=== PATIENT | male | born 1955 | race Caucasian/White ===

== ENCOUNTER 2023-03-23 09:29 | Outpatient (OUT) | payer OTHER, SELFPAY ==
[2023-03-23 10:41] LABS: Prostate Specific Antigen Dx 2.04 ng/mL (<=4.00)
== END 2023-03-23 09:30 | disposition home or self-care (01) ==
LOC: LAB 09:40
PROVIDERS: PCP Family Medicine; Visit Provider Urology
DX: C61 Malignant neoplasm of prostate (principal); N40.1 Benign prostatic hyperplasia with lower urinary tract symptoms; Z80.42 Family history of malignant neoplasm of prostate
CPT/HCPCS: 36415; 84153

== ENCOUNTER 2023-09-27 12:26 | Emergency (ER) | payer MEDICARE, OTHER, SELFPAY ==
[2023-09-27] VITALS (9 sets, daily range): BP systolic 141; BP diastolic 84; PULSE 62–68; TEMP 36.6; O2SAT 94–100; BMI 24.4
--- OUTSIDE RECORDS SUMMARY | 2023-09-27 12:48 | XMS_ITS | CCD ---
Author Organization [facility] Care Team Providers Care 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 Name Role Phone MONK HERBERT Jerod WEBB Unavailable Unavailable WONDERLY, YOBANY Unavailable Unavailable WONDERLY, YOBANY Unavailable Unavailable WONDERLY, YOBANY Primary Care Physician ETTA ., DR AUSTIN Attending Unavailable WONDERLY, DR LIBERTAD Roberson Primary Care Unavailable SALAZAR ., DR AUSTIN Admitting Unavailable SALAZAR ., DR AUSTIN Consulting Unavailable WONDERLY, DR LIBERTAD Roberson Primary Care Unavailable SALAZAR ., DR AUSTIN Admitting Unavailable SALAZAR ., DR AUSTIN Consulting Unavailable SALAZAR ., DR AUSTIN Attending Unavailable Ovidio SALAZAR Attending Unavailable Ovidio SALAZAR Attending Unavailable Ovidio SALAZAR Attending Unavailable Libertad Domingo MD Primary Care Provider LICO, LOS C Attending Unavailable NAT BRUMFIELDZABETH A Referring Unavailable WONDERLY, LIBERTAD B Primary Care Unavailable LICO, LOS C Attending Unavailable LICO, LOS C Referring Unavailable WONDERLY, LIBERTAD B Primary Care Unavailable LICO, LOS C Attending Unavailable LICO, LOS C Referring Unavailable WONDERLY, LIBERTAD B Primary Care Unavailable LICO, LOS C Attending Unavailable LICO, LOS C Referring Unavailable WONDERLY, LIBERTAD B Primary Care Unavailable LICO, LOS C Referring Unavailable WONDERLY, LIBERTAD B Primary Care Unavailable LICO, LOS C Attending Unavailable LICO, LOS C Referring Unavailable WONDERLY, LIBERTAD B Primary Care Unavailable LICO, LOS C Attending Unavailable LICO, LOS C Referring Unavailable WONDERLY, LIBERTAD B Primary Care Unavailable JEANNETTE, SOFIE A Referring Unavailable WONDERLY, LIBERTAD B Primary Care Unavailable JEANNETTE, SOFIE A Referring Unavailable WONDERLY, LIBERTAD B Primary Care Unavailable Libertad Domingo MD Primary Care Unavailable Lico, Los C Admitting Unavailable Lico, Los C Attending Unavailable NAT BRUMFIELDZABETH A Attending Unavailable Allergies Allergy Classification Reported Allergen(s) Allergy Type Date of Onset Reaction(s) Facility (9 sources) alfuzosin; Translations: [alfuzosin] Drug Allergy 8 Anxiety (finding), Dyspnea (finding) [facility] (1 source) alfuzosin Drug Allergy [facility] (1 source) No Known Medication Allergies; Translations: [No Known Medication Allergies] Propensity to adverse reactions (disorder) [facility] Medications Current Medications Medication Drug Class(es) Dates Sig (Normalized) Sig (Original) ascorbic acid 250 mg oral tablet (2 sources) Vitamin C take 250 mg by mouth once daily ascorbic acid (VITAMIN C ORAL) Take by mouth. GUMMIES 250 MG DAILY 0 Active aspirin 81 mg oral tablet (6 sources) Platelet Aggregation Inhibitor, Nonsteroidal Anti-inflammatory Drug Start: 08-04-2019 take 1 mg by mouth once daily aspirin 81 mg oral tablet mg tab(s), Oral, Daily, Refills(s) 0 Start Date: 08/04/19 Status: Ordered take 1 tablet by mouth in the mo rning aspirin 81 mg Take 1 tablet (81 mg total) by mouth in the morning. 0 Active bisoprolol fumarate 2.5 mg / hydroCHLOROthiazide 6.25 mg oral tablet (6 sources) Thiazide Diuretic, beta-Adrenergic Mehdi Start: 11-14-2018 take 1 tablet by mouth once daily bisoprolol-hydrochlorothiazide 2.5 mg-6.25 mg Tab tab(s), Oral, Daily, Refill(s) 0 Start Date: 11/14/18 Status: Ordered take 1 tablet by [place] th once in the morning bisoprolol-hydroCHLOROthiazide (ZIAC) 5- 6.25 mg per tablet Take 1 tablet by mouth in the morning. 0 Active take 1 tablet by [place] th once daily bisoprolol-hydroCHLOROthiazide (ZIAC) 5- 6.25 mg per tablet Take 1 tablet by mouth daily. 0 Active Chondroitin Sulfates / Glucosamine (2 sources) Start: 02-05-2020 Cosamin DS Sta rt Date: 02/05/20 Status: Ordered finasteride 5 mg oral tablet (6 sources) 5-alpha Reductase Inhibitor Start: 01-06-2021 take 1 tablet by mouth once daily finasteride 5 mg Tab 5 mg = 1 tab(s), Oral, Daily, # 90 tab(s), Refills(s) 3, Pharmacy: [facility] [id number], 175, cm, 07/13/22 9:14:00 EDT, Height/Length Dosing, 78, kg, 07/13/22 9:14:00 EDT, Weight Dosing Start Date: 03/08/23 Status: Ordered Glucosamine (2 sources) take 2 capsules by mouth once daily glucosamine sulfate (GLUCOSAMINE ORAL) Take by mouth. 2 CAPSULES PER DAY 0 Active Multi Vitamin+ (2 sources) Start: 08-04-2019 Multi Vitamin+ Refill(s) 0 Start Date: 08/04/19 Status: Ordered jsittmhv-uzpm-LF-ca lcium &mins (THERAGRAN-M) 9 mg iron-400 mcg tablet (4 sources) fcyrzfrp-mlie-FZ -c alcium &mins (THERAGRAN-M) 9 mg iron-400 mcg tablet Take 1 tablet by mouth in the morning. 0 Active ohhaoerd-yhuh-CH -calcium &mins (THERAGRAN-M) 9 mg iron-400 mcg tablet Take 1 tablet by mouth daily. 0 Active Omeprazole (6 sources) Proton Pump Inhibitor Start: 11-14-2018 omeprazo le Oral, Daily, Refills(s) 0 Start Date: 11/14/18 Status: Ordered take 1 capsule by mo uth three times weekly omeprazole (PriLOSEC) 10 mg capsule Take 1 capsule (10 mg total) by mouth. 3 TIMES A WEEK 0 Active Saw Flomot (2 sources) Start: 11-14-2018 Saw Flomot R efills(s) 0 Start Date: 11/14/18 Status: Ordered SAW PALMETTO ORAL (2 sources) take 1350 mg by mout h in the morning SAW PALMETTO ORAL Take 1,350 mg by mouth in the morning. 0 Active Completed/Discontinued Medications Medication Drug Class(es) Dates Sig (Normalized) Sig (Original) saw palmetto xtr/zinc picolin (SAW PALMETTO EXTRACT, W-ZINC, ORAL) (3 sources) End: 04-29-2023 take 1 tablet by mouth once daily saw palmetto xtr/zinc picolin (SAW PALMETTO EXTRACT, W-ZINC, ORAL) Take 1 tablet by mouth daily. 0 04/29/2023 Discontinued take 1 tablet by mouth once oriana y yvonne palmetto xtr/zinc picolin (SAW PALMETTO EXTRACT, W-ZINC, ORAL) Take 1 tablet by mouth daily. 0 Active Problems Active Problems Problem Classification Problem Date Documented Da te Episodic/Chronic Aortic; peripheral; and visceral artery aneurysms (4 sources) Aortic root dilatation; Translations: [Thoracic aortic ectasia] Onset: 04-29-2023 04-29-2023 Chronic Cancer of prostate (9 sources) Primary malignant neoplasm of prostate; Translations: [Malignant neoplasm of prostate] Onset: 07-06-2017 Chronic Cardiac and circulatory congenital anomalies (1 source) Patent foramen ovale; Translations: [Patent foramen ovale] Onset: 04-16-2023 Chronic Cardiac dysrhythmias (2 sources) Atrial fibrillation 09-25-2018 Chronic Coronary atherosclerosis and other heart disease (4 sources) Coronary arteriosclerosis; Translations: [Atherosclerotic heart disease of [place] coronary artery with other forms of angina pectoris] Onset: 04-29-2023 04-29-2023 Chronic Essential hypertension (3 sources) Hypertensive disorder; Translations: [Essential (primary) hypertension] Onset: 04-16-2023 09-25-2018 Chronic Genitourinary symptoms and ill-defined conditions (4 sources) Delay when starting to pass urine; Translations: [Microscopic hematuria] 11-14-2018 Episodic Heart valve disorders (6 sources) Aortic incompetence, non-rheumatic ; Translations: [Nonrheumatic aortic (valve) insufficiency] Onset: 04-16-2023 04-29-2023 Chronic Hyperplasia of prostate (5 sources) Benign prostatic hypertrophy with outflow obstruction; Translations: [Benign prostatic hyperplasia with lower urinary tract symptoms] Onset: 07-07-2021 Chronic Other diseases of kidney and ureters (1 source) Urinary tract obstruction; Translations: [Other obstructive and reflux uropathy] Onset: 07-07-2021 Episodic Other lower respiratory disease (3 sources) Dyspnea; Translations: [Shortness of breath] Onset: 04-29-2023 04-29-2023 Episodic Other lower respiratory disease (2 sources) Shortness of breath; Translations: [Shortness of breath] Onset: 04-29-2023 Episodic Residual codes; unclassified (2 sources) Family history of cancer; Translations: [Family history of malignant neoplasm of prostate] Onset: 07-07-2021 Episodic Residual codes; unclassified (2 sources) Family history of prostate cancer 09-25-2018 Episodic Unclassified (1 source) New Patient / [id number]() Onset: 07-06-2017 Unclassified (1 source) Prostate Cancer / 309() Onset: 07-06-2017 Unclassified (1 source) New Patient Onset: 04-29-2023 Past or Other Problems Problem Classification Problem Date Documented Da te Episodic/Chronic Appendicitis and other appendiceal conditions (4 sources) Acute perforated appendicitis; Translations: [Acute appendicitis with perforation and localized peritonitis, without abscess] Onset: 06-15-2018 06-15-2018 Episodic Other screening for suspected conditions (not mental disorders or infectious disease) (12 sources) Raised prostate specific antigen; Translations: [Elevated prostate specific antigen [PSA]] Onset: 04-20-2019 Episodic Residual codes; unclassified (1 source) Family history of malignant neoplasm of prostate; Translations: [FAMILY HX MALIG NEOPLASM PROSTATE] Onset: 01-05-2022 Episodic Unclassified (1 source) New Patient; Translations: [New Patient] Onset: 07-06-2017 Unclassified (4 sources) Onset: 04-20-2019 04-20-2019 Results Test Name Value Interpretation Reference Range Facility CT CTA CHESTon 05-11-[address] CTA CHEST History: Nonrheumatic aortic valve insufficiency; Shortness of breath Aortic aneurysm procedure: Multidetector CT thoracic Angiogram performed with IV contrast without complication, including 3 -D Maximum intensity projection reconstructions constructed under concurrent physician supervision on a independent workstation to optimize vascular assessment. Automated exposure control was utilized. Findings: 3D reformatted images confirm the source data findings. Origins of great vessels off the aortic arch are patent Mid ascending thoracic aortic aneurysm 42.8 mm. Aortic root maximum caliber at the coronary sinus level 42 mm No dissection stenosis or occlusion Mediastinum and harriett show no acute findings. lungs demonstrate no acute findings Impression: Mid ascending thoracic aortic aneurysm 42.8 mm No acute findings. All CT scans at this facility use dose modulation, iterative reconstruction, and/or weight based dosing when appropriate to reduce radiation dose to as low as reasonably achievable. Finalized by Carlos Osuna MD on 05/11/2023 7:55 PM Normal [facility] CREATININEon 05-10-2023 Creatinine [Mass/Vol] 0.90 mg/dL Normal 0.70-1.20 [facility] Comment on above: Result Comment: METH OD TRACEABLE TO IDMS STANDARD Performed By: #### C RT #### [facility] ([id number]) [address] [place] [id number] eGFR (CKD-EPI) NON-RACE DEPENDENT >90 Normal >59 [facility] Comment on above: Result Comment: Reported eGFR is based on the CKD-EPI 2020 equation that does not use a race coefficient. Performed By: #### C RT #### [facility] ([id number]) [address] [place] [id number] Coding Summaryon 05-04-2023 [facility] Summary [facility] FwvxzcgfDKi8aLq+PGhlYW Q+VS7MNYBlM87dpHXocN5j J5XAWFgZRwpsDFGPXIyVLz QxecBhTK2ksVFfTBWi IC8+YJ2mVRJxWwaonCSky3 H9hES4L37gtn2wRNfvpVC9 RVAuKcZqxqaly6kiqKm2ZF cuNmluOyBt YPUvjU89XFZ2rO52Jt36gW OohVRfs8ytrUl6AhArNYNr SIC6zRdhTTjnf3FsOIPnW9 2ooHRvv0M3 UQHjjWbczRKfKjAxyWT5oY 2xWFoxopxjz5edyonfJpl2 fd67qQLzj1B5uIQ1D3Qmfh P2BJCdnIAd KkrhtATKyA2mqnpdw0notj pwZjZqQURpYSx3TSg3KANn cVhsLmUcQW52OHK8OMMfer YpD3AdLHGq tXzjEfU2n4T2Vj4NI3LLXf epX7YTIKXNEFhdcKJ+PC90 bm76I9ImIibpSvg8CBLiIU V1jIW0rB0u TZSyHOxkj5D4aCV6K7Bqzu Fluw9oy9duBXRvVEikH96p uRYrv4L2IWRlsKW5QMGpoV uvOpChcW08 Oyc+OTOevYdep9RiUpxrx8 cmb2pplTy0AvwxDYKagsKc pAuxAHR2q5TaSa1fVFAxbY L8lBS5xV4b RbAgAnR6DOqpC338HgPpfB BaKcmhS08gJ2XbwLW+PHRy Rtu4DXMbxMohZJ6cI0WfKG RpbmctbGVm tDhaIV8jGPFmsylvXXMdsP 4aTORlJ1s2DcDkVpU1VGwb Z9SpLFXnypkeFh50lI0dQm ZfTrE6LNaj P9WndtQ2NSRoeDXpCJdoEM P5E43vz8A5OKBmRSPqFNA9 nLG4aB9ttQauzhhndDVheT sgdmVydGlj JBfwGPomS273NENsjNwwAi NvZGluZyBEYXRlOiAgMDMv MTIvMjAyNDwvdGQ+PHRkIH L1eTciLYEx cKBwDAoiOz5wrWctnDrsBY 2mMZHneyfrYHUkdW2lSKZw xOZciLupCK4qCSBkyoznf7 36InEvJYS9 SNZeyKIyZ4FjoM4qEfIjZN MmJUDdN1ZyaIKzJJepZ845 SYulFxV5RWPxooRzZ3QyAT FsaWduOiB0 r7D2Oj9Pb0UuejqrE7IqwV GmXySqUjzdNVb2Z4NhXgkt dHI+DX69UXXmKX50MMi6UA C0nUbrQJgm VYEzH6KntS9eHxCjRCJtNN RkOyc+PHRhYmxlIHdpZHRo CCjfFFVnPmHcxDviXQ2xTa 9yZGVyLWNv tCnpxHIeQpFia6yfJMLdDE muJP1jyLhvB2TvkES5HGBe b1s7Uh74G54nB0WwjCV+PG YlcND9iRS6 sO6pCdLuXuC5VLrrZ977Di ThyQXvEvvkr1zos9muqOs2 CuU4EROllzHstWxfXCE6b3 AbAk33F44v IHdpZHRoPSIxNSUiIHZhbG olwu4tlH5dMi8+PGNvbCB3 mXD5qT4rJiXkNgD6TXbtN6 49InRvcCIv Odzqq8trk4ilaZl0IuThXT WrfkEvoOtgXWX5m4VcMm20 I0PgtVeap4IkRdq0ye34jB Buu5V2tLE9 G9HcJHBgqfzljNIopEfpCK 4qLKTiktbvLRWotT5hDQBs A7j4GcIaYpW0SEjjY7Wgeo Z6OSIcoQYy TAVslQBJyO4zovvue1blhu vmYeHcXXYxOTm9PKe6IVZk wRohKcHzZFP9PtE1PPJ4fO CnzX0epChr alvieP1xCvi+WES9nTBhtO IBHE2kBkwlzXF+PHRkIHN0 kRbwSEcoDUKmvB3vYGYgK1 g8UcBsFxX9 TStsI1FylbB7MMNjyTLlSG NhqHNOsJ2thganf7mvhczf RbDzUWBzSFx0NHk5WKVghR duOiBsZWZ0 HrK8PRJ2gQQwhF2mpWddgd qxbC0wRzb+QmlydGggRGF0 GWz6M6GjGpv8HDQlwKlgIF 0ncGFkZGlu Rv8erFwdpLgnAT9kKXNxnt cvz753OiKxh6uzXMDucUOw JZsxRJL8V48th6N4NRNsBD YqMLB3wVS0 aV6brEkognfboTGhsDgaxs IdbUdbXJunLGdwU016PJBo rOuiTaCxSBz7W9RgXrp9TQ SnbFhwVT3a uSYyIEmlGl2okSqwlQoaWG 2fXSYyhdzoh822HePve2pm UMUciOFiRJocBWX5Q34qg6 N3STQaAHCf GTA8iCV8fW3bsXmthwfwqJ VmdDsgdmVydGljYWwtYWxp U199HGLqfUmbFcPukIp5G7 FxLaj6SMJq xFxiJL0uhNDxDDjiKl2evR dheExtUW8pQNLxzithl334 IoCde6vzKWFqgOFbYSsrLW B5G47co0V3 FFCsJIZpUWU4pIZ6wV3iyM lnbjogbGVmdDsgdmVydGlj UFcyJIruP235PWYybVwgLv BhdGllbnQg KLcnTQv8T5UyCxftrVA+PC 88ICDjRZ53uRCpxWVpz1rg xCe4PyNzOPGcPCS9hXvxLI rlr1BwAFOo F37lxITbh0J4GSZlmXpbfL NwFhGdjXQ2vL8zGCnoisuy g8qalhniDoctc3rlye89pP 69N87wXSlk ZHRoPSIzMCUiIHZhbGlnbj 7ajL0eEu0+BNPrnBI0yCF8 nP2uDOPdOtQ7ALarM097Dw RvcCIvPjxj n9aaw3yofNr5SlG8SEPmve FtmAfxEYU6m9CtYe06F41s IHdpZHRoPSIyMCUiIHZhbG ztvc8luW4k Ii8+HPCksHV7zEP7dV2kYp TgBgG3WSatV062QwSfoVGz ZuzzV64vE1ZwmBM+PHRyPj t6EJHslSyh FN7lhRLrWAgxBl0xPXK0Vn LfVkVeSIopX7AoCWFzmlia racxnDM2EMVpPPXpwZ65Ji 9udDogMTBw yQWItG3mgznlj9bzsjyjJi KxMKGpKNc4VAs7LWNwiPzt WlLfIFH0KuS8RLZ5hGWouN 1hbGlnbjog kG7jX6JlKJWsolfrHg34lU 1gGuYwDwZ5FTvhRnx+WklN IONCCCEXKJJNOV7COVrEWK xFRTwvdGQ+ SPFpHJH1kYjoBQuhRUDshS 2zZKCcT2x2OlNlEkK9ZBtl N1MeYNRvwcqtGk97pI9eZq AoAoE5VNxy R2UtafQ0ADBpwBXpFCjkRD C3I66kg3D7PMWoOBItDSI2 rQR5aI0owIafhnabmZXtfW sgdmVydGlj XQmuWVbkK650IGYivRgmZk T3VvTwZiC4OJA3D1CeDaw0 LXYjxMjaPN4qiJTiTXkzSx 1yaWdodDog QB3wJEIdgblcKGCncY8pPZ PlaGIzpTymEZ2xDCEuupao p919ZtPpVOG4XKZjhMGyF5 QbwO7mVnYo RTCqUYYgR3BleANwNQozZ2 94BCdjCwR7KWUugnAiT1Nq CGIltJwxIbA7u8E6Ra21CO BZZWFyczwv dGQ+CNLfZRT9qZjlILmdCZ VnxZ1uAXMlK0i9SiXyFqL2 OBlxF1JdCITokuufPv66aZ 4kPzMdCjI7 EQpxJ9JjttC8NFSooEXvZQ vcMAX6S63gr6G5YDVlJKAm SHX2dRZ6dO3koQlvdhakhK VmdDsgdmVy oTttTWrcEMzlT131KINivW ayBr3NVHD8O7JeZzv7XYHz eUupFF0rrNKlVYecRa2aiE fuvLtjDI4l YDVodqphSATqbW5pHBUveH VgbLwkZB1kDAZzkfjni535 PxAgSAW7OJBozNZsD4LgoS 9yOiAjMDAw EUVqY9EaiJSyZIioE040VM mpVlJ3MGPhukZeP4DpOOCv zRnkZbB3y0E4Oz0NLUwbgJ Q+LF18ov73 M0MxIndeGnd7WIEhFCC1pO Y2xD7rVDMhQIfzp3T5eUE8 Z8QbmiRdnh4ux7zjRDFjYO vnB80jnCWi t0D8NBPxdYJ7YQGfqSvcIh IesD85Euw+XURzjGfts4Lm Zdzce7jkk7luaSj6MaUfJS IgdmFsaWdu VRE6e4VpZo60H87yDIyzUW TmOIMiDIEuJZDzaBmqul5z lH5lXi6+AJAcyRM9hMZ8lZ 8hIyEbNtV1 BKiyK003AePqkYViPcljs7 fdf2bhjAe2MpXzFDVfgbMp mNtdBOM5o3UtIt53E3FcrI jqr1AqLaq6 bz02iJObf1U5kYC9Z8UrNR DnnvjqjNYqaSeqAA1iYRAc eodzXWWoxG5qXNKvE3c2Dc RoTfU0NXtu G4NsbcZ9HRGmkEHdBMSjtF MNjV5wdxsbe3zjylnmRyPd AJFqIOp2LBz2EHHlsNckQp FlFBF1ZdA7 TUC7cWSosT4xxPzfxxkcaK 9wOyc+IOl2r2zlhOMcYT3p zJC4YE68PG65pDRda9X2vX R9L7GaSVJy wxtsaaxvxAF7FGExWQTrpD 08Ig8yuLqbMw2aHGMqENT0 VBRmtYGhT2QjqH9iAcSvCI BvBTYdH8Ux fLQcBOseK528WZvkFnM0TV AsgeHxN0RkAJAmdXdtNwQ3 s0L4Sw8JQY94LJ99AC03fS Rem5D2vGR0 Y5ImXOFvpptfqlojiME3XC SlZQJynW35Db6yzJzuTz9u IAVoCBI8MJYojGWyB6UwpW 9yOiAjMDAw MNCyF8JkxLXlSYslH750UQ xxCyL1XTTmxpUvK2FlSYCs cPavOcY6q5Z3Yd3DHt57EW 46AL28eFXy b3G7hIG8D4ZcSDQfgtaypl tyvGI7UKJqRJDudS88Ph7e gNhmMt5lOQRtJRR9BNGkoL WcA2ZwoU2v ArVeZDHiLSOlZ0BkrDVkDT cwV696KDaqVlN9UYUwcpKu F6GmHOSsuVsjLdR4j4G6Cp 9WTStookc1 O1BqBqtlcQJ+XQ30PEIiWS 02zCYnrWKny3xctMj7FmRf ORKiGNW0nYqeBRhpd2PjPN AiP82qqJFz c2U (more content not included)... [facility] Ambulatory Visit Summaryon 0 04-02-2023 Ambulatory Visit Summary BEREKET FU :1955 Visit Date:04/02/2023 Ambulatory Visit Instructions Your Diagnosis Prostate cancer Enlarged prostate with urinary obstruction Family history of prostate cancer in father Your Care Team Attending Physician - Ovidio SALAZAR MD Primary Care Physician - LIBERTAD DOMINGO This Is Your Medications List finasteride (finasteride 5 mg Tab) Contact prescribing physician if questions or concerns aspirin (aspirin 81 mg oral tablet) bisoprolol-hydrochloro thiazide (bisoprolol-hydrochlor othiazide 2.5 mg-6.25 mg Tab) chondroitin-glucosamin e (Cosamin DS) multivitamin (Multi Vitamin+) omeprazole saw palmetto (Saw Flomot) Procedures Performed Transrectal biopsy of prostate using ultrasound (US) guidance (05/10/2018), Appendectomy (2018), Cystoscopy and transurethral biopsy of prostate (05/04/2017), Colonoscopy, Shoulder, Vasectomy. Discharge Vitals Heart Rate (Peripheral) 74 Respiratory Rate 16 Blood Pressure 136/84 Height 175 cm Height 69 in Weight 78 kg Weight 171.6 lb BMI 25.47 What to do next You Need to Schedule the Following Appointments Follow Up with ETTA WILLAMS, JACKSON Rodriguez When: In 8 months Comments: w/ PSA Where: [facility] [address], [place] [address] [phone] Medications What How Much When Instructions Unchanged finasteride (finasteride 5 mg Tab) 1 Tablets By Mouth Every day Unchanged aspirin (aspirin 81 mg oral tablet) By Mouth Every day Contact prescribing physician if questions or concerns Unchanged bisoprolol-hydrochloro thiazide (bisoprolol-hydrochlor othiazide 2.5 mg-6.25 mg Tab) By Mouth Every day Contact prescribing physician if questions or concerns Unchanged chondroitin-glucosamin e (Cosamin DS) Contact prescribing physician if questions or concerns Unchanged multivitamin (Multi Vitamin+) Contact prescribing physician if questions or concerns Unchanged omeprazole By Mouth Every day Contact prescribing physician if questions or concerns Unchanged saw palmetto (Saw Flomot) Contact prescribing physician if questions or concerns Allergies alfuzosin (Anxiety, SOB - Shortness of breath) Problems Ongoing - Any problem that you are currently receiving treatment for. Atrial fibrillation Elevated PSA Enlarged prostate with urinary obstruction Family history of prostate cancer in father Hematuria, microscopic Hesitancy Hypertension Prostate cancer Patient Survey You may receive a survey via text or e-mail asking about your office visit. Please share your experience with us by completing your survey. We appreciate your feedback and thank you for choosing us for your care. Education Materials Prostate Cancer Screening Prostate cancer screening is testing that is done to check for the presence of prostate cancer in men. The prostate gland is a walnut-sized gland that is located below the bladder and in front of the rectum in males. The function of the prostate is to add fluid to semen during ejaculation. Prostate cancer is one of the most common types of cancer in men. Who should have prostate cancer screening? Screening recommendations vary based on age and other risk factors, as well as between the professional organizations who make the recommendations. In general, screening is recommended if: ? You are age 50 to 70 and have an average risk for prostate cancer. You should talk with your health care provider about your need for screening and how often screening should be done. Because most prostate cancers are slow growing and will not cause , screening in this age group is generally reserved for men who have a 10- to 15-year life expectancy. ? You are younger than age 50, and you have these risk factors: ? Having a father, brother, or uncle who has been diagnosed with prostate cancer. The risk is higher if your family member's cancer occurred at an early age or if you have multiple family members with prostate cancer at an early age. ? Being a male who is Black or is of [place] or sub-Saharan descent. In general, screening is not recommended if: ? You are younger than age 40. ? You are between the ages of 40 and 49 and you have no risk factors. ? You are 70 years of age or older. At this age, the risks that screening can cause are greater than the benefits that it may provide. If you are at high risk for prostate cancer, your health care provider may recommend that you have screenings more often or that you start screening at a younger age. How is screening for prostate cancer done? The recommended prostate cancer screening test is a blood test called the prostate-specific antigen (PSA) test. PSA is a protein that is made in the prostate. As you age, your prostate naturally produces more PSA. Abnormally high PSA levels may be caused by: ? Prostate cancer. ? An enlarged prostate that is no (more content not included)... Normal [facility] Patient Educationon 04-02-19 Patient Education Oncology Prostate Cancer Screening Prostate cancer screening is testing that is done to check for the presence of prostate cancer in men. The prostate gland is a walnut-sized gland that is located below the bladder and in front of the rectum in males. The function of the prostate is to add fluid to semen during ejaculation. Prostate cancer is one of the most common types of cancer in men. Who should have prostate cancer screening? Screening recommendations vary based on age and other risk factors, as well as between the professional organizations who make the recommendations. In general, screening is recommended if: ? You are age 50 to 70 and have an average risk for prostate cancer. You should talk with your health care provider about your need for screening and how often screening should be done. Because most prostate cancers are slow growing and will not cause , screening in this age group is generally reserved for men who have a 10- to 15-year life expectancy. ? You are younger than age 50, and you have these risk factors: ? Having a father, brother, or uncle who has been diagnosed with prostate cancer. The risk is higher if your family member's cancer occurred at an early age or if you have multiple family members with prostate cancer at an early age. ? Being a male who is Black or is of [place] or sub-Saharan descent. In general, screening is not recommended if: ? You are younger than age 40. ? You are between the ages of 40 and 49 and you have no risk factors. ? You are 70 years of age or older. At this age, the risks that screening can cause are greater than the benefits that it may provide. If you are at high risk for prostate cancer, your health care provider may recommend that you have screenings more often or that you start screening at a younger age. How is screening for prostate cancer done? The recommended prostate cancer screening test is a blood test called the prostate-specific antigen (PSA) test. PSA is a protein that is made in the prostate. As you age, your prostate naturally produces more PSA. Abnormally high PSA levels may be caused by: ? Prostate cancer. ? An enlarged prostate that is not caused by cancer (benign prostatic hyperplasia, or BPH). This condition is very common in older men. ? A prostate gland infection (prostatitis) or urinary tract infection. ? Certain medicines such as male hormones (like testosterone) or other medicines that raise testosterone levels. A rectal exam may be done as part of prostate cancer screening to help provide information about the size of your prostate gland. When a rectal exam is performed, it should be done after the PSA level is drawn to avoid any effect on the results. Depending on the PSA results, you may need more tests, such as: ? A physical exam to check the size of your prostate gland, if not done as part of screening. ? Blood and imaging tests. ? A procedure to remove tissue samples from your prostate gland for testing (biopsy). This is the only way to know for certain if you have prostate cancer. What are the benefits of prostate cancer screening? ? Screening can help to identify cancer at an early stage, before symptoms start and when the cancer can be treated more easily. ? There is a small chance that screening may lower your risk of dying from prostate cancer. The chance is small because prostate cancer is a slow-growing cancer, and most men with prostate cancer from a different cause. What are the risks of prostate cancer screening? The main risk of prostate cancer screening is diagnosing and treating prostate cancer that would never have caused any symptoms or problems. This is called overdiagnosisand overtreatment. PSA screening cannot tell you if your PSA is high due to cancer or a different cause. A prostate biopsy is the only procedure to diagnose prostate cancer. Even the results of a biopsy may not tell you if your cancer needs to be treated. Slow-growing prostate cancer may not need any treatment other than monitoring, so diagnosing and treating it may cause unnecessary stress or other side effects. Questions to ask your health care provider ? When should I start prostate cancer screening? ? What is my risk for prostate cancer? ? How often do I need screening? ? What type of screening tests do I need? ? How do I get my test results? ? What do my results mean? ? Do I need treatment? Where to find more information ? The [employer]: www.cancer.org ? [employer]: www.auanet.org Contact a health care provider if: ? You have difficulty urinating. ? You have pain when you urinate or ejaculate. ? You have blood in your urine or semen. ? You have pain in your back or in the area of your prostate. Summary ? Prostate cancer is a common type of cancer in men. The prostate gland is located below the bladder and in front of the rectum. This gland adds flu (more content not included)... Normal [facility] Urology Office/Clinic Noteon 04-02-2023 Urology Office/Clinic Note Chief Complaint 8m PSA HPI Staff 8 month f/u with PSA Dx: Prostate cancer (ACTIVE SURVEILLANCE), BPH with urinary obstruction and family hx of prostate cancer (father) PSA: 03/23/23 is 2.04 Finasteride 5mg qd Pt denies all urinary symptoms. Has been having some discomfort in testicles for the past week. Denies swelling. Not too bothersome. History of Present Illness Tests reviewed: reviewed UA, PSA I have reviewed the previous health record information and history for this patient from Dr. Salazar. I have reviewed and verified the staff HPI to be accurate for this encounter. Review of Systems PHQ Score Initial Depression Screen Score: 0 SCORE ROS - Provider Constitutional: denies weight loss, denies hot flashes. Eyes: denies eye problems. Gastrointestinal: denies nausea, denies vomiting. Cardiovascular: denies chest pain or angina. Integumentary: no dryness Musculoskeletal: denies musculoskeletal symptoms. ENMT: denies otolaryngeal symptoms. Respiratory: no shortness of breath. Heme/Lymph: denies easy bleeding tendency, denies easy bruising tendency. Psychiatric: no confusion, no anxiety. Genitourinary: See HPI. Physical Exam Vitals & Measurements HR: 74(Peripheral) RR: 16 BP: 136/84 HT: 69 in HT: 175 cm WT: 78 kg WT: 171.6 lb BMI: 25.47 General Appearance: alert, no distress, well nourished, well developed male. Genitourinary: normal scrotum, normal testes, normal urethra, normal epididymis, normal vas deferens/spermatic cord. Flank Pain: none. Bladder: nonpalpable. Prostate: normal prostate, estimated weight 40 gms, no hard nodule observed. Assessment/Plan 1. Prostate cancer (C61: Malignant neoplasm of prostate) ACTIVE SURVELLIANCE. PSA: 12/31/20 - 1.60 07/01/21 - 1.70 01/01/22 - 1.82 07/07/22 - 1.73 03/23/23 - 2.04 TRUS/bx 05/04/17 - G 6 (3+3) x 1 core, ALISHA x 1 core, and HGPIN x 1 core. TRUS/bx 05/10/18 - Path was neg for malignancy. Chronic inflammation. MRI prostate 07/02/20 - PI-RADS 2. Prostate volume 29 cc. JENNIFER today: 40 g, no nodules. Pt has a good profile overall with minimal cancer in first bx, neg second bx, and low pi-rads score on MRI. Discussed PSA level w/ pt, has slightly increased from prior. Will continue to monitor. -F/u in 8 mos w/ PSA -Consider repeat bx or MRI if PSA continues to increase 2. Enlarged prostate with urinary obstruction (N40.1: Benign prostatic hyperplasia with lower urinary tract symptoms) Taking Finasteride 5mg qd. UA today negative for blood and infection. he is voiding very well -Cont Finasteride daily, pt to call for refills 3. Family history of prostate cancer in father (Z80.42: Family history of malignant neoplasm of prostate) Follow-up With When Contact Information ETTA WILLAMS, JACKSON Rodriguez In 8 months [facility] [address], [place] [phone] Additional Instructions: w/ PSA Patient Education Prostate Cancer Screening I, Shiloh Forrest, personally scribed for Dr. Salazar on 04/02/2023 10:15:53. . Documentation recorded by the scribe, Shiloh Forrest, accurately reflects the services(s) I performed and decisions made by me. Authenticated by Dr. Salazar on 04/02/2023 10:21:25. Problem List/Past Medical History Ongoing Atrial fibrillation Elevated PSA Enlarged prostate with urinary obstruction Family history of prostate cancer in father Hematuria, microscopic Hesitancy Hypertension Prostate cancer Historical No qualifying data Procedure/Surgical History Transrectal biopsy of prostate using ultrasound (US) guidance (05/10/2018), Appendectomy (2018), Cystoscopy and transurethral biopsy of prostate (05/04/2017), Colonoscopy, Shoulder, Vasectomy. Medications aspirin 81 mg oral tablet, Oral, Daily bisoprolol-hydrochloro thiazide 2.5 mg-6.25 mg Tab, Oral, Daily Cosamin DS finasteride 5 mg Tab, 5 mg= 1 tab(s), Oral, Daily, 3 refills Multi Vitamin+ omeprazole, Oral, Daily Saw Flomot Allergies alfuzosin (Anxiety, SOB - Shortness of breath) Social History Tobacco Never (less than 100 in lifetime) Tobacco Use:. Never Smokeless Tobacco Use:. Household tobacco concerns: No. Yes, 04/02/2023 Family History Pancreatic cancer: Father and Brother. Immunizations Vaccine Date Status Comments influenza virus vaccine, inactivated 12/30/2022 Recorded influenza virus vaccine, inactivated 12/01/2021 Recorded SARS-CoV-2 (COVID-19) [id number] 12/01/2021 Recorded influenza virus vaccine, inactivated 01/15/2021 Recorded SARS-CoV-2 (COVID-19) mRNA BNT-162b2 vax 01/15/2021 Recorded SARS-CoV-2 (COVID-19) mRNA BNT-162b2 vax 05/06/2020 Recorded 2022-01-12: [id number] SARS-CoV-2 (COVID-19) mRNA BNT-162b2 vax 04/15/2020 Recorded 2022-01-12: [id number] zoster vaccine, inactivated 03/18/2020 Recorded SARS-CoV-2 (COVID-19) mRNA BNT-162b2 vax 2020 Recorded pt states that he is fully vaccinated zoster vaccine, inactivat (more content not included)... [facility] Comment on above: Result Comment: Elec tronically Signed By: Ovidio SALAZAR MD\.br\Date and Time Signed: 04/02/23 10:21 EST\.br\Electronically Co-Signed By: Shiloh Forrest\.br\Date and Time Co-Signed: 04/02/23 10:18 EST Lab Report[facility] 03-23-2023 Lab Reports [id number] 0TIFF [facility] Ambulatory Visit Summaryon 0 07-13-2022 Ambulatory Visit Summary BEREKET FU :1955 Visit Date:07/13/2022 Ambulatory Visit Instructions Your Diagnosis Prostate cancer Enlarged prostate with urinary obstruction Family history of prostate cancer in father Tests Performed Urnls Dip Stick Auto w/o Microscopy POC 13575 Your Care Team Attending Physician - Ovidio SALAZAR MD Primary Care Physician - LIBERTAD DOMINGO This Is Your Medications List finasteride (finasteride 5 mg Tab) Contact prescribing physician if questions or concerns aspirin (aspirin 81 mg oral tablet) bisoprolol-hydrochloro thiazide (bisoprolol-hydrochlor othiazide 2.5 mg-6.25 mg Tab) chondroitin-glucosamin e (Cosamin DS) multivitamin (Multi Vitamin+) omeprazole saw palmetto (Saw Flomot) Procedures Performed Transrectal biopsy of prostate using ultrasound (US) guidance (05/10/2018), Appendectomy (2018), Cystoscopy and transurethral biopsy of prostate (05/04/2017), Colonoscopy, Shoulder, Vasectomy. Discharge Vitals Heart Rate (Peripheral) 79 Respiratory Rate 16 Blood Pressure 138/87 Height 175 cm Height 69 in Weight 78 kg Weight 171.6 lb BMI 25.47 What to do next You Need to Schedule the Following Appointments Follow Up with ETTA WILLAMS, JACKSON Rodriguez When: Where: [facility] [address], [place] [address]- Medications What How Much When Instructions Unchanged finasteride (finasteride 5 mg Tab) 1 Tablets By Mouth Every day Unchanged aspirin (aspirin 81 mg oral tablet) By Mouth Every day Contact prescribing physician if questions or concerns Unchanged bisoprolol-hydrochloro thiazide (bisoprolol-hydrochlor othiazide 2.5 mg-6.25 mg Tab) By Mouth Every day Contact prescribing physician if questions or concerns Unchanged chondroitin-glucosamin e (Cosamin DS) Contact prescribing physician if questions or concerns Unchanged multivitamin (Multi Vitamin+) Contact prescribing physician if questions or concerns Unchanged omeprazole By Mouth Every day Contact prescribing physician if questions or concerns Unchanged saw palmetto (Saw Flomot) Contact prescribing physician if questions or concerns Test Results Urnls Dip Stick Auto w/o Microscopy POC 24195 (07/13/2022) Bilirubin Urine Dipstick - Negative Blood Urine Dipstick - Trace-intact Glucose Urine Dipstick - Negative Ketones Urine Dipstick - Negative Leukocytes Urine Dipstick - Negative Nitrite Urine Dipstick - Negative Protein Urine Dipstick - Negative Specific [place] Urine Dipstick - 1.015 Urine Appearance Urine Dipstick - Clear Urine Color Urine Dipstick - Yellow Urobilinogen Urine Dipstick - Normal 0.2-1 EU/dl pH Urine Dipstick - 5.5 Allergies alfuzosin (Anxiety, SOB - Shortness of breath) Problems Ongoing - Any problem that you are currently receiving treatment for. Atrial fibrillation Elevated PSA Enlarged prostate with urinary obstruction Family history of prostate cancer in father Hematuria, microscopic Hesitancy Hypertension Prostate cancer Education Materials Prostate Cancer The prostate is a small gland that produces fluid that makes up semen (seminal fluid). It is located below the bladder in men, in front of the rectum. Prostate cancer is the abnormal growth of cells in the prostate gland. What are the causes? The exact cause of this condition is not known. What increases the risk? You are more likely to develop this condition if: ? You are 65 years of age or older. ? You have a family history of prostate cancer. ? You have a family history of breast and ovarian cancer. ? You have genes that are passed from parent to child (inherited), such as BRCA1 and BRCA2. ? You have Bahena syndrome. men and men of descent are diagnosed with prostate cancer at higher rates than other men. The reasons for this are not well understood and are likely due to a combination of genetic and environmental factors. What are the signs or symptoms? Symptoms of this condition include: ? Problems with urination. This may include: ? A weak or interrupted flow of urine. ? Trouble starting or stopping urination. ? Trouble emptying the bladder all the way. ? The need to urinate more often, especially at night. ? Blood in urine or semen. ? Persistent pain or discomfort in the lower back, lower abdomen, or hips. ? Trouble getting an erection. ? Weakness or numbness in the legs or feet. How is this diagnosed? This condition can be diagnosed with: ? A digital rectal exam. For this exam, a health care provider inserts a gloved finger into the rectum to feel the prostate gland. ? A blood test called a prostate-specific antigen (PSA) test. ? A procedure in which a sample of tissue is taken from the prostate and checked under a microscope (prostate biopsy). ? An imaging test called transrectal ultrasonography. Once the conditi (more content not included)... Normal [facility] Patient Educationon 07-14-19 Patient Education Oncology Prostate Cancer The prostate is a small gland that produces fluid that makes up semen (seminal fluid). It is located below the bladder in men, in front of the rectum. Prostate cancer is the abnormal growth of cells in the prostate gland. What are the causes? The exact cause of this condition is not known. What increases the risk? You are more likely to develop this condition if: ? You are 65 years of age or older. ? You have a family history of prostate cancer. ? You have a family history of breast and ovarian cancer. ? You have genes that are passed from parent to child (inherited), such as BRCA1 and BRCA2. ? You have Bahena syndrome. men and men of descent are diagnosed with prostate cancer at higher rates than other men. The reasons for this are not well understood and are likely due to a combination of genetic and environmental factors. What are the signs or symptoms? Symptoms of this condition include: ? Problems with urination. This may include: ? A weak or interrupted flow of urine. ? Trouble starting or stopping urination. ? Trouble emptying the bladder all the way. ? The need to urinate more often, especially at night. ? Blood in urine or semen. ? Persistent pain or discomfort in the lower back, lower abdomen, or hips. ? Trouble getting an erection. ? Weakness or numbness in the legs or feet. How is this diagnosed? This condition can be diagnosed with: ? A digital rectal exam. For this exam, a health care provider inserts a gloved finger into the rectum to feel the prostate gland. ? A blood test called a prostate-specific antigen (PSA) test. ? A procedure in which a sample of tissue is taken from the prostate and checked under a microscope (prostate biopsy). ? An imaging test called transrectal ultrasonography. Once the condition is diagnosed, tests will be done to determine how far the cancer has spread. This is called staging the cancer. Staging may involve imaging tests, such as a bone scan, CT scan, PET scan, or MRI. Stages of prostate cancer The stages of prostate cancer are as follows: ? Stage 1 (I). At this stage, the cancer is found in the prostate only. The cancer is not visible on imaging tests, and it is usually found by accident, such as during prostate surgery. ? Stage 2 (II). At this stage, the cancer is more advanced than it is in stage 1, but the cancer has not spread outside the prostate. ? Stage 3 (III). At this stage, the cancer has spread beyond the outer layer of the prostate to nearby tissues. The cancer may be found in the seminal vesicles, which are near the bladder and the prostate. ? Stage 4 (IV). At this stage, the cancer has spread to other parts of the body, such as the lymph nodes, bones, bladder, rectum, liver, or lungs. Prostate cancer grading Prostate cancer is also graded according to how the cancer cells look under a microscope. This is called the Piedmont score and the total score can range from 6?10, indicating how likely it is that the cancer will spread (metastasize) to other parts of the body. The higher the score, the greater the likelihood that the cancer will spread. ? Garland 6 or lower: This indicates that the cancer cells look similar to normal prostate cells (well differentiated). ? Garland 7: This indicates that the cancer cells look somewhat similar to normal prostate cells (moderately differentiated). ? Piedmont 8, 9, or 10: This indicates that the cancer cells look very different than normal prostate cells (poorly differentiated). How is this treated? Treatment for this condition depends on several factors, including the stage of the cancer, your age, personal preferences, and your overall health. Talk with your health care provider about treatment options that are recommended for you. Common treatments include: ? Observation for early stage prostate cancer (active surveillance). This involves having exams, blood tests, and in some cases, more biopsies. For some men, this is the only treatment needed. ? Surgery. Types of surgeries include: ? Open surgery (radical prostatectomy). In this surgery, a larger incision is made to remove the prostate. ? A laparoscopic radical prostatectomy. This is a surgery to remove the prostate and lymph nodes through several small incisions. It is often referred to as a minimally invasive surgery. ? A robotic radical prostatectomy. This is laparoscopic surgery to remove the prostate and lymph nodes with the help of robotic arms that are controlled by the surgeon. ? Cryoablation. This is surgery to freeze and destroy cancer cells. ? Radiation treatment. Types of radiation treatment include: ? External beam radiation. This type aims beams of radiation from outside the body at the prostate to destroy cancerous cells. ? Brachytherapy. This type uses radioactive needles, seeds, wires, or tubes that are implanted into the prostate gland. Like external be (more content not included)... Normal [facility] Urology Office/Clinic Noteon 07-13-2022 Urology Office/Clinic Note Chief Complaint ACTIVE SURVEILLANCE HPI Staff 6m PSA for ACTIVE SURVEILLANCE of Prostate Cancer. Current PSA done 07/07/22 is 1.73 and previous done 01/01/22 was 1.82. Additional DX: BPH & Family Hx of Prostate Cancer (father) *Finasteride 5mg QD therapy Dysuria: no Incomplete bladder emptying: no Hematuria: no Frequency: no Urgency: no Nocturia: 1x Stream: good steady no straining Leaking: no Post void dripping: no Wearing pads/ Depends: no Urge incontinence: no Stress incontinence: no Incontinence without Sensory Awareness: no Abdominal pain: no Flank pain: no Sexual complaints: no History of Present Illness Tests reviewed: reviewed UA, PSA. I have reviewed the previous health record information and history for this patient from Dr. Salazar. I have reviewed and verified the staff HPI to be accurate for this encounter. There have been no associated fever, chills, flank pain, or blood in the urine. Denies any urinary infections since last encounter. Review of Systems PHQ Score Initial Depression Screen Score: 0 ROS - Provider Constitutional: denies weight loss, denies hot flashes. Eyes: denies eye problems. Gastrointestinal: denies nausea, denies vomiting. Cardiovascular: denies chest pain or angina. Integumentary: no dryness Musculoskeletal: denies musculoskeletal symptoms. ENMT: denies otolaryngeal symptoms. Respiratory: no shortness of breath. Heme/Lymph: denies easy bleeding tendency, denies easy bruising tendency. Psychiatric: no confusion, no anxiety. Genitourinary: See HPI. Physical Exam Vitals & Measurements HR: 79(Peripheral) RR: 16 BP: 138/87 HT: 69 in HT: 175 cm WT: 78 kg WT: 171.6 lb BMI: 25.47 General Appearance: alert, no distress, well nourished, well developed male. Genitourinary: normal scrotum, normal testes, normal urethra, normal epididymis, normal vas deferens/spermatic cord. Flank Pain: none. Bladder: nonpalpable. Prostate: normal prostate, estimated weight 40 gms, no hard nodule observed. Assessment/Plan 1. Prostate cancer (C61: Malignant neoplasm of prostate) ACTIVE SURVELLIANCE. PSA: 12/31/20 - 1.60 07/01/21 - 1.70 01/01/22 - 1.82 07/07/22 - 1.73 TRUS/bx 05/04/17 - G 6 (3+3) x 1 core, ALISHA x 1 core, and HGPIN x 1 core. TRUS/bx 05/10/18 - Path was neg for malignancy. Chronic inflammation. MRI prostate 07/02/20 - PI-RADS 2. Prostate volume 29 cc. PSA remains stable. Will continue to monitor. Pt has a good profile overall with minimal cancer in first bx, neg second bx, and low pi-rads score on MRI. Will need MRI or bx next year, likely MRI, possible bx pending MRI results. JENNIFER today 40 gm, no nodules. Follow up 8 mos PSA or sooner if needed. Pt understands and agrees with plan. -MRI in the next year. 2. Enlarged prostate with urinary obstruction (N40.1: Benign prostatic hyperplasia with lower urinary tract symptoms) UA today negative for blood and infection. Taking Finasteride 5 mg QD. Voiding well wo complaint. 3. Family history of prostate cancer in father (Z80.42: Family history of malignant neoplasm of prostate) Follow-up With When Contact Information ETTA WILLAMS, Ovidio Rubio, URL [facility] [address], [place] [address]- Additional Instructions: 8 mos PSA Patient Education Prostate Cancer I, Kaity Long, personally scribed for Dr. Salazar on 07/13/2022 09:56:04. . Documentation recorded by the scribe, Kaity Long, accurately reflects the services(s) I performed and decisions made by me. Authenticated by Dr. Salazar on 07/13/2022 09:58:39. Problem List/Past Medical History Ongoing Atrial fibrillation Elevated PSA Enlarged prostate with urinary obstruction Family history of prostate cancer in father Hematuria, microscopic Hesitancy Hypertension Prostate cancer Historical No qualifying data Procedure/Surgical History Transrectal biopsy of prostate using ultrasound (US) guidance (05/10/2018), Appendectomy (2018), Cystoscopy and transurethral biopsy of prostate (05/04/2017), Colonoscopy, Shoulder, Vasectomy. Medications aspirin 81 mg oral tablet, Oral, Daily bisoprolol-hydrochloro thiazide 2.5 mg-6.25 mg Tab, Oral, Daily Cosamin DS finasteride 5 mg Tab, 5 mg= 1 tab(s), Oral, Daily, 3 refills Multi Vitamin+ omeprazole, Oral, Daily Saw Flomot Allergies alfuzosin (Anxiety, SOB - Shortness of breath) Social History Tobacco Never (less than 100 in lifetime) Tobacco Use:. Never Smokeless Tobacco Use:., 01/12/2022 Family History Pancreatic cancer: Father and Brother. Immunizations Vaccine Date Status Comments influenza virus vaccine, inactivated 12/01/2021 Recorded SARS-CoV-2 (COVID-19) [id number] 12/01/2021 Recorded influenza virus vaccine, inactivated 01/15/2021 Recorded SARS-CoV-2 (COVID-19) mRNA BNT-162b2 vax 01/15/2021 Recorded SARS-CoV-2 (COVID-19) mRNA BNT-162b2 vax 05/06 (more content not included)... Normal [facility] Comment on above: Result Comment: Elec tronically Signed By: Ovidio SALAZAR MD\.br\Date and Time Signed: 07/13/22 09:58 EDT\.br\Electronically Co-Signed By: Kaity Long\.br\Date and Time Co-Signed: 07/13/22 09:56 EDT Lab Report[facility] 07-11-2022 Lab Reports [id number]:[id number] Normal [facility] Comprehensive Metabolic Pane sayra 06-30-2021 Albumin [Mass/Vol] 4.7 g/dL Normal 3.6-5.1 [facility] Special[facility] Comment on above: Performed By: #### L IPD, CMP #### [facility] [address], [place] [id number] Albumin/Globulin [Mass ratio] 2.1 {ratio} Normal 1.0-2.5 [facility] Comment on above: Performed By: #### L IPD, CMP #### [facility] [address], [place] [id number] ALP [Catalytic activity/Vol] 72 U/L Normal 40-129 [facility] Comment on above: Performed By: #### L IPD, CMP #### [facility] [address], [place] [id number] ALT [Catalytic activity/Vol] 30 U/L Normal 9-46 [facility] Specialist Comment on above: Result Comment: 01/22 Female reference range changed. Performed By: #### L IPD, CMP #### [facility] [address], [place] [id number] Anion gap [Moles/Vol] 17 mmol/L Normal 12-20 [facility] Specialist Comment on above: Result Comment: Effe ctive 02/27/2019 reference range changed. Performed By: #### L IPD, CMP #### [facility] [address] [facility] [place] [id number] AST [Catalytic activity/Vol] 27 U/L Normal 10-40 [facility] Comment on above: Performed By: #### L IPD, CMP #### [facility] [address], [place] [id number] Bilirubin [Mass/Vol] 0.73 mg/dL Normal 0.30-1.20 [facility] Comment on above: Performed By: #### L IPD, CMP #### [facility] [address], [place] [id number] BUN/CREA 18 Ratio Normal 6-22 [facility] Comment on above: Performed By: #### L IPD, CMP #### [facility] [address], [place] [id number] Calcium [Mass/Vol] 9.8 mg/dL Normal 8.6-10.2 [facility] Comment on above: Performed By: #### L IPD, CMP #### [facility] [address], [place] [id number] Chloride [Moles/Vol] 102 mmol/L Normal 98-107 [facility] Comment on above: Performed By: #### L IPD, CMP #### [facility] [address], [place] [id number] CO2 [Moles/Vol] 26 mmol/L Normal 20-31 [facility] Comment on above: Performed By: #### L IPD, CMP #### [facility] [address], [place] [id number] Creatinine [Mass/Vol] 1.0 mg/dL Normal 0.7-1.4 [facility] [facility] Comment on above: Performed By: #### L IPD, CMP #### [facility] [address], [place] [id number] eGFRAA 95 mL/min/1.73m2 Normal >60 [facility] Specialist Comment on above: Performed By: #### L IPD, CMP #### [facility] [address], [place] [id number] eGFRNAA 78 mL/min/1.73m2 Normal >60 [facility] Specialist Comment on above: Performed By: #### L IPD, CMP #### [facility] [address], [place] [id number] Globulin (S) [Mass/Vol] 2.2 g/dL Normal 1.9-3.7 [facility] Scrum Coach Comment on above: Performed By: #### L IPD, CMP #### [facility] [address], [place] [id number] Glucose [Mass/Vol] 106 mg/dL High 65-99 [facility] [place] [employer] [facility] Comment on above: Result Comment: For FASTING Glucose --- ADA reference ranges: Normal 65-99 mg/dl Prediabetes 100-125 Diabetes >/= 126 Performed By: #### L IPD, CMP #### [facility] [address], [place] [id number] Potassium [Moles/Vol] 4.5 mmol/L Normal 3.5-5.5 [facility] Scrum Coach Comment on above: Performed By: #### L IPD, CMP #### [facility] [address], [place] [id number] Protein [Mass/Vol] 6.9 g/dL Normal 6.1-8.1 [facility] Scrum Coach Comment on above: Performed By: #### L IPD, CMP #### [facility] [address], [place] [id number] Sodium [Moles/Vol] 140 mmol/L Normal 135-146 [facility] Scrum Coach Comment on above: Performed By: #### L IPD, CMP #### [facility] [address], [place] [id number] Urea nitrogen [Mass/Vol] 17 mg/dL Normal 7-25 [facility] Scrum Coach Comment on above: Performed By: #### L IPD, CMP #### [facility] [address], [place] [id number] Hemoglobin A1Con 06-30-2021 EAG 111.15 Normal [facility] Scrum Coach Comment on above: Performed By: #### A 1C #### [facility] [address], [place] [id number] HbA1c (Bld) [Mass fraction] 5.5 % Normal 4.0-6.0 [facility] Scrum Coach Comment on above: Performed By: #### A 1C #### [facility] [address], [place] [id number] Lipid Panelon 06-30-2021 Cholesterol [Mass/Vol] 221 mg/dL High 125-200 [facility] Specialist Comment on above: Result Comment: Low risk < 200mg/dL Borderline risk 201-239 mg/dl High risk > or equal to 240 Performed By: #### L IPD, CMP #### [facility] [address], [place] [id number] Cholesterol in HDL [Mass/Vol] 55 mg/dL Normal >40 [facility] Specialist Comment on above: Result Comment: High Cardiovascular Risk HDL <40 mg/dL Low Cardiovascular Risk HDL > or equal to 60 mg/dl Performed By: #### L IPD, CMP #### [facility] [address], [place] [id number] Cholesterol in LDL [Mass/Vol] 151 mg/dL Normal [facility] Specialist Comment on above: Result Comment: LDL ATP III CLASSIFICATION LDL less than 100 mg/dl Optimal LDL 100-129 mg/dl Near or above optimal LDL 130-159 Borderline high LDL 160-189 High LDL greater than 189 mg/dl Very High Performed By: #### L IPD, CMP #### [facility] [address], [place] [id number] Cholesterol in VLDL [Mass/Vol] 15 mg/dL Normal [facility] Specialist Comment on above: Performed By: #### L IPD, CMP #### [facility] [address], [place] [id number] Cholesterol.total/C holesterol in HDL [Mass ratio] 4 {ratio} Normal [facility] Specialist Comment on above: Performed By: #### L IPD, CMP #### [facility] [address], [place] [id number] Triglyceride [Mass/Vol] 73 mg/dL Normal 30-150 [facility] Specialist Comment on above: Result Comment: TRIG ATPIII CLASSIFICATIONS TRIG less than 150 mg/dl Normal TRIG 150-199 mg/dl Borderline High TRIG 200-500 mg/dl High TRIG greather than 500 mg/dl Very High Performed By: #### L IPD, CMP #### [facility] [address], [place] [id number] Vital Signs Date Time Vital Sign Value Performing Clinician Tanner sheffield 04-29-2023 13:14-0500 Body height 175.3 cm Los Duke DO Work Phone: [facility] 04-29-2023 13:14-0500 Body mass index (BMI) [Ratio] 24.96 kg/m2 Los Lico DO Work Phone: [facility] 04-29-2023 13:14-0500 Body weight 76.66 kg Los Lico DO Work Phone: [facility] 04-29-2023 13:14-0500 Diastolic blood pressure 78 mm[Hg] Los Lico DO Work Phone: [facility] 04-29-2023 13:14-0500 Heart rate 76 /min Los Lico DO Work Phone: [facility] 04-29-2023 13:14-0500 SaO2% (BldA) [Mass fraction] 98 % Los Lico DO Work Phone: [facility] 04-29-2023 13:14-0500 Systolic blood pressure 122 mm[Hg] Los Lico DO Work Phone: [facility] 04-02-2023 09:39-0500 Blood Pressure Location Ovidio SALAZAR [facility] 04-02-2023 09:39-0500 Diastolic blood pressure 84 mm[Hg] Ovidio SALAZAR [facility] 04-02-2023 09:39-0500 Heart rate 74 /min Ovidio SALAZAR [facility] 04-02-2023 09:39-0500 Respiratory rate 16 /min Ovidio SALAZAR [facility] 04-02-2023 09:39-0500 Systolic blood pressure 136 mm[Hg] Ovidio SALAZAR [facility] 07-07-2021 09:37-0400 Blood Pressure Location Ovidio SALAZAR [facility] 07-07-2021 09:37-0400 Diastolic blood pressure 79 mm[Hg] Ovidio SALAZAR [facility] 07-07-2021 09:37-0400 Heart rate 71 /min Ovidio SALAZAR [facility] 07-07-2021 09:37-0400 Respiratory rate 16 /min Ovidio SALAZAR [facility] 07-07-2021 09:37-0400 Systolic blood pressure 142 mm[Hg] Ovidio SALAZAR [facility] Encounters Encounter Date Encounter Type Care Provider Facility Start: 12-03-2023 ambulatory Ovidio Torresi ty:PAYAL Ruffin Start: 07-02-2023 End: 07-02-2023 ambulatory SOFIE BRUMFIELD Not Available Start: 05-27-2023 Telephone encounter [facility] Start: 05-10-2023 End: 05-11-2023 ambulatory LOS C [facility] Start: 05-10-2023 End: 05-10-2023 ambulatory LOS C 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 ([facility]-HCC); Aortic root dilatation ([facility]-HCC) Start: 04-28-2023 Telephone encounter Tere [facility] Start: 04-22-2023 Telephone encounter Miller Gabriel MD Work Phone: [facility] Start: 04-16-2023 End: 04-17-2023 ambulatory SOFIE Guido JEANNETTE [facility] Start: 04-02-2023 End: 04-03-2023 ambulatory Ovidio SALAZAR Facility:[facility] Start: 04-02-2023 End: 04-02-2023 Patient encounter procedure Ovidio SALAZAR [facility] Start: 07-13-2022 End: 07-14-2022 ambulatory Ovidio SALAZAR Facility:[facility] Start: 07-07-2022 End: 07-08-[address] LIBERTAD DOMINGO Facility:[facility] Start: 01-01-2022 End: 01-02-[address] OVIDIO SALAZAR . Facility:[facility] Start: 07-07-2021 End: 07-07-2021 Patient encounter procedure Ovidio SALAZAR [facility] Start: 07-06-2017 Ambulatory Jerod ARRIAZA III [facility] Procedures Date Procedure Procedure Detail Performing Clinician Start: 07-07-[address] ROLDAN SALAZAR . Comment on above: Performed By: #### P SAD #### [facility] [address] [place] [address] Dr. Santi Calderón Start: 01-01-[address] ROLDAN SALAZAR . Comment on above: Performed By: #### P SAD #### [facility] [address] [address] [address] Santi Calderón Start: 11-20-2019 Colonoscopy Miller Gabriel MD Work Phone: Start: 06-23-2018 History of appendectomy Status post appendectomy, follow-up exam Miller Gabriel MD Work Phone: Start: 05-10-2018 Transrectal biopsy o f prostate using ultrasound guidance Ovidio SALAZAR Start: 02-22-2018 Appendectomy Ovidio HINES Start: 05-04-2017 Cystoscopy and transurethral biopsy of prostate Ovidio SALAZAR Colonoscopy Ovidio SALAZAR Shoulder region stru cture (body structure) Ovidio SALAZAR Vasectomy Ovidio SALAZAR Plan of Treatment Date Care Activity Detail Author Start: 12-07-2026 DTaP,Tdap and Td Vaccines (2 - Td or Tdap) DTaP,Tdap and Td Vaccines (2 - Td or Tdap) [facility] Start: 11-19-2024 Screening for malign ant neoplasm of colon Colonoscopy [facility] Start: 05-09-2024 Adult BMI Screening Adult BMI Screen ing [facility] Start: 05-09-2024 Tobacco Screening Tobacco Screening [facility] Start: 04-28-2024 Adult BMI Screening Adult BMI Screen ing [facility] Start: 04-28-2024 Tobacco Screening Tobacco Screening [facility] Start: 10-24-2023 Influenza vaccination Influenza Vacc ine [facility] Start: 05-28-2023 End: 05-28-2023 Patient encounter procedure 05/28/2023 11:00 AM EDT Office Visit [facility] [address] [place] [phone] Los Duke, DO [address] [place] [address], [address] [place] [address] [facility] Start: 05-10-2023 End: 05-10-2023 Patient encounter procedure [facility] Start: 04-29-2023 End: 04-28-2024 CT Chest WO and CT angiogram Coronary arteries W contrast IV CT angiogram chest Imaging Routine Nonrheumatic aortic valve insufficiency Shortness of breath Expected: 04/29/2023, Expires: 04/28/2024 [facility] Comment on above: Expected: 04/29/2023 , Expires: 04/28/2024 Start: 04-29-2023 End: 04-28-2024 SPECT Heart gated and ejection fraction at rest and W stress and W radionuclide IV Nuc stress exercise Cardiac Services Routine Nonrheumatic aortic valve insufficiency Shortness of breath Expected: 04/29/2023, Expires: 04/28/2024 [facility] Comment on above: Expected: 04/29/2023 , Expires: 04/28/2024 Start: 04-29-2023 End: 04-29-2023 Patient encounter procedure 04/29/2023 1:30 PM EST [facility] [address] [place] [phone] Los Duke, DO [address] [place] [address], [address] [place] [address] [facility] Start: 09-18-2022 Adult BMI Screening [facility] Start: 09-18-2022 [facility] Start: 2018 Fall Risk Screening Fall Risk Screen ing [facility] Start: 1965 Depression Screening [facility] Scre [facility]ing [facility] Start: 1955 Medicare Annual Wellness Visit Medicare Annual Wellness [facility] End: 04-28-2024 Creatinine includes GFR, serum Creatinine includes GFR, serum Lab Routine Nonrheumatic aortic valve insufficiency Shortness of breath 1 Occurrences starting 04/29/2023 until 04/28/2024 [facility] Comment on above: 1 Occurrences starti ng 04/29/2023 until 04/28/2024 ECG, Hospital Report Scan ECG, Hospital Report Scan ECG Routine Nonrheumatic aortic valve insufficiency Ordered: 04/29/2023 [email or web address] Work Phone: Comment on above: Ordered: 04/29/2023 Immunizations Immunization Date Immunization Notes Care Provider Mirza albarran 12-30-2022 influenza virus vaccine, unspecified formulation Ovidio SALAZAR [facility] 12-01-2021 influenza virus vaccine, unspecified formulation Ovidio SALAZAR [facility] 12-01-2021 SARS-CoV-2 (COVID-19 ) [id number] Ovidio ETTA [facility] 01-15-2021 influenza virus vaccine, unspecified formulation Ovidio SALAZAR [facility] 01-15-2021 SARS-CoV-2 (COVID-19 ) mRNA BNT-162b2 vax Ovidio SALAZAR [facility] 05-06-2020 SARS-CoV-2 (COVID-19 ) mRNA BNT-162b2 vax Ovidio ETTA [facility] Comment on above: Result Comment: 2021: [id number] 04-15-2020 SARS-CoV-2 (COVID-19 ) mRNA BNT-162b2 vax Ovidio SALAZAR [facility] Comment on above: Result Comment: 2021: [id number] 03-18-2020 zoster vaccine recombinant Ovidio ETTA [facility] 02-23-2020 SARS-CoV-2 (COVID-19 ) mRNA BNT-162b2 vax Ovidio SALAZAR [facility] Comment on above: Result Comment: pt s tates that he is fully vaccinated 12-14-2019 influenza virus vaccine, unspecified formulation Ovidio SALAZAR [facility] 12-14-2019 zoster vaccine recombinant Ovidio SALAZAR [facility] 12-06-2019 influenza virus vaccine, unspecified formulation Ovidio SALAZAR [facility] 11-23-2019 pneumococcal conjuga te vaccine, 13 valent Ovidio SALAZAR [facility] 03-29-2019 pneumococcal conjuga te vaccine, 13 valent Ovidio SALAZAR [facility] 02-17-2019 influenza virus vaccine, unspecified formulation Ovidio SALAZAR [facility] 12-29-2017 influenza virus vaccine, unspecified formulation Ovidio SALAZAR [facility] 12-07-2016 tetanus toxoid, redu mark diphtheria toxoid, and acellular pertussis vaccine, adsorbed Ovidio SALAZAR [facility] Payers Date Payer Category Payer Medicare [employer] AD[employer] [id number] 2023-Present [phone] [address] [place] [address] [id number] 2023 Unknown [id number] 2018 Medicare [id number] 2018 Unknown [facility] TRADITIONAL [id number] 2018-Present [phone] [address] [place] [address] [id number] 2017 Unknown [id number] 1959 Medicare [id number] 1959 Unknown [id number] 1953 Unknown [id number] [id number] 1953 Unknown [id number] [id number] 1953 Unknown [id number] 2.16.840.1.593381.3.579.2.727 1953 Unknown [id number] 2.16.840.1.767301.3.579.2.727 1953 Unknown [id number] 2.16.840.1.196117.3.579.2.727 1953 Unknown [id number] 2.16.840.1.718850.3.579.2.1286 1953 Unknown [id number] 2.16.840.1.745295.3.579.2.1286 1953 Unknown [id number] 2.16.840.1.439156.3.579.2.1286 1953 Unknown [id number] 2.16.840.1.197852.3.579.2.1286 1953 Unknown [id number] 2.16.840.1.576015.3.579.2.1286 1953 Unknown [id number] 2.16.840.1.324634.3.579.2.1286 1953 Unknown [id number] 2.16.840.1.442253.3.579.2.1286 1953 Unknown [id number] 2.16.840.1.119737.3.579.2.1286 1953 Unknown [id number] 2.16.840.1.699119.3.579.2.1286 1953 Unknown [id number] [id number] 1953 Unknown [id number] [id number] Social History Date Type Detail Facility Start: 07-07-2021 End: 04-29-2023 Tobacco smoking status Never smoked tobacco (finding) [facility] Start: 04-04-2020 End: 09-19-2021 Sex Assigned At Male [facility] Tobacco smoking status Never [facility] Start: 05-24-2018 End: 04-29-2023 Tobacco use and exposure Smokeless tobacco non-user [facility] Start: 09-19-2021 End: 05-10-2023 Alcohol intake Current drinker of alcohol (finding) [facility] Start: 04-04-2020 End: 09-19-2021 Alcohol intake [facility] Start: 04-20-2019 Alcohol Comment socially [facility] Start: 1955 Sex Assigned At Not on file [facility] NEGATED: Highlighted rowStart: NINF History of tobacco use Passive smoker [facility] Medical Equipment Procedure Code Equipment Code Equipment Origin al Text Equipment Identifier Dates Lens Iol Ultrase rt 20.0d - [id number] - [id number] Start: 09-18-2021 Functional Status Date Assessment Result Facility 04-02-2023 Functional Status N/A [facility] Clinical Notes 07-07-2021 to 05-27-2023 Telephone Encounter - Tere Narayan MA - 05/27/2023 1:37 PM EDTTelephone Encounter - Tere Narayan MA - 05/27/2023 1:37 PM Geronimo Duke DO - 04/29/2023 1:30 PM EST Note Date & Type Note Facility 05-27-2023 Miscellaneous Notes Called patient to remind them to bring their most current copy of their medication list with them to their appt. Patient verbalizes understanding. [facility] 05-27-2023 Telephone encounter Note Called patient to remind them to bring their most current copy of their medication list with them to their appt. Patient verbalizes understanding. [facility] History of Presen t illness Narrative Bereket David Fu Date of visit: 04/29/2023 Date of : 1955 Age: 67 y.o. 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 GUMMIES 250 MG DAILY aspirin 81 mg Take 1 tablet (81 mg total) by mouth in the morning. bisoprolol-hydroCHLOROthiazide (ZIAC) 5-6.25 mg per tablet Take 1 tablet by mouth in the morning. finasteride (PROSCAR) 5 mg tablet Take 1 tablet (5 mg total) by mouth in the morning. glucosamine sulfate (GLUCOSAMINE ORAL) Take by mouth. 2 CAPSULES PER DAY jjfbdleo-wlhy-LT-calcium &mins (THERAGRAN-M) 9 mg iron-400 mcg tablet Take 1 tablet by mouth in the morning. omeprazole (PriLOSEC) 10 mg capsule Take 1 capsule (10 mg total) by mouth. 3 TIMES A WEEK SAW GILMER ORAL Take 1,350 mg by mouth in the morning. No current facility-administered medications for this visit. 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 He is 67-year-old male with known history of moderate aortic insufficiency previously seen a number of years ago for atrial fibrillation as well as aortic insufficiency. He is found to have nonobstructive coronary disease at time of cardiac catheterization. He had right heart pressure at that time showing normal right heart pressures. He is noted shortness of breath upon exertion. He has not had any orthopnea paroxysmal nocturnal dyspnea. He has had some chest pressure although not consistent with any activity. 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 There is a history of patent foramen ovale on previous cardiac studies. Past Medical History: Diagnosis Date Atrial fibrillation ([facility]-H[facility]) Cancer ([facility]-HCC) prostate Dyspnea on exertion GERD (gastroesophageal reflux disease) Hypertension Mitral regurgitation Palpitations Patent foramen ovale Visual impairment glasses No data recorded No data recorded No data recorded Past Surgical History: Procedure Laterality Date APPENDECTOMY OPEN N/A 06/15/2018 Performed by Jf Albarran MD at [facility] ARTHROSCOPY SHOULDER debridement of type 1 slap lesion, subarcomial decompression Right 07/19/2018 Performed by Raphael Dudley Jr., DO at [facility] CARDIAC CATHETERIZATION more than 5 years ago CARPAL TUNNEL RELEASE COLONOSCOPY 2014 COLONOSCOPY N/A 11/20/2019 Performed by Jf Albarran MD at [facility] EXTRACTION CATARACT INTRAOCULAR LENS Left 09/18/2021 Performed by Vidhya Woodson MD at [facility] PROSTATE SURGERY 2019 BIOPSY, BELLVUE [place] VASECTOMY 1979 Family History Problem Relation Age of Onset Hypertension Mother Stroke Mother Cerebral aneurysm Mother Prostate cancer Father Colon cancer Sister No Known Problems Brother No Known Problems Maternal Grandmother No Known Problems Maternal Grandfather No Known Problems Daughter No Known Problems Son Social History Socioeconomic History Marital status: Spouse name: Not on file Number of children: Not on file Years of education: Not on file Highest education level: Not on file Occupational History Not on file Tobacco Use Smoking status: Never Passive exposure: Never Smokeless tobacco: Never Vaping Use Vaping Use: Never used Substance and Sexual Activity Alcohol use: Yes Alcohol/week: 8.0 standard drinks of alcohol Types: 4 Glasses of wine, 4 Cans of beer per week Comment: socially Drug use: No Sexual activity: Defer Other Topics Concern Caffeine Use Yes Social History Narrative Not on file Social Determinants of Health Financial Resource Strain: Not on file Food Insecurity: Not on file Transportation Needs: Not on file Physical Activity: Not on file Stress: Not on file Social Connections: Not on file Interpersonal Safety: Not on file Housing Instability: Not on file Review of Systems Review of Systems Constitutional: Negative for malaise/fatigue and weight gain. HENT: Negative for hearing loss and nosebleeds. Eyes: Negative for blurred vision and double vision. Respiratory: Positive for shortness of breath (WITH EXERTION). Negative for sleep disturbances due to breathing and wheezing. Endocrine: Negative for polydipsia. Hematologic/Lymphatic: Negative for bleeding problem. Does not bruise/bleed easily. Skin: Negative for color change, itching and rash. Musculoskeletal: Negative for back pain, falls, joint swelling, muscle cramps and muscle weakness. Gastrointestinal: Negative for heartburn, hematochezia and melena. Genitourinary: Negative for hematuria. Neurological: Positive for light-headedness. Negative for dizziness, headaches, loss of balance, numbness, seizures and tremors. Psychiatric/Behavioral: Negative for altered mental status, depression and memory loss. Allergic/Immunologic: Negative for environmental allergies. CARDIOVASCULAR: Please review HPI. Physical Examination General appearance: Alert, oriented and cooperative. In no acute distress. Skin: Warm and dry to touch. Head: Normocephalic, without obvious abnormality, atraumatic. Ears, Nose, Mouth, Throat: Throat clear without erythema or exudate. Dentition intact. Eyes: Conjunctivae unremarkable, EOM intact. Neck: No JVD, No carotid bruit. Neck supple, trachea midline. Respiratory: Clear to auscultation bilaterally, no use of accessory muscles. Cardiovascular: RRR with normal S1 and S2 with 1/6 diastolic murmur at the aortic area. Gastrointestinal: Soft, non-tender. Bowel sounds normal. Musculoskeletal: No peripheral edema. Neurologic: Oriented to time, person and place, affect appropriate. No focal/major motor defects noted. Psychiatric: Appropriate mood, memory and judgement. VITAL SIGNS: BP 122/78 (BP Site: Left Arm) Pulse 76 Ht 175.3 cm (5' 9 ) Wt 76.7 kg (169 lb) SpO2 98% BMI 24.96 kg/m Orders Placed or Reconciled This Encounter Medications SAW PALMETTO ORAL Sig: Take 1,350 mg by mouth in the morning. glucosamine sulfate (GLUCOSAMINE ORAL) Sig: Take by mouth. 2 CAPSULES PER DAY ascorbic acid (VITAMIN C ORAL) Sig: Take by mouth. GUMMIES 250 MG DAILY Medications Discontinued During This Encounter Medication Reason saw palmetto xtr/zinc picolin (SAW PALMETTO EXTRACT, W-ZINC, ORAL) IMPRESSIONS/PLAN 1. Nonrheumatic aortic valve insufficiency - ECG, Hospital Report Scan - CT angiogram chest; Future - Creatinine includes GFR, serum; Future - Nuc stress exercise; Future 2. Shortness of breath - CT angiogram chest; Future - Creatinine includes GFR, serum; Future - Nuc stress exercise; Future 3. 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 Aortic root dilatation (CMS-HCC) I recommended a CT scan to assess his dilated aortic root as well as ascending aorta. He will have a Cardiolite stress test given his known history of nonobstructive coronary disease well as chest pressure and shortness of breath upon exertion. Follow-up is arranged after testing Electrocardiogram today reveals sinus rhythm with normal axis and intervals. TODAYS ORDERS Orders Placed This Encounter Procedures CT angiogram chest Creatinine includes GFR, serum Nuc stress exercise ECG, Hospital Report Scan FOLLOW UP No follow-ups on file. PCP: Libertad Domingo MD Referring Physician: Sofie Brumfield, PRE CODER-[address], [place] [address] documented in this encounter [facility] 04-28-2023 Miscellaneous Notes Called patient to remind them to bring their most current copy of their medication list with them to their appt. Patient verbalizes understanding. documented in this encounter [facility] 04-28-2023 Telephone encounter Note Called patient to remind them to bring their most current copy of their medication list with them to their appt. Patient verbalizes understanding. [facility] 04-22-2023 Miscellaneous Notes This is notification that we have received a referral for the patient. Please reach out to schedule new patient appointment in your office. Please check the referral tab in appt desk for details and to make sure to assign referral or schedule off of it. Thank you. documented in this encounter [facility] 04-22-2023 Telephone encounter Note This is notification that we have received a referral for the patient. Please reach out to schedule new patient appointment in your office. Please check the referral tab in appt desk for details and to make sure to assign referral or schedule off of it. Thank you. [facility] Discharg e instructions Patient Education 04/02/2023 10:08:49 Prostate Cancer Screening Prostate Cancer Screening Prostate cancer screening is testing that is done to check for the presence of prostate cancer in men. The prostate gland is a walnut-sized gland that is located below the bladder and in front of the rectum in males. The function of the prostate is to add fluid to semen during ejaculation. Prostate cancer is one of the most common types of cancer in men. Who should have prostate cancer screening? Screening recommendations vary based on age and other risk factors, as well as between the professional organizations who make the recommendations. In general, screening is recommended if: You are age 50 to 70 and have an average risk for prostate cancer. You should talk with your health care provider about your need for screening and how often screening should be done. Because most prostate cancers are slow growing and will not cause , screening in this age group is generally reserved for men who have a 10- to 15-year life expectancy. You are younger than age 50, and you have these risk factors: ?Having a father, brother, or uncle who has been diagnosed with prostate cancer. The risk is higher if your family member's cancer occurred at an early age or if you have multiple family members with prostate cancer at an early age. ?Being a male who is Black or is of [place] or sub-Saharan descent. In general, screening is not recommended if: You are younger than age 40. You are between the ages of 40 and 49 and you have no risk factors. You are 70 years of age or older. At this age, the risks that screening can cause are greater than the benefits that it may provide. If you are at high risk for prostate cancer, your health care provider may recommend that you have screenings more often or that you start screening at a younger age. How is screening for prostate cancer done? The recommended prostate cancer screening test is a blood test called the prostate-specific antigen (PSA) test. PSA is a protein that is made in the prostate. As you age, your prostate naturally produces more PSA. Abnormally high PSA levels may be caused by: Prostate cancer. An enlarged prostate that is not caused by cancer (benign prostatic hyperplasia, or BPH). This condition is very common in older men. A prostate gland infection (prostatitis) or urinary tract infection. Certain medicines such as male hormones (like testosterone) or other medicines that raise testosterone levels. A rectal exam may be done as part of prostate cancer screening to help provide information about the size of your prostate gland. When a rectal exam is performed, it should be done after the PSA level is drawn to avoid any effect on the results. Depending on the PSA results, you may need more tests, such as: A physical exam to check the size of your prostate gland, if not done as part of screening. Blood and imaging tests. A procedure to remove tissue samples from your prostate gland for testing (biopsy). This is the only way to know for certain if you have prostate cancer. What are the benefits of prostate cancer screening? Screening can help to identify cancer at an early stage, before symptoms start and when the cancer can be treated more easily. There is a small chance that screening may lower your risk of dying from prostate cancer. The chance is small because prostate cancer is a slow-growing cancer, and most men with prostate cancer from a different cause. What are the risks of prostate cancer screening? The main risk of prostate cancer screening is diagnosing and treating prostate cancer that would never have caused any symptoms or problems. This is called overdiagnosisand overtreatment. PSA screening cannot tell you if your PSA is high due to cancer or a different cause. A prostate biopsy is the only procedure to diagnose prostate cancer. Even the results of a biopsy may not tell you if your cancer needs to be treated. Slow-growing prostate cancer may not need any treatment other than monitoring, so diagnosing and treating it may cause unnecessary stress or other side effects. Questions to ask your health care provider When should I start prostate cancer screening? What is my risk for prostate cancer? How often do I need screening? What type of screening tests do I need? How do I get my test results? What do my results mean? Do I need treatment? Where to find more information The [employer]: www.cancer.org [employer]: www.auanet.org Contact a health care provider if: You have difficulty urinating. You have pain when you urinate or ejaculate. You have blood in your urine or semen. You have pain in your back or in the area of your prostate. Summary Prostate cancer is a common type of cancer in men. The prostate gland is located below the bladder and in front of the rectum. This gland adds fluid to semen during ejaculation. Prostate cancer screening may identify cancer at an early stage, when the cancer can be treated more easily and is less likely to have spread to other areas of the body. The prostate-specific antigen (PSA) test is the recommended screening test for prostate cancer, but it has associated risks. Discuss the risks and benefits of prostate cancer screening with your health care provider. If you are age 70 or older, the risks that screening can cause are greater than the benefits that it may provide. This information is not intended to replace advice given to you by your health care provider. Make sure you discuss any questions you have with your health care provider. Document Revised: 08/04/2021 Document Reviewed: 08/04/2021 [id number] Patient Education 2022 [employer]. Follow Up Care 07/13/2022 10:02:58 With:ETTA WILLAMS, Ovidio Rubio, URL Address: [facility] [address] , [place] [address] [phone] When:Within 8 Month(s) Comments:w/ PSA [facility] 07-07-2021 Hospital Discharg e instructions Patient Education 07/07/2021 07:43:02 Prostate Cancer Prostate Cancer The prostate is a walnut-sized gland that is involved in the production of semen. It is located below a man's bladder, in front of the rectum. Prostate cancer is the abnormal growth of cells in the prostate gland. What are the causes? The exact cause of this condition is not known. What increases the risk? This condition is more likely to develop in men who: Are older than age 65. Are -French. Are obese. Have a family history of prostate cancer. Have a family history of breast cancer. What are the signs or symptoms? Symptoms of this condition include: A need to urinate often. Weak or interrupted flow of urine. Trouble starting or stopping urination. Inability to urinate. Pain or burning during urination. Painful ejaculation. Blood in urine or semen. Persistent pain or discomfort in the lower back, lower abdomen, hips, or upper thighs. Trouble getting an erection. Trouble emptying the bladder all the way. How is this diagnosed? This condition can be diagnosed with: A digital rectal exam. For this exam, a health care provider inserts a gloved finger into the rectum to feel the prostate gland. A blood test called a prostate-specific antigen (PSA) test. An imaging test called transrectal ultrasonography. A procedure in which a sample of tissue is taken from the prostate and examined under a microscope (prostate biopsy). Once the condition is diagnosed, tests will be done to determine how far the cancer has spread. This is called staging the cancer. Staging may involve imaging tests, such as: A bone scan. A CT scan. A PET scan. An MRI. The stages of prostate cancer are as follows: Stage I. At this stage, the cancer is found in the prostate only. The cancer is not visible on imaging tests and it is usually found by accident, such as during a prostate surgery. Stage II. At this stage, the cancer is more advanced than it is in stage I, but the cancer has not spread outside the prostate. Stage III. At this stage, the cancer has spread beyond the outer layer of the prostate to nearby tissues. The cancer may be found in the seminal vesicles, which are near the bladder and the prostate. Stage IV. At this stage, the cancer has spread other parts of the body, such as the lymph nodes, bones, bladder, rectum, liver, or lungs. How is this treated? Treatment for this condition depends on several factors, including the stage of the cancer, your age, personal preferences, and your overall health. Talk with your health care provider about treatment options that are recommended for you. Common treatments include: Observation for early stage prostate cancer (active surveillance). This involves having exams, blood tests, and in some cases, more biopsies. For some men, this is the only treatment needed. Surgery. Types of surgeries include: ?Open surgery. In this surgery, a larger incision is made to remove the prostate. ?A laparoscopic prostatectomy. This is a surgery to remove the prostate and lymph nodes through several, small incisions. It is often referred to as a minimally invasive surgery. ?A robotic prostatectomy. This is a surgery to remove the prostate and lymph nodes with the help of a robotic arm that is controlled by a computer. ?Orchiectomy. This is a surgery to remove the testicles. ?Cryosurgery. This is a surgery to freeze and destroy cancer cells. Radiation treatment. Types of radiation treatment include: ?External beam radiation. This type aims beams of radiation from outside the body at the prostate to destroy cancerous cells. ?Brachytherapy. This type uses radioactive needles, seeds, wires, or tubes that are implanted into the prostate gland. Like external beam radiation, brachytherapy destroys cancerous cells. An advantage is that this type of radiation limits the damage to surrounding tissue and has fewer side effects. High-intensity, focused ultrasonography. This treatment destroys cancer cells by delivering high-energy ultrasound waves to the cancerous cells. Chemotherapy medicines. This treatment kills cancer cells or stops them from multiplying. Hormone treatment. This treatment involves taking medicines that act on one of the male hormones (testosterone): ?By stopping your body from producing testosterone. ?By blocking testosterone from reaching cancer cells. Follow these instructions at home: Take [id number] and prescription medicines only as told by your health care provider. Maintain a healthy diet. Get plenty of sleep. Consider joining a support group for men who have prostate cancer. Meeting with a support group may help you learn to cope with the stress of having cancer. Keep all follow-up visits as told by your health care provider. This is important. If you have to go to the hospital, notify your cancer specialist (oncologist). Treatment for prostate cancer may affect sexual function. Continue to have intimate moments with your partner. This may include touching, holding, hugging, and caressing. Contact a health care provider if: You have trouble urinating. You have blood in your urine. You have pain in your hips, back, or chest. Get help right away if: You have weakness or numbness in your legs. You cannot control urination or your bowel movements (incontinence). You have trouble breathing. You have sudden chest pain. You have chills or a fever. Summary The prostate is a walnut-sized gland that is involved in the production of semen. It is located below a man's bladder, in front of the rectum. Prostate cancer is the abnormal growth of cells in the prostate gland. Treatment for this condition depends on several factors, including the stage of the cancer, your age, personal preferences, and your overall health. Talk with your health care provider about treatment options that are recommended for you. Consider joining a support group for men who have prostate cancer. Meeting with a support group may help you learn to cope with the stress of having cancer. This information is not intended to replace advice given to you by your health care provider. Make sure you discuss any questions you have with your health care provider. Document Released: 02/08/2006 Document Revised: 01/21/2018 Document Reviewed: 10/19/2016 [id number] Patient Education 2020 [employer]. Follow Up Care 01/06/2021 10:16:32 With:ETTA WILLAMS, Ovidio Rubio, URL Address: [facility] [address], [place] [address]- When: Unknown [facility] Evaluation + Plan note Future Appointments Appointment Date:01/12/2022 09:45:00 AM Scheduled Provider:Ovidio SALAZAR MD Location:[facility] Appointment Type:URO Office Visit Diagnostic Tests PendingPSA Total 07/07/21 [facility] Evaluation + Plan note Future Appointments Appointment Date:12/03/2023 09:30:00 AM Scheduled Provider:Ovidio SALAZAR MD Location:[facility] Appointment Type:URO Office Visit Diagnostic Tests PendingPSA Total 04/02/23 [facility] Evaluation note Diagnosis Nonrheumatic aortic valve insufficiency- Primary Shortness of breath 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) Aortic root dilatation ([facility]-HCC) Thoracic aneurysm without mention of rupture [facility] N[facility] No data available for this section [facility] InstructionsNot on filedocumented in this encounter [facility] filedocumented in this encounter [facility] filedocumented in this encounter [facility] No data available for this section [facility] Summary Purpose Family History No Family History Records FoundNo Family History Records FoundNo Family History Records Found No data available for this section No Family History Records FoundNo Family History Records FoundNo Family History Records FoundNo Family History Records FoundNo Family History Records Found Advance Directives No Advanced Directives Records FoundLatest Code Status on File Code Status Date Activated Date Inactivated Comments Full Code 06/15/2018 5:03 PM 06/16/2018 12:01 PM Latest Code Status on File Code Status Date Activated Date Inactivated Comments Full Code 06/15/2018 5:03 PM 06/16/2018 12:01 PM Reason for Referral Specialty Diagnoses / Procedures Referred By Contac t Referred To Contact Diagnoses Nonrheumatic aortic valve insufficiency Shortness of breath Procedures Nuc stress exercise Los Duke, DO [address] [place] [address], [address] [place] [address] Referral ID Status Reason Start Date Expiration Date V isits Requested Visits Authorized [id number] Pending Review 04/29/2023 04/28/2024 5 5 Specialty Diagnoses / Procedures Referred By Contac t Referred To Contact Radiology Diagnoses Nonrheumatic aortic valve insufficiency Shortness of breath Procedures CT angiogram chest Los Duke, DO [address], [address] [place] [address] Referral ID Status Reason Start Date Expiration Date V isits Requested Visits Authorized [id number] Pending Review 04/29/2023 04/28/2024 1 1 Specialty Diagnoses / Procedures Referred By Contac t Referred To Contact Diagnoses Nonrheumatic aortic valve insufficiency Procedures ECG, Hospital Report Scan Los Duke, DO [address], [address] [place] [address] Referral ID Status Reason Start Date Expiration Date V isits Requested Visits Authorized [id number] Pending Review 04/29/2023 04/28/2024 1 1 Additional Source Comments (unrecognized sect ion and content) No Status Records FoundNo Status Records FoundNo Status Records FoundNo Status Records FoundNo Status Records FoundNo Status Records FoundNo Status Records FoundNo Status Records Found INFORMATION SOURCE (unrecogn ized section and content) DATE CREATED AUTHOR 08/11/2017 [facility] DATE CREATED AUTHOR AUTHOR'S ORGANIZ ATION 06/30/2021 [facility] dical Specialist DATE CREATED AUTHOR AUTHOR'S ORGANIZ ATION 07/08/2022 [facility] DATE CREATED AUTHOR AUTHOR'S ORGANIZ ATION 04/03/2023 [facility] DATE CREATED AUTHOR AUTHOR'S ORGANIZ ATION 04/30/2023 [facility] DATE CREATED AUTHOR AUTHOR'S ORGANIZ ATION 05/27/2023 [facility] DATE CREATED AUTHOR AUTHOR'S ORGANIZ ATION 06/04/2023 [facility] DATE CREATED AUTHOR AUTHOR'S ORGANIZ ATION 07/04/2023 [facility] dical Specialists EPIC Patient Care team informatio n (unrecognized section and content) 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 Start Date End Date Libertad Domingo MD [address] [place] [address] PCP - General Family Medicine 12/10/16 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 Start Date End Date Libertad Domingo MD [address] [place] [address] PCP - General Family Medicine 12/10/16 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 Start Date End Date Libertda Domingo MD [address] [place] [address] PCP - General Family Medicine 12/10/16 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 Start Date End Date Libertad Domingo MD [address] [place] [address] PCP - General Family Medicine 12/10/16 Reason for Visit (unrecogniz ed section and content) Reason Comments New Patient [employer] SANDER AV 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, PFO, EKG, ECHO DONE @ [facility],SCHED W/PT+++PT PREVIOUSLY SAW NWOCC/PPC/MGI ABOUT 12 YRS AGO Specialty Diagnoses / Procedures Referred By Devonte t Referred To Contact Cardiology Diagnoses Aortic valve insufficiency, etiology of cardiac valve disease unspecified Mitral valve insufficiency, unspecified etiology Patent foramen ovale Moderate pulmonary valve regurgitation Procedures VT OFFICE OUTPATIENT VISIT 60-74 MINS HIGH MDM AMB REFERRAL TO CARDIOLOGY Sofie Brumfield, PRE CODER-PROCESS EXPERT [address] [place] [address] Chitra Toribio MD [address] [place] [address] Referral ID Status Reason Start Date Expiration Date V isits Requested Visits Authorized [id number] Pending Review 04/21/2023 10/18/2023 1 1 FOR RECORDS PERTAINING TO PATIENTS WHO ARE OR HAVE BEEN ENROLLED IN A CHEMICAL DEPENDENCY/SUBSTANCEABUSE PROGRAM, SOME INFORMATION MAY BE OMITTED. This clinical summary was aggregated from multiple sources. Caution should be exercised in using it in the provision of clinical care. This summary normalizes information from multiple sources, and as a consequence, information in this document may materially change the coding, format and clinical context of patient data. In addition, data may be omitted in some cases. CLINICAL DECISIONS SHOULD BE BASED ON THE PRIMARY CLINICAL RECORDS. [facility] [employer] [facility]. provides no warranty or guarantee of the accuracy or completeness of information in this document.
--- NOTE | 2023-09-27 12:54 | XR_ITS ---
The [address] [address] Patient Name: BLANCA UBNN MRN: [id number] date: 1955 Sex: M Assigned Patient Location: ER Current Patient Location: ED.MAIN Accession/Order Number: [id number] Exam Date: 09/27/2023 13:22 Report Date: 09/27/2023 13:38 At the request of: JENS RIVAS Procedure: XR chest 1V EXAMINATION: XR chest 1V HISTORY: chest pain COMPARISON: No relevant comparison available. FINDINGS: LUNGS: No significant pulmonary parenchymal abnormalities. VASCULATURE: No increased pulmonary vasculature. PLEURA: No pneumothorax, effusion, or pleural thickening. CARDIAC: No cardiomegaly or cardiac silhouette abnormality. MEDIASTINUM: No visible mass or adenopathy. BONES: No fracture or visible bone lesion. OTHER: Negative. XR/XR chest 1V IMPRESSION: 1. No acute cardiopulmonary process. Electronically authenticated by: BLAINE VILLEGAS Date: 09/27/2023 13:38
--- NOTE | 2023-09-27 12:54 | ECG_ITS ---
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
[2023-09-27 13:13] LABS: Basophils Percent Auto 0.2 % (0.2-2.0); Eosinophils Percent Auto 0.1 % (0.9-7.0); Hematocrit 44.3 % (42.0-54.0); Hemoglobin 15.3 g/dL (14.0-18.0); Immature Granulocytes Abs Auto 0.04 10^3/uL (0.00-0.03); Immature Granulocytes Pct Auto 0.3 % (0.0-0.5); Lymphocytes Absolute Auto 1.3 10^3/uL (1.2-3.8); Mean Corpuscular HGB Conc 34.5 g/dL (29.9-35.2); Mean Corpuscular Hemoglobin 31.2 pg (25.9-34.0); Mean Corpuscular Volume 90.2 fL (80.0-94.0); Mean Platelet Volume 9.8 fL (9.5-13.5); Monocytes Absolute Auto 0.8 10^3/uL (0.3-0.8); Monocytes Percent Auto 5.3 % (1.7-12.0); Neutrophils Absolute Auto 12.4 10^3/uL (1.4-6.5); Neutrophils Percent Auto 85.1 % (43.0-75.0); Platelet Count 223 10^3/uL (150-450); Red Blood Count 4.91 10^6/uL (4.70-6.10); Red Cell Distribution Width 12.5 % (11.0-15.0); White Blood Count 14.6 10^3/uL (4.0-11.0)
[2023-09-27] MEDS: 0.9 % SODIUM CHLORIDE 1,000 ML 999 ML IV (13:13)
[2023-09-27] MEDS: ONDANSETRON PF 4 MG/2 ML VIAL IV (13:13)
[2023-09-27] MEDS: LORAZEPAM 2 MG/ML VIAL 1 MG IV (13:16)
[2023-09-27 13:31] LABS: INR 0.97; Prothrombin Time 10.3 sec (9.0-11.6)
[2023-09-27 13:38] LABS: Alanine Aminotransferase 40 U/L (16-63); Albumin Globulin Ratio 1.4; Albumin Level 4.2 g/dL (3.4-5.0); Alkaline Phosphatase 76 U/L (46-116); Anion Gap 17.1; Aspartate Amino Transferase 30 U/L (15-37); BUN Creatinine Ratio 13.8; Bilirubin Total 1.4 mg/dL (0.2-1.0); Carbon Dioxide 22.8 mmol/L (21.0-32.0); Chloride 103 mmol/L (98-107); Estimated GFR (African America >60 (>=60); Estimated GFR (Non-African Ame >60 (>=60); Globulin 3.1 g/dL; Glucose 143 mg/dL (74-106); Potassium 3.9 mmol/L (3.5-5.1); Sodium 139 mmol/L (136-145); Total Protein 7.3 g/dL (6.4-8.2); Troponin I High Sensitivity <4.0 pg/mL (4.0-76.1)
--- NOTE | 2023-09-27 15:32 | ED_ITS ---
HPI HPI - General Adult General Chief complaint: Dizziness Stated complaint: NAUSEA, SOB, LIGHTHEADED Time Seen by Provider: 09/27/23 12:41 Source: patient Mode of arrival: Wheelchair History of Present Illness HPI narrative: 68-year-old male to the emergency department with chief complaint of episode of chest pain. Patient reports he was installing a sink and was having some difficulty. He then got a phone call from his [id number] that his brother who is dying from cancer fell and was not doing well. He reports that he felt panicked and distressed. He reports that he had an episode of chest pain, tin gling in his fingers bilaterally and shortness of breath. He reports that he feels very anxious. He denies any coronary artery disease history. Reports he has had stress test in the past that was normal. Related Data Home Medications ?Medication ?Instructions ?Recorded ?Confirmed bisoprolol 5 tab 09/27/23 mg-hydrochlorothiazide 6.25 mg tablet finasteride 5 mg tablet mg 09/27/23 rosuvastatin 10 mg tablet mg 09/27/23 Allergies Allergy/AdvReac Type Severity Reaction Status Date / Time alfuzosin AdvReac Severe Anxiety Verified 09/27/23 12:37 Opioid HPI Opioid Management Most Recent Opioid Data: No Data to Display Review of Systems ROS Status of ROS 10 or more systems reviewed and unremark able except as noted in history and below Exam Narrative Exam Narrative: VITALS: I have reviewed the triage vital signs. GENERAL: Well developed, well appearing adult in no acute distress. NEURO: Alert and oriented. Moves all extremities. Face is symmetric and expressive. EYES: PERRL. No scleral icterus or conjunctival injection. No discharge. HENT: Normocephalic, atraumatic. Hearing is grossly intact. Nares grossly patent and without discharge. Mucous membranes moist. NECK: No JVD. Patient moves neck without restriction. CARDIO: Rhythm regular. Normal rate. No murmur, rub, or gallop. Pulses equal bilaterally in the upper and lower extremity. No lower extremity edema. PULM: Lungs clear to auscultation in all garcia. No wheezes, rales, or rhonchi. No conversational dyspnea. No splinting, stridor, or accessory muscle use. GI/: Abdomen is soft and non-tender. Normoactive bowel sounds. EXTREMITIES: Symmetric muscle bulk. No joint swelling. No clubbing, cyanosis, or deformity. SKIN: Warm and dry. Normal turgor. No rash or lesions appreciated. Psych: Anxious Constitutional Vital Signs, click to edit/add: Last Vital Signs Temp 98 F 09/27/23 12:33 Pulse 62 09/27/23 13:30 Resp 20 09/27/23 13:30 BP 141/84 09/27/23 12:37 Pulse Ox 97 09/27/23 13:30 O2 Del Method Room Air 09/27/23 12:33 Course Vital Signs Vital signs: Vital Signs Temperature 98 F 09/27/23 12:33 Pulse Rate 67 09/27/23 12:33 Respiratory Rate 20 09/27/23 12:33 Pulse Oximetry 97 09/27/23 12:33 Oxygen Delivery Method Room Air 09/27/23 12:33 Temperature 98 F 09/27/23 12:33 Pulse Rate 62 09/27/23 13:30 Respiratory Rate 20 09/27/23 13:30 Blood Pressure 141/84 09/27/23 12:37 Pulse Oximetry 97 09/27/23 13:30 Oxygen Delivery Method Room Air 09/27/23 12:33 Medical Decision Making [facility] Narrative Medical decision making narrative: 68-year-old male to the emergency department with chief complaint of episode of anxiety/chest pain. Vital stable, the patient is afebrile. Cardiac workup is initiated. Ativan for his anxiety. CBC is unremarkable. Chemistry is unremarkable. His initial troponin is very low. Will obtain a 3-hour troponin level. 3hr troponin is very low. Patient is low risk both by his heart score and by ECS high-sensitivity troponin based risk stratification. Patient and report negative stress test within the last calendar year. Patient was reexamined. He has not had any more discomfort. His symptoms resolved with the Ativan. He feels much improved. Patient is have a strong preference for home. I did offer admission and they declined. Discussed follow-up with his PCP within the next week. Return precautions were discussed. All questions were answered. The patient was discharged home. Heart Score for Major Cardiac Event History: Example factors for history - pattern of chest pain, onset, duration, relation with exercise, stress or cold, localization, concomitant symptoms. reaction to sublingual nitrates, [] Highly suspicious +2 [] Moderately suspicious +1 [x] Slightly suspicious 0 EKG: [] Significant ST-Depression +2 [] Non specific repolarization disturbance +1 [x] Normal 0 Age: [x] >= 65 +2 [] 45-65 + 1 [] <45 0 Risk Factors: (HLD, HTN, DM, Cigarette Smoking, Pos Family Hx, Obesity) [] >3 risk factors or hx of atherosclerotic disease + 2 [x] 1-2 risk factors + 1 (HTN, HLD) [] No risk factors known 0 Troponin: [] >= 3X normal + 2 [] 1-3X normal + 1 [x] <= Normal 0 [x] 0-3 Points 0.9 - 1.7% risk of major adverse cardiac event in 6 weeks [] 4-6 Points 12-16.6% risk of major adverse cardiac event in 6 weeks [] 7-10 Points 50-65% risk of major adverse cardiac event in 6 weeks [x] 0-3 Points with 2 sets of negative cardiac markers <1% risk of major adverse cardiac event in 30 days. Medical Records Medical records reviewed: Yes I reviewed the patient's medical records Lab Data Lab results reviewed: Yes I reviewed the patient's lab results Labs: Lab Results 09/27/23 09/27/23 Range/Units 13:03 15:23 WBC 14.6 H (4.0-11.0) 10^3/uL RBC 4.91 (4.70-6.10) 10^6/uL Hgb 15.3 (14.0-18.0) g/dL Hct 44.3 (42.0-54.0) % MCV 90.2 (80.0-94.0) fL MCH 31.2 (25.9-34.0) pg MCHC 34.5 (29.9-35.2) g/dL RDW 12.5 (11.0-15.0) % Plt Count 223 (150-450) 10^3/uL MPV 9.8 (9.5-13.5) fL Neut % (Auto) 85.1 H (43.0-75.0) % Lymph % (Auto) 9.0 L (20.5-60.0) % Schuyler % (Auto) 5.3 (1.7-12.0) % Eos % (Auto) 0.1 L (0.9-7.0) % Baso % (Auto) 0.2 (0.2-2.0) % Neut # (Auto) 12.4 H (1.4-6.5) 10^3/uL Lymph # (Auto) 1.3 (1.2-3.8) 10^3/uL Schuyler # (Auto) 0.8 (0.3-0.8) 10^3/uL Eos # (Auto) 0.0 (0.0-0.7) 10^3/uL Baso # (Auto) 0.0 (0.0-0.1) 10^3/uL Abs Immat Gran (auto) 0.04 H (0.00-0.03) 10^3/uL Imm/Tot Granulo (auto) 0.3 (0.0-0.5) % PT 10.3 (9.0-11.6) sec INR 0.97 Sodium 139 (136-145) mmol/L Potassium 3.9 (3.5-5.1) mmol/L Chloride 103 (98-107) mmol/L Carbon Dioxide 22.8 (21.0-32.0) mmol/L Anion Gap 17.1 BUN 16.0 (7.0-18.0) mg/dL Creatinine 1.16 (0.70-1.30) mg/dL Est GFR ( Amer) >60 (>=60) Est GFR (Non-Af Amer) >60 (>=60) BUN/Creatinine Ratio 13.8 Glucose 143 H (74-106) mg/dL Calcium 10.0 (8.5-10.1) mg/dL Total Bilirubin 1.4 H (0.2-1.0) mg/dL AST 30 (15-37) U/L ALT 40 (16-63) U/L Alkaline Phosphatase 76 (46-116) U/L Troponin I High Sens <4.0 L <4.0 L (4.0-76.1) pg/mL Total Protein 7.3 (6.4-8.2) g/dL Albumin 4.2 (3.4-5.0) g/dL Globulin 3.1 g/dL Albumin/Globulin Ratio 1.4 Imaging Data Chest x-ray: Attestation: I have reviewed the pertinent imaging results. Radiologist's impression: ITS Impressions Chest X-Ray 09/27/23 12:54 IMPRESSION: 1. No acute cardiopulmonary process. Electronically authenticated by: BLAINE VILLEGAS Date: 09/27/2023 13:38 ECG Data Attestation: I personally reviewed and interpreted this ECG as follows: (Normal sinus rhythm at a rate of 64. No STEMI. Normal QTc.) Discharge Plan Discharge Stand Alone Forms: Portal Instructions Chief Complaint: Dizziness Clinical Impression: Chest pain, Stress reaction Patient Disposition: Home, Self-Care Time of Disposition Decision: 16:31 Condition: Good Mode of Transportation: Private Vehicle Prescriptions / Home Meds: No Action bisoprolol-hydrochlorothiazide 5-6.25 mg tablet finasteride 5 mg tablet rosuvastatin 10 mg tablet Print Language: Tajik Instructions: Chest Pain (ED) Additional Instructions: Call the office of your primary care doctor to arrange for follow-up within the above-stated timeframe. Your ED visit was focused on your acute issue and does not replace primary care. You should review your labs, imaging, and diagnoses from this ED visit with your primary care physician. There may be non-emergent/ incidental findings that need further evaluation. You should review your vital signs including blood pressure with your PCP. If you were prescribed medications you should discuss possible side-effects and drug interactions with your pharmacist. Call 911 or go to the nearest Emergency Department if you develop any new or worsening symptoms. Seek immediate medical attention if you develop: worsening chest pain, new chest pain, nausea, vomiting, weakness, numbness, tingling, excessive sweating, shortness of breath, difficulty breathing, loss of motion in your arms or legs, or any new or worsening symptoms. Referrals: SLY DOMINGO [Primary Care Provider] - 1 week
[2023-09-27 15:50] LABS: Troponin I High Sensitivity <4.0 pg/mL (4.0-76.1)
== END 2023-09-27 16:46 | disposition home or self-care (01) ==
PROVIDERS: Emergency Provider Student in an Organized Health Care Education/Training Program; PCP Family Medicine
DX: R07.9 Chest pain, unspecified (principal); F43.9 Reaction to severe stress, unspecified
CPT/HCPCS: 36415; 71045; 80053; 84484; 85025; 85610; 93005; 96361; 96374; 96375; 99285; J2060; J2405

== ENCOUNTER 2023-11-23 15:11 | Outpatient (OUT) | payer OTHER, SELFPAY ==
--- OUTSIDE RECORDS SUMMARY | 2023-11-23 15:20 | XMS_ITS | CCD ---
Author Organization [facility] Care Team Providers Care Senior Courtroom Clerk Name Role Phone MONK HERBERT Jerod WEBB Unavailable Unavailable WONDERLY, YOBANY Unavailable Unavailable WONDERLY, YOBANY Unavailable Unavailable WONDERLY, YOBANY Primary Care Physician ETTA ., DR AUSTIN Attending Unavailable WONDERLY, DR LIBERTAD Roberson Primary Care Unavailable SALAZAR ., DR AUSTIN Admitting Unavailable SALAZAR ., DR AUSTIN Consulting Unavailable WONDERAARON, DR LIBERTAD Roberson Primary Care Unavailable SALAZAR ., DR AUSTIN Admitting Unavailable SALAZAR ., DR AUSTIN Consulting Unavailable SALAZAR ., DR AUSTIN Attending Unavailable Ovidio SALAZAR Attending Unavailable Ovidio SALAZAR Attending Unavailable Ovidio SALAZAR Attending Unavailable Libertad Domingo MD Primary Care Provider LICO, LOS C Attending Unavailable SOFIE BRUMFIELD A Referring Unavailable WONDERLY, LIBERTAD B Primary [...] Unavailable WONDERLY, LIBERTAD B Primary Care Unavailable SOFIE BRUMFIELD A Referring Unavailable WONDERLY, LIBERTAD B Primary Care Unavailable CECILIA BRUMFIELDBETH A Referring Unavailable WONDERLY, LIBERTAD B Primary Care Unavailable Libertad Domingo MD Primary Care Unavailable Lico, Los C Admitting Unavailable Lico, Los C Attending Unavailable SOFIE BRUMFIELD A Attending Unavailable SOFIE BRUMFIELD Attending Unavailable Allergies Allergy Classification Reported Allergen(s) Allergy Type Date of Onset Reaction(s) Facility (9 sources) alfuzosin; Translations: [alfuzosin] Drug Allergy 8 Anxiety (finding), Dyspnea (finding) [facility] (1 source) alfuzosin Drug Allergy [facility] (1 source) No Known Medication Allergies; Translations: [No Known Medication Allergies] Propensity to adverse reactions (disorder) [facility] Repository Medications Current Medications Medication Drug [...] tablet (6 sources) 5-alpha Reductase Inhibitor Start: 11-15-2021 take 1 tablet by mouth once daily finasteride 5 mg Tab 5 mg = 1 tab(s), Oral, Daily, # 90 tab(s), Refills(s) 3, Pharmacy: [facility] [id number], 175, cm, 07/13/22 9:14:00 EDT, Height/Length Dosing, 78, kg, 07/13/22 9:14:00 EDT, Weight Dosing Start Date: 03/08/23 Status: Ordered Glucosamine (2 sources) take 2 capsules by mouth once daily glucosamine sulfate (GLUCOSAMINE ORAL) Take by mouth. 2 CAPSULES PER DAY 0 Active Multi Vitamin+ (2 sources) Start: 08-04-2019 Multi Vitamin+ Refill(s) 0 Start Date: 08/04/19 Status: Ordered klhuijeh-twhx-GZ-ca lcium &mins (THERAGRAN-M) 9 mg iron-400 mcg tablet (4 sources) choalhjm-ytbg-PA -c alcium &mins (THERAGRAN-M) 9 mg iron-400 mcg tablet Take 1 tablet by mouth in the morning. 0 Active apdonroc-bdqq-PD -calcium &mins (THERAGRAN-M) 9 mg iron-400 mcg [...] 3 TIMES A WEEK 0 Active [place] (2 sources) Start: 11-14-2018 [place] R efills(s) 0 Start Date: 11/14/18 Status: [...] 1 tablet by mouth once oriana y saw palmetto xtr/zinc picolin (SAW [place] EXTRACT, [...] Coronary arteriosclerosis; Translations: [Atherosclerotic heart disease of sitka coronary artery with other forms of angina [...] Episodic Unclassified (1 source) New Patient / [id number]() Onset: 07-06-2017 Unclassified (1 source) Prostate Cancer [...] Carlos Osuna MD on 05/11/2023 7:55 PM [facility] 05-10-2023 Creatinine [Mass/Vol] 0.90 mg/dL Normal 0.70-1.20 [facility] Comment on above: Result Comment: METH OD TRACEABLE TO IDMS STANDARD Performed By: #### C RT #### [facility] ([id number]) [address] [place] [address]70 eGFR (CKD-EPI) NON-RACE DEPENDENT >90 Normal >59 [facility] Comment on above: Result Comment: Reported eGFR is based on the CKD-EPI 2020 equation that does not use a race coefficient. Performed By: #### C RT #### [facility] ([id number]) [address] [place] [address] Coding Summaryon 05-04-2023 Coding Summary HTMLBase 64 KtrakierXFi5dMx+PGhlYW Q+AN7GNFHuI57juJKgjE5w L7CUZVmOVlrhZFQVBJkJNz XltaEcYV2eiDDcLPJm IC8+WO8xXLMmAzrtfROxl8 R5sIX7I64nid4iTZdtvLO5 DVFrShYzuxfie5tthOt8AC cuNmluOyBt NCHceU46QYC0xX82Tu98gB VgxXXmb5eqmPe5YiLtFKFs RED2cZmkUHdmt5JeCKPfN1 2hsBRri3E3 WQPudQyfqDZpCuLcyYV9eE 9rQNvvkocfi6qiyyrpOxl4 uz61iOCfq2B8mUR6K3Vmij Z0YOQzhEDs YqambQQIrP1incfsz7tnol znWxUqCEUnNEz3SMl0KZYq iKneUmAzOC53BDI8QODncl GkW3VrDIKo sPznDxI1g5P6Xs0EN6QORk awI3VWJTGEGBdbuDP+PC90 or80Y6QpBekpNeg6EJWhNU Y3mZH1kD7g EJFdRAkdm5D1fRR2J9Qmxs Hzsh7vf9ogLXVtXGpdQ63e nZSfc3S2KWVufDW3IBWauK pbMiYyqA96 Oyc+NOMynVmve7YkGstar7 pwl3dqjAq7XaxxEBLjtyQq qWchIMU4m1NbIm2tZTGohH E4fGX7cD3y DyInKoG6RDulX069TyTqnI VnKkzpD83yQ6XuzND+PHRy Kwc5AMZbzDunWV3xD9IxBU RpbmctbGVm vUoaQZ1lXDCjeqjrMRYddU 3nESWxP8m2FpMyEsD6PKrf I2RfSGBmpeelFw38lG7nCg FwFhN3YQqi C6NkhvA0LZSjuJFrDHxcMZ J3G90cn2I7RLLkJPPvTSF7 rBX3lY0yoLsbdrgbrWExeJ sgdmVydGlj RBgrFDhoS321JALwrErdSx NvZGluZyBEYXRlOiAgMDMv MTIvMjAyNDwvdGQ+PHRkIH E5dStcYFOs rKLbICvkSt8txHdplWfmBB 8gJXYnnezzNOAdkJ4yDFCv tHJcjNavPJ0gFVQahmfrw5 87RoAtYDO7 ZUHlzZXlB2VvmV2sJaYfEK UyRZPlM4CofLJwEOclL047 CIlbNaH0VVUvgdHgT7ZkZI FsaWduOiB0 u1F8Vw3Hl0RflibeA2XcsT JuPzRfMfwrHCc4K7GkQkcy dHI+NJ51ISIqEW08YZl9OH E0fTpyTYxl JNZeR1GroZ7bAjDuUYSsZG RkOyc+PHRhYmxlIHdpZHRo UFbqLIQhAbChgNbsKN9dZq 9yZGVyLWNv tQbctPPjWrLrm5vjGVXmFI biNF0jlWuwK1PivJF6AWWy s6o0Pv55I97nV3NixBW+PG DmgTL6oUB5 hT4wEaQoZsI3DPqyL348Wa WlpQEgTevqz4aqv1rmjJx8 LjU7NZZlflDfjOxvOMC2c5 RoWm55N74x IHdpZHRoPSIxNSUiIHZhbG rqhf7uwC2hGs0+PGNvbCB3 nPC4lR6lLeNuAsI6VVzhC6 49InRvcCIv Euvbb5dqr3iumWu1PfLdPD HpbsDvqDliDJZ9o9TfBi39 K1CniAqtg5PmLvw4se03uB Dyy1Z3qSS9 W3NdCHOoucnytTLiaIgdHZ 6vGTSiyrsgCVLgbW2uBKKh N7n9UmAvXmM5JYuqR3Kfdt S3DHBgqLDo DIXfbJGZeJ1btuaqo2ragw umYzGcJIAeMVz0WIi5SWZb rSsdJaHmXYE9YgV9HHC1dN MyhW0tsRnr lxudkH4cWaz+TQO3eWCffM CUXJ8eOjisdJT+PHRkIHN0 yLeiXWmhOWKemN9oAGUnI7 v9NhLxFbZ5 AQstS9GdmoM2YTZugLKwNS RxzOKIlV4gcvcms8gnkkwf VjXdQJXyJRz0LMd7OAXjzI duOiBsZWZ0 DgI0CAB7cILupW2ovJyete rslE6dLon+QmlydGggRGF0 OOh3K5EeVpu8FQDxxNbcPY 0ncGFkZGlu Uq1kwHqooKpeFE0yBYVvtr otq236OoJmk1enZGHbaIEl TSeiSYF1B69of7B1EBLuDV WhJLU1eJJ7 tW3djVagsryofPMgoTlxys TvkFlyPDtlGPllK888AMBh gSirXbOwBUe7E9OsXrj8XU OhyUkdVV2v dQAeEBgaOy3eoTslsZmcHS 4cYISllfafr245BcTpk1hr DFEznLNuOMtjQOS6S83jj8 H4ESYgUNBx LXB9fAU5wH9djExiimygmQ VmdDsgdmVydGljYWwtYWxp J914MNDbuIrbVlLpmYl1M0 QnTnc7BGZo sOzlDC0cxRLmNWcmJm2nxX tiqPvgOI1kNJZqefwxk237 PjGoi0wbYOTmoGXuCMcaQW W4I48wj6I0 QWSnZCVeCBG4yDF1bO5tgI lnbjogbGVmdDsgdmVydGlj HSsrOEaeQ577IPCyvKftPz BhdGllbnQg LQlrMZe2T9RhJnusqEP+PC 81NKCtVT54fLJvkXWsi9hb uSv3TiTcWGGqSGM3lFmlGD yuy7TnXENk H02bqSJae9L5DHXwdCaokJ XgUjYjmTI4wE4cFRixnjfg z0ygvifjAkign9jpui87oV 65G70cQJls ZHRoPSIzMCUiIHZhbGlnbj 9zpH3hLo2+UWOpqMA8yPJ6 zZ5eTVNjPwI0LBvzO271Az RvcCIvPjxj s3nrx2hpsPs8KoQ4DALroe BoaNblCQN6r3FrPg32L26l IHdpZHRoPSIyMCUiIHZhbG ldyq6ltP7b Ii8+DEViyLU5fMD9oF9dUr TyCgR8ZFluH160GkEwfYHd NrdcH05nL4WqnDL+PHRyPj b4LFZstGcn VM7xjRQpNDbvSw1qSAX4Nz IsWrLgIFkiO6IuZYBhtwpp ytyojRY7PSDdRFBwsH09Li 9udDogMTBw fCFSvI6hnytae0wfrnlvHa VaZPHcIBt5WOw1CODqnAzs MdMaIWP9HpO7BFD9aGJhlB 1hbGlnbjog oE7eD2AmWWKbrvlhLe96kW 3eDfKoKbJ8SKcbVcm+WklN TMQEAPYXQKYZNM8MSNgDCY xFRTwvdGQ+ MLCiEYK6pMqiUCdrURUmdR 2dBDVbF0r7ErEgGnB3ALds N9WoGMSxzlwmAz72gW6fBw PgAtP2IMej B8QhmvL7TZVimAPbKYbhUT Q6W17ug9A1NOLsUDYoXTE9 aFE1wE9fqPrvymyonDTkaB sgdmVydGlj TGtqODadC989UWHqtHmyNr I5CyGqAoV2GBZ5I1PiWij2 WLFcaStyUF1qvYEjJLpwHd 1yaWdodDog HS7yABRsyldcDSXgbZ2iLG AqcPSkqZgrTN8qIVQgomev d299QyFaHZM0PPTcnNIzK7 TqwH1aJiVg ITWwAIYqW8PdsCMpTPugD1 31IVngHcD3HAGnnuEhU3Zt GGEsqNlkZrS5k8Q8Ji84ZR BZZWFyczwv dGQ+MVElQTG5aMdqSNnxGW CakJ8oCMIkF3j6FrKbUxV6 PVlyB9DhMWEalnrwBy51rZ 1jFxUeYjE3 MFlpA5MbgtU0TETrsRUwRU stRZF0P61xb0A9NONgCZWp AEK4sRP6tK1tyZlfkbtgpW VmdDsgdmVy iCkaUOaqGPsfG646NNLrgL osEd8GUKW6O7PkPkx4DAZb iQjjKW9rfRRuBCleDo5dcU snmCyjAU0z UMFoteiaJWOffP5kXJKhsA JreWtmAK1oTSTtfroyw710 VeAxWBS1NULjiXYhD5OdgH 9yOiAjMDAw XWNsX9JtfGRnTZyrP715IO kvWyU3WKOiakGxD7GpOLDr iTzlSeW8l4X4Bm1SNUxrqA Q+XZ77dw27 A3GeUzrdTpx1HBMmBWI6mC H7vR0tRCFdNLlja2S1yTY9 L2DeulEtgy2dh6mfPNTyQF qhI90cjFTt z2U3PQGmqUE1WINhwVmmXd RqhN30Fnj+PIWvlHngd8Fn Sknuw0tjq4dbyMa8RbHxHJ IgdmFsaWdu TCL6i1EsXl99U89hIBbyYG UoRPThXFHwUMNdrRzlmu0j fU6lAc5+GBIexNM0uCP5oW 1bTtRnJrM4 UYydP769YiFrvHKxPvndu9 caz0lxrCp9UiVyLMQbjdSh bNqcNGC1k7LwDy72N6BmiK kuv3UdUsw8 ld63dAHdq6T6oRQ4A0NqGQ ZfrnfsdSPvhFyyED2yRUNj yzqkIDIqpV5hIYSvS8g7Dq MdXvH5NKmd S0AaceA8EYErsYJzVAEgqA BBuS2hdlxry7gmbfsuKnPb FFSvHYy0WLe6RRHszOeiKs TnKUP6IuS6 LLY3kZJusO5xzZtdxvnylB 9wOyc+XUy4o0xrcGXbKI9l qVQ9GH62CV29fFAzf5S3uB L4W9LxWDRf ggnhohyewKX2ZFDhRYIgsY 85Dy8qtWqmRa1cNUKyVNT8 CINcdYLuN4GlsZ4eKxIpYG QiEDUtT4Dy nROdNVyuL327EOjvEzY6LE DxpqKgN4VmLHZnjJofWuT6 b0Q1Zy2YQG25JO32LS93pQ Kaw7O0xHE0 F4UiSZMbudtptmlblLJ3QA JvRLNqvG70Qe8njLccEj2o GIMqXPK1PFOueXSjV4GprA 9yOiAjMDAw NPEjD6OhsNYsFEirI661LF usZzB4FAHvnsLoW6VeFUJk xNagHnP9w0L1Ed7SFb76PE 06TB89kMUl g7P4qAC3S2GiLODogbewyg lvmXL0PGXbYJAtpE67Ds3x bEyrYb9eZYToXND4IYLgnZ SjW2CusQ0w IqHwVAJfZXPjG8OjfYJbYS lvS383GMrwSoQ5HBFiewPm L6QcPSYdhBbfRrZ1f4R7Ii 1VRLmsdvo8 C8BzLnzzqRJ+CE55LGKvVQ 65kATeoDKsb1fuaNv7XcTt IASiUGC6sZqvLZvff1YePZ HzQ86rdBCo c2U (more content not included)... Normal [facility] Ambulatory Visit Summaryon 0 04-02-2023 Ambulatory Visit [...] multivitamin (Multi Vitamin+) omeprazole saw palmetto (S[place]) Procedures Performed Transrectal biopsy of prostate using [...] [facility] [address], [place] [phone] Medications What How Much When Instructions Unchanged [...] questions or concerns Unchanged saw palmetto (S[place]) Contact prescribing physician if questions or concerns [...] is no (more content not included)... Normal [facility] Patient Educationon 04-02-19 24 Patient Education Oncology Prostate Cancer Screening Prostate [...] Where to find more information ? The [place] [employer]: www.cancer.org ? [place] [employer]: www.auanet.org Contact a health care [...] adds flu (more content not included)... Normal [facility] Urology Office/Clinic Noteon 04-02-2023 Urology Office/Clinic [...] Contact Information ETTA WILLAMS, Ovidio Rubio, URL In 8 months [facility] [address] [place] [phone] Additional Instructions: w/ PSA Patient Education Prostate [...] refills Multi Vitamin+ omeprazole, Oral, Daily [place] Allergies alfuzosin (Anxiety, SOB - Shortness of breath) Social History Tobacco Never (less than 100 in lifetime) Tobacco Use:. Never Smokeless Tobacco Use:. Household tobacco concerns: No. Yes, 04/02/2023 Family History Pancreatic cancer: Father and Brother. Immunizations Vaccine Date Status Comments influenza virus vaccine, inactivated 12/30/2022 Recorded influenza virus vaccine, inactivated 12/01/2021 Recorded SARS-CoV-2 (COVID-19) mRNAMUL.ORD![id number] 12/01/2021 Recorded influenza virus vaccine, inactivated 01/15/2021 Recorded SARS-CoV-2 (COVID-19) mRNA BNT-162b2 vax 01/15/2021 Recorded SARS-CoV-2 (COVID-19) mRNA BNT-162b2 vax 05/06/2020 Recorded 2022-01-12: [id number] SARS-CoV-2 (COVID-19) mRNA BNT-162b2 vax 04/15/2020 Recorded 2022-01-12: [id number] zoster vaccine, inactivated 03/18/2020 Recorded SARS-CoV-2 (COVID-19) mRNA BNT-162b2 vax 2020 Recorded pt states that he is fully vaccinated zoster vaccine, inactivat (more content not included)... Normal [facility] Comment on above: Result Comment: Elec tronically Signed By: Ovidio SALAZAR MD\.br\Date and Time Signed: 04/02/23 10:21 EST\.br\Electronically Co-Signed By: Shiloh Forrest\.br\Date and Time Co-Signed: 04/02/23 10:18 EST [facility] 03-23-2023 Lab Reports [id number] 0TIFF Normal [facility] Ambulatory Visit Summaryon 0 07-13-2022 Ambulatory Visit Summary BEREKET FU :1955 Visit Date:07/13/2022 Ambulatory Visit Instructions Your Diagnosis Prostate cancer Enlarged prostate with urinary obstruction Family history of prostate cancer in father Tests Performed Urnls Dip Stick Auto w/o Microscopy POC 60967 Your Care Team Attending Physician - Ovidio SALAZAR MD Primary Care Physician - LIBERTAD DOMINGO This Is Your Medications List finasteride (finasteride 5 mg Tab) Contact prescribing physician if questions or concerns aspirin (aspirin 81 mg oral tablet) bisoprolol-hydrochloro thiazide (bisoprolol-hydrochlor othiazide 2.5 mg-6.25 mg Tab) chondroitin-glucosamin e (Cosamin DS) multivitamin (Multi Vitamin+) omeprazole saw palmetto (S[place]) Procedures Performed Transrectal biopsy of prostate using [...] Rodriguez When: Where: [facility] [address] [place] [address] Medications What How Much When Instructions Unchanged [...] questions or concerns Unchanged saw palmetto (S[place]) Contact prescribing physician if questions or concerns Test Results Urnls Dip Stick Auto w/o Microscopy POC 48296 (07/13/2022) Bilirubin Urine Dipstick - Negative Blood Urine Dipstick - Trace-intact Glucose Urine Dipstick - Negative Ketones Urine Dipstick - Negative Leukocytes Urine Dipstick - Negative Nitrite Urine Dipstick - Negative Protein Urine Dipstick - Negative Specific [place] Urine Dipstick - 1.015 Urine Appearance Urine [...] the conditi (more content not included)... Normal [facility] Patient Educationon 07-14-19 Patient Education Oncology [...] under a microscope. This is called the [place] score and the total score can range from 6?10, indicating how likely it is that the cancer will spread (metastasize) to other parts of the body. The higher the score, the greater the likelihood that the cancer will spread. ? Gar[place] 6 or lower: This indicates that the cancer cells look similar to normal prostate cells (well differentiated). ? [place] 7: This indicates that the cancer cells look somewhat similar to normal prostate cells (moderately differentiated). ? [place]land 8, 9, or 10: This indicates that [...] external be (more content not included)... Normal [facility] Urology Office/Clinic Noteon 07-13-2022 Urology Office/Clinic [...] Ovidio Rubio, URL [facility] [address] [place] [address]- Additional Instructions: 8 mos PSA Patient Education [...] refills Multi Vitamin+ omeprazole, Oral, Daily [place] Allergies alfuzosin (Anxiety, SOB - Shortness of breath) Social History Tobacco Never (less than 100 in lifetime) Tobacco Use:. Never Smokeless Tobacco Use:., 01/12/2022 Family History Pancreatic cancer: Father and Brother. Immunizations Vaccine Date Status Comments influenza virus vaccine, inactivated 12/01/2021 Recorded SARS-CoV-2 (COVID-19) [id number].ORD![id number] 12/01/2021 Recorded influenza virus vaccine, inactivated 01/15/2021 Recorded SARS-CoV-2 (COVID-19) mRNA BNT-162b2 vax 01/15/2021 Recorded SARS-CoV-2 (COVID-19) mRNA BNT-162b2 vax 05/06 (more content not included)... Normal [facility] Comment on above: Result Comment: Elec tronically Signed By: ETTA WILLAMS, Ovidio Rubio\.br\Date and Time Signed: 07/13/22 09:58 EDT\.br\Electronically Co-Signed By: Kaity Long\.br\Date and Time Co-Signed: 07/13/22 09:56 EDT [facility] 07-11-2022 Lab Reports [id number] Normal [facility] Comprehensive Metabolic Pane sayra 06-30-2021 Albumin [Mass/Vol] 4.7 g/dL Normal 3.6-5.1 [facility] Comment on above: Performed By: #### L IPD, CMP #### [facility] [address], [place] [id number] Albumin/Globulin [Mass ratio] 2.1 {ratio} Normal 1.0-2.5 [facility] Comment on above: Performed By: #### L IPD, CMP #### [facility] [address], [place] [id number] ALP [Catalytic activity/Vol] 72 U/L Normal 40-129 [facility] Comment on above: Performed By: #### L IPD, CMP #### [facility] [address], [place] [id number] ALT [Catalytic activity/Vol] 30 U/L Normal 9-46 [facility] Comment on above: Result Comment: 01/22 Female reference range changed. Performed By: #### L IPD, CMP #### [facility] [place] [id number] Anion gap [Moles/Vol] 17 mmol/L Normal 12-20 [facility] Comment on above: Result Comment: Effe ctive 02/27/2019 reference range changed. Performed By: #### L IPD, CMP #### [facility] [place] [id number] AST [Catalytic activity/Vol] 27 U/L Normal 10-40 [facility] Comment on above: Performed By: #### L IPD, CMP #### [facility] [address], [place] [id number] Bilirubin [Mass/Vol] 0.73 mg/dL Normal 0.30-1.20 [facility] Comment on above: Performed By: #### L IPD, CMP #### [facility] [address], [place] [id number] BUN/CREA 18 Ratio Normal 6-22 [facility] Comment on above: Performed By: #### L IPD, CMP #### [facility] [address], [place] [id number] Calcium [Mass/Vol] 9.8 mg/dL Normal 8.6-10.2 [facility] Comment on above: Performed By: #### L IPD, CMP #### [facility] [address], [place] [id number] Chloride [Moles/Vol] 102 mmol/L Normal 98-107 [facility] Comment on above: Performed By: #### L IPD, CMP #### [facility] [address], [place] [id number] CO2 [Moles/Vol] 26 mmol/L Normal 20-31 [facility] Comment on above: Performed By: #### L IPD, CMP #### [facility] [address], [place] [id number] Creatinine [Mass/Vol] 1.0 mg/dL Normal 0.7-1.4 [facility] Comment on above: Performed By: #### L IPD, CMP #### [facility] [address], [place] [id number] eGFRAA 95 mL/min/1.73m2 Normal >60 [facility] Comment on above: Performed By: #### L IPD, CMP #### [facility] [address], [place] [id number] eGFRNAA 78 mL/min/1.73m2 Normal >60 [facility] Comment on above: Performed By: #### L IPD, CMP #### [facility] [address], [place] [id number] Globulin (S) [Mass/Vol] 2.2 g/dL Normal 1.9-3.7 [facility] Comment on above: Performed By: #### L IPD, CMP #### [facility] [address], [place] [id number] Glucose [Mass/Vol] 106 mg/dL High 65-99 [facility] Comment on above: Result Comment: For FASTING Glucose --- ADA reference ranges: Normal 65-99 mg/dl Prediabetes 100-125 Diabetes >/= 126 Performed By: #### L IPD, CMP #### [facility] [address], [place] [id number] Potassium [Moles/Vol] 4.5 mmol/L Normal 3.5-5.5 [facility] Comment on above: Performed By: #### L IPD, CMP #### [facility] [address], [place] [id number] Protein [Mass/Vol] 6.9 g/dL Normal 6.1-8.1 [facility] Comment on above: Performed By: #### L IPD, CMP #### [facility] [address], [place] [id number] Sodium [Moles/Vol] 140 mmol/L Normal 135-146 [facility] Comment on above: Performed By: #### L IPD, CMP #### [facility] [address], [place] [id number] Urea nitrogen [Mass/Vol] 17 mg/dL Normal 7-25 [facility] Comment on above: Performed By: #### L IPD, CMP #### [facility] [address], [place] [id number] Hemoglobin A1Con 06-30-2021 EAG 111.15 Normal [facility] Comment on above: Performed By: #### A 1C #### [facility] [address], [place] [id number] HbA1c (Bld) [Mass fraction] 5.5 % Normal 4.0-6.0 [facility] Comment on above: Performed By: #### A 1C #### [facility] [address], [place] [id number] Lipid Panelon 06-30-2021 Cholesterol [Mass/Vol] 221 mg/dL High 125-200 [facility] Comment on above: Result Comment: Low risk < 200mg/dL Borderline risk 201-239 mg/dl High risk > or equal to 240 Performed By: #### L IPD, CMP #### [facility] [address], [place] [id number] Cholesterol in HDL [Mass/Vol] 55 mg/dL Normal >40 [facility] Comment on above: Result Comment: High Cardiovascular Risk HDL <40 mg/dL Low Cardiovascular Risk HDL > or equal to 60 mg/dl Performed By: #### L IPD, CMP #### [facility] [address], [place] [id number] Cholesterol in LDL [Mass/Vol] 151 mg/dL Normal [facility] Comment on above: Result Comment: LDL ATP III CLASSIFICATION LDL less than 100 mg/dl Optimal LDL 100-129 mg/dl Near or above optimal LDL 130-159 Borderline high LDL 160-189 High LDL greater than 189 mg/dl Very High Performed By: #### L IPD, CMP #### [facility] [address], [place] [id number] Cholesterol in VLDL [Mass/Vol] 15 mg/dL Normal [facility] Comment on above: Performed By: #### L IPD, CMP #### [facility] [address], [place] [id number] Cholesterol.total/C holesterol in HDL [Mass ratio] 4 {ratio} Normal [facility] Comment on above: Performed By: #### L IPD, CMP #### [facility] [address], [place] [id number] Triglyceride [Mass/Vol] 73 mg/dL Normal 30-150 [facility] Specialist Comment on above: Result Comment: TRIG ATPIII CLASSIFICATIONS TRIG less than 150 mg/dl Normal TRIG 150-199 mg/dl Borderline High TRIG 200-500 mg/dl High TRIG greather than 500 mg/dl Very High Performed By: #### L IPD, CMP #### [facility] [address], [place] [id number] Vital Signs Date Time Vital Sign Value Performing Clinician Tanner sheffield 04-29-2023 13:14-0500 Body height 175.3 cm Los Lico DO Work Phone: [facility] 04-29-2023 13:14-0500 Body mass index (BMI) [Ratio] 24.96 kg/m2 Los Lico DO Work Phone: [facility] 04-29-2023 13:14-0500 Body weight 76.66 kg Los Lico DO Work Phone: [facility] 04-29-2023 13:14-0500 Diastolic blood pressure 78 mm[Hg] Los Lico DO Work Phone: [facility] 04-29-2023 13:14-0500 Heart rate 76 /min Los Lico DO Work Phone: [facility] 04-29-2023 13:14-0500 SaO2% (BldA) [Mass fraction] 98 % Los Lico DO Work Phone: [facility] 04-29-2023 13:14-0500 Systolic blood pressure 122 mm[Hg] Los Lico DO Work Phone: [facility] 04-02-2023 09:39-0500 Blood Pressure Location Ovidio SALAZAR [facility] 04-02-2023 09:39-0500 Diastolic blood pressure 84 mm[Hg] Ovidio SALAZAR [facility] 04-02-2023 09:39-0500 Heart rate 74 /min Ovidio SALAZAR [facility] 04-02-2023 09:39-0500 Respiratory rate 16 /min Ovidio SALAZAR [facility] 04-02-2023 09:39-0500 Systolic blood pressure 136 mm[Hg] Ovidio SALAZAR [facility] 07-07-2021 09:37-0400 Blood Pressure Location Ovidio SALAZAR [facility] 07-07-2021 09:37-0400 Diastolic blood pressure 79 mm[Hg] Ovidio SALAZAR [facility] 07-07-2021 09:37-0400 Heart rate 71 /min Ovidio SALAZAR [facility] 07-07-2021 09:37-0400 Respiratory rate 16 /min Ovidio SALAZAR [facility] 07-07-2021 09:37-0400 Systolic blood pressure 142 mm[Hg] Ovidio SALAZAR [facility] Encounters Encounter Date Encounter Type Care Provider Facility Start: 12-03-2023 ambulatory Ovidio Torresi ty:PAYAL Ruffin Start: 10-06-2023 End: 10-06-2023 ambulatory SOFIE BRUMFIELD Not Available Start: 07-02-2023 End: 07-02-2023 ambulatory SOFIE BRUMFIELD Not Available Start: 05-27-2023 Telephone encounter [facility] Start: 05-10-2023 End: 05-11-2023 ambulatory [facility] Start: 05-10-2023 End: 05-10-2023 ambulatory LOS [facility] Start: 04-29-2023 End: 04-30-2023 ambulatory Libertad Domingo MD Facility:[facility] Start: 04-29-2023 End: 04-29-2023 ambulatory LOS [facility] Start: 04-29-2023 End: 04-29-2023 Office outpatient new 45 minutes Losjuan Duke DO Work Phone: [facility] Comment on above: Nonrheumatic aortic valve insufficiency (Primary Dx); Shortness of breath; 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 ([facility]-HCC); Aortic root dilatation ([facility]-HCC) Start: 04-28-2023 Telephone encounter Tere Guido [facility] Start: 04-22-2023 Telephone encounter Miller Gabriel MD Work Phone: [facility] Start: 04-16-2023 End: 04-17-2023 ambulatory [facility] Start: 04-02-2023 End: 04-03-2023 ambulatory Ovidio SALAZAR Facility:[facility] Start: 04-02-2023 End: 04-02-2023 Patient encounter procedure Ovidio SALAZAR [facility] Start: 07-13-2022 End: 07-14-2022 ambulatory Ovidio SALAZAR Facility:[facility] Start: 07-07-2022 End: 07-08-[address] LIBERTAD DOMINGO Facility:[facility] Start: 01-01-2022 End: 01-02-[address] OVIDIO SALAZAR . Facility:[facility] Start: 07-07-2021 End: 07-07-2021 Patient encounter procedure Ovidio SALAZAR [facility] Start: 07-06-2017 Ambulatory Jerod ARRIAZA III [facility] Procedures Date Procedure Procedure Detail Performing Clinician Start: 07-07-[address] ROLDAN SALAZAR . Comment on above: Performed By: #### P SAD #### [facility] [address] [place] [address] Dr. Santi Calderón Start: 01-01-[address] ROLDAN SALAZAR . Comment on above: Performed By: #### P SAD #### [facility] [address] [address] [address] Santi Calderón Start: 11-20-2019 Colonoscopy Miller [...] Td Vaccines (2 - Td or Tdap) [facility] Start: 11-19-2024 Screening for malign ant neoplasm of colon Colonoscopy [facility] Start: 05-09-2024 Adult BMI Screening Adult BMI Screen ing [facility] Start: 05-09-2024 Tobacco Screening Tobacco Screening [facility] Start: 04-28-2024 Adult BMI Screening Adult BMI Screen ing [facility] Start: 04-28-2024 Tobacco Screening Tobacco Screening [facility] Start: 10-24-2023 Influenza vaccination Influenza Vacc ine [facility] Start: 05-28-2023 End: 05-28-2023 Patient encounter procedure 05/28/2023 11:00 AM EDT Office Visit [facility] [address] [place] [id number] Los Duke, DO [address] [place] [address], [address] [place] [address] [facility] Start: 05-10-2023 End: 05-10-2023 Patient encounter procedure [facility] Start: 04-29-2023 End: 04-28-2024 CT Chest WO and CT angiogram Coronary arteries W contrast IV CT angiogram chest Imaging Routine Nonrheumatic aortic valve insufficiency Shortness of breath Expected: 04/29/2023, Expires: 04/28/2024 [facility] Comment on above: Expected: 04/29/2023 , Expires: 04/28/2024 Start: 04-29-2023 End: 04-28-2024 SPECT Heart gated and ejection fraction at rest and W stress and W radionuclide IV Nuc stress exercise Cardiac Services Routine Nonrheumatic aortic valve insufficiency Shortness of breath Expected: 04/29/2023, Expires: 04/28/2024 [facility] Comment on above: Expected: 04/29/2023 , Expires: 04/28/2024 Start: 04-29-2023 End: 04-29-2023 Patient encounter procedure 04/29/2023 1:30 PM EST [facility] [address] [place] [phone] Los Duke, DO [address] [place] [address], [address] [place] [address] [facility] Start: 09-18-2022 Adult BMI Screening Adult [facility] Screen ing [facility] Start: 09-18-2022 Tobacco Screening Tobacco Screening [facility] Start: 2018 Fall Risk Screening Fall Risk Screen ing [facility] Start: 1965 Depression Screening Depression Scre ening [facility] Start: 1955 Medicare Annual Wellness Visit Medicare [facility] Well[facility] End: 04-28-2024 Creatinine includes GFR, serum Creatinine includes GFR, serum Lab Routine Nonrheumatic aortic valve insufficiency Shortness of breath 1 Occurrences starting 04/29/2023 until 04/28/2024 [facility] Comment on above: 1 Occurrences starti ng 04/29/2023 until 04/28/2024 ECG, Hospital Report Scan ECG, Hospital Report Scan ECG Routine Nonrheumatic aortic valve insufficiency Ordered: 04/29/2023 [facility] Work Phone: Comment on above: Ordered: 04/29/2023 Immunizations Immunization Date Immunization Notes Care Provider Mirza albarran 12-30-2022 influenza virus vaccine, unspecified formulation Ovidio SALAZAR [facility] 12-01-2021 influenza virus vaccine, unspecified formulation Ovidio SALAZAR [facility] 12-01-2021 SARS-CoV-2 (COVID-19 ) [id number] Ovidio SALAZAR [facility] 01-15-2021 influenza virus vaccine, unspecified formulation Ovidio SALAZAR [facility] 01-15-2021 SARS-CoV-2 (COVID-19 ) mRNA BNT-162b2 vax Ovidio SALAZAR [facility] 05-06-2020 SARS-CoV-2 (COVID-19 ) mRNA BNT-162b2 vax Ovidio SALAZAR [facility] Comment on above: Result Comment: 2021: [id number] 04-15-2020 SARS-CoV-2 (COVID-19 ) mRNA BNT-162b2 vax Ovidio SALAZAR [facility] Comment on above: Result Comment: 2021: [id number] 03-18-2020 zoster vaccine recombinant Ovidio SALAZAR [facility] 02-23-2020 SARS-CoV-2 (COVID-19 ) mRNA BNT-162b2 vax Ovidio SALAZAR [facility] Comment on above: Result Comment: pt s tates that he is fully vaccinated 12-14-2019 influenza virus vaccine, unspecified formulation Ovidio SALAZAR [facility] 12-14-2019 zoster vaccine recombinant Ovidio SALAZAR [facility] 12-06-2019 influenza virus vaccine, unspecified formulation Ovidio SALAZAR [facility] 11-23-2019 pneumococcal conjuga te vaccine, 13 valent Ovidio SALAZAR [facility] 03-29-2019 pneumococcal conjuga te vaccine, 13 valent Ovidio SALAZAR [facility] 02-17-2019 influenza virus vaccine, unspecified formulation Ovidio SALAZAR [facility] 12-29-2017 influenza virus vaccine, unspecified formulation Ovidio SALAZAR [facility] 12-07-2016 tetanus toxoid, redu mark diphtheria toxoid, and acellular pertussis vaccine, adsorbed Ovidio SALAZAR [facility] Payers Date Payer Category Payer Medicare [employer] ADV [id number] 2023-Present [phone] [address] [place] [address] [id number] 2023 Unknown [id number] 2018 Medicare [id number] 2018 Unknown [facility] [id number] 2018-Present [phone] [address] [place] [address] [id number] 2017 Unknown [id number] 1959 Medicare [id number] 1959 Unknown [id number] 1953 Unknown [id number] [id number]3 1953 Unknown [id number] 2.16.840.1.971632.3.579.2.593 1953 Unknown [id number] 2.16.840.1.348621.3.579.2.727 1953 Unknown [id number] 2.16.840.1.282600.3.579.2.727 1953 Unknown [id number] 2.16.840.1.896458.3.579.2.727 1953 Unknown [id number] 2.16.840.1.133859.3.579.2.1286 1953 Unknown [id number] 2.16.840.1.434727.3.579.2.1286 1953 Unknown [id number] 2.16.840.1.975165.3.579.2.1286 1953 Unknown [id number] 2.16.840.1.939388.3.579.2.1286 1953 Unknown [id number] 2.16.840.1.196833.3.579.2.1286 1953 Unknown [id number] 2.16.840.1.057813.3.579.2.1286 1953 Unknown [id number] 2.16.840.1.135254.3.579.2.1286 1953 Unknown [id number] 2.16.840.1.411420.3.579.2.1286 1953 Unknown [id number] 2.16.840.1.842958.3.579.2.1286 1953 Unknown [id number] 2.16.840.1.987602.3.579.2.718 1953 Unknown [id number] 2.16.840.1.823801.3.579.2.1259 1953 Unknown [id number] 2.16.840.1.476620.3.579.2.1259 Social History Date Type Detail Facility Start: 07-07-2021 End: 04-29-2023 Tobacco smoking status Never smoked tobacco (finding) [facility] Start: 04-04-2020 End: 09-19-2021 Sex Assigned At Male [facility] Tobacco smoking status Never [facility] Start: 05-24-2018 End: 04-29-2023 Tobacco use and exposure Smokeless tobacco non-user [facility] Start: 09-19-2021 End: 05-10-2023 Alcohol intake Current drinker of alcohol (finding) [facility] Start: 04-04-2020 End: 09-19-2021 Alcohol intake [facility] Start: 04-20-2019 Alcohol Comment socially [facility] Start: 1955 Sex Assigned At Not on file [facility] NEGATED: Highlighted rowStart: NINF History of tobacco use Passive smoker [facility] Medical Equipment Procedure Code Equipment Code Equipment Origin al Text Equipment Identifier Dates Lens Iol Ultrase rt 20.0d - [id number] - [id number] Start: 09-18-2021 Functional Status Date Assessment Result Facility 04-02-2023 Functional Status N/A [facility] Clinical Notes 07-07-2021 to 05-27-2023 Telephone Encounter - Tere Narayan MA - 05/27/2023 1:37 PM EDTTelephone Encounter - Tere Narayan MA - 05/27/2023 1:37 PM EDTBirving Duke DO - 04/29/2023 1:30 PM EST Note Date & Type Note Facility 05-27-2023 Miscellaneous Notes Called patient to remind them to bring their most current copy of their medication list with them to their appt. Patient verbalizes understanding. documented in this encounter [facility] 05-27-2023 Telephone encounter Note Called patient to remind them to bring their most current copy of their medication list with them to their appt. Patient verbalizes understanding. [facility] 04-29-2023 History of Presen t illness Narrative Bereket Fu Date of visit: 04/29/2023 Date of : 1955 Age: 67 y.o. 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 2 CAPSULES PER DAY qibydeae-dqxc-UG-calcium &mins (THERAGRAN-M) 9 mg iron-400 mcg tablet Take 1 tablet by mouth in the morning. omeprazole (PriLOSEC) 10 mg capsule Take 1 capsule (10 mg total) by mouth. 3 TIMES A WEEK SAW VICTOR MO ORAL Take 1,350 mg by mouth in the morning. No current facility-administered medications for this visit. 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, PFO, EKG, ECHO DONE @ [facility],SCHED W/PT+++PT PREVIOUSLY SAW NWOCC/PPC/MGI ABOUT 12 [...] Past Medical History: Diagnosis Date Atrial fibrillation (CMS-HCC) Cancer (CMS-HCC) prostate Dyspnea on exertion GERD (gastroesophageal reflux disease) Hypertension Mitral regurgitation Palpitations Patent foramen ovale Visual impairment glasses No data recorded No data recorded No data recorded Past Surgical History: Procedure Laterality Date APPENDECTOMY OPEN N/A 06/15/2018 Performed by Jf Albarran MD at [facility] SHOULDER debridement of type 1 slap lesion, subarcomial decompression Right 07/19/2018 Performed by Raphael Dudley Jr., DO at [facility] CARDIAC CATHETERIZATION more than 5 years ago CARPAL TUNNEL RELEASE COLONOSCOPY 2014 COLONOSCOPY N/A 11/20/2019 Performed by Jf Albarran MD at [facility] EXTRACTION CATARACT INTRAOCULAR LENS Left 09/18/2021 Performed by Vidhya Woodson MD at [facility] PROSTATE SURGERY 2019 BIOPSY, [facility] VASECTOMY 1978 Family History Problem Relation Age of Onset [...] exercise; Future 3. 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 Aortic root dilatation ([facility]) I recommended a CT scan to assess [...] Libertad Domingo MD Referring Physician: Sofie Brumfield, PROCESS CONTROL OPERATOR-[address], [place] [address] documented in this encounter [facility] 04-28-2023 Miscellaneous Notes Called patient to remind them to bring their most current copy of their medication list with them to their appt. Patient verbalizes understanding. documented in this encounter [facility] 04-28-2023 Telephone encounter Note Called patient to remind them to bring their most current copy of their medication list with them to their appt. Patient verbalizes understanding. [facility] 04-22-2023 Miscellaneous Notes This is notification that we have received a referral for the patient. Please reach out to schedule new patient appointment in your office. Please check the referral tab in appt desk for details and to make sure to assign referral or schedule off of it. Thank you. documented in this encounter [facility] 04-22-2023 Telephone encounter Note This is notification that we have received a referral for the patient. Please reach out to schedule new patient appointment in your office. Please check the referral tab in appt desk for details and to make sure to assign referral or schedule off of it. Thank you. [facility] 04-02-2023 Hospital Discharg e instructions Patient Education [...] treatment? Where to find more information [employer] [place] [employer]: www.cancer.org [place] [employer]: www.auanet.org Contact a health care [...] provider. Document Revised: 08/04/2021 Document Reviewed: 08/04/2021 [email or web address] Patient Education 2022 5 Minutes. Follow Up Care 07/13/2022 10:02:58 With:ETTA WILLAMS, Ovidio Rubio, URL Address: [facility] [address] [place] [address]- [phone] When:Within 8 Month(s) Comments:w/ PSA [facility] [place] 07-07-2021 Hospital Discharg e instructions [...] who: Are older than age 65. Are -Slovenian. Are obese. Have a family history of [...] cells. Follow these instructions at home: Take esws-iob-yivwavn and prescription medicines only as told by [...] 02/08/2006 Document Revised: 01/21/2018 Document Reviewed: 10/19/2016 [email or web address] Patient Education 2020 5 Minutes. Follow Up Care 01/06/2021 10:16:32 With:Ovidio SALAZAR MD, URL Address: [facility] [address], [place] [address]- When: Unknown [facility] Evaluation + Plan note Future Appointments Appointment Date:01/12/2022 09:45:00 AM Scheduled Provider:Ovidio SALAZAR MD Location:[facility] Appointment Type:URO Office Visit Diagnostic Tests PendingPSA Total 07/07/21 [facility] Evaluation + Plan note Future Appointments Appointment Date:12/03/2023 09:30:00 AM Scheduled Provider:Ovidio SALAZAR MD Location:[facility] Appointment Type:URO Office Visit Diagnostic Tests PendingPSA Total 04/02/23 [facility] Evaluation note Diagnosis Nonrheumatic aortic valve insufficiency- Primary Shortness of breath 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 (CMS-HCC) Aortic root dilatation ([facility]-HCC) Thoracic aneurysm without mention of rupture [facility] Narrative No data available for this section [facility] InstructionsNot on filedocumented in this encounter [facility] filedocumented in this encounter [facility]ructions[facility] on filedocumented in this encounter [facility] No data available for this section [facility] Summary Purpose Family History No Family History [...] Procedures Nuc stress exercise Los Duke, DO [address] [place] [address], [address] [place] [address] Referral ID Status Reason Start Date Expiration Date V isits Requested Visits Authorized [id number] Pending Review 04/29/2023 04/28/2024 5 5 Specialty Diagnoses / Procedures Referred By Contac t Referred To Contact Radiology Diagnoses Nonrheumatic aortic valve insufficiency Shortness of breath Procedures CT angiogram chest Los Duke, DO [address] [facility], [address] [place] [address] Referral ID Status Reason Start Date Expiration Date V isits Requested Visits Authorized [id number] Pending Review 04/29/2023 04/28/2024 1 1 Specialty Diagnoses / Procedures Referred By Contac t Referred To Contact Diagnoses Nonrheumatic aortic valve insufficiency Procedures ECG, Hospital Report Scan Los Duke, DO [address] [place], [place] [address], [address] [place] [address] Referral ID Status Reason Start Date Expiration Date V isits Requested Visits Authorized [id number] Pending Review 04/29/2023 04/28/2024 1 1 Additional Source Comments (unrecognized sect ion and content) No Status Records FoundNo Status Records FoundNo Status Records FoundNo Status Records FoundNo Status Records FoundNo Status Records FoundNo Status Records FoundNo Status Records Found INFORMATION SOURCE (unrecogn ized section and content) DATE CREATED AUTHOR 08/11/2017 [facility] DATE CREATED AUTHOR AUTHOR'S ORGANIZ ATION 06/30/[address] [facility] dical Specialist DATE CREATED AUTHOR AUTHOR'S ORGANIZ ATION 07/08/2022 [facility] DATE CREATED AUTHOR AUTHOR'S ORGANIZ ATION 04/03/2023 [facility] DATE CREATED AUTHOR AUTHOR'S ORGANIZ ATION 04/30/2023 [facility] DATE CREATED AUTHOR AUTHOR'S ORGANIZ ATION 05/27/2023 [facility] DATE CREATED AUTHOR AUTHOR'S ORGANIZ ATION 06/04/2023 [facility] DATE CREATED AUTHOR AUTHOR'S ORGANIZ ATION 10/08/[address] [facility] dical Specialists [place] Patient Care team informatio n (unrecognized section and content) Senior Courtroom Clerk Relationship Specialty Start Date End Date Libertad Domingo MD [address] [place] [address] PCP - General Family Medicine 12/10/16 Senior Courtroom Clerk Relationship Specialty Start Date End Date Libertad Domingo MD [address] [place] [address] PCP - General Family Medicine 12/10/16 Senior Courtroom Clerk Relationship Specialty Start Date End Date Libertad Domingo MD [address] [place] [address] PCP - General Family Medicine 12/10/16 Senior Courtroom Clerk Relationship Specialty Start Date End Date Libertad Domingo MD [address] [place], [place] [id number] PCP - General Family Medicine 12/10/16 Reason for Visit (unrecogniz ed section and content) Reason Comments 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, PFO, EKG, ECHO DONE @ [facility],SCHED W/PT+++PT PREVIOUSLY SAW NWOCC/PPC/MGI ABOUT 12 YRS AGO Specialty Diagnoses / Procedures Referred By Contac t Referred To Contact Cardiology Diagnoses Aortic valve insufficiency, etiology of cardiac valve disease unspecified Mitral valve insufficiency, unspecified etiology Patent foramen ovale Moderate pulmonary valve regurgitation Procedures [place] OFFICE OUTPATIENT VISIT 60-74 MINS HIGH MDM AMB REFERRAL TO CARDIOLOGY Sofie Brumfield, PROCESS CONTROL OPERATOR-[employer] [address] [place] [address] Chitra Toribio MD [address] [place] [address] Referral ID Status Reason Start Date Expiration Date V isits Requested Visits Authorized [id number] Pending Review 04/21/2023 10/18/2023 1 1 FOR [...] BE BASED ON THE PRIMARY CLINICAL RECORDS. [employer] provides no warranty or guarantee of the accuracy or completeness of information in this document.
[2023-11-23 16:07] LABS: Prostate Specific Antigen Dx 1.92 ng/mL (<=4.00)
== END 2023-11-23 15:12 | disposition home or self-care (01) ==
LOC: LAB 15:12
PROVIDERS: PCP Family Medicine; Visit Provider Urology
DX: C61 Malignant neoplasm of prostate (principal)
CPT/HCPCS: 36415; 84153

== ENCOUNTER 2024-10-04 14:56 | Outpatient (OUT) | payer OTHER, SELFPAY ==
--- OUTSIDE RECORDS SUMMARY | 2024-10-04 15:59 | XMS_ITS | CCD ---
Author Organization [facility]iniSywi Care Team Providers Care [employer]inter [employer] Name Role Phone Jerod ARRIAZA III Unavailable Unavailable JOSE L LIBERTAD CROWDER Unavailable Unavailable JOSE L, YOBANY Unavailable Unavailable LIBERTAD DOMINGO Primary Care Physician ETTA ., DR AUSTIN Attending Unavailable WONDERLY, DR LIBERTAD Roberson Primary Care Unavailable QUILES ., DR AUSTIN Admitting Unavailable QUILES ., DR AUSTIN Consulting Unavailable WONDERAARON, DR LIBERTAD Roberson Primary Care Unavailable QUILES ., DR AUSTIN Admitting Unavailable ETTA ., DR AUSTIN Consulting Unavailable ETTA ., DR AUSTIN Attending Unavailable Libertad Domingo MD Primary Care Provider Mercedes ECON[employer] DEPARTMENT CHAIR, Kellie Rodriguez Unavailable [phone] Libertad Domingo MD Primary Care Provider Norman Quiles MD Attending Provider Libertad Domingo MD Primary Care Provider [phone] Libertad Domingo Primary Care Unavailable Norman Quiles Attending Unavailable Norman Quiles Admitting Unavailable Libertad Domingo MD Primary Care Provider Libertad Domingo MD Primary Care Provider LOS BARFIELD Attending Unavailable SOFIE BRUMFIELD Referring Unavailable WONDERLY, LIBERTAD Roberson Primary Care Unavailable LOS BARFIELD Attending Unavailable WONDERAARON, LIBERTAD Roberson Referring Unavailable WONDERAARON, LIBERTAD B Primary Care Unavailable LOS BARFIELD Attending Unavailable WONDERAARON, LIBERTAD B Referring Unavailable WONDERLY, LIBERTAD B Primary Care Unavailable ADRIENNE MORROW Attending Unavailpetra e WONDERAARON, LIBERTAD B Referring Unavailable WONDERLY, LIBERTAD B Primary Care Unavailable Marika MILES, Paige Unavailable Annetta Bartlett Admitting Unavailable Annetat Bartlett Attending Unavailable Wonderly MD, Libertad Roberson Primary Care Unavailable Jose L WILLAMS, Libertad Roberson Primary Care Unavailable [place], Adrienne R Admitting Unavailabl e [place]rienne R Attending Unavailabl donald Domingo MD, Libertad Roberson Primary Care Unavailable Odalys, Adrienne R Admitting Unavailabl e [place], Adrienne R Attending Unavailabl e LOS BARFIELD Attending Unavailable LOS BARFIELD Referring Unavailable WONDERLY, LIBERTAD Roberson Primary Care Unavailable ODALYS, ADRIENNE R Attending Unavailabl e ODALYS, ADRIENNE R Referring Unavailabl e WONDERLY, LIBERTAD Roberson Primary Care Unavailable ODALYS, ADRIENNE R Attending Unavailabl e ODALYS, ADRIENNE R Referring Unavailabl e WONDERLY, LIBERTAD Roberson Primary Care Unavailable ODALYS, ADRIENNE R Attending Unavailabl e ODALYSADRIENNE R Referring Unavailabl e WONDERLY, LIBERTAD Roberson Primary Care Unavailable WONDERLY, LIBERTAD Roberson Referring Unavailable WONDERLY, LIBERTAD Roberson Primary Care Unavailable ANNETTA BARTLETT Referring Unavailable WONDERAARON, LIBERTAD Roberson Primary Care Unavailable Unavailable Primary Care Provider Unavailpetra Domingo MD, Yobany Unavailable Unavailab le JOSE L, LIBERTAD Roberson Attending Unavailable SOFIE BRUMFIELD Attending Unavailable SOFIE BRUMFIELD Attending Unavailable PUMP, SHERRY Attending Unavailable LEXI MOMIN Attending Unavailable PUMP, SHERRY Referring Unavailable LEXI MOMIN Referring Unavailable SOFIE BRUMFIELD Attending Unavailable ROBYNNEVAEH LIGHT Referring Unavailable ROBYN, NEVAEH R Referring Unavailable ROBYN, NEVAEH R Admitting Unavailable ROBYN, NEVAEH R Attending Unavailable SELF Referring Unavailable ROBYN, NEVAEH R Attending Unavailable ROBYN, NEVAEH R Attending Unavailable ROBYN, NEVAEH R Referring Unavailable Jose L WILLAMS, Libertad Roberson Primary Care Provider Norman QUILES Attending Unavailable Norman QUILES Attending Unavailable Norman QUILES Attending Unavailable Allergies Allergy Classification Reported Allergen(s) Allergy Type Date of Onset Reaction(s) Facility (20 sources) alfuzosin; Translations: [alfuzosin] Drug Allergy 8 Anxiety (finding), Dyspnea (finding), Other: See Comments [facility] (1 source) alfuzosin Drug Allergy [facility] Repository (1 source) No Known Medication Allergies; Translations: [No Known Medication Allergies] Propensity to adverse reactions (disorder) [facility] Repository Medications Current Medications Medication Drug Class(es) Dates Sig (Normalized) Sig (Original) ALPRAZolam 0.5 mg oral tablet (19 sources) Benzodiazepine Start: 10-07-2023 ALPRAZolam (Xanax) 0.5 MG tablet Indications: Anxiety Take 1 tablet (0.5 mg) by mouth as needed at bedtime for anxiety 14 tablet 10/07/2023 Active ascorbic acid 100 mg chewable tablet (20 sources) Vitamin C ascorbic acid (Vitamin C) 100 MG chewable tablet 1 (one) time each day at the same time. Active take 500 mg by mouth once daily Ascorbic Acid 100 mg chew Take 500 mg by mouth once daily. Active take 250 mg by mouth once daily ascorbic acid (VITAMIN C ORAL) Take by mouth. GUMMIES 250 MG DAILY Active aspirin 81 mg oral tablet (20 sources) Platelet Aggregation Inhibitor, Nonsteroidal Anti-inflammatory Drug Start: 08-04-2019 take 1 mg by mouth once daily aspirin 81 mg oral tablet mg tab(s), Oral, Daily, Refills(s) 0 Start Date: 08/04/19 Status: Ordered take 1 tablet by mouth once oriana y aspirin, enteric coated (ASPIRIN, ENTERIC COATED) 81 mg EC tablet Take 81 mg by mouth once daily. Active bisoprolol fumarate 5 mg / hydroCHLOROthiazide 6.25 mg oral tablet (20 sources) Thiazide Diuretic, beta-Adrenergic Mehdi Start: 07-21-2023 End: 07-11-2024 take 1 tablet by mouth once daily bisoprolol-hydroCHLOROthiazide (Ziac) 5-6.25 MG tablet Indications: Essential hypertension (CMS/HCC) TAKE 1 TABLET BY MOUTH DAILY AT THE SAME TIME EACH DAY 90 tablet 3 07/11/2024 Active Start: 11-14-2018 take 1 tablet by [place] th once daily bisoprolol-hydrochlorothiazide 2.5 mg-6. 25 mg Tab tab(s), Oral, Daily, Refill(s) 0 Start Date: 11/14/18 Status: Ordered take 1 tablet by [place] th once in the morning bisoprolol-hydroCHLOROthiazide (ZIAC) 5- 6.25 mg per tablet Take 1 tablet by mouth in the morning. Active take 1 tablet by [place] th once daily bisoprolol-hydroCHLOROthiazide (ZIAC) 5- 6.25 mg per tablet Take 1 tablet by mouth daily. 0 Active Chondroitin Sulfates / Glucosamine (3 sources) Start: 02-05-2020 Cosamin DS Sta rt Date: 02/05/20 Status: Ordered clopidogrel 75 mg oral tablet (4 sources) P2Y12 Platelet Inhibitor Start: 06-22-2024 End: 12-19-2024 take 1 tablet by mouth in the morning clopidogrel (Plavix) 75 MG tablet Take 75 mg by mouth in the morning. 06/22/2024 12/19/2024 Active cranberry preparation 125 mg oral tablet (20 sources) Non-Standardized Food Allergenic Extract, Non-Standardized Plant Allergenic Extract CRANBERRY once daily. Active CRANBERRY ORAL T jessica by mouth daily. Active Cranberry 125 MG tablet Take by mouth Active CRANBERRY ORAL T jessica by mouth daily. 0 Active diazePAM 10 mg oral tablet (1 source) Benzodiazepine Start: 12-03-2023 Valium 10 mg Tab 10 mg = 1 tab(s), Oral, Once, Take 1 hour prior to procedure. 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 driver., # 1 tab(s), Refills(s) 0, Pharmacy: [facility] [id number], 175, cm, 12/03/23 9:46:00 EDT, Height/Length Dosing, 78, kg, 12/03/23 9:46:00 EDT, Weight Dosing Start Date: 12/03/23 Status: Ordered finasteride 5 mg oral tablet (20 sources) 5-alpha Reductase Inhibitor Start: 01-06-2021 take 1 tablet by mouth once daily finasteride 5 mg Tab 5 mg = 1 tab(s), Oral, Daily, # 90 tab(s), Refills(s) 3, Pharmacy: [facility] [id number], 175, cm, 07/13/22 9:14:00 EDT, Height/Length Dosing, 78, kg, 07/13/22 9:14:00 EDT, Weight Dosing Start Date: 03/08/23 Status: Ordered Glucosamine (7 sources) take 2 capsules by mouth once daily glucosamine sulfate (GLUCOSAMINE ORAL) Take by mouth. 2 CAPSULES PER DAY Active take 2 capsules by mouth once da priyanka glucosamine sulfate (GLUCOSAMINE ORAL) Take by mouth. 2 CAPSULES PER DAY 0 Active glucosamine/chondr robertson A sod (OSTEO BI-FLEX ORAL) (4 sources) take 2 capsules by mouth once daily glucosamine/chondr robertson A sod (OSTEO BI-FLEX ORAL) Take 2 capsules by mouth once daily. Active metoprolol tartrate 25 mg oral tablet (1 source) beta-Adrenergi c Mehdi Start: 025 take 1 tablet by mouth every two hours metoprolol tartrate (LOPRESSOR) 25 mg tablet Take 1 tablet PO 2hrs prior to CTa 1 tablet 05/29/2024 Active Misc Natural Products (GLUCOSAMINE CHOND CMP ADVANCED PO) (20 sources) Misc Natural Pro ducts (GLUCOSAMINE CHOND CMP ADVANCED PO) Glucosamine Chond Cmp Advanced Active Multi Vitamin+ (3 sources) Start: 020 Multi Vitamin+ Refill(s) 0 Start Date: 08/04/19 Status: Ordered MULTIPLE VITAMIN PO (20 sources) MULTIPLE VITAMIN PO 1 (one) time each day at the same time. Active pujciznj-kfma-CE-calcium &mins (THERAGRAN-M) 9 mg iron-400 mcg tablet (9 sources) juxelnfm-moly-UM -calcium &mins (THERAGRAN-M) 9 mg iron-400 mcg tablet Take 1 tablet by mouth in the morning. Active ocrkzdtq-iebo-UP -calcium &mins (THERAGRAN-M) 9 mg iron-400 mcg tablet Take 1 tablet by mouth in the morning. 0 Active lqhogvkj-ivfd-QU -calcium &mins (THERAGRAN-M) 9 mg iron-400 mcg tablet Take 1 tablet by mouth daily. 0 Active Omeprazole (20 sources) Proton Pump Inhibitor Start: 11-14-2018 omeprazo le Oral, Daily, Refills(s) 0 Start Date: 11/14/18 Status: Ordered take 1 capsule by mouth every ot her day omeprazole (PriLOSEC) [address] capsule Take 20 mg by mouth every other day. Active take 2 capsules by mouth once om eprazole (PRILOSEC) 10 mg capsule Take 20 mg by mouth every Wednesday, Wednesday, and Wednesday. Active take 1 capsule by [facility] three times weekly omeprazole (PriLOSEC) 10 mg capsule Take 1 capsule (10 mg total) by mouth. 3 TIMES A WEEK Active rosuvastatin calcium 10 mg oral tablet (20 sources) HMG-CoA Reductase Inhibitor Start: 07-02-2023 End: 01-04-2024 take 1 tablet by mouth once daily rosuvastatin (Crestor) 10 MG tablet Indications: Other hyperlipidemia Take 1 tablet (10 mg) by mouth Daily 90 tablet 3 01/04/2024 Active Saw [place] (3 sources) Start: 11-14-2018 Saw [place] Refills(s) 0 Start Date: 11/14/18 Status: Ordered saw palmetto (Serenoa repens) 80 MG capsule (20 sources) saw palmetto (Serenoa repens) 80 MG capsule Saw [place] Active saw palmetto 320 mg capsule (4 sources) take 1 capsule by mouth once daily saw palmetto 320 mg capsule Take 1 capsule by mouth once daily. Active SAW PALMETTO ORAL (7 sources) take 1350 mg by mouth in the morning SAW PALMETTO ORAL Take 1,350 mg by mouth in the morning. Active take 1350 mg by mouth in the mor seferino SAW PALMETTO ORAL Take 1,350 mg by mouth in the morning. 0 Active therapeutic multivitamin-min erals (THERA-M PLUS) 9 mg iron-400 mcg tablet (4 sources) therapeutic mult ivitamin-minerals (THERA-M PLUS) 9 mg iron-400 mcg tablet Take 1 tablet by mouth every morning. Active Completed/Discontinued Medications Medication Drug Class(es) Dates Sig (Normalized) Sig (Original) methylPREDNISolone (14 sources) Corticosteroid Start: 12-21-2023 End: 07-11-2024 methylPREDNISolone (Medrol Dospak) 4 MG tablets Indications: Strain of right wrist, initial encounter Follow schedule on package instructions 21 tablet 12/21/2023 07/11/2024 Discontinued (Therapy completed) Start: 12-21-2023 methylPREDNISo lone (Medrol Dospak) 4 MG tablets Indications: Strain of right wrist, initial encounter Follow schedule on package instructions 21 tablet 12/21/2023 Active saw palmetto xtr/zinc picolin (SAW PALMETTO EXTRACT, [...] Active Problems Problem Classification Problem Date Documented Date Episodic/Chronic Adjustment disorders (2 sources) Stress; Translations: [Reaction to severe stress, unspecified] 01-03-2024 Chronic Anxiety disorders (16 sources) Anxiety; Translations: [Anxiety disorder, unspecified] Onset: 01-03-2024 01-03-2024 Chronic Aortic; peripheral; and visceral artery aneurysms (20 sources) Aortic root dilatation; Translations: [Thoracic aortic ectasia] Onset: 04-29-2023 06-29-2023 Chronic Cancer of prostate (20 sources) Primary malignant neoplasm of prostate; Translations: [Malignant neoplasm of prostate] Onset: 07-06-2017 Chronic Cardiac and circulatory congenital anomalies (20 sources) Patent foramen ovale; Translations: [Patent foramen ovale] Onset: 12-29-2022 12-29-2022 Chronic Cardiac dysrhythmias (3 sources) Atrial fibrillation 09-25-2018 Chronic Coronary atherosclerosis and other heart disease (20 sources) Coronary arteriosclerosis; Translations: [Atherosclerotic heart disease of [place] coronary artery with other forms of angina pectoris] Onset: 04-29-2023 06-29-2023 Chronic Diabetes mellitus without complication (4 sources) Impaired fasting glycemia; Translations: [Impaired fasting glucose] 01-04-2024 Episodic Disorders of lipid metabolism (20 sources) Hyperlipidemia; Translations: [Hyperlipidemia, unspecified] Onset: 12-29-2022 12-29-2022 Chronic Diverticulosis and diverticulitis (20 sources) Diverticular disease; Translations: [Diverticulosis of intestine, part unspecified, without perforation or abscess without bleeding] Onset: 12-29-2022 12-29-2022 Chronic Esophageal disorders (20 sources) Gastroesophageal reflux disease; Translations: [Gastro-esophageal reflux disease without esophagitis] Onset: 12-29-2022 12-29-2022 Chronic Essential hypertension (20 sources) Hypertensive disorder; Translations: [Essential hypertension] Onset: 12-29-2022 09-25-2018 Chronic Genitourinary symptoms and ill-defined conditions (6 sources) Delay when starting to pass urine; Translations: [Microscopic hematuria] 11-14-2018 Episodic Heart valve disorders (20 sources) Aortic valve regurgitation; Translations: [Nonrheumatic aortic (valve) insufficiency] Onset: 12-29-2022 12-29-2022 Chronic Hyperplasia of prostate (20 sources) Benign prostatic hypertrophy with outflow obstruction; Translations: [Benign prostatic hyperplasia with lower urinary tract symptoms] Onset: 07-07-2021 Chronic Nonspecific chest pain (8 sources) Atypical chest pain; Translations: [Other chest pain] Onset: 06-05-2024 06-05-2024 Episodic Other circulatory disease (20 sources) Osler hemorrhagic telangiectasia syndrome; 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] Onset: 12-29-2022 12-29-2022 Chronic Other diseases of kidney and ureters (1 source) Urinary tract obstruction; Translations: [Other obstructive and reflux uropathy] Onset: 07-07-2021 Episodic Other diseases of kidney and ureters (20 sources) Kidney lesion; Translations: [Disorder of kidney and ureter, unspecified] Onset: 12-29-2022 07-03-2023 Episodic Other diseases of kidney and ureters (20 sources) Acquired renal cystic disease; Translations: [Cyst of kidney, acquired] Onset: 07-03-2023 07-03-2023 Episodic Other injuries and conditions due to external causes (6 sources) Injury of right wrist; Translations: [Unspecified injury of right wrist, hand and finger(s), initial encounter] 12-17-2023 Episodic Other lower respiratory disease (20 sources) Dyspnea; Translations: [Shortness of breath] Onset: 04-29-2023 06-29-2023 Episodic Other lower respiratory disease (1 source) Dyspnea on exertion; Translations: [Other forms of dyspnea] 06-19-2024 Episodic Other nutritional; endocrine; and metabolic disorders (20 sources) Overweight in adulthood with body mass index of 25 or more but less than 30; Translations: [Body mass index (BMI) 25.0-25.9, adult] Onset: 07-03-2023 07-03-2023 Episodic Other screening for suspected conditions (not mental disorders or infectious disease) (20 sources) Raised prostate specific antigen; Translations: [Elevated prostate specific antigen [PSA]] Onset: 04-20-2019 Episodic Residual codes; unclassified (3 sources) Family history of cancer; Translations: [Family history of malignant neoplasm of prostate] Onset: 07-07-2021 Episodic Residual codes; unclassified (3 sources) Family history of prostate cancer 09-25-2018 Episodic Residual codes; unclassified (1 source) FH: Cardiovascular disease; Translations: [Family history of ischemic heart disease and other diseases of the circulatory system] 07-22-2024 Episodic Spondylosis; intervertebral disc disorders; other back problems (20 sources) Degeneration of cervical intervertebral disc; Translations: [Other cervical disc degeneration, unspecified cervical region] Onset: 12-29-2022 12-29-2022 Chronic Unclassified (1 source) New Patient / [id number]() Onset: 07-06-2017 Unclassified (1 source) Prostate Cancer / 309() Onset: 07-06-2017 Unclassified (1 source) Cardiac Valve Problem Onset: 04-21-2024 Unclassified (1 source) New Patient Onset: 04-29-2023 Past or Other Problems Problem Classification Problem Date Documented Da te Episodic/Chronic Appendicitis and other appendiceal conditions (20 sources) Acute perforated appendicitis; Translations: [Acute appendicitis with perforation and localized peritonitis, without abscess] Onset: 06-15-2018 Resolved: 07-02-2023 07-02-2023 Episodic Other and unspecified benign neoplasm (20 sources) Polyp of colon; Translations: [Polyp of colon] Onset: 12-29-2022 12-29-2022 Episodic Other injuries and conditions due to external causes (20 sources) H/O: fracture; Translations: [Personal history of (healed) traumatic fracture] Onset: 07-03-2023 07-03-2023 Episodic Other lower respiratory disease (2 sources) Shortness of breath; Translations: [Shortness of breath] Onset: 04-29-2023 Episodic Residual codes; unclassified (1 source) Family history of malignant neoplasm of prostate; Translations: [FAMILY HX MALIG NEOPLASM PROSTATE] Onset: 01-05-2022 Episodic Residual codes; unclassified (20 sources) Family history of malignant neoplasm of pancreas; Translations: [Family history of malignant neoplasm of digestive organs] Onset: 07-03-2023 07-03-2023 Episodic Unclassified (1 source) New Patient; Translations: [New Patient] Onset: 07-06-2017 Unclassified (2 sources) Injury of right wrist 12-17-2023 Unclassified (9 sources) Onset: 04-20-2019 04-20-2019 Results Test Name Value Interpretation Reference Range Facility ECG COMPLETEon 07-18-2024 Atrial Rate 66 BPM [facility] Calculated P [place] 53 degrees [facility] Calculated R [place] 54 degrees [facility] Calculated T [place] 53 degrees [facility] P-R Interval 172 ms [facility] QRS Duration 82 ms [facility] QT Interval 392 ms [facility] QTC Calculation (Bazett) 410 ms [facility] Ventricular Rate 66 BPM [facility] NORMAL SINUS RHYTHM NORMAL ECG Confirmed by GRACIELA TAY MD ([id number]) on 07/18/2024 2:44:22 [facility] NAME : BLANCA BUNN PID : [id number] : 1955 Gender : Male Race : ORD : [id number] Procedure Date : Jun 21 2024 14:34:05 Edit Date : Jul 18 2024 14:44:24 Diagnosis: NORMAL SINUS RHYTHM NORMAL ECG Confirmed by GRACIELA TAY MD ([id number]) on 07/18/2024 2:44:22 PM Test Reason : Location : 314 : J14 06 Overread By : GRACIELA TAY MD Edited By : GRACIELA TAY MD Referred By : NEVAEH CARLSON Acquired by : [facility] 07-13-[facility] CNPN Telephone (CATHMN) BLANCA BUNN ([id number]) 1955 M Date Time Provider Department 07/13/24 NEVAEH CARLSON R CATHMN During your visit today, we recorded the following information about you: Angely Rodriguez 07/13/2024 9:34 AM Signed Denial letter received for upcoming apt. Copy saved to scanned doc. Need form completed. Kinsey Cobb APRN.BLANCHARD GRINDER OPERATOR 07/19/2024 4:36 PM Signed The form scanned in should be completed by the plan member Allergies As of Date: 07/13/2024 Noted Allergy Reaction ALFUZOSIN 06/21/2024 14 - Other: See Comments Comments: Chest tightness and SOB- anxiety Date Reviewed: 06/22/2024 Reviewed by: Rowan Moncada RN - Fully Assessed Reason for Visit: Appointment [[id number]] Prescriptions as of 07/19/2024 - clopidogrel (PLAVIX) 75 mg tablet Take 1 tablet by mouth once daily. - therapeutic multivitamin-minerals (THERA-M PLUS) 9 mg iron-400 mcg tablet Take 1 tablet by mouth every morning. - Ascorbic Acid 100 mg chew Take 500 mg by mouth once daily. - aspirin, enteric coated (ASPIRIN, ENTERIC COATED) 81 mg EC tablet Take 81 mg by mouth once daily. - omeprazole (PRILOSEC) 10 mg capsule Take 20 mg by mouth every Wednesday, Wednesday, and Wednesday. - rosuvastatin (CRESTOR) 10 mg tablet Take 10 mg by mouth once daily. - finasteride (PROSCAR) 5 mg tablet Take 5 mg by mouth once daily. - bisoprolol-hydroCHLOROt hiazide (ZIAC) 5-6.25 mg per tablet Take 1 tablet by mouth every morning. - glucosamine/chondr robertson A sod (OSTEO BI-FLEX ORAL) Take 2 capsules by mouth once daily. - saw palmetto 320 mg capsule Take 1 capsule by mouth once daily. - CRANBERRY once daily. Problem List As Of Date: 07/13/2024 (None) Encounter Status:Closed by ANGELY RODRIGUEZ on 07/13/24 Normal [facility] HbA1c (Bld) [Mass fraction]o n 07-11-2024 [facility] - Hematology and Cell countson 07-11-2024 HbA1c (Bld) [Mass fraction] 5.5 % [facility] CARD CATH DIAGNOSTICon 06-22 CARD CATH DIAGNOSTIC Site Id: [id number] Lab #: [id number] Sonographer 3 Study Date: 06/22/2024 Start Time: 06/22/2024 11:55:16 AM End Time: 06/22/2024 1:17:02 PM Physician Name Shanda Sims M.D., Samir M.D. Kamp, Nicholas M.D. Nursing/Jennifer Longoria R.N., J. R.N. Leemars, C. R.N. + + PATIENT INFORMATION + + Name: MR. BLANCA BUNN : 1955 Age: 68 years Gender: M Height: 69 in / 175 cm Weight: 165.00 lb / 74.84 kg BMI: 24.44 kg/m BSA: 1.90 m Allergies: YES + --------+ CLINICAL HISTORY/INDICATION(s) + --------+ Mid Risk (5-10% Ischemia on Stress SPECT/PET Induced 1 seg WMA on SE/CMR) Symptomatic; AUC score = 7. CAD Presentation: Symptoms Unlikely to be Ischemic Angina Classification (within 2 weeks): CCS I Anti-Angina Meds (within 2 weeks): No. No Heart Failure No Cardiomyopathy - No LV Dysfunction Pre-Op Evaluation before Non-Card Surg: No Cardiogenic Shock: No Cardiac Arrest: No 68 year old male with PMHx of HTN, a fib, with SOB and increased fatigue with +stress test at [facility] presenting for [facility] with possible PCI Access Point Sheath Size Hemostasis Method Right Radial Artery 6F Short Radial TR band + + DIAGNOSTIC FINDINGS + + Coronary Anatomy: Co-Dominant Injection Site(s): Coronary Artery LMT: The LMT is normal. Additional Comment: The left main is a large-caliber vessel that bifurcates into the LAD and Lcx. LAD: The 1st diagonal LAD is narrowed 60 % - focal disease. Additional Comment: The LAD is a large-caliber vessel that subtends a large diagonal one artery and a fan of septal perforators. There is a 60% stenosis in the D1 artery. iFR in that lesion is negative. The LAD continues to wrap around the apex and has mild diffuse disease. LCX: The 2nd obtuse marginal circumflex is narrowed 60 % - focal disease. Additional Comment: The left circumflex is a large-caliber dominant artery that gives off two large-caliber OM branches. The Lcx and its branches are diffusely diseased and there is a 60% stenotic lesion in the mid-segment of the OM2 branch. The left circumflex gives off a L-PDA. RAMUS: The Ramus is Absent. RCA: The mid RCA is narrowed 80 % - focal disease. Additional Comment: The RCA is a large-caliber dominant vessel that gives off several small acute marginal branches and an r-PDA and PLV branches. +-------+ IMAGING +-------+ INTRAVASCULAR ULTRASOUND Run 1, LCX Proximal Performed before stenting for lesion evaluation Findings- calcification MLA (mm2)- >4. + ---+ HEMODYNAMIC INTERROGATION + ---+ Run 1, LCX 2nd Obtuse Marginal Type IFR for Pre-PCI Value- 0.95. + + HEMODYNAMICS + + + + IMPRESSION/PLAN + + Impression: -Co-dominant coronary artery system with moderate diffuse disease. Mid-segment RCA with 80% stenosis. Please refer to interventional note for specifics on PCI. Recommended Treatment: Medical Therapy and PCI. Plan: -DAPT therapy s/p stenting of the RCA. -Aggressive medical therapy for known CAD. + + ADVERSE OUTCOME(s)/COMPLICATION (s) + + None + --------+ PROCEDURAL & TECHNICAL DETAILS + --------+ PROCEDURE SEQUENCE: Time Procedure Performed 06/22/2024 1:07:12 PM Left Heart Cath 06/22/2024 1:07:34 PM PTCA 06/22/2024 1:07:45 PM Drug Eluting Stent 06/22/2024 1:08:02 PM IVUS / ICUS - Cardiac 06/22/2024 1:08:11 PM Angio FFR PROCEDURE DETAILS: Contrast: Contrast Type Total Infused Omnipaque 150ml 90 Omnipaque 150ml Blood Loss: < 30ml Specimen: No Specimen Obtained RADIATION: Procedure performed under Fluoroscopic Guidance Total Dose Dose Area Product Total Exposure Time 241.94 mGy 21.98 Gy*cm 389.31 sec + + MEDICAL HISTORY + + Left Ventricle EF: LVEF 61, last assessed on 01/2024, by Echo. Physician Intra Service Procedure Start Time: 06/22/2024 12:00:24 PM Physician Intra Service Procedure End Time: 06/22/2024 1:17:02 PM Attending Physician Presence Attestation: Entire Procedure Electronically submitted by: Nevaeh Carlson MD On: 06/27/2024 at 2:12:47 PM Final CC [facility] Image : [id number] [id number] See Link below for Image Normal [facility] CARD CATH INTERVENTon 2024 CARD CATH INTERVENT Site Id: [facility] Lab #: [id number] HVI Sonographer 3 Study Date: 06/22/2024 Start Time: 06/22/2024 11:55:16 AM End Time: 06/22/2024 1:17:02 PM Physician Name Shanda Sims M.D., Samir M.D. Kamp, Nicholas M.D. Nursing/Jennifer Longoria R.N., J. R.N. Leemars, C. R.N. + + PATIENT INFORMATION + + Name: MR. BLANCA BUNN : 1955 Age: 68 years Gender: M Height: 69 in / 175 cm Weight: 165.00 lb / 74.84 kg BMI: 24.44 kg/m BSA: 1.90 m Allergies: YES + ------+ CLINICAL HISTORY/INDICATIONS + ------+ AUC: One or two vessel coronary artery disease without involvement of proximal left anterior descending artery. CCS angina class III or IV with no noninvasive testing performed. AUC score = 7. Exam Status: Elective Clinical History: Mr. Bunn is a 68 year old male with a history of hypertension and atrial fibrillation who presents with angina and CT evidence of significant coronary disease. DIAGNOSTIC ANGIOGRAPHY Diagnostic angiography showed severe 90% mid RCA stenosis. Non-obstructive disease with moderate 50-60% OM (iFR 0.93) and 50% diagonal (iFR 0.95). Please see the separate diagnostic angiography report for full details. + + PCI SUMMARY + + Procedures Performed: -Successful IVUS guided PCI to the proximal-distal RCA with a 4.0 x 48 mm Synergy KEANU, post dilated with a 4.0 x 20 mm NC balloon. Procedural Details: + +-- +--------- + Entry Site(SR) Sheath Size(SR) Hemostasis Method(SR) + +-- +--------- + Right Radial Artery 6F Short Radial TR band + +-- +--------- + Procedure Narrative: Lesion 1: RCA MID Guide 1: 6FR JR 4. Procedure Summary: Access: 6 Fr right radial artery Guide Catheter(s): 6 Fr JR4 Guidewire(s): runthrough Other Equipment: [email or web address] IVUS Hemostasis: TR band Anticoagulation: UFH Additional Procedural Medications: Sedation, nitroglycerin PROCEDURAL NARRATIVE: We engaged the RCA with the 6 Fr JR4 guide catheter. After administering heparin to a goal ACT of >250s, we advanced a runthrough coronary wire to the distal RCA. - Stenting with a 4.0 x 48 mm Synergy KEANU - Post-dilation with a 4.0 x 20 mm NC balloon - Intracoronary imaging with IVUS revealed optimal stent edges, MSA, and apposition. Final angiography showed no evidence of dissection or perforation. There was ARMANDO 3 flow and 0% residual stenosis. + + PROCEDURAL OUTCOME + + +-------+ IMAGING +-------+ INTRAVASCULAR ULTRASOUND Run 1, RCA MID Performed after stenting for lesion evaluation and lesion length Findings- Fibrous plaque MLA (mm2)- NA. + ---+ HEMODYNAMIC INTERROGATION + ---+ Hemodynamic interrogation not performed. + + ADVERSE OUTCOME(s)/COMPLICATION (s) + + None +----+ PLAN +----+ 1. ASA 81mg daily, indefinitely 2. Clopidogrel 75 mg daily for at least 6 months. 3. Cardiac rehabilitation. 4. Transferred to cardiac stepdown in stable condition Disposition: + --------+ PROCEDURAL & TECHNICAL DETAILS + --------+ Contrast: Contrast Type Total Infused Omnipaque 150ml 90 Omnipaque 150ml Radiation: Procedure performed under Fluoroscopic Guidance Total Dose 543.66 mGy Dose Area Product 45.48 Gy*cm Total Exposure Time 1144.35 sec Lesion Pre Stenosis Post Stenosis Pre Armando Score Post Armando Score RCA MID 90.00 0 3 3 NULL NULL NULL NULL NULL NULL + + MEDICAL HISTORY + + CAD Presentation: Symptoms Likely to be Ischemic STEMI Reason for Delay: NA Ionotropes or MCS: None Cardiac Arrest this Admission Prior to PCI: No Moderate or Severe Aortic Stenosis: No Surgical Turndown for CABG or Heart Surgery: No [facility] Clinical Frailty Scale: 6: Moderately Frail Acute Heart Failure Symptoms: No Persistent Ischemic Symptoms: No Ventricular Arrhythmias: No Hemodynamic Instability : No Cardiogenic Shock Symptoms: No Refractory Cardiogenic Shock: No Angina Classification (within 2 weeks): CCS III Anti-Angina Meds (within 2 weeks): Yes. None No Cardiomyopathy - No LV Dysfunction No Cardiogenic Shock: No Cardiac Arrest: No LVEF Assessed within Past 6 Months: No Procedure Details: Procedure Performed Left Heart Cath PTCA Drug Eluting Stent IVUS / ICUS - Cardiac Angio FFR Blood Loss: < 30ml Specimen: No Specimen Obtained Recent PCI Failure of Treated Vessel: Contrast: Contrast Type Total Infused Omnipaque 150ml 90 Omnipaque 150ml Baseline: HGB: Creatinine: Glucose: IN (more content not included)... Normal [facility] LIPOPROTEIN FRACTIONATION BY NMR WITH LIPIDSon 06-22-2024 Cholesterol [Mass/Vol] 146 mg/dL Normal <=199 [facility] Comment on above: Order Comment: Speci men Type: BLOOD SPECIMEN Ordering Facility: [facility] Address: [address] [place] [address] Performed By: #### 2 4323-8 #### [facility] CLIA [id number] [address] [place] [address] [place] Cholesterol in HDL [Mass/Vol] 50 mg/dL Normal 40-59 [facility] Comment on above: Order Comment: Speci men Type: BLOOD SPECIMEN Ordering Facility: [facility] Address: [address] [place] [address] Performed By: #### 2 4323-8 #### [facility] CLIA [id number] [address] [place] [address] [place] EER LIPOFIT BY NMR See Note Normal [facility] Comment on above: Order Comment: Speci men Type: BLOOD SPECIMEN Ordering Facility: [facility] Address: [address] [place] [address] Result Comment: Auth orized individuals can access the [employer] Enhanced Report with an [employer] Connect account using the following link. Your local lab can assist you in obtaining the patient report if you don't have a Connect account. [email or web address] INTERPRETIVE INFORMATION: LipoFit by NMR This test was developed and its performance characteristics determined by [facility]. It has not been cleared or approved by the [place] Food and Drug Administration. This test was performed in a CLIA certified laboratory and is intended for clinical purposes. Performed By: [facility] [address] [place] [id number] Business Solutions Director: William Garcia MD, PhD CLIA Number: [id number] Performed By: #### 2 4323-8 #### [facility] CLIA [id number] [address] [place] [address] [place] HDL PARTICLE NUMBER, NMR 35.5 umol/L Normal >=33.0 [facility] Comment on above: Order Comment: Speci men Type: BLOOD SPECIMEN Ordering Facility: [facility] Address: [address] [place] [address] Result Comment: INTE RPRETIVE INFORMATION: HDL Particle Number, NMR Percentiles in Reference Population: 25th 50th 75th 29.7 33.0 36.8 Performed By: #### 2 4323-8 #### [facility] CLIA [id number] [address] [place] [address] [place] HDL PARTICLE SIZE, NMR 8.7 nm Low >=8.9 [facility] Comment on above: Order Comment: Speci men Type: BLOOD SPECIMEN Ordering Facility: [facility] Address: [address] [place] [address] Result Comment: INTE RPRETIVE INFORMATION: HDL Particle Size, NMR Percentiles in Reference Population: 25th 50th 75th 8.6 8.9 9.3 Performed By: #### 2 4323-8 #### [facility] IA [id number] [address] [place] [address] OF [place] LARGE HDL PARTICLE NUMBER, NMR 3.8 umol/L Low >=4.2 [facility] Comment on above: Order Comment: Speci men Type: BLOOD SPECIMEN Ordering Facility: [facility] Address: [address] [place] [address] Result Comment: INTE RPRETIVE INFORMATION: Large HDL Particle Number, NMR Percentiles in Reference Population: 25th 50th 75th 2.0 4.2 7.3 Performed By: #### 2 4323-8 #### [facility] IA [id number] [address] [place] [address] OF [place] LARGE VLDL PARTICLE NUMBER, NMR <1.5 Normal <=2.7 [facility] Comment on above: Order Comment: Speci men Type: BLOOD SPECIMEN Ordering Facility: [facility] Address: [address] [place] [address] Result Comment: INTE RPRETIVE INFORMATION: Large VLDL Particle Number, NMR Percentiles in Reference Population: 25th 50th 75th 0.9 2.7 7.0 Performed By: #### 2 4323-8 #### [facility] CLIA [id number] [address] [place] [address] OF [facility] LDL CHOL CALCULATED 91 mg/dL Normal <=129 [facility] Comment on above: Order Comment: Speci men Type: BLOOD SPECIMEN Ordering Facility: [facility] Address: [address] [place] [address] Performed By: #### 2 4323-8 #### [facility] CLIA [id number] [address] [place] [address] OF [facility] LDL PARTICLE NUMBER, NMR 995 nmol/L Normal <=1135 [facility] Comment on above: Order Comment: Speci men Type: BLOOD SPECIMEN Ordering Facility: [facility] Address: [address] [place] [address] Result Comment: REFE RENCE INTERVAL: LDL Particle Number, NMR Low............... Less than 1136 Moderate.......... 1136 - 1449 Borderline High... 1450 - 1764 High.............. 1765 - 2186 Very High......... Greater than 2186 Percentiles in Reference Population: 20th 50th 80th 95th 1136 1450 1765 2186 Percentiles consistent with those from NCEP ATP III LDL-C cutpoints of 100 mg/dL(20th percentile) and 160 mg/dL (80th percentile). Performed By: #### 2 4323-8 #### [facility] CLIA [id number] [address] [place] [address] OF [facility] LDL PARTICLE SIZE, NMR 20.6 nm Low >=20.7 [facility] Comment on above: Order Comment: Speci men Type: BLOOD SPECIMEN Ordering Facility: [facility] Address: [address] [place] [address] Result Comment: INTE RPRETIVE INFORMATION: LDL Particle Size, NMR Percentiles in Reference Population: 25th 50th 75th 19.6 20.7 22.5 Performed By: #### 2 4323-8 #### [facility] IA [id number] [address] [place] SMALL LDL PARTICLE NUMBER, NMR 614 nmol/L Normal <=634 [facility] Comment on above: Order Comment: Speci men Type: BLOOD SPECIMEN Ordering Facility: [facility] Address: [address] [place] [address] Result Comment: INTE RPRETIVE INFORMATION: Small LDL Particle Number, NMR Percentiles in Reference Population: 25th 50th 75th [phone] Performed By: #### 2 4323-8 #### [facility] CLIA [id number] [address] [place] [address] [place] Triglyceride [Mass/Vol] 27 mg/dL Low 30-149 [facility] Comment on above: Order Comment: Speci men Type: BLOOD SPECIMEN Ordering Facility: [facility] Address: [address] [place] [address] Performed By: #### 2 4323-8 #### [facility] CLIA [id number] [address] [place] [address] [place] VLDL PARTICLE SIZE, NMR 48.6 nm High <=46.7 [facility] Comment on above: Order Comment: Speci men Type: BLOOD SPECIMEN Ordering Facility: [facility] Address: [address] [place] [address] Result Comment: INTE RPRETIVE INFORMATION: VLDL Particle Size, NMR Percentiles in Reference Population: 25th 50th 75th 44.3 46.7 50.2 Performed By: #### 2 4323-8 #### [facility] CLIA [id number] [address] [place] [address] [place] LPa SerPl-mCncon 06-22-2024 Lipoprotein a [Mass/Vol] mg/dL Normal <30 [facility] Comment on above: Order Comment: Speci men Type: BLOOD SPECIMEN Ordering Facility: [facility] Address: [address] [place] [address] Performed By: #### 1 0835-7 #### [facility] CLIA [id number] [address] [place] TYPE + SCREENon 06-22-2024 ABO O Normal [facility] Comment on above: Order Comment: Speci men Type: BLOOD SPECIMEN Ordering Facility: [facility] Address: [address] [place] [address] Performed By: #### T SCR #### [facility] CLIA [id number] [address] [place] [address] [place] Rh Nom (Bld) Positive Normal [facility] Comment on above: Order Comment: Speci men Type: BLOOD SPECIMEN Ordering Facility: [facility] Address: [address] [place] [address] Performed By: #### T SCR #### [facility] CLIA [id number] [address] [place] [address] [place] TYPE AND SCREEN EXPIRATION 06/25/2024 23:59 Normal [facility] Comment on above: Order Comment: Speci men Type: BLOOD SPECIMEN Ordering Facility: [facility] Address: [address] [place] [address] Performed By: #### T SCR #### [facility] CLIA [id number] [address] [place] [address] [place] CBC panel Auto (Bld)on 06-21 Erythrocyte distribution width (RBC) [Ratio] 13.3 % 11.5 - 15.0 % [facility] Hematocrit (Bld) [Volume fraction] 44.3 % 39.0 - 51.0 % [facility] Hemoglobin (Bld) [Mass/Vol] 14.5 g/dL 13.0 - 17.0 g/dL [facility] Interpretation and review of laboratory results Normal [facility] MCH (RBC) [Entitic mass] 30.7 pg 26.0 - 34.0 pg [facility] MCHC (RBC) [Mass/Vol] 32.7 g/dL 30.5 - 36.0 g/dL [facility] MCV (RBC) [Entitic vol] 93.9 fL 80.0 - 100.0 fL [facility] Nucleated RBC (Bld) [#/Vol] NINF [facility] Platelet mean volume (Bld) [Entitic vol] 10 fL 9.0 - 12.7 fL [facility] Platelets (Bld) [#/Vol] 245 10*3/uL [facility] RBC (Bld) [#/Vol] 4.72 10*6/uL 4.20 - 6.0 0 m/uL [facility] WBC (Bld) [#/Vol] 7.51 10*3/uL [facility] Erythrocyte distribution width (RBC) [Ratio] 13.3 % Normal 11.5-15.0 [facility] Comment on above: Order Comment: Speci men Type: BLOOD SPECIMEN Ordering Facility: [facility] Address: [address] [place] [address] Performed By: #### 5 8410-2 #### [facility] CLIA [id number] [address] [place] [address] [place] Hematocrit (Bld) [Volume fraction] 44.3 % Normal 39.0-51.0 [facility] Comment on above: Order Comment: Speci men Type: BLOOD SPECIMEN Ordering Facility: [facility] Address: [address] [place] [address] Performed By: #### 5 8410-2 #### [facility] CLIA [id number] [address] [place] [address] [place] Hemoglobin (Bld) [Mass/Vol] 14.5 g/dL Normal 13.0-17.0 [facility] Comment on above: Order Comment: Speci men Type: BLOOD SPECIMEN Ordering Facility: [facility] Address: [address] [place] [address] Performed By: #### 5 8410-2 #### [facility] CLIA [id number] [address] [place] [address] [place] MCH (RBC) [Entitic mass] 30.7 pg Normal 26.0-34.0 [facility] Comment on above: Order Comment: Speci men Type: BLOOD SPECIMEN Ordering Facility: [facility] Address: [address] [place] [address] Performed By: #### 5 8410-2 #### [facility] CLIA [id number] [address] [place] [address] [place] MCHC (RBC) [Mass/Vol] 32.7 g/dL Normal 30.5-36.0 [facility] Comment on above: Order Comment: Speci men Type: BLOOD SPECIMEN Ordering Facility: [facility] Address: [address] [place] [address] Performed By: #### 5 8410-2 #### [facility] CLIA [id number] [address] [place] [address] [place] MCV (RBC) [Entitic vol] 93.9 fL Normal 80.0-100.0 [facility] Comment on above: Order Comment: Speci men Type: BLOOD SPECIMEN Ordering Facility: [facility] Address: [address] [place] [address] Performed By: #### 5 8410-2 #### [facility] CLIA [id number] [address] [place] [address] [place] Nucleated RBC (Bld) [#/Vol] 10*3/uL Normal <0.01 [facility] Comment on above: Order Comment: Speci men Type: BLOOD SPECIMEN Ordering Facility: [facility] Address: [address] [place] [address] Performed By: #### 5 8410-2 #### [facility] CLIA [id number] [address] [place] [address] [place] Platelet mean volume (Bld) [Entitic vol] 10.0 fL Normal 9.0-12.7 [facility] Comment on above: Order Comment: Speci men Type: BLOOD SPECIMEN Ordering Facility: [facility] Address: [address] [place] [address] Performed By: #### 5 8410-2 #### [facility] CLIA [id number] [address] [place] [address] [place] Platelets (Bld) [#/Vol] 245 10*3/uL Normal 150-400 [facility] Comment on above: Order Comment: Speci men Type: BLOOD SPECIMEN Ordering Facility: [facility] Address: [address] [place] [address] Performed By: #### 5 8410-2 #### [facility] CLIA [id number] [address] [place] [address] [place] RBC (Bld) [#/Vol] 4.72 10*6/uL Normal 4.20-6.00 [facility] Comment on above: Order Comment: Speci men Type: BLOOD SPECIMEN Ordering Facility: [facility] Address: [address] [place] [address] Performed By: #### 5 8410-2 #### [facility] CLIA [id number] [address] [place] [address] [place] WBC (Bld) [#/Vol] 7.51 10*3/uL Normal 3.70-11.00 [facility] Comment on above: Order Comment: Speci men Type: BLOOD SPECIMEN Ordering Facility: [facility] Address: [address] [place] [address] Performed By: #### 5 8410-2 #### [facility] CLIA [id number] [address] [place] [address] [place] CNOVon 06-21-2024 CNOV Office Visit (CATHMN ) BLANCA BUNN ([id number]) 1955 M Date Time Provider Department 06/21/24 9:45 AM NEVAEH CARLSON CATHMN During your visit today, we recorded the following information about you: Pulse Respiration Blood pressure Weight 70/minute 18/minute 131/76 74.8 kg Height 1.753 m Nevaeh Carlson MD 07/22/2024 7:44 AM Signed [facility] [place] [facility] Department of Cardiovascular Medicine SECTION OF INTERVENTIONAL CARDIOLOGY OUTPATIENT VISIT DATE June 21, 2024 OUTPATIENT VISIT TYPE NEW PRIMARY CARE PHYSICIAN: To use this Smartlink, specify the provider ID whose address you want to display, e.g., .PROVADDR[1 (where 1 is the provider ID). REFERRING PHYSICIAN: SELF CHIEF COMPLAINT: Blanca is a 68-year-old male with a history of aortic regurgitation, presenting for evaluation of abnormal stress test results, with associated dyspnea, chest pressure, and left arm pressure. HISTORY OF PRESENT ILLNESS: Mr. Bunn is a 68 year old male who presents today for evaluation of abnormal stress test results, with associated dyspnea, chest pressure, and left arm pressure. NURSING INTAKE: Mr. Bunn is a 68 year old male who presents today for cardiac evaluation. He states he started having symptoms of chest pressure, shortness of breath and lightheadedness/dizzine ss at the beginning of the year. He describes having the chest pressure and shortness of breath with/without exertion. He sometimes has left shoulder pressure as well. He is lightheaded/dizzy randomly. He had 2 instances where he felt like he was going to pass out. He had a panic attack in September that brought him to the emergency room. He was vomiting, having chest pressure, cold sweats and tingling. Because of these symptoms, he had a stress test and he was told that it was abnormal and he needs a heart cath. He would like to have the cath done here. Patient is scheduled for a cardiac cath on 06/22/[address] Carlson. Abnormal Stress Test: - Abnormal stress test results. - Scheduled for cardiac catheterization tomorrow. - Recent CTA performed 5 days ago. Dyspnea and Chest Pressure: - Dyspnea, chest pressure, and left arm pressure since the beginning of the year. - Symptoms include lightheadedness and balance issues. - Dyspnea and chest pressure worsen with ambulation and stair climbing. - Symptoms have been progressively worsening over the past few months. Aortic Regurgitation: - Echocardiogram in January showed aortic regurgitation. - Blanca was unaware of the aortic regurgitation diagnosis. Family History: - Mother had carotid artery surgery and from an aneurysm at age 76. - No significant family history of heart problems at a young age. PMHx includes: CAD, a-fib, BPH, DDD, HTN, HLD, GERD, prostate cancer, aortic root dilation, [facility] Cardiology note 05/31/24: Brief HPI: Patient is here with his to request a second cardiology referral, due to abnormal stress test and shortness of breath. Patient denies palpitations, but is having some increased fatigue and shortness of breath with exertion, and chest aching for several days but has been physically active. No chest pain with activity. No leg swelling. (END NOTE) Risk factors for coronary artery disease hyperlipidemia, hypertension, family history of CAD He denies orthopnea, PND, palpitations, syncope, claudication, leg swelling, cough, and wheezing. Diet / Nutrition: regular Weight: stable Exercise: none Cardiovascular: (+) chest pressure, (+) left arm pressure Respiratory: (+) shortness of breath Neurological: (+) lightheadedness, (+) balance disturbance 01/25/24 TTE: Left Ventricle: Left ventricle appears normal in size. Systolic function is normal with an ejection fraction of 60-65%. The quantitative EF by 2D Hernandez biplane is 61%. No segmental wall motion abnormalities. Right Ventricle: Right ventricular size is moderately dilated. The right ventricular basal diameter is 50.0 mm. Aortic Valve: The aortic valve is trileaflet. There is mild to moderate regurgitation. There is no evidence of aortic valve stenosis. Mitral Valve: Mitral valve structure is normal. There is trace regurgitation. There is no evidence of mitral valve stenosis. Aorta: The aortic root is mildly dilated. The ascending aorta is mildly dilated. Tricuspid Valve: Tricuspid valve appears to be normal. There is trace regurgitation. Right Atrium: Right atrium is mildly dilated 06/16/[address] angiogram: Coronary CT Angiogram: The overall quality of the CT angiographic examination is satisfactory. . Coronary Artery Angiogram Findings: Stenoses are reported as maximum percentage diameter stenosis. Stenosis grading is reported using the following scheme: Normal: no stenosis Mild: 1-49% edwin (more content not included)... Normal [facility] 06-21-2024 [facility] Telephone (CATLMN) BLANCA BUNN ([id number]) 1955 Date Time Provider Department 06/21/24 NEVAEH CARLSON During your visit today, we recorded the following information about you: Leilani Gaines, GINGER 06/21/2024 3:46 PM Signed CARDIOVASCULAR LAB INSTRUCTIONS: Readiness to Learn: Cognitive Ability: Alert and oriented Motivation To Learn: Interested Family/Significant Other Support: Unable to assess - Family not present Instruction Provided To: Patient Patient Learns Best By: Verbal Instruction Factors Affecting Learning: None Physical Limitations Affecting Learning: None Learning Response: Procedure: Diagnostic Cath with Intervention Pre procedure education topics: Arrival time/NPO Status/Medications/Jovan el Instructions/Restrictio ns Patient/Family Response Evaluation: Verbalizes understanding Follow Up Plan and Medication: As directed by physician Instruction/Supplementa l Material Given: Cardiac catheterization instructions, procedure information, hospital information, hotel information. Instructed By Leilani Gaines RN. In Department of CARDIOLOGY. Allergies As of Date: 06/21/2024 Noted Allergy Reaction ALFUZOSIN 06/21/2024 14 - Other: See Comments Comments: Chest tightness and SOB- anxiety Date Reviewed: 06/21/2024 Reviewed by: Elijah Leon, GINGER - Fully Assessed Reason for Visit: Patient Education [91] Prescriptions as of 06/21/2024 - therapeutic multivitamin-minerals (THERA-M PLUS) 9 mg iron-400 mcg tablet Take 1 tablet by mouth every morning. - Ascorbic Acid 100 mg chew Take 500 mg by mouth once daily. - aspirin, enteric coated (ASPIRIN, ENTERIC COATED) 81 mg EC tablet Take 81 mg by mouth once daily. - omeprazole (PRILOSEC) 10 mg capsule Take 20 mg by mouth every Wednesday, Wednesday, and Wednesday. - rosuvastatin (CRESTOR) 10 mg tablet Take 10 mg by mouth once daily. - finasteride (PROSCAR) 5 mg tablet Take 5 mg by mouth once daily. - bisoprolol-hydroCHLOROt hiazide (ZIAC) 5-6.25 mg per tablet Take 1 tablet by mouth every morning. - glucosamine/chondr robertson A sod (OSTEO BI-FLEX ORAL) Take 2 capsules by mouth once daily. - saw palmetto 320 mg capsule Take 1 capsule by mouth once daily. - CRANBERRY once daily. Problem List As Of Date: 06/21/2024 (None) Encounter Status:Closed by LEILANI GAINES on 06/21/24 Normal [facility] metabolic 2000 panelon 06-21-2024 Albumin [Mass/Vol] 4.7 g/dL 3.9 - 4.9 g/dL [facility] ALP [Catalytic activity/Vol] 79 U/L 38 - 113 U/L [facility] ALT [Catalytic activity/Vol] 32 U/L 10 - 54 U/L [facility] Anion gap [Moles/Vol] 11 mmol/L 8 - 15 mmol/L [facility] AST [Catalytic activity/Vol] 28 U/L 14 - 40 U/L [facility] Bilirubin [Mass/Vol] 0.7 mg/dL 0.2 - 1.3 mg/dL [facility] Calcium [Mass/Vol] 9.5 mg/dL 8.5 - 10. 2 mg/dL [facility] Chloride [Moles/Vol] 103 mmol/L 98 - 107 mmol/L [facility] CO2 [Moles/Vol] 26 mmol/L 22 - 30 mmol/L [facility] Creatinine [Mass/Vol] 1 mg/dL 0.73 - 1.22 mg/dL [facility] GFR/1.73 sq M.predicted among non-blacks MDRD (S/P/Bld) [Vol rate/Area] 81 mL/min/{1.73_m2} - PINF [facility] Comment on above: Estimated Glomerular Filtration Rate (eGFR) is calculated using the 2020 CKD-EPI creatinine equation. This equation utilizes serum creatinine, sex, and age as parameters. The creatinine assay has traceable calibration to isotope dilution-mass spectrometry. Refer to KDIGO guidelines for clinical interpretation. In patients with unstable renal function, e.g. those with acute kidney injury, the eGFR may not accurately reflect actual GFR. Glucose [Mass/Vol] 97 mg/dL 74 - 99 mg/dL [facility] Comment on above: The [place] Diab[employer] s Association (ADA) provides guidance for cutoff values for fasting glucose and random glucose. The ADA defines fasting as no caloric intake for at least 8 hours. Fasting plasma glucose results between 100 to 125 mg/dL indicate increased risk for diabetes (prediabetes). Fasting plasma glucose results greater than or equal to 126 mg/dL meet the criteria for diagnosis of diabetes. In the absence of unequivocal hyperglycemia, results should be confirmed by repeat testing. In a patient with classic symptoms of hyperglycemia or hyperglycemic crisis, random plasma glucose results greater than or equal to 200 mg/dL meet the criteria for diagnosis of diabetes. Reference: Standards of Medical Care in Diabetes 2016, [place] Diabetes Association. Diabetes Care. 2016.39(Suppl 1). Interpretation and review of laboratory results Normal [facility] Potassium [Moles/Vol] 4.2 mmol/L 3.7 - 5.1 mmol/L [facility] Protein [Mass/Vol] 7.3 g/dL 6.3 - 8.0 g/dL [facility] Sodium [Moles/Vol] 140 mmol/L 136 - 144 mmol/L [facility] Urea nitrogen [Mass/Vol] 15 mg/dL 9 - 24 mg/dL [facility] Albumin [Mass/Vol] 4.7 g/dL Normal 3.9-4.9 [facility] Comment on above: Order Comment: Speci men Type: BLOOD SPECIMEN Ordering Facility: [facility] Address: [address] [place] [address] Performed By: #### 2 4323-8 #### [facility] CLIA [id number] [address] [place] [address] [place] ALP [Catalytic activity/Vol] 79 U/L Normal 38-113 [facility] Comment on above: Order Comment: Speci men Type: BLOOD SPECIMEN Ordering Facility: [facility] Address: [address] [place] [address] Performed By: #### 2 4323-8 #### [facility] CLIA [id number] [address] [place] [address] [place] ALT [Catalytic activity/Vol] 32 U/L Normal 10-54 [facility] Comment on above: Order Comment: Speci men Type: BLOOD SPECIMEN Ordering Facility: [facility] Address: [address] [place] [address] Performed By: #### 2 4323-8 #### [facility] CLIA [id number] [address] [place], [place] [id number] [place] Anion gap [Moles/Vol] 11 mmol/L Normal 8-15 [facility] Comment on above: Order Comment: Speci men Type: BLOOD SPECIMEN Ordering Facility: [facility] Address: [address] [place] [address] Performed By: #### 2 4323-8 #### [facility] CLIA [id number] [address] [place] [address] [place] AST [Catalytic activity/Vol] 28 U/L Normal 14-40 [facility] Comment on above: Order Comment: Speci men Type: BLOOD SPECIMEN Ordering Facility: [facility] Address: [address] [place] [address] Performed By: #### 2 4323-8 #### [facility] CLIA [id number] [address] [place] [address] [place] Bilirubin [Mass/Vol] 0.7 mg/dL Normal 0.2-1.3 [facility] Comment on above: Order Comment: Speci men Type: BLOOD SPECIMEN Ordering Facility: [facility] Address: [address] [place] [address] Performed By: #### 2 4323-8 #### [facility] CLIA [id number] [address] [place] [address] [place] Calcium [Mass/Vol] 9.5 mg/dL Normal 8.5-10.2 [facility] Comment on above: Order Comment: Speci men Type: BLOOD SPECIMEN Ordering Facility: [facility] Address: [address] [place] [address] Performed By: #### 2 4323-8 #### [facility] CLIA [id number] [address] [place] [address] [place] Chloride [Moles/Vol] 103 mmol/L Normal 98-107 [facility] Comment on above: Order Comment: Speci men Type: BLOOD SPECIMEN Ordering Facility: [facility] Address: [address] [place] [address] Performed By: #### 2 4323-8 #### [facility] CLIA [id number] [address] [place] [address] [place] CO2 [Moles/Vol] 26 mmol/L Normal 22-30 [facility] Comment on above: Order Comment: Speci men Type: BLOOD SPECIMEN Ordering Facility: [facility] Address: [address] [place] [address] Performed By: #### 2 4323-8 #### [facility] CLIA [id number] [address] [place] [address] [place] Creatinine [Mass/Vol] 1.00 mg/dL Normal 0.73-1.22 [facility] Comment on above: Order Comment: Speci men Type: BLOOD SPECIMEN Ordering Facility: [facility] Address: [address] [place] [address] Performed By: #### 2 4323-8 #### [facility] CLIA [id number] [address] [place] [address] [place] Creatinine and Glomerular filtration rate.predicted panel (S/P/Bld) 81 mL/min/1.73m??? Normal >=60 [facility] Comment on above: Order Comment: Speci men Type: BLOOD SPECIMEN Ordering Facility: [facility] Address: [address] [place] [address] Result Comment: Karli mated Glomerular Filtration Rate (eGFR) is calculated using the 2020 CKD-EPI creatinine equation. This equation utilizes serum creatinine, sex, and age as parameters. The creatinine assay has traceable calibration to isotope dilution-mass spectrometry. Refer to KDIGO guidelines for clinical interpretation. In patients with unstable renal function, e.g. those with acute kidney injury, the eGFR may not accurately reflect actual GFR. Performed By: #### 2 4323-8 #### [facility] CLIA [id number] [address] [place] [address] [place] Glucose [Mass/Vol] 97 mg/dL Normal 74-99 [facility] Comment on above: Order Comment: Cari smiley Type: BLOOD SPECIMEN Ordering Facility: [facility] Address: [address] [place] [address] Result Comment: The [place] Diabetes Association (ADA) provides guidance for cutoff values for fasting glucose and random glucose. The ADA defines fasting as no caloric intake for at least 8 hours. Fasting plasma glucose results between 100 to 125 mg/dL indicate increased risk for diabetes (prediabetes). Fasting plasma glucose results greater than or equal to 126 mg/dL meet the criteria for diagnosis of diabetes. In the absence of unequivocal hyperglycemia, results should be confirmed by repeat testing. In a patient with classic symptoms of hyperglycemia or hyperglycemic crisis, random plasma glucose results greater than or equal to 200 mg/dL meet the criteria for diagnosis of diabetes. Reference: Standards of Medical Care in Diabetes 2016, [place] [employer] Association. Diabetes Care. 2016.39(Suppl 1). Performed By: #### 2 4323-8 #### [facility] CLIA [id number] [address] [place] [address] [place] Potassium [Moles/Vol] 4.2 mmol/L Normal 3.7-5.1 [facility] Comment on above: Order Comment: Cari smiley Type: BLOOD SPECIMEN Ordering Facility: [facility] Address: [address] [place] [address] Performed By: #### 2 4323-8 #### [facility] CLIA [id number] [address] [place] [address] [place] Protein [Mass/Vol] 7.3 g/dL Normal 6.3-8.0 [facility] Comment on above: Order Comment: Cari smiley Type: BLOOD SPECIMEN Ordering Facility: [facility] Address: [address] [place] [address] Performed By: #### 2 4323-8 #### [facility] CLIA [id number] [address] [place] [address] [place] Sodium [Moles/Vol] 140 mmol/L Normal 136-144 [facility] Comment on above: Order Comment: Speci men Type: BLOOD SPECIMEN Ordering Facility: [facility] Address: [address] [place] [address] Performed By: #### 2 4323-8 #### [facility] CLIA [id number] [address] [place] [address] [place] Urea nitrogen [Mass/Vol] 15 mg/dL Normal 9-24 [facility] Comment on above: Order Comment: Speci men Type: BLOOD SPECIMEN Ordering Facility: [facility] Address: [address] [place] [address] Performed By: #### 2 4323-8 #### [facility] CLIA [id number] [address] [place] [address] [place] ECG COMPLETEon 06-21-2024 ECG COMPLETE Ventricular Rate : 6 6 BPM Atrial Rate : 66 BPM P-R Interval : 172 ms QRS Duration : 82 ms Q-T Interval : 392 ms QTC Calculation(Bazett) : 410 ms Calculated P [place] : 53 degrees Calculated R [place] : 54 degrees Calculated T [place] : 53 degrees NORMAL SINUS RHYTHM NORMAL ECG Confirmed by GRACIELA TAY MD ([id number]) on 07/18/2024 2:44:22 PM NAME : BLANCA BUNN PID : [id number] : 1955 Gender : Male Race : ORD : [id number] Procedure Date : Jun 21 2024 14:34:05 Edit Date : Jul 18 2024 14:44:24 Diagnosis: NORMAL SINUS RHYTHM NORMAL ECG Confirmed by GRACIELA TAY MD ([id number]) on 07/18/2024 2:44:22 PM Test Reason : Location : 314 : J14 06 Overread By : GRACIELA TAY MD Edited By : GRACIELA TAY MD Referred By : NEVAEH CARLSON Acquired by : STANLEY GUERRERO Normal [facility] CT CTA COR ARTERIES W OR WO SCORINGon 06-16-2024 CT CTA COR ARTERIES W OR WO SCORING CT CTA COR ARTERIES W OR WO SCORING CLINICAL INFORMATION: Abnormal stress test, shortness of breath, atrial fibrillation TECHNIQUE: Computed tomography (CT) of the heart was obtained using electrocardiography (ECG) triggering. 75 mL of Omni 350 contrast was administered intravenously. In preparation for the examination, the patient received 0.8 mg sublingual nitroglycerin tablet for coronary vasodilation. There were no complications 3-D volume rendered maximum intensity projection images were generated and reviewed under concurrent physician supervision on an independent workstation.. CT Derived Fractional Flow Bozman (FFRct) Analysis: FFRct is only obtained on studies with a high coronary calcium burden or in patients with an intermediate grade coronary stenosis to assess the physiologic significance of anatomic stenoses (measured 1-2 cm distal to the stenosis). * FFRct greater than 0.80 = normal. * FFRct 0.76-0.80 = intermediate range and features of the stenosis including location (proximal vs. distal), presence of high risk plaque or change in FFRct value across the lesion along with clinical presentation should be utilized to determine need for invasive angiography. * FFRct less than 0.75 = abnormal and a follow up invasive angiography is generally recommended. All CT scans at this facility use dose modulation, iterative reconstruction, and/or weight based dosing when appropriate to reduce radiation dose to as low as reasonably achievable. COMPARISON: No relevant prior studies available. EXTRACARDIAC FINDINGS: Visualized lungs are mildly hyperinflated. No pericarinal or perihilar adenopathy. Ascending aorta measures 4.3 x 4.0 cm on. The visualized descending thoracic aortic arch are normal in size with calcific plaque. Pulmonary arteries normal in size. No pericardial or pleural effusion. CARDIAC MORPHOLOGY: Atria and ventricles are normal size and configuration. Opacification left atrial appendage. CALCIUM SCORE: Agatston Score: The total (aggregate) calcium score using the AJ-130 method is 1227.9. Total volume score is 923.3. 92% of similar patients have less coronary artery calcium {this is reported using the interactive JOHNSON form found at [email or web address].johnson-nhlbi.o rg} Individual major vessel AJ-130 scores are: LM = 19.5 LAD = 500.1 LCX = 232.5 RCA/PDA = 475.8 Other = [address] Angiogram: The overall quality of the CT angiographic examination is satisfactory. . Coronary Artery Angiogram Findings: Stenoses are reported as maximum percentage diameter stenosis. Stenosis grading is reported using the following scheme: Normal: no stenosis Mild: 1-49% stenosis Moderate: 50-70% stenosis Severe: >70% stenosis Occluded Enhanced CTA of the coronary arteries: Coronary artery evaluation: Dominance: Right dominant with normal origins Left Main: Mild calcific plaque without significant stenosis LAD: Mixed calcified and noncalcified plaque in the proximal LAD resulting in approximately 50% stenosis. Circumflex: Severe plaque deposition in the proximal obtuse marginal branch. Suspect there is significant stenosis involving this segment. Right coronary: Motion artifact with calcified and noncalcified plaque resulting in fkad-ts-apxdfzno stenosis. IMPRESSION: Mildly ascending aortic aneurysm. Follow-up CTA chest advised in one year. The significant stenosis in the circumflex coronary artery segment has a low likelihood of lesion-specific ischemia with an FFRCT value of 0.9. Moderate diffuse plaque of the RCA. With FFR of 0.81. FFRct is an FDA-approved noninvasive technique for defining the probability of flow-limiting coronary artery stenoses is that correlates with invasive FFR measurements. However, as with all testing clinical correlation is advised. FFRct values: Greater than 0.80: Low likelihood of flow-limitation. 0.75-0.80 Borderline for flow-limitation. Less than 0.75 High likelihood of flow-limitation. Total calcium score of 1227.9; 92% of similar patients have less coronary artery calcium. The coronary arteries and cardiac structures were co-interpreted by Dr. Moe Lainez MD of the department of radiology and Dr. Mendez of department of cardiology. The extracardiac structures including the lungs were solely interpreted by Dr. Moe Lainez MD of the department of radiology. Calcium Score interpretation and guidelines for asymptomatic individuals, 45 - 75 years of age are as follows: Estimated Risk of a Total Score Relative Risk Coronary Event Each Year 0 very low risk 2 per 1000 1-10 low risk 5 per 1000 11-100 intermediate risk 5 to 20 per 1000 101-400 moderately high risk more than 2 per 100 over 400 high risk between 2 and 5 per 100; approximately 15% chance of significant blockages; consideration should be given to obtaining stress echo or stress nuclear saira (more content not included)... Normal [facility] CT FFRCT HEARTFLOWon [address] FFRCT HEARTFLOW CLINICAL INFORMATION: Abnormal stress test, shortness of breath, atrial fibrillation TECHNIQUE: Computed tomography (CT) of the heart was obtained using electrocardiography (ECG) triggering. 75 mL of Omni 350 contrast was administered intravenously. In preparation for the examination, the patient received 0.8 mg sublingual nitroglycerin tablet for coronary vasodilation. There were no complications 3-D volume rendered maximum intensity projection images were generated and reviewed under concurrent physician supervision on an independent workstation.. CT Derived Fractional Flow Bozman (FFRct) Analysis: FFRct is only obtained on studies with a high coronary calcium burden or in patients with an intermediate grade coronary stenosis to assess the physiologic significance of anatomic stenoses (measured 1-2 cm distal to the stenosis). * FFRct greater than 0.80 = normal. * FFRct 0.76-0.80 = intermediate range and features of the stenosis including location (proximal vs. distal), presence of high risk plaque or change in FFRct value across the lesion along with clinical presentation should be utilized to determine need for invasive angiography. * FFRct less than 0.75 = abnormal and a follow up invasive angiography is generally recommended. All CT scans at this facility use dose modulation, iterative reconstruction, and/or weight based dosing when appropriate to reduce radiation dose to as low as reasonably achievable. COMPARISON: No relevant prior studies available. EXTRACARDIAC FINDINGS: Visualized lungs are mildly hyperinflated. No pericarinal or perihilar adenopathy. Ascending aorta measures 4.3 x 4.0 cm on. The visualized descending thoracic aortic arch are normal in size with calcific plaque. Pulmonary arteries normal in size. No pericardial or pleural effusion. CARDIAC MORPHOLOGY: Atria and ventricles are normal size and configuration. Opacification left atrial appendage. CALCIUM SCORE: Agatston Score: The total (aggregate) calcium score using the AJ-130 method is 1227.9. Total volume score is 923.3. 92% of similar patients have less coronary artery calcium {this is reported using the interactive JOHNSON form found at [email or web address].johnson-nhlbi.o rg} Individual major vessel AJ-130 scores are: LM = 19.5 LAD = 500.1 LCX = 232.5 RCA/PDA = 475.8 Other = [address] Angiogram: The overall quality of the CT angiographic examination is satisfactory. . Coronary Artery Angiogram Findings: Stenoses are reported as maximum percentage diameter stenosis. Stenosis grading is reported using the following scheme: Normal: no stenosis Mild: 1-49% stenosis Moderate: 50-70% stenosis Severe: >70% stenosis Occluded Enhanced CTA of the coronary arteries: Coronary artery evaluation: Dominance: Right dominant with normal origins Left Main: Mild calcific plaque without significant stenosis LAD: Mixed calcified and noncalcified plaque in the proximal LAD resulting in approximately 50% stenosis. Circumflex: Severe plaque deposition in the proximal obtuse marginal branch. Suspect there is significant stenosis involving this segment. Right coronary: Motion artifact with calcified and noncalcified plaque resulting in rljf-qn-crrfvisw stenosis. IMPRESSION: Mildly ascending aortic aneurysm. Follow-up CTA chest advised in one year. The significant stenosis in the circumflex coronary artery segment has a low likelihood of lesion-specific ischemia with an FFRCT value of 0.9. Moderate diffuse plaque of the RCA. With FFR of 0.81. FFRct is an FDA-approved noninvasive technique for defining the probability of flow-limiting coronary artery stenoses is that correlates with invasive FFR measurements. However, as with all testing clinical correlation is advised. FFRct values: Greater than 0.80: Low likelihood of flow-limitation. 0.75-0.80 Borderline for flow-limitation. Less than 0.75 High likelihood of flow-limitation. Total calcium score of 1227.9; 92% of similar patients have less coronary artery calcium. The coronary arteries and cardiac structures were co-interpreted by Dr. Moe Lainez MD of the department of radiology and Dr. Mendez of department of cardiology. The extracardiac structures including the lungs were solely interpreted by Dr. Moe Lainez MD of the department of radiology. Calcium Score interpretation and guidelines for asymptomatic individuals, 45 - 75 years of age are as follows: Estimated Risk of a Total Score Relative Risk Coronary Event Each Year 0 very low risk 2 per 1000 1-10 low risk 5 per 1000 11-100 intermediate risk 5 to 20 per 1000 101-400 moderately high risk more than 2 per 100 over 400 high risk between 2 and 5 per 100; approximately 15% chance of significant blockages; consideration should be given to obtaining stress echo or stress nuclear testing. (more content not included)... Normal [facility] Coding Summaryon 06-08-2024 Coding Summary HTMLBase 64 TlutygnzJWn4gVp+PGhlYWQ +SO8VQKVlH47wqVCzoK4zW5 NMTElOSywgQVBQTElOSyIgb dCgDW6eaUOvFLOe IC8+BQ0qRUFnPnzdkYVjq4Y 5fLT4R41cti3sLXqryYJ9MT EcRuErtbvqg8grzJz4OTafR mluOyBt XIUwyP66YXO2mU77Pn22yIJ uuEJoz1ssbHz5GvZeWTDdQW U2wMqdNAmrg8DuYIMaF79wl XBze0W0 SLTuhVwmbBPkVsAbePM1yQ0 wINlicwdsu3qdemxvVwu5am 69kVVan0K6rSY0M3SsoaG0T GJvbGQg BlptqWUAiP4omckyx2fcdyz zHsYmKKLuYNg0CFs8GMUpxV zqPlTfFG90FXN5CMVyocMeF 2FsLWFs wRtoHmP6d8W3Kh4RF5OWUkb jO3HBDTSWTBqnmFI+PC90cj 33B2MlOxloZuq9FWHlFUA0p AQ1vD4u JQAmYFdcy7L0fDG7C1JjeuU ahh2wo4pnTPGvFSusJ62uwP Cmy9U8XUJtdEQ1OFWikVsrN iBzaG93 Oyc+MZXjrTdxh4TmDlxon6z om9xjwXb3CopiXQHjvhSjtR lsPLU3c9IuYt9lPQBhnVP3p DJ1gB9q PgLoNtZ8ZDbfB437XwAgkIL nQpitA37gE7YqaFK+PHRyPj x9KLBwgXqhKL8oV5ZjOLBbd mctbGVm zDbrRF6aVUVrooufCKHdtB5 gJVPbM9x0OaTpSjT7QMreF4 GjCIPxiaugRw92pL8rLgItK yP1SMvm U3SsgkN7YBKugWReWHebQTL 8D46wp4N9NGKsJPAtTDW2wZ U9hM1nxQqoydjzaZPnlIwin mVydGlj AUssUSodO530MHUoiSvrYnY vZGluZyBEYXRlOiAgMDQvMT cvMjAyNTwvdGQ+WQZxUKO1d WxlPSAn rIRoGHxgXc2xnPhihSzkXU1 fSEWrzdvbEDTilC3oNYPjbP RdfPsyPK1wPVTbulsgp089C iAxMHB0 VNMkgJKsY9LodA3fBsLuUDF dRRCrW3JjoNYfBHscU341QB ccJgU3THTkxrOkW6OsWNWbx WduOiB0 y5V4Eg7Uu1OnjlixE7VlcLL xSpHsNcxmALq4F5SbHlsejX I+SE68UEQnYH01RUd5WTN7m WxlPSdi GJErJ9DxgB6wJrJeVKOkHBC kOyc+PHRhYmxlIHdpZHRoPS tyFZDgBkWwiXdbAY3vNd9wZ GVyLWNv mUelqYCgJlTzl7twNDCiYJl fZT8jgUyyP6PahYF7EKAot1 e7Pd22K18zU1PenXA+PGNvb FE0lCV6 cK8pRwKeCbL9LRkqM263OcR eyMRwSeelx6jny7ksdQo9Ko E3VEQatnRvdRsyAON7n4UaN n73P80l IHdpZHRoPSIxNSUiIHZhbGl mqa5vmX4rLs4+PJUitYD4hC L4uH7jNiSzSpC0KPlzZ579O nRvcCIv Yqcxz8lvj5pcqZy1BdAdWSJ wxnOieTdyPDS0a9GyYl98X1 RvrImya4JrKnu5bh41xXAqh 6M7vMM8 Z7TcRBPoseleqRVweHjeCS5 mSQVqxmwdOUFecO9dCFPyX2 b7BdZgKoE8MIpeH1VtvzD8L GJvbGQg BJNxwVJZdJ4dtvnin2ninlt kQaBuHKLhAWv0OQi4GKUasL xhBdYkKAX9BwF3GCP4xHAwn T0ayBfh bpcggZ7lGxs+YKD2oPPggMY HMH5mPgwikVR+LHRrXPH0hC csHBuwCZOgyR0zCWMrU8v2H iAwLjA1 URytM1QswsM6OFAyhLJdLED tcIVZiA0daolpo7xubeogMg JsRHTcSGy6SGg7OIZggZpmS iBsZWZ0 XuL4UNM6xCUhpB8qrJrqgdo aiI9jGid+WwjxhCeyZTV4HA i2L2MuTiy8VEQazTykJL5kb GFkZGlu Vk4xxQiobJpiGY2wCKMaucx uc573JxAzx8zgTRJwjUFyDF zeOJR1E78le0E9HOXxLUQhJ CG6xTB4 iP7vePjgxcndhUHsdTipdgD fyTleKMvrNIqcE696KFGteC lhNeJsMDp0L9WfEjp4JLTok MzyWB5d zXVkHGnnMv5odLcdeMzwFR0 tZTPitwnmr604DrLao4cxCS WywJFeQEhmWRL2N59qw5Y3Y CMwMDAw PXT7jRH4kV4tfHpbvxxdlMN mdDsgdmVydGljYWwtYWxpZ2 52TIFvvLgzOrJfpRl4F5DjS xx8SAEi aDwuYK0saXXmAEptOc8qgDy ntMihTC0tJLRttfznb296Cl Mts9roRNMvnTTeKPzxTEO6E 21ro5Y4 NWTdDBXnNSG3sMT8aO6kzOb nbjogbGVmdDsgdmVydGljYW izUKqpF030ICKnpWpbLsGbc GllbnQg ZJazOOe5T0ZtCrxffKQ+PC9 3KRLtBP36iXQenFQlb2tgpV a1RvToVTGfMVW8qIyoJVjtr 3JkZXIt H13hnFCku6V2VIGfaMzrdAG uHtDysYK7jR8hHNirxzhum4 cadzbxNuesj3qcro25kR55F 29sIHdp ZHRoPSIzMCUiIHZhbGlnbj0 jpK5gCt4+QFWuhOL1aFM8yE 0hDYHvDeS4IHzoP108FkAja CIvPjxj u2lpn0clvBj1JkA0BOGnoqF zyOxnCXX7e6KrBh33K35lLN dpZHRoPSIyMCUiIHZhbGlnb q4psI8k Ii8+CICdpXA6kXF8kS1fVnY yNsX2ARpvM463UlNmkERcDe rkW77fT8ZzzAG+TQBgOzl2C CBzdHls WQ6osUVpGXvbLc2nYRE8WlX kCxWvHEfwI4BgZLIxascjvt jhyGX7ASQhIFUdmY24Bw5ds DogMTBw kFUKmC5muuowc1qjhfphUqV jUKZzNZq9MLq7YFYcdReyOl CjIMW4HtN4IGB3uRFujZ0xo Glnbjog nE1aI9BtVRTnzbzgUv74lX5 wQfTzQkL0WOzwKxu+WklNTU EAKVOLBNHHIR1GLAqOTRtDL TwvdGQ+ KPGyGLO3yZukSXllZLAydU2 tSWZfH9b9PvZnTcT8RPriW0 AuSQSndxsuHv20uO2lLaBoH zJ8ZFbq M0JdxzF2SOQevRRwDQssZPD 8U96me0E7MOGiIBYtTAD4oC N8rC4bjPyresphfRZubAdeu mVydGlj KHggQYxrX831XSSjjBimZdS 5HmGcAoH7HOI0S7DvRzr9FI RjsCzoBY5qmGBqEOzgWd2du WdodDog BN6jAOWfawirPMAntP6lDAJ vyDNrjTtiSH8xTYMpasxgl1 30VtZfBFR4WMUecTOoY9Ttl H2cDzWv USGiDBBrK2ZsfNVxHObaL47 7VNykRhT8JJIsqeCfD1FnIS JnrInwExD2i1B9Se53DSRFO WFyczwv dGQ+VPHxXWY9cOygSFurSQN uoK7vJPXaO1u6FwTyXdE9TV zzL6SoZNKufilgUt10cY1oA iAwLjA1 ZVfhR9SchmP2EWKgiWPfIMa xKIU3V09tq2S2RJLcWCYlUS E6aCQ6cH1wqSsizpwjfUJlc DsgdmVy bZtbMKpbBYfuX348YJTvyDe iAw4KWSR3Q6OsWai2PGQuwW ruYO8gdKQnWHfsYm9rvGkoi BoiFZ1l ABAxsyvcWGPcsV5bKKDqiWA ytQsvNM2nZKOaefcrn930Fn DsJBR2RAZwiCIkJ4DobQ6nN iAjMDAw SWOoX8EojKOnVJyzK237PSy mWsM1TKBdcbLfZ4BhYUPejG ipAjB6q0H1Ma1NKIeupYB+P N37os46 A6OkFnayKan6FDUtAZL1eQS 7oA6vETViTCkww5G5qRV9S0 CdqnEflg2bv7pqKUEqKEsdT 29sbGFw n0R4YZPcaES8AXOvwZydGmJ zzW25Pmp+ROUgwUqhp1NjWf mzz5moo6scaEc3JmXnHKAxv mFsaWdu RQJ0c4TiCo69A09yYBtnQVF jOYXqZAUlPHGqnEfmzg4ssG 9wIi8+GQZxlPY0jGY0hF9dR jAlIiB2 TUnqR992UbCkaSYfWsfry1t mn9tinPu3GzRtAMVgqtZqbY mbABC7d8OkNm41U1CrhJtsm 5BfFwl6 vj01kJSdk6I6zYW8F5NjZCZ nxtssjFRicYmyJJ6aLHHlyj syASFwtW7xLMAnB4f2ThEjL dN5BZwk P9DqjpV2KSOrpUMpODVvnWF QoU6pheepi0xrzzvfSpBrCW VgSEc1ODi2KTTewRwsJcMlZ JP7NkG0 GKC9oJUpsB4yqKurbkbqoT8 wOyc+DLr6z4kpmAJoWW8rsW P3BJ67VP20jAPcb6T7uJW8F 3BhZGRp lmaiwukhtIT1JQRnSAJzjX3 3Wa3ddOfyHx8sLPDePPG0RU AqfLZxW2JbcZ1gUlRjESTzM TJmO2Gm cFVaIVxwH083JNbcUxP8DFY qsnUdM6QiTHGalWhyNrF5c2 L1Dr7EVS90AC69IK38nMXel 5V3uHU1 V9CxYWMdaertvnagtDT4FBL nSSQrgL13Yl1dcGteBb4gWO PrHSK5NYYxhMLyZ8XhsJ8hW iAjMDAw XSOtH3MldWXgYCmeH638EIq xQaH9DWGykjEwN1UoCNZmtX ihMvX8b0K2Pd7NHh65GN60S O66wMOp x1T3oXW3X6SmFYLfbvwxxfz vjPQ2YUZgVNJlcA14Mu9mvQ upLs4rWAOgEUQ9HBEwvJTyS 9SdhJ2o AfZtLGBzRIQeU2QvfJWnFEl mE640ARrzKnQ3FQBccjGwG6 XqZPAqvCptMaA5b8E4Hv4NC Xllcjo8 N7ZxYfapuQD+OR04EOHsTP6 8yFPcgQAyv4caeXq4UjZaSX HzVVA6cMjlAFukq7IiUWSrG 29sbGFw c2U (more content not included)... Normal [facility] Creatinine Lvlon 06-02-2024 eGFR AA >[address] [facility] Comment on above: Performed By: #### 2 [id number] #### [facility] (DEFAULT) [address] [place] [address] 80639 eGFR Non AA >[address] [facility] Comment on above: Performed By: #### 2 [id number] #### [facility] (DEFAULT) [address] [place] [address] 11382 Creatinine [Mass/Vol] 1.00 mg/dL Normal 0.90-1.30 [facility] Comment on above: Performed By: #### 2 [id number] #### [facility] (DEFAULT) [address] [place] [address] Provider Orderson 06-02-2024 Provider Orders [id number]#[id number] [facility]OP[facility] I, HIGH SENSITIVITY on 05-31-2024 TROPONIN I, HIGH SENSITIVITY 4 ng/L NINF - 21 ng/L [facility] Comment on above: PERFORMED AT [address] Troponin I.cardiac High sens itivity method [Mass/Vol]on 05-31-2024 TROPONIN I, HIGH SENSITIVITY 4 ng/L Normal <[address] [facility] Comment on above: Performed By: #### 8 [id number] #### [facility] ([id number]) [address] [place] [address], [place] [address] Provider Orderson 05-02-2024 Provider Orders [id number]#1.0 [facility]on 04-24-2024 [facility] ZuobfudhETa8tSq+PGhlYWQ +YN5AQNFiC86yyLOzoI5jD6 NMTElOSywgQVBQTElOSyIgb rCxDR7idAMsZBLm IC8+XG2pCQYgFcwquQPhj5C 5wMY5E04zrf5fVEvabPM6MN LuByZndszvd7pohPv0VDqwK mluOyBt JNBakH69STG6zV37Dd66tGA kfVSmv1axxSx1ErKwRRVeQM Z2zZmnYJxgz6GqPIHqP81wd QOew6Q5 QYJznHfbmWNmAbTylDN2dC9 rEYyvqpesg3fobwrdPnt6jg 07cHQbn2W4gXV8T3SszxK9M GJvbGQg UfeilFBIwQ3zpkdgj2cylpm uOpZlQKXmHBe5SNy5ANYjtZ awIiUcBP23EYO6WSVrfvMmL 2FsLWFs kEluLzC6n2B8Fn4AJ0MUBjk kD6IUTSNPJBrozGN+PC90cj 71V9KnZghwGwc8TQYkVUB4h FV8zA2a LYSpCMqzq0C5oCC0Y8PcltN xti7mk0rlXHNlAGzkS88clU Uxb2P4AOGhqNZ5TYPhlWdpO iBzaG93 Oyc+SUXtsKufa7LnXzkcp1m fy2qvgPp7FkndJAEruvQlhI xkDBK8i1SdZb2uSHLzbJO5a GK1yX2v BaBfWmP1DHkxQ285QpJxaXA xDdwlY33yM3KjoYV+PHRyPj u8KGUwuAhgID6cK1DzXQOaw mctbGVm kUovEX7yRHDcqrbcBKDihC8 cNSQyS6p8CgAeDnY2CPsrP3 RaQSHjteqiPw89hR2nApUqA uU6DPhp G2KwavC1BPDrbKLdXPqvVJA 7B77fe4I6BDKyHWGzXNY8fN I4mI0zkRrljuammIMcvUeob mVydGlj JDeiBWdjP648TYJxbXxkMyX vZGluZyBEYXRlOiAgMDMvMD MvMjAyNTwvdGQ+WEPuSXB4i WxlPSAn kCYhPLkwMb5wyQzpcAqkIH6 eTIBhrhnkLUTrpY2lROQptH NooFvuRY9mOOJixcdhi556I iAxMHB0 GVXktHFmH4KmxT0gMnQwCRB oQJUwM7FsmVYkRXogC793BF hgHoG9CFTwaeRiP2NoHGBkf WduOiB0 l7S8Ry6Dl7VmbdftK1IpyVP oEmYbAemkOSs0A5UbTfteaO I+LF83CPAaMO97DOr5MEM4f WxlPSdi BJOyF9KzoN9wVnGjYNZlGLI kOyc+PHRhYmxlIHdpZHRoPS uoICQfTlMigYdhXT3uSl5xU GVyLWNv sVzgfWXbAmKqj8hiMRWcULn gSU9bjUkbF0StkMX8MAWyy9 m1Uq41F38fK7YznNG+PGNvb MN3bQA5 nR9nJjWbIoB6OHmhZ608AyH huTRcFhdof6xng7pbzEa8Od E7CQDsxcDaaEytYOK0q2EzA t68J48y IHdpZHRoPSIxNSUiIHZhbGl lty0yuS4fYe4+BJEwgLE7yD H2wV7mGjZeOrN2WEmuJ032P nRvcCIv Sckym5kop5wfbAf0QyRrUOW icyTduAsaCWA3g4HlKs90P8 HvgEeta6LqLks2ve43rBPnb 4L5mMQ3 J3CyMEIjbsxhiGIziEryZK8 rPSUnbinkOWIvwG6jLVMiH0 u1QuYvZmR2IXbkB6VhbkD2D GJvbGQg SPKoaACPrK4orrfrx5ojseb lOcErQEOnHPr6TSb7YQAufQ fuDqOgRXE0OlO3HXU9zQDyu S4zvMgu ltrlfR2lWjs+XFA7dCNwkBZ VKO8gNjuesOP+BHGpKMD2yY faQEwhMQTggR0jXHVeA0m0K iAwLjA1 OCrcM1IvesQ6BKXypHIrNVM zwBFWcJ9xixzgb4zwapriYb EfZBXaLCp5NYg6KJNviKqhD iBsZWZ0 NgZ8YDI8oIPuvV6rnXgbvyt tyB0uCya+VwyojWmaAWP0PS d1Z3QqBcy0WNXlzTpdGG6jw GFkZGlu Nx4biQmjkVjxCN3hWYNrozm fh428UeXoc2quOCWwvUBwDR kzNON5O59bj4P5MUIgOTBhG PF6vPY4 hC6msVjwczjqcGGqlKyyhjM acBweKHmrWDczM333DLXrpP mvTaArZKy4D8JwFql9DWNoh LnzTW7r aLQwOTmhXc7ndFrgcMdgEH4 xYRQgdvqtp206IrIdt9ymMM JvrYHxMBmyRKD4T35ue4Z0O CMwMDAw FOP7jRV3bP3xkBewbqirpOB mdDsgdmVydGljYWwtYWxpZ2 02UHLtzQvpVwUzyOi3Z6XiE kw2HQNp eGoqNW7yqUKoCQijNy6ivQn qxRhgGJ7aHGSqmqpmj293Tb Fem0ynJBGdeSOiSLikGXV3N 14jz6D8 SBWjPFEwKGK9uLI6vG1viSi nbjogbGVmdDsgdmVydGljYW lsPJxmM889KKQioQhxStSsz GllbnQg LNcbHBc8A3MtAkonvHK+PC9 5MVHpXS74qVOwpWHzq5ormA h7WxPfJPXpGCN6sQaqXXdop 3JkZXIt W70poPUsz2L1MISzpDgodYE dDxRcpUW2iM7uXTommecub7 zxksrbWxvin3rvex33hM30Z 29sIHdp ZHRoPSIzMCUiIHZhbGlnbj0 coP7rGn9+OQOqvFJ3fBP6vW 6iNRRhCtR9GParF469KwFre CIvPjxj q7sip8earYv3EbI0YNDvrgQ ooTkcFMT3c9SpQl39M48fOM dpZHRoPSIyMCUiIHZhbGlnb y2srD2k Ii8+ZQYygZM9aWU4hI5lInO jWsU7CQxbP579ZwGthJPbSm vqA89dJ6DlxXZ+YPCmYbu4N CBzdHls XP4otNHjHIzoSv7cRKN0GzT gPxZkYDcjW2BhLWCjzoojhq vrjKQ6ERUpTYOogQ36Gq2oo DogMTBw bSECmI2rkkcqc9lcwaklWzC zPLEiHVc7BDs1ZSPjaUqvJv CpXGI8BeV7OMD1cSGmmW9lo Glnbjog vT3dW3NeQCPegcwyYn51pP6 vOmRuKlR0LSsuNtq+WklNTU VJATRKERSZMW1INRwGWGfCQ TwvdGQ+ IDXkRPG0hZneEWkoFMRipM6 kJPPiH6j7AkGtRvG8MBobK0 BeSLQourpdSl29zZ3xCwChO gG2OMvg D4LtezB6ANDdxTHiYPsbCBX 1V75mv2F6LSUdJQAhWKR4fQ T4kU7yxYiwytuftFAnzQoxm mVydGlj CIxpQUdgX399DFEzyKvtJxH 0KqCiLmO8CGU0K7FlDeh2OH QhiJapLC1ldZBeHLmnTr4az WdodDog OK8aLZZwdfrxIGDihV4cNPB fnEJznIenUT4aDFOmvildu5 65YnZeSAW0CZWlhOWpK5Tjx W2tSlKs JNLqCUKgK6SetXIlFRryF61 9MCknPxM2LBBplcMcJ4MhNA LlcOfyPrQ8y9K8Zl46KDWLG WFyczwv dGQ+LJFcGVM6eLkbNBujGQW zsA6lUFJtS0g1BlVqJnX4LD olD4HtVURpfsuqQf28nB7rL iAwLjA1 XIcpM7KfgtD4WOUeqUWvIPm gSTX3T25ea8I2DYSmAOPaVL G5cFI7zJ7zbOthlhxbbPFku DsgdmVy kPagKNquYVjiS126ZVYduSk uCl1DMLI3X8YgDqv9PSEjbO ouFI3vaNUbTKpcTn9ylLgmx AkaFZ7q UWAztuqfXETsaD2rHRVrfJI pjOabKV7eKZHbacuto829Rb DjBJY9RGAdhCHaD4EiiP2mH iAjMDAw IVLeM6NxhDXpZIaeA947KZk dQbL3DQDeeeBpA2ZxYPSxxQ ufGfE7f9Q6Fk7CZSqgkOT+P Z00qj52 X4IsRcyfFnj1AUTeGIQ3yMB 6wA0hZUWwEPhdq8A6cQA0S0 CgnfNmuj7rz5smVYDsAPmeQ 29sbGFw p5G5TYGdlWR7SSUdbNrwLlY rsK26Xga+ELPglGgus8QrGk qxa4xso9cdqGn3DqJeBULxv mFsaWdu SAP5i5JiLv40J05tSJvtJTC nPPVhURGmWKJjoCbqiu0bfS 9wIi8+ESJrbHF1lBH2sY4rW jAlIiB2 ORwgS771PvLwyXRkCvcpy6p fi8zjhTn3HwEfRWGhpnWvnJ rnTGB8c2WyDu34T5LuuDboz 3CsWoe5 br06aQWvk6C3qJZ3D4QwVNN pqsmboLRgjFdyOV0zUBWvhk dvPOSfnF7cGNGaN7v9GpQiA mC0NDpx F6LlwyP3IAUyaPEzASRxxKC DiU5hdliue1jdcedzAyQbXA AfMHr3RRp3ISNlyFowDqZyN NS9RtO7 OUW4oIJljY7uySzmfbatlO2 wOyc+QGa2h7yguBYiMZ7loI J3QA25MJ15yEInr2H3oUC6W 3BhZGRp iclmioigbNH4EBZzXCUyrY6 3Bg7asDldQb5dXMJkZRR1TX BmaMUjL5AxeZ5wCyMzVMTfE JLgP1Ka bASyXMwqM993KOzmZbZ9QNN cjdYaN0AdJTZlaQjxVaU5q3 Z0Xm8YPY52DC61RJ54lCPrp 9J5pGV2 G5AcUTGxuqfvslrwrKR2UFS uSYBkrR60Zl9ovDqdSb5wNS QpOPX1YMFosFNjL6KmwF4bR iAjMDAw NASjK2BlpMLjRRswJ730RWb dErE7ILQfajHjW6KxMYWzrJ owEgA6f0X4Rw6RCb32VB04B O82xZQt k5P3xBM4Z1RqNHTsgrnshis koGM3SCKkJYKivV52Jg7ekY jeDa4qJHBwUBA2PBXxuTHsE 3NklZ8n TyKuWWTlPRIjL7DyeUWcGGk kE802DNtrTfJ3XYHkveApA2 EaPCHqeUqtOgW8n3R1Jq8WP Xllcjo8 K6OuJlbecSN+XF89QHOqOU7 8lPGgoVVdg6kjrPu7KmHvFP QsTOS6gCknDDtjj4AlVHXiD 29sbGFw c2U (more content not included)... [facility] Provider Orderson 04-21-2024 Provider Orders [id number] TGTIFF [facility] MR prostate wo/w conon 01-12 MR prostate wo/[place] [address] MRI Report Signed Patient: Blanca Bunn MR#: [id number] : 1955 Acct:[id number] Age/Sex: 68 / M ADM Date: 01/12/24 Loc: MR Room: Type: [facility] Attending Dr: Norman Quiles MD Copies to: Norman Quiles MD Ordering Provider: Norman Quiles MD Date of Service: 01/12/24 MR/MR prostate wo/w con: C61 EXAMINATION: MR prostate wo/w con HISTORY: Elevated PSA. COMPARISON: NONE TECHNIQUE: Multiparametric imaging of the prostate gland was performed with IV contrast. FINDINGS: Prostate Dimensions: 4.9 x 4.3 x 2.9 cm. Prostate Volume: 32 mL. Peripheral Zone: Heterogenous inT2 signal suggestive of prior prostatitis. No suspicious T2 or ADC map abnormality is identified to suggest prostate malignancy. utricle cyst. Central/Transitional Zone: BPH changes. Seminal Vesicles: Unremarkable Neurovascular bundles: Unremarkable. Lymphadenopathy: No evidence of lymphadenopathy. Bladder: No focal lesion. Bowel: Diverticulosis. Peritoneal Cavity: No free fluid. Bones: No suspicious bony lesion. MR/MR prostate wo/w con IMPRESSION: No MRI evidence of clinically significant prostate cancer. BPH. Impression dictated by: Delmer Chavez Jr., D.O.01/13/2024 10:11 AM Dictation Location: [place] [address] Transcribed By: 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 No acute fracture or dislocation,or effusion Suspect remote triquetrum avulsion on lateral view: Minimal degenerative changes with subchondral sclerosis distal radius. Impression: No acute bony process right wrist. Mild chronic appearing degenerative changes [facility] Radiology Study observation (narrative) [facility] Ambulatory Visit Summaryon 1 Ambulatory Visit Summary Ambulatory Visit Summary BLANCA BUNN :1955 Visit Date:12/03/2023 Ambulatory Visit Instructions Your Diagnosis Prostate cancer Enlarged prostate with urinary obstruction Family history of prostate cancer in father Tests Performed MRI Pelvis (Soft Tissue) w/ + w/o contrast -- Results Pending -- Please visit your patient portal for your results or contact your primary care physician. Your Care Team Attending Physician - Norman QUILES MD Primary Care Physician - LIBERTAD DOMINGO This Is Your Medications List finasteride (finasteride 5 mg Tab) Contact prescribing physician if questions or concerns aspirin (aspirin 81 mg oral tablet) bisoprolol-hydrochlorot hiazide (bisoprolol-hydrochloro thiazide 2.5 mg-6.25 mg Tab) chondroitin-glucosamine (Cosamin DS) multivitamin (Multi Vitamin+) omeprazole rosuvastatin (rosuvastatin 10 mg Tab) saw palmetto (Saw [place]) Procedures Performed Transrectal biopsy of prostate using ultrasound (US) guidance (05/10/2018), Appendectomy (2018), Cystoscopy and transurethral biopsy of prostate (05/04/2017), Colonoscopy, Shoulder, Vasectomy. Discharge Vitals Heart Rate (Peripheral) 74 Blood Pressure 118/86 Height 175 cm Height 69 in Weight 78 kg Weight 171.6 lb BMI 25.47 What to do next Scheduled Follow-Up Appointments Wednesday 8:30 AM EDT With: Norman QUILES MD Where: [facility] [address] [place] [address]- You Need to Schedule the Following Appointments Follow Up with Norman QUILES MD, URL When: Where: [facility] [address] [place] [address]- Medications What How Much When Instructions Unchanged finasteride (finasteride 5 mg Tab) 1 Tablets By Mouth Every day Unchanged aspirin (aspirin 81 mg oral tablet) By Mouth Every day Contact prescribing physician if questions or concerns Unchanged bisoprolol-hydrochlorot hiazide (bisoprolol-hydrochloro thiazide 2.5 mg-6.25 mg Tab) By Mouth Every day Contact prescribing physician if questions or concerns Unchanged chondroitin-glucosamine (Cosamin DS) Contact prescribing physician if questions or concerns Unchanged multivitamin (Multi Vitamin+) Contact prescribing physician if questions or concerns Unchanged omeprazole By Mouth Every day Contact prescribing physician if questions or concerns Unchanged rosuvastatin (rosuvastatin 10 mg Tab) 1 Tablets By Mouth Every day Contact prescribing physician if questions or concerns Unchanged saw palmetto (Saw [place]) Contact prescribing physician if questions or concerns Allergies alfuzosin (Anxiety, SOB - Shortness of breath) Problems Ongoing - Any problem that you are currently receiving treatment for. Atrial fibrillation Enlarged prostate with urinary obstruction Family history of pancreatic cancer Family history of prostate cancer in father Hypertension Prostate cancer Historical - Any problem that you are no longer receiving treatment for. Elevated PSA Hematuria, microscopic Hesitancy Patient Survey You may receive a survey via text or e-mail asking about your office visit. Please share your experience with us by completing your survey. We appreciate your feedback and thank you for choosing us for your care. Education Materials Prostate Cancer The prostate is [...] For this exam, a health care provider insert (more content not included)... Normal [facility] Urology Office/Clinic Noteon 12-03-2023 Urology Office/Clinic Note Urology Office/Clinic Note Chief Complaint 8 mth f/u w/ PSA HPI Staff 8 month f/u with PSA Previous dx: Prostate cancer (ACTIVE SURVEILLANCE), BPH with urinary obstruction and family hx of prostate cancer (father) *Finasteride 5mg qd (has been taking this since at least 2018) PSA 03/23/23 - 2.04 11/23/23 - 1.92 Dysuria: no Incomplete bladder emptying: no Hematuria: no, trace IO today Frequency: q3-4 hrs Urgency: no Nocturia: 0-1x Stream: normal Leaking: no Post void dripping: no Wearing pads/ Depends: no Urge incontinence: no Stress incontinence: no Incontinence without Sensory Awareness: no Abdominal pain: no Flank pain: no Sexual complaints: History of Present Illness Tests reviewed: UA, PSA I have reviewed the previous health record information and history for this patient from Dr. Quiles. I have reviewed and verified the staff [...] Physical Exam Vitals & Measurements HR: 74(Peripheral) BP: 118/86 HT: 69 in HT: 175 cm WT: 78 kg WT: 171.6 lb BMI: 25.47 General Appearance: alert, no distress, well nourished, well developed male. JENNIFER ~ 40 g, no nodules. Assessment/Plan 1. Prostate cancer (C61: Malignant neoplasm of prostate) ACTIVE SURVELLIANCE. PSA: 11/21/18 - has been taking Finasteride since at least this date 12/31/20 - 1.60 (3.20) 07/01/21 - 1.70 (3.40) 01/01/22 - 1.82 (3.64) 07/07/22 - 1.73 (3.46) 03/23/23 - 2.04 (4.08) 11/23/23 - 1.92 (3.84) TRUS/bx 05/04/17 - G6 (3+3) x 1 core, ALISHA x 1 core, and HGPIN x 1 core. TRUS/bx 05/10/18 - Neg. Chronic inflammation. MRI prostate 07/02/20 - PI-RADS 2. Prostate volume 29 cc. PSA decreased from prior. Will cont to monitor. Discussed repeating MRI at some point since it has been a few years since last image. Pt elects to proceed with MRI. JENNIFER ~ 40 g, no nodules. Follow pending MRI below or sooner if needed. Pt understands and agrees with plan. -Schedule prostate MRI. If neg, f/u in 9 mos with PSA and cont active surveillance. 2. Enlarged prostate with urinary obstruction (N40.1: Benign prostatic hyperplasia with lower urinary tract symptoms) UA today negative for blood and infection. Taking Finasteride 5 mg qd. Voiding well. 3. Family history of prostate cancer in father (Z80.42: Family history of malignant neoplasm of prostate) See #1. Follow-up With When Contact Information ETTA WILLAMS, Norman Rubio, URL [facility] [address], [place] [address]- Additional Instructions: Schedule prostate MRI. If neg, f/u in 9 mos with PSA and c ont active surveillance. Patient Education Prostate Cancer I, Kaity Long, personally scribed for Dr. Quiles on 12/03/2023 10:41:32. . Documentation recorded by the scribe, Kaity Long, accurately reflects the services(s) I performed and decisions made by me. Authenticated by Dr. Quiles on 12/03/2023 10:45:46. Problem List/Past Medical History Ongoing Atrial fibrillation Enlarged prostate with urinary obstruction Family history of pancreatic cancer Family history of prostate cancer in father Hypertension Prostate cancer Historical Elevated PSA Hematuria, microscopic Hesitancy Procedure/Surgical History Transrectal biopsy of prostate using ultrasound (US) guidance (05/10/2018), Appendectomy (2018), Cystoscopy and transurethral biopsy of prostate (05/04/2017), Colonoscopy, Shoulder, Vasectomy. Medications aspirin 81 mg oral tablet, Oral, Daily bisoprolol-hydrochlorot hiazide 2.5 mg-6.25 mg Tab, Oral, Daily Cosamin DS finasteride 5 mg Tab, 5 mg= 1 tab(s), Oral, Daily, 3 refills Multi Vitamin+ omeprazole, Oral, Daily rosuvastatin 10 mg Tab, 10 mg= 1 tab(s), Oral, Daily Saw [place] Allergies alfuzosin (Anxiety, SOB - Shortness of breath) Social History Tobacco Never (less than 100 in lifetime) Tobacco Use:. Never Smokeless Tobacco Use:. Household tobacco concerns: No. Yes, 12/03/2023 Family History Pancreatic cancer: Father and Brother. Immunizations Vaccine Date Status Comments influenza virus vaccine, inactivated 12/30/2022 Recorded influenza virus vaccine, inactivated 12/01/2021 Recorded SARS-CoV-2 (COVID-19) [id number] 12/01/2021 Recorded influenza virus vaccine, inactivated 01/15/2021 Recorded SARS-CoV-2 (COVID-19) mRNA BNT-162b2 vax 01/15 (more content not included)... Normal [facility] Comment on above: Result Comment: Elec tronically Signed By: ETTA WILLAMS, Norman Rubio\.br\Date and Time Signed: 12/03/23 10:45 EDT\.br\Electronically Co-Signed By: Kaity Long\.br\Date and Time Co-Signed: 12/03/23 10:44 EDT MHPT PSA, DIAGNOSTICon 11-22 PROSTATE SPECIFIC ANTIGEN DX 1.92 ng/mL NINF - 4.00 ng/mL [facility] Comprehensive Metabolic Pane sayra 06-30-2021 Albumin [Mass/Vol] 4.7 g/dL Normal 3.6-5.1 [facility] [employer] Comment on above: Performed By: #### L IPD, CMP #### [facility] [address], [place] [id number] Albumin/Globulin [Mass ratio] 2.1 {ratio} Normal 1.0-2.5 [facility] [employer] Operator Comment on above: Performed By: #### L IPD, CMP #### [facility] [address] [place], [place] [id number] ALP [Catalytic activity/Vol] 72 U/L Normal 40-129 [facility] Specialist Comment on above: Performed By: #### L IPD, CMP #### [facility] [address] [place], [place] [id number] ALT [Catalytic activity/Vol] 30 U/L Normal 9-46 [facility] Specialist Comment on above: Result Comment: 01/22 Female reference range changed. Performed By: #### L IPD, CMP #### [facility] [address], [place] [id number] Anion gap [Moles/Vol] 17 mmol/L Normal 12-20 [facility] Specialist Comment on above: Result Comment: Effe ctive 02/27/2019 reference range changed. Performed By: #### L IPD, CMP #### [facility] [address], [place] [id number] AST [Catalytic activity/Vol] 27 U/L Normal 10-40 [facility] Comment on above: Performed By: #### L IPD, CMP #### [facility] [address] [place], [place] [id number] Bilirubin [Mass/Vol] 0.73 mg/dL Normal 0.30-1.20 [facility] Comment on above: Performed By: #### L IPD, CMP #### [facility] [address], [place] [id number] BUN/CREA 18 Ratio Normal 6-22 [facility] Specialist Comment on above: Performed By: #### L IPD, CMP #### [facility] [address] [place], [place] [id number] Calcium [Mass/Vol] 9.8 mg/dL Normal 8.6-10.2 [facility] Comment on above: Performed By: #### L IPD, CMP #### [facility] [address] [facility] [place] [id number] Chloride [Moles/Vol] 102 mmol/L Normal 98-107 [facility] Specialist Comment on above: Performed By: #### L IPD, CMP #### [facility] [address] [facility] [place] [phone] CO2 [Moles/Vol] 26 mmol/L Normal 20-31 [facility] Specialist Comment on above: Performed By: #### L IPD, CMP #### [facility] [address], [place] [id number] Creatinine [Mass/Vol] 1.0 mg/dL Normal 0.7-1.4 [facility] [employer] Operator Comment on above: Performed By: #### L IPD, CMP #### [facility] [address], [place] [id number] eGFRAA 95 mL/min/1.73m2 Normal >60 [facility] [employer] Operator Comment on above: Performed By: #### L IPD, CMP #### [facility] [address] [place], [place] [id number] eGFRNAA 78 mL/min/1.73m2 Normal >60 [facility] [employer] Operator Comment on above: Performed By: #### L IPD, CMP #### [facility] [address], [place] [id number] Globulin (S) [Mass/Vol] 2.2 g/dL Normal 1.9-3.7 [facility] Rotary Slicing Machine Operator Comment on above: Performed By: #### L IPD, CMP #### [facility] [address], [place] [id number] Glucose [Mass/Vol] 106 mg/dL High 65-99 [facility] Rotary Slicing Machine Operator Comment on above: Result Comment: For FASTING Glucose --- ADA reference ranges: Normal 65-99 mg/dl Prediabetes 100-125 Diabetes >/= 126 Performed By: #### L IPD, CMP #### [facility] [address], [place] [id number] Potassium [Moles/Vol] 4.5 mmol/L Normal 3.5-5.5 [facility] Rotary Slicing Machine Operator Comment on above: Performed By: #### L IPD, CMP #### [facility] [address], [place] [id number] Protein [Mass/Vol] 6.9 g/dL Normal 6.1-8.1 Srikanth rn [place] Rotary Slicing Machine Operator Comment on above: Performed By: #### L IPD, CMP #### [facility] [address], [place] [id number] Sodium [Moles/Vol] 140 mmol/L Normal 135-146 Srikanth rn [place] Rotary Slicing Machine Operator Comment on above: Performed By: #### L IPD, CMP #### [facility] [address], [place] [id number] Urea nitrogen [Mass/Vol] 17 mg/dL Normal 7-25 [facility] Rotary Slicing Machine Operator Comment on above: Performed By: #### L IPD, CMP #### [facility] [address], [place] [id number] Hemoglobin A1Con 06-30-2021 EAG 111.15 Normal [facility] Specialist Comment on above: Performed By: #### A 1C #### [facility] [address], [place] [id number] HbA1c (Bld) [Mass fraction] 5.5 % Normal 4.0-6.0 [facility] Rotary Slicing Machine Operator Comment on above: Performed By: #### A 1C #### [facility] [address], [place] [id number] Lipid Panelon 06-30-2021 Cholesterol [Mass/Vol] 221 mg/dL High 125-200 [facility] Rotary Slicing Machine Operator Comment on above: Result Comment: Low risk < 200mg/dL Borderline risk 201-239 mg/dl High risk > or equal to 240 Performed By: #### L IPD, CMP #### [facility] [address], [place] [id number] Cholesterol in HDL [Mass/Vol] 55 mg/dL Normal >40 [facility] Rotary Slicing Machine Operator Comment on above: Result Comment: High Cardiovascular Risk HDL <40 mg/dL Low Cardiovascular Risk HDL > or equal to 60 mg/dl Performed By: #### L IPD, CMP #### [facility] [address], [place] [id number] Cholesterol in LDL [Mass/Vol] 151 mg/dL Normal [facility] Specialist Comment on above: Result Comment: LDL ATP III CLASSIFICATION LDL less than 100 mg/dl Optimal LDL 100-129 mg/dl Near or above optimal LDL 130-159 Borderline high LDL 160-189 High LDL greater than 189 mg/dl Very High Performed By: #### L IPD, CMP #### [facility] [address], [place] [id number] Cholesterol in VLDL [Mass/Vol] 15 mg/dL Normal [facility] Rotary Slicing Machine Operator Comment on above: Performed By: #### L IPD, CMP #### [facility] [address], [place] [id number] Cholesterol.total/ Cholesterol in HDL [Mass ratio] 4 {ratio} Normal [facility] Rotary Slicing Machine Operator Comment on above: Performed By: #### L IPD, CMP #### [facility] [address], [place] [id number] Triglyceride [Mass/Vol] 73 mg/dL Normal 30-150 [facility] Rotary Slicing Machine Operator Comment on above: Result Comment: TRIG ATPIII CLASSIFICATIONS TRIG less than 150 mg/dl Normal TRIG 150-199 mg/dl Borderline High TRIG 200-500 mg/dl High TRIG greather than 500 mg/dl Very High Performed By: #### L IPD, CMP #### [facility] [address], [place] [id number] Vital Signs Date Time Vital Sign Value Performing Clinician Facility 07-11-2024 08:27-0400 Body mass index (BMI) [Ratio] 25.47 kg/m2 Sofie Brumfield NP Work Phone: [facility] 07-11-2024 08:27-0400 Body weight 77.66 kg Sofie Brumfield NP Work Phone: [facility] 07-11-2024 08:27-0400 Diastolic blood pressure 64 mm[Hg] Sofie Brumfield ECONOMICS DEPARTMENT CHAIR Work Phone: [facility] 07-11-2024 08:27-0400 Heart rate 80 /min Sofie Brumfield ECONOMICS DEPARTMENT CHAIR Work Phone: [facility] 07-11-2024 08:27-0400 Systolic blood pressure 110 mm[Hg] Sofie Brumfield ECONOMICS DEPARTMENT CHAIR Work Phone: [facility] 06-21-2024 12:04-0400 Diastolic blood pressure 76 mm[Hg] Nevaeh Cralson MD Work Phone: [facility] 06-21-2024 12:04-0400 Systolic blood pressure 131 mm[Hg] Nveaeh Carlson MD Work Phone: [facility] 06-21-2024 12:02-0400 Body height 175.3 cm Nevaeh Carlson MD Work Phone: [facility] 06-21-2024 12:02-0400 Body mass index (BMI) [Ratio] 24.37 kg/m2 Nevaeh Carlson MD Work Phone: [facility] 06-21-2024 12:02-0400 Body weight 74.84 kg Nevaeh Carlson MD Work Phone: [facility] 06-21-2024 12:02-0400 Heart rate 70 /min Nevaeh Carlson MD Work Phone: [facility] 06-21-2024 12:02-0400 Respiratory rate 18 /min Nevaeh Carlson MD Work Phone: [facility] 06-21-2024 12:02-0400 SaO2% (BldA) [Mass fraction] 99 % Nevaeh Carlson MD Work Phone: [facility] Comment on above: 05-31-2024 10:58-0400 Body mass index (BMI) [Ratio] 25.02 kg/m2 Libertad Domingo MD Work Phone: [facility] 05-31-2024 10:58-0400 Body weight 76.3 kg Libertad Domingo MD Work Phone: [facility] 05-31-2024 10:58-0400 Diastolic blood pressure 76 mm[Hg] Libertad Domingo MD Work Phone: [facility] 05-31-2024 10:58-0400 Heart rate 76 /min Libertad Domingo MD Work Phone: [facility] 05-31-2024 10:58-0400 Systolic blood pressure 140 mm[Hg] Libertad Domingo MD Work Phone: [facility] 04-21-2024 09:23-0500 Body height 175.3 cm Adrienne Morrow MD Work Phone: [facility] 04-21-2024 09:23-0500 Body mass index (BMI) [Ratio] 25.25 kg/m2 Adrienne Morrow MD Work Phone: [facility] 04-21-2024 09:23-0500 Body weight 77.56 kg Adrienne Morrow MD Work Phone: [facility] 04-21-2024 09:23-0500 Diastolic blood pressure 68 mm[Hg] Adrienne Morrow MD Work Phone: [facility] 04-21-2024 09:23-0500 Heart rate 80 /min Adrienne Morrow MD Work Phone: [facility] 04-21-2024 09:23-0500 Systolic blood pressure 120 mm[Hg] Adrienne Morrow MD Work Phone: [facility] 01-04-2024 08:08-0500 Body mass index (BMI) [Ratio] 25.2 kg/m2 Sofie Brumfield ECONOMICS DEPARTMENT CHAIR Work Phone: [facility] 01-04-2024 08:08-0500 Body weight 76.84 kg Sofie Brumfield ECONOMICS DEPARTMENT CHAIR Work Phone: [facility] 01-04-2024 08:08-0500 Diastolic blood pressure 76 mm[Hg] Sofie Octaviano ECONOMICS DEPARTMENT CHAIR Work Phone: [facility] 01-04-2024 08:08-0500 Heart rate 76 /min Sofie Octaviano ECONOMICS DEPARTMENT CHAIR Work Phone: [facility] 01-04-2024 08:08-0500 Systolic blood pressure 126 mm[Hg] Sofie Octaviano ECONOMICS DEPARTMENT CHAIR Work Phone: [facility] 12-17-2023 11:36-0400 Diastolic blood pressure 70 mm[Hg] Sherry Pump ECONOMICS DEPARTMENT CHAIR Work Phone: [facility] 12-17-2023 11:36-0400 Heart rate 76 /min Sherry Pump ECONOMICS DEPARTMENT CHAIR Work Phone: [facility] 12-17-2023 11:36-0400 Systolic blood pressure 124 mm[Hg] Sherry Pump ECONOMICS DEPARTMENT CHAIR Work Phone: [facility] 12-03-2023 09:43-0400 Blood Pressure Location Norman QUILES [facility] 12-03-2023 09:43-0400 Diastolic blood pressure 86 mm[Hg] Norman QUILES [facility] 12-03-2023 09:43-0400 Heart rate 74 /min Norman QUILES [facility] 12-03-2023 09:43-0400 Systolic blood pressure 118 mm[Hg] Norman QUILES [facility] 12-01-2023 08:47-0400 Body height 175.3 cm Los Srikanth DO Work Phone: [facility] 12-01-2023 08:47-0400 Body mass index (BMI) [Ratio] 24.66 kg/m2 Los Srikanth DO Work Phone: [facility] 12-01-2023 08:47-0400 Body weight 75.75 kg Los Srikanth DO Work Phone: [facility] 12-01-2023 08:47-0400 Diastolic blood pressure 82 mm[Hg] Los Srikanth DO Work Phone: [facility] 12-01-2023 08:47-0400 Heart rate 80 /min Los Srikanth DO Work Phone: [facility] 12-01-2023 08:47-0400 SaO2% (BldA) [Mass fraction] 98 % Los Srikanth DO Work Phone: [facility] 12-01-2023 08:47-0400 Systolic blood pressure 142 mm[Hg] Los Srikanth DO Work Phone: [facility] 05-28-2023 10:39-0400 Body height 175.3 cm Los Srikanth DO Work Phone: [facility] 05-28-2023 10:39-0400 Body mass index (BMI) [Ratio] 24.51 kg/m2 Los Srikanth DO Work Phone: [facility] 05-28-2023 10:39-0400 Body weight 75.3 kg Los Srikanth DO Work Phone: [facility] 05-28-2023 10:39-0400 Diastolic blood pressure 80 mm[Hg] Los Srikanth DO Work Phone: [facility] 05-28-2023 10:39-0400 Heart rate 73 /min Los Srikanth DO Work Phone: [facility] 05-28-2023 10:39-0400 SaO2% (BldA) [Mass fraction] 97 % Lso Srikanth DO Work Phone: [facility] 05-28-2023 10:39-0400 Systolic blood pressure 120 mm[Hg] Los Srikanth DO Work Phone: [facility] 04-29-2023 13:14-0500 Body height 175.3 cm Los Srikanth DO Work Phone: [facility] 04-29-2023 13:14-0500 Body mass index (BMI) [Ratio] 24.96 kg/m2 Los Srikanth DO Work Phone: [facility] 04-29-2023 13:14-0500 Body weight 76.66 kg Los Srikanth DO Work Phone: [facility] 04-29-2023 13:14-0500 Diastolic blood pressure 78 mm[Hg] Los Srikanth DO Work Phone: [facility] 04-29-2023 13:14-0500 Heart rate 76 /min Los Srikanth DO Work Phone: [facility] 04-29-2023 13:14-0500 SaO2% (BldA) [Mass fraction] 98 % Los Srikanth DO Work Phone: [facility] 04-29-2023 13:14-0500 Systolic blood pressure 122 mm[Hg] Los Srikanth DO Work Phone: [facility] [employer] [facility] 04-02-2023 09:39-0500 Blood Pressure Location Normanelian QUILES [facility] 04-02-2023 09:39-0500 Diastolic blood pressure 84 mm[Hg] Norman QUILES [facility] 04-02-2023 09:39-0500 Heart rate 74 /min Norman QUILES [facility] 04-02-2023 09:39-0500 Respiratory rate 16 /min Norman QUILES [facility] 04-02-2023 09:39-0500 Systolic blood pressure 136 mm[Hg] Norman QUILES [facility] 07-07-2021 09:37-0400 Blood Pressure Location Norman QUILES [facility] 07-07-2021 09:37-0400 Diastolic blood pressure 79 mm[Hg] Norman QUILES [facility] 07-07-2021 09:37-0400 Heart rate 71 /min Norman QUILES [facility] 07-07-2021 09:37-0400 Respiratory rate 16 /min Norman QUILES [facility] 07-07-2021 09:37-0400 Systolic blood pressure 142 mm[Hg] Norman QUILES [facility] Encounters Encounter Date Encounter Type Care Provider Facility Start: 10-16-2024 ambulatory Norman Clinton ty:PAYAL Augustin Start: 08-28-2024 ambulatory Norman Clinton ty:[facility] Start: 07-11-2024 End: 07-11-2024 Bamboo flowsheet Sofie Brumfield ECONOMICS DEPARTMENT CHAIR Work Phone: [facility] Start: 07-11-2024 End: 07-11-2024 Bamboo flowsheet Sofie Brumfield ECONOMICS DEPARTMENT CHAIR Work Phone: [facility] Start: 07-11-2024 End: 07-11-2024 Office outpatient visit 25 minutes Sofie Brumfield ECONOMICS DEPARTMENT CHAIR Work Phone: [facility] Comment on above: Essential hypertensi on (CMS/HCC) (Primary Dx); Aortic valve insufficiency, etiology of cardiac valve disease unspecified; Hyperlipidemia, unspecified hyperlipidemia type (CMS/HCC); Aortic root dilatation (CMS/HCC); 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); Prostate cancer (CMS/HCC); Patent foramen ovale; Mitral valve insufficiency, unspecified etiology; Shortness of breath; Renal lesion; Renal cyst, acquired, left; Benign prostatic hyperplasia, unspecified whether lower urinary tract symptoms present; BMI 25.0-25.9,adult; Anxiety; Gastroesophageal reflux disease, unspecified whether esophagitis present; Diverticulosis; IFG (impaired fasting glucose) Start: 07-11-2024 End: 07-11-2024 ambulatory SOFIE BRUMFIELD Not Available Start: 06-27-2024 End: 07-23-2024 ambulatory Lázaro Guerra MD Work Phone: [facility] Start: 06-22-2024 End: 06-23-2024 Patient encounter procedure Nevaeh Carlson MD Work Phone: [facility] Start: 06-22-2024 End: 06-23-2024 ambulatory Nevaeh Carlson MD Work Phone: [facility]iology Start: 06-21-2024 End: 06-21-2024 ambulatory NEVAEH CARLSON Facility:[facility] Start: 06-21-2024 End: 06-21-2024 Telephone encounter Nevaeh Carlson MD Work Phone: [facility]iology Comment on above: Patient Education Start: 06-21-2024 End: 06-21-2024 ambulatory SELF Facility:[facility] Start: 06-21-2024 End: 06-21-2024 Patient encounter procedure Nevaeh Carlson MD Work Phone: [facility] Comment on above: Coronary artery dise ase of cantwell artery of cantwell heart with stable angina pectoris (Primary Dx); Aortic valve disorder; Family history of ischemic heart disease and other diseases of the circulatory system Start: 06-19-2024 End: 06-19-2024 Orders Only Nevaeh Carlson MD Work Phone: Cardiology Comment on above: Dyspnea on exertion (Primary Dx) Start: 06-16-2024 End: 06-16-2024 Telephone encounter Libertad Domingo MD Work Phone: [facility] Start: 06-15-2024 End: 06-15-2024 ambulatory [facility] Start: 06-02-2024 End: 06-02-2024 ambulatory [facility] Facility:[facility] Start: 05-31-2024 End: 05-31-2024 Bamboo flowsheet Libertad Domingo MD Work Phone: [facility] Start: 05-31-2024 End: 05-31-2024 Bamboo flowsheet Libertad Domingo MD Work Phone: [facility] Start: 05-31-2024 End: 05-31-2024 External Result Encounter Libertad Domingo MD Work Phone: [facility] Department Unsolicited Start: 05-31-2024 End: 05-31-2024 ambulatory LIBERTAD DOMINGO [facility] Start: 05-31-2024 End: 05-31-2024 Office outpatient visit 25 minutes Libertad Domingo MD Work Phone: [facility] Comment on above: Atypical chest pain (Primary Dx); 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); Shortness of breath; Abnormal stress test; Essential hypertension (CMS/HCC); Aortic root dilatation (CMS/HCC); Nonrheumatic aortic valve insufficiency; Hyperlipidemia, unspecified hyperlipidemia type (CMS/HCC); Gastroesophageal reflux disease, unspecified whether esophagitis present Start: 05-31-2024 End: 05-31-2024 ambulatory LIBERTAD DOMINGO Not Available Start: 05-26-2024 End: 05-29-2024 Telephone encounter [facility] Comment on above: Cta cors Start: 05-25-2024 End: 05-25-2024 ambulatory [facility] Start: 05-25-2024 End: 05-25-2024 ambulatory [facility] Start: 05-25-2024 End: 05-25-2024 ambulatory [facility] Start: 05-22-2024 End: 05-22-2024 ambulatory Libertad Domingo MD Facility: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); Shortness of breath; Aortic root dilatation (CMS-HCC) Start: 04-21-2024 End: 04-21-2024 ambulatory [facility] Start: 01-25-2024 End: 01-25-2024 ambulatory LOS BARFIELD [facility] Start: 01-12-2024 End: 01-12-2024 Patient encounter procedure Libertad Domingo MD Work Phone: [facility] [place] Work Phone: Start: 01-12-2024 End: 01-12-2024 ambulatory Libertad Domingo MD Work Phone: [facility] Work Phone: Start: 01-11-2024 End: 01-11-2024 Telephone encounter Sofie Brumfield ECONOMICS DEPARTMENT CHAIR Work Phone: [facility] Start: 01-04-2024 End: 01-04-2024 Bamboo flowsheet Sofie Brumfield ECONOMICS DEPARTMENT CHAIR Work Phone: [facility] Start: 01-04-2024 End: 01-04-2024 Bamboo flowsheet Sofie Brumfield ECONOMICS DEPARTMENT CHAIR Work Phone: [facility] Start: 01-04-2024 End: 01-04-2024 Office outpatient visit 25 minutes Sofie Brumfield ECONOMICS DEPARTMENT CHAIR Work Phone: [facility] Comment on above: Essential hypertensi on (CMS/HCC) (Primary Dx); Aortic root dilatation (CMS/HCC); 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); Aortic valve insufficiency, etiology of cardiac valve disease unspecified; Hyperlipidemia, unspecified hyperlipidemia type (CMS/HCC); Prostate cancer (CMS/HCC); Shortness of breath; Mitral valve insufficiency, unspecified etiology; Gastroesophageal reflux disease, unspecified whether esophagitis present; Anxiety; Family history of pancreatic cancer; Stress; Other hyperlipidemia (CMS/HCC); Renal cyst, acquired, left; IFG (impaired fasting glucose) Start: 01-04-2024 End: 01-04-2024 ambulatory SOFIE BRUMFIELD Not Available Start: 12-21-2023 End: 12-21-2023 Bamboo flowsheet Lexi SANTOS Work Phone: [facility] Start: 12-21-2023 End: 12-21-2023 Bamboo flowsheet Lexi SANTOS Work Phone: [facility] Start: 12-21-2023 End: 12-21-2023 Office outpatient new 45 minutes Lexi SANTOS Work Phone: [facility] Comment on above: Strain of right wris t, initial encounter (Primary Dx); Wrist injury, right, initial encounter Start: 12-21-2023 End: 12-21-2023 ambulatory LEXI MOMIN Not Available Start: 12-17-2023 End: 12-17-2023 Bamboo flowsheet Sherry Pump ECONOMICS DEPARTMENT CHAIR Work Phone: [facility] Start: 12-17-2023 End: 12-17-2023 Bamboo flowsheet Sherry Pump ECONOMICS DEPARTMENT CHAIR Work Phone: [facility] Start: 12-17-2023 End: 12-17-2023 ambulatory SHERRY PUMP Not Available Start: 12-17-2023 End: 12-17-2023 Office outpatient visit 15 minutes Sherry Pump ECONOMICS DEPARTMENT CHAIR Work Phone: [facility] Comment on above: Wrist injury, right, initial encounter (Primary Dx); Essential hypertension (CMS/HCC) Start: 12-03-2023 End: 12-03-2023 ambulatory Normna QUILES Facility:[facility] Start: 12-03-2023 End: 12-03-2023 Patient encounter procedure Norman QUILES [facility] Start: 12-01-2023 End: 12-01-2023 Office outpatient visit 25 minutes Los Barfield DO Work Phone: [facility] Comment on above: Nonrheumatic aortic valve insufficiency (Primary Dx); Aortic root dilatation (CMS-HCC) Start: 12-01-2023 End: 12-01-2023 ambulatory LOS BARFIELD [facility] Start: 11-30-2023 End: 11-30-2023 Telephone encounter Paige Jones CMA [facility] Start: 11-23-2023 End: 11-23-2023 Clinisync Result Encounter Generic External Data Provider [facility] External Department Unsolicited Start: 11-23-2023 End: 11-23-2023 Clinisync Result Encounter Generic External Data Provider [facility] External Department Unsolicited Start: 10-06-2023 End: 10-06-2023 ambulatory SOFIE BRUMFIELD Not Available Start: 07-09-2023 End: 12-09-2023 Telephone encounter Sofie Brumfield ECONOMICS DEPARTMENT CHAIR Work Phone: [facility] Start: 05-28-2023 End: 05-28-2023 Office outpatient visit 15 minutes Los C Srikanth DO Work Phone: [facility] Comment on above: Nonrheumatic aortic valve insufficiency (Primary Dx); 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 ([facility]-HCC); Primary hypertension Start: 05-28-2023 End: 05-28-2023 ambulatory [facility] Start: 05-27-2023 Telephone encounter [facility] Start: 04-29-2023 End: 04-29-2023 Office outpatient new 45 minutes Los C Srikanth DO Work Phone: [facility] Comment on above: Nonrheumatic aortic valve insufficiency (Primary Dx); Shortness of breath; 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 Start: 07-07-2022 End: 07-08-[address] LIBERTAD DOMINGO Facility:[facility] Start: 01-01-2022 End: 01-02-[address] NORMAN QUILES . Facility:[facility] Start: 07-07-2021 End: 07-07-2021 Patient encounter procedure Norman QUILES [facility] Start: 07-06-2017 Ambulatory Jerod ARRIAZA III [facility] Procedures Date Procedure Procedure Detail Performing Clinician Start: 07-11-2024 Hemoglobin glycosyla manan a1c Sofie Lata Octaviano ECONOMICS DEPARTMENT CHAIR Work Phone: Start: 06-22-2024 Antibody screen NEVAEH HOLLINGSWORTH Comment on above: Order Comment: Speci men Type: BLOOD SPECIMEN Ordering Facility: [facility] Address: [address] [place] [address] Performed By: #### T SCR #### CC [facility] CLIA [id number] [address] [place] [address] [place] Start: 05-31-2024 TROPONIN I, HIGH SENSITIVITY Libertad Domingo MD Work Phone: Start: 12-21-2023 Radex wrist 2 views Mat thew Jennifer SANTOS Work Phone: Start: 11-23-2023 MHPT PSA, DIAGNOSTIC Ge neric External Data Provider Start: 05-28-2023 Follow-up visit Follow-up LOS BARFIELD Start: 07-07-[address] ROLDAN QUILES . Comment on above: Performed By: #### P SAD #### [facility] [address] [address] [address] Santi Calderón Start: 01-01-[address] ROLDAN QUILES . Comment on above: Performed By: #### P SAD #### [facility] [address] [address] [address] Santi Calderón Start: 11-20-2019 Colonoscopy Adrienne Morrow MD Work Phone: Start: 06-27-2019 Lipid 1996 panel - S kota or Plasma Nevaeh Carlson MD Work Phone: Start: 06-23-2018 End: 07-03-2023 History of appendectomy Status post appendectomy, follow-up exam Adrienne Morrow MD Work Phone: Start: 05-10-2018 Transrectal biopsy o f prostate using ultrasound guidance Norman QUILES Start: 02-22-2018 Appendectomy Norman HINES Start: 05-04-2017 Cystoscopy and transurethral biopsy of prostate Norman QUILES Colonoscopy Norman QUILES Shoulder region stru cture (body structure) Norman QUILES Vasectomy Norman QUILES Plan of Treatment Date Care Activity Detail Author Start: 11-19-2029 Screening for malignant neoplasm of colon [facility] Start: 06-22-2027 Diabetes Screening Diabetes Screening [facility] Start: 12-07-2026 DTaP,Tdap and Td Vaccines (2 - Td or Tdap) DTaP,Tdap and Td Vaccines (2 - Td or Tdap) [facility] Start: 12-07-2026 Urine microalbumin profile DTaP,Tdap,Td Vaccine (2 - Td or Tdap) [facility] Start: 05-25-2025 Adult BMI Screening Adult BMI Screening [facility] Start: 05-25-2025 Tobacco Screening Tobacco Screening [facility] Start: 04-21-2025 Adult BMI Screening Adult BMI Screening [facility] Start: 04-21-2025 End: 04-21-2025 Echo complete W/O contrast Echo complete W/O contrast Echocardiography Routine Nonrheumatic aortic valve insufficiency Primary hypertension 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 ([facility]) Shortness of breath Aortic root dilatation ([facility]) Expected: 04/21/2025 (Approximate), Expires: 04/21/2025 [facility] Comment on above: Expected: 04/21/2025 (Approximate), Expi res: 04/21/2025 Start: 01-11-2025 End: 07-24-2025 Glucose measurement, fasting Glucose, fasting Lab Routine IFG (impaired fasting glucose) Expected: 01/11/2025 (Approximate), Expires: 07/24/2025 [facility] Comment on above: Expected: 01/11/2025 (Approximate), Expi res: 07/24/2025 Start: 01-11-2025 End: 07-24-2025 Hemoglobin A1c/Hemoglobin.total in Blood Hemoglobin A1c Lab Routine IFG (impaired fasting glucose) Expected: 01/11/2025 (Approximate), Expires: 07/24/2025 [facility] Comment on above: Expected: 01/11/2025 (Approximate), Expi res: 07/24/2025 Start: 01-11-2025 End: 07-24-2025 Lipid 1996 panel - Serum or Plasma Lipid panel Lab Routine Hyperlipidemia, unspecified hyperlipidemia type (CMS/HCC) Expected: 01/11/2025 (Approximate), Expires: 07/24/2025 [facility] Work Phone: Comment on above: Expected: 01/11/2025 (Approximate), Expi res: 07/24/2025 Start: 01-11-2025 End: 07-24-2025 Urinalysis complete panel - Urine Urinalysis with reflex microscopic (clean catch) Lab Routine Essential hypertension (CMS/HCC) Expected: 01/11/2025 (Approximate), Expires: 07/24/2025 [facility] Comment on above: Expected: 01/11/2025 (Approximate), Expi res: 07/24/2025 Start: 01-11-2025 End: 01-11-2025 Patient encounter procedure 01/11/2025 10:00 AM EST Office Visit [facility] [address] [place] [address] Sherry Spencer NP [address] [place] [address] [facility] Start: 12-29-2024 End: 12-29-2024 Patient encounter procedure Vascular Medicine Comment on above: DX: RODRIGUEZ follow up after PCI Start: 11-30-2024 Tobacco Screening Tobacco Screening [facility] Start: 11-19-2024 Screening for malignant neoplasm of colon Colonoscopy [facility] Start: 10-23-2024 Influenza vaccination Influenza Vaccine [facility] Start: 07-11-2024 End: 07-11-2024 Patient encounter procedure [facility] Comment on above: Gpkpe-Rlnki-Zgdjf syndrome (CMS/HCC) (Pr imary Dx); Essential hypertension (CMS/HCC); Mitral valve insufficiency, unspecified etiology; Aortic root dilatation (CMS/HCC); Prostate cancer (CMS/HCC); Hyperlipidemia, unspecified hyperlipidemia type (CMS/HCC); Aortic valve insufficiency, etiology of cardiac valve disease unspecified; Patent foramen ovale; Shortness of breath; Renal lesion; Renal cyst, acquired, left; Benign prostatic hyperplasia, unspecified whether lower urinary tract symptoms present; Family history of pancreatic cancer; History of arm fracture; Atypical chest pain; DDD (degenerative disc disease), cervical; BMI 25.0-25.9,adult; Anxiety; Gastroesophageal reflux disease, unspecified whether esophagitis present; Diverticulosis; Polyp of colon, unspecified part of colon, unspecified type; 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) Start: 07-01-2024 Medicare Annual Wellness (AWV) Medicare Annual Wellness (AWV) [facility] Start: 06-26-2024 Lipid panel Lipid Screening [facility] Start: 06-22-2024 End: 06-22-2024 Admission to same day surgery center 06/22/2024 10:30 PM EDT - 06/22/2024 11:39 PM EDT Surgery HOSP Sonographer [address] [place] [address] Nevaeh Carlson MD [address] [place] [address]ON[address] W IMAGE INJECT & INTERP W LT HEART CATH W INJECT LT VENTRGRAPHY HOSP Sonographer Comment on above: CORONARY ANGIO W CATH PLACE W IMAGE INJE CT & INTERP W LT HEART CATH W INJECT LT VENTRGRAPHY Start: 06-22-2024 End: 06-22-2024 Cath plmt l hrt & arts w/njx & angio img s&i CORONARY ANGIO W CATH PLACE W IMAGE INJECT & INTERP W LT HEART CATH W INJECT LT VENTRGRAPHY Dyspnea on exertion 06/22/2024 10:30 PM EDT WIRELINE 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 Start: 06-22-2024 End: 06-22-2024 Prq trluml coronary stent w/angio one art/brnch INSERT INTRACORONARY STENT-PER MAJOR VESSEL OR BRANCH Dyspnea on exertion 06/22/2024 10:30 PM EDT WIRELINE 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 Start: 06-22-2024 Subsequent hospital visit by physician 06/22/2024 10:30 PM EDT Hospital Encounter HOSP Sonographer [address] [place] [address] Nevaeh Carlson MD [address] [facility] [address] [place] [address] Dyspnea on exertion [R06.09] HOSP Sonographer Comment on above: Dyspnea on exertion [R06.09] Start: 06-22-2024 End: 06-22-2024 ambulatory Cardiology Comment on above: DX:Dyspnea on exertion Start: 06-22-2024 End: 06-22-2024 Patient encounter procedure 06/22/2024 8:30 AM EDT Office Visit Admitting [address] [place] [address] ADMIT Admitting Comment on above: ADMIT Start: 06-15-2024 End: 06-15-2024 Patient encounter procedure 06/15/2024 1:00 PM EDT Appointment [facility] [address] 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 Start: 05-27-2024 Tobacco Screening [facility] Start: 05-26-2024 End: 05-26-2025 CTA Heart and Coronary arteries WO and W contrast IV CT angiogram coronary arteries with or without scoring Imaging Routine Abnormal stress test Expected: 05/26/2024, Expires: 05/26/2025 [employer] Work Phone: Comment on above: Expected: 05/26/2024, Expires: Start: 05-09-2024 Adult BMI Screening [facility] Start: 05-09-2024 [facility] Start: 04-28-2024 Adult BMI Screening [facility] Start: 04-28-2024 Tobacco Screening 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) Shortness of breath Aortic root dilatation ([facility]) Expected: 04/21/2024, Expires: 04/21/2025 [email or web address] Comment on above: Expected: 04/21/2024, Expires: Start: 02-29-2024 Influenza vaccination Influenza Vaccine (#1) [facility] Comment on above: Postponed from 10/24/2023 (Patient Refus ed) Start: 02-23-2024 Advance Directive Discussion Advance Directive Discussion [facility] Start: 01-12-2024 MR Prostate WO and W contrast IV [facility] Start: 01-12-2024 MR prostate wo/w con MR prostate wo/w con [facility] Start: 01-04-2024 End: 01-04-2024 Patient encounter procedure [facility] Start: 12-21-2023 End: 12-21-2023 Patient encounter procedure 12/21/2023 9:45 AM EDT Office Visit [facility] [address] [place] [address] Lexi Momin, PA [address] [facility] [address] [place] [address] Wrist injury, right, initial encounter [facility] Comment on above: Wrist injury, right, initial encounter Start: 12-01-2023 End: 11-30-2024 Echo complete W/O contrast Echo complete W/O contrast Echocardiography Routine Nonrheumatic aortic valve insufficiency Aortic root dilatation (CMS-HCC) Expected: 12/01/2023, Expires: 11/30/2024 [facility] Work Phone: Comment on above: Expected: 12/01/2023, Expires: Start: 12-01-2023 End: 12-01-2023 Patient encounter procedure 12/01/2023 9:00 AM EDT Office Visit [facility] [address] [place] [phone] Los Barfield, DO [address] [place] [address], [address] [place] [address] [facility] Start: 10-24-2023 Covid-19 Vaccine ( season) Covid-19 Vaccine ( season) [facility] Start: 10-24-2023 COVID-19 Vaccine ( season) COVID-19 Vaccine ( season) [facility] Start: 10-24-2023 COVID-19 Vaccine ( season) COVID-19 Vaccine ( season) [facility] Start: 10-24-2023 Influenza vaccination [facility] Start: 05-28-2023 End: 05-28-2023 Patient encounter procedure 05/28/2023 11:00 AM EDT Office Visit [facility] [address] [place] [phone] Los Barfield DO [address] [place] [address], [address] [place] [address] [facility] Start: 05-10-2023 End: 05-10-2023 Patient encounter procedure [facility] Start: 04-29-2023 End: 04-28-2024 CT Chest WO and CT angiogram Coronary arteries W contrast IV CT angiogram chest Imaging Routine Nonrheumatic aortic valve insufficiency Shortness of breath Expected: 04/29/2023, Expires: 04/28/2024 [facility] Comment on above: Expected: 04/29/2023, Expires: 5 Start: 04-29-2023 End: 04-28-2024 SPECT Heart gated and ejection fraction at rest and W stress and W radionuclide IV Nuc stress exercise Cardiac Services Routine Nonrheumatic aortic valve insufficiency Shortness of breath Expected: 04/29/2023, Expires: 04/28/2024 [facility] Comment on above: Expected: 04/29/2023, Expires: 5 Start: 04-29-2023 End: 04-29-2023 Patient encounter procedure 04/29/2023 1:30 PM EST Office Visit [facility] [address] [place] [phone] Los Barfield DO [address] [place] [address], [address] [place] [address] [facility] Start: 09-18-2022 Adult BMI Screening Adult BMI Screening [facility] Start: 09-18-2022 Tobacco Screening Tobacco Screening [facility] Start: 06-26-2022 Diabetes Screening Diabetes Screening [facility] Start: 11-22-2020 Pneumococcal Vaccine: 50+ (2 of 2 - PPSV23) Pneumococcal Vaccine: 50+ (2 of 2 - PPSV23) [facility] Start: 11-19-2020 Screening for malignant neoplasm of colon [facility] Start: 01-18-2020 Pneumococcal Vaccine: 50+ (2 of 2 - PPSV23) Pneumococcal Vaccine: 50+ (2 of 2 - PPSV23) [facility] Start: 01-18-2020 Pneumococcal Vaccine: 65+ Years (2 of 2 - PPSV23 or PCV20) Pneumococcal Vaccine: 65+ Years (2 of 2 - PPSV23 or PCV20) [facility] Start: 01-18-2020 Pneumococcal Vaccine: 65+ Years (2 of 2 - PPSV23) Pneumococcal Vaccine: 65+ Years (2 of 2 - PPSV23) [facility] Start: 2018 Fall Risk Screening Fall Risk Screening [facility] Start: 1998 Screening for malignant neoplasm of colon [facility] Start: 08-25-1971 Adult BMI Follow Up Plan Adult BMI Follow Up Plan [facility] Start: 08-25-1971 Annual PCP Team Chronic Disease Visit Annual PCP Team Chronic Disease Visit [facility] Start: 08-25-1971 Anxiety Screening Anxiety Screening [facility] Start: 08-25-1971 Depression Screening Depression Screening [facility] Start: 08-25-1971 Hepatitis B surface antibody level LDL Cholesterol [facility] Start: 08-25-1971 Hepatitis C screening Hepatitis C Screening [facility] Start: 1965 Depression Screening Depression Screening [facility] Start: 1955 Medicare Annual Wellness Visit Medicare Annual Wellness Visit [facility] Start: 1955 Screening for malignant neoplasm of colon [facility] End: 04-28-2024 Creatinine includes GFR, serum Creatinine includes GFR, serum Lab Routine Nonrheumatic aortic valve insufficiency Shortness of breath 1 Occurrences starting 04/29/2023 until 04/28/2024 [facility] Comment on above: 1 Occurrences starting 04/29/2023 until 04/28/2024 End: 05-26-2025 Creatinine includes GFR, serum Creatinine includes GFR, serum Lab Routine Abnormal stress test 1 Occurrences starting 05/26/2024 until 05/26/2025 [facility] Comment on above: 1 Occurrences starting 05/26/2024 until 05/26/2025 ECG, Hospital Report Scan ECG, Hospital Report Scan ECG Routine Nonrheumatic aortic valve insufficiency Ordered: 04/29/2023 [facility] Work Phone: Comment on above: Ordered: 04/29/2023 ECG, Hospital Report Scan ECG, Hospital Report Scan ECG Routine Nonrheumatic aortic valve insufficiency Primary hypertension 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 Work Phone: Comment on above: 1 Occurrences starting 06/27/2024 until 06/27/2025 Immunizations Immunization Date Immunization Notes Care Provider [facility] 02-29-2024 Seasonal, trivalent, recombinant, injectable influenza vaccine, preservative free Libertad Domingo MD Work Phone: [facility] 02-29-2024 influenza virus vaccine, unspecified formulation Tami Swann RN [facility] [employer] [facility] 03-01-2023 ABRYSVO - Respirator y syncytial virus (RSV), vaccine, bivalent, protein subunit RSV prefusion F, diluent reconstituted, 0.5 mL, PF Generic Provider [facility] 12-30-2022 influenza virus vaccine, unspecified formulation Norman QUILES [facility] 12-30-2022 Influenza, High-dose Seasonal, Quadrivalent, Preservative Free Generic Provider [facility] 12-01-2021 influenza virus vaccine, unspecified formulation Norman QUILES [facility] 12-01-2021 Influenza, High-dose Seasonal, Quadrivalent, Preservative Free Generic Provider [facility] 12-01-2021 SARS-CoV-2 (COVID-19 ) [id number] Norman QUILES [facility] 01-15-2021 influenza virus vaccine, unspecified formulation Norman QUILES [facility] 01-15-2021 Influenza, High-dose Seasonal, Quadrivalent, Preservative Free Generic Provider [facility] 01-15-2021 SARS-CoV-2 (COVID-19 ) mRNA BNT-162b2 vax Norman QUILES [facility] 05-06-2020 SARS-CoV-2 (COVID-19 ) mRNA BNT-162b2 vax Norman QUILES [facility] Comment on above: Result Comment: 2021: [id number] 04-15-2020 SARS-CoV-2 (COVID-19 ) mRNA BNT-162b2 vax Norman QUILES [facility] Comment on above: Result Comment: 2021: [id number] 03-18-2020 zoster vaccine recombinant Norman QUILES [facility] 02-23-2020 SARS-CoV-2 (COVID-19 ) mRNA BNT-162b2 vax Norman QUILES [facility] Comment on above: Result Comment: pt s tates that he is fully vaccinated 12-14-2019 influenza virus vaccine, unspecified formulation Norman QUILES [facility] 12-14-2019 Influenza, High-dose Seasonal, Quadrivalent, Preservative Free Generic Provider [facility] 12-14-2019 zoster vaccine recombinant Norman QUILES [facility] 12-06-2019 influenza virus vaccine, unspecified formulation Norman QUILES [facility] 12-06-2019 influenza, seasonal, injectable Generic Provider [facility] 11-23-2019 pneumococcal conjuga te vaccine, 13 valent Norman QUILES [facility] 03-29-2019 pneumococcal conjuga te vaccine, 13 valent Norman QUILES [facility] 02-17-2019 influenza virus vaccine, unspecified formulation Norman QUILES [facility] 02-17-2019 Influenza, High-dose Seasonal, Quadrivalent, Preservative Free Generic Provider [facility] 12-29-2017 influenza virus vaccine, unspecified formulation Norman QUILES [facility] 12-29-2017 influenza, injectabl e, quadrivalent, preservative free Generic Provider [facility] 12-07-2016 influenza, injectabl e, quadrivalent, preservative free Generic Provider [facility] 12-07-2016 tetanus toxoid, reduced diphtheria toxoid, and acellular pertussis vaccine, adsorbed Norman QUILES [facility] Payers Date Payer Category Payer Self-pay 2023 Medicare [id number] 2023 Medicare (Managed Care) 1.2. [id number] 2023 Medicare HMO [employer] [id number] 2023 Unknown [id number] 2021 Private Health Insurance [id number] 2018 Medicare [id number] 2018 Commercial [facility] [employer] Member Subscriber Plan / Payer (Effective 2018-Present) Name: Blanca Bunn Relation to Subscriber: Self Name: Blanca Bunn Payer ID: Not on file Type: Not on file Address: [place] [id number] 2018 Unknown [id number]. [id number] 2017 Unknown [id number] 1959 Medicare [id number] 1959 Unknown [id number] 1953 Unknown [id number] .1.636625.3.579.2. 593 1953 Unknown [id number] .840.1.930839.3.579.2. 593 1953 Unknown [id number] .0.1.009569.3.579.2. 128 1953 Unknown [id number] ..1.433458.3.579.2. 128 1953 Unknown [id number] .0.1.205919.3.579.2. 128 1953 Unknown [id number] 2.16.840.1.305026.3.579.2. 128 1953 Unknown [id number] 2.16.840.1.123425.3.579.2. 1953 Unknown [id number] 2.16.840.1.153710.3.579.2. 1953 Unknown [id number] 2.16.840.1.814327.3.579.2. 1953 Unknown [id number] 2.16.840.1.461963.3.579.2. 1285 1953 Unknown [id number] 2.840.1.092197.3.579.2. 1285 1953 Unknown [id number] 2.840.1.038836.3.579.2. 1285 1953 Unknown [id number] 2.840.1.910174.3.579.2. 1285 1953 Unknown [id number] 2.840.1.911460.3.579.2. 1285 1953 Unknown [id number] 2.840.1.010872.3.579.2. 1285 1953 Unknown [id number] 2.840.1.692885.3.579.2. 1285 1953 Unknown [id number] 2.840.1.437528.3.579.2. 1258 1953 Unknown [id number] 2.16840.1.401731.3.579.2. 1258 1953 Unknown [id number] 2.16.840.1.382648.3.579.2. 1258 1953 Unknown [id number] 2.16.840.1.022800.3.579.2. 1258 1953 Unknown [id number] 2.16840.1.850332.3.579.2. 1259 1953 Unknown [id number] 2.16.840.1.142546.3.579.2. 1259 1953 Unknown [id number] 2.16.840.1.399160.3.579.2. 1259 1953 Unknown [id number] 2.16.840.1.793317.3.579.2. 727 1953 Unknown [id number] 2.16.840.1.249953.3.579.2. 727 1953 Unknown [id number] 2.16.840.1.478777.3.579.2. 72 Unknown [id number] 2.16.840.1.101421.3.579.2. 531 Social History Date Type Detail Facility Start: 07-07-2021 End: 07-02-2023 Tobacco smoking status Never smoked tobacco (finding) [facility] Start: 12-30-2022 End: 10-06-2023 Sex Assigned At Male [facility] Tobacco smoking status Never [facility] Start: 07-02-2023 End: 06-21-2024 Tobacco use and exposure Smokeless tobacco non-user [facility] Start: 07-03-2023 End: 07-11-2024 Alcoholic beverage intake Ex-drinker (finding) [facility] Start: 12-30-2022 End: 10-06-2023 History of Social function [facility] How often to you hav e a drink containing alcohol? 2-3 time sa week [facility] How many standard drinks containing alcohol do you have on a typical day? 1 or 2 [facility] How often do you hav e 6 or more drinks on 1 occasion? Never [facility] Start: 12-17-2022 Alcohol Comment caffeine: 1-2 cups per day [facility] Start: 1955 Sex assigned at Not on file [facility] Tobacco smoking status NHIS Unknown if ever smoked [facility] Work Phone: Start: 01-13-2024 Sex Patient sex un known (finding) [facility] Start: 1955 Sex Assigned At Male [facility] Start: 09-19-2021 End: 06-22-2024 Alcohol intake Current drinker of alcohol (finding) [facility] Start: 04-20-2019 Alcohol Comment socially [facility] Start: 09-27-2014 Sex Male (finding) [facility] Start: 06-21-2024 Alcohol Comment couple drinks/week [facility] NEGATED: Highlighted rowStart: NINF History of tobacco use Passive smoker [facility] Medical Equipment Procedure Code Equipment Code Equipment Origin al Text Equipment Identifier Dates Lens Iol Ultrase rt 20.0d - [id number] - [id number] Start: 09-18-2021 Goals Date Patient Goal Desired Activity /State Personal health goal Functional Status Date Assessment Result Facility 12-03-2023 Functional Status N/A [facility] 04-02-2023 Functional Status N/A [facility] Clinical Notes 07-07-2021 to 07-23-2024 Lázaro Guerra MD - 07/23/2024 11:42 AM Toni Brumfield NP - 07/11/2024 8:30 AM Nevaeh Ventura MD - 06/23/2024 8:38 AM Nevaeh Ventura MD - 06/21/2024 9:45 AM EDT Note Date & Type Note Facility 07-23-2024 Note HNO ID: [id number] Author: LÁZARO GUERRA MD Service: ? Author Type: Fellow Type: Progress Notes Filed: 07/23/2024 11:47 Note Text: CARDIOVASCULAR MEDICINE SECTION OF INTERVENTION PLAN OF CARE -- UPDATE DESCRIPTION: Initially plan for ultrasound abdomen as well as repeat noncontrast computed tomography of the chest abdomen pelvis to assess aortic dilation that was previously identified however the images were not available for verification. However after review of recent imaging noted adequate assessment by gated CTA chest which demonstrated normal descending aorta. Thus we will plan just to proceed with ultrasound of the abdominal aorta. As per OSH CTA coronary with FFR CT recommendation from [facility], reasonable to repeat computed tomographic imaging in 1 year for ascending dilation (4.3X 4.0 cm). This update and plan was discussed with the patient and Staff, Dr. Robyn WILLAMS. PLAN: - F/u US abdomen - Will continue to try to obtain OSH imaging of recent CCTA Coronary - Plan for non-contrast CT C/A/P in 1 year to reassess aortopathy Case to discussed with Staff. Lázaro Guerra MD PGY-, Cardiovascular Medicine Heart,Vascular and Thoracic [facility] 07-23-2024 History of Present illness Narrative CARDIOVASCULAR MEDICINE SECTION OF INTERVENTION PLAN OF CARE -- UPDATE DESCRIPTION: Initially plan for ultrasound abdomen as well as repeat noncontrast computed tomography of the chest abdomen pelvis to assess aortic dilation that was previously identified however the images were not available for verification. However after review of recent imaging noted adequate assessment by gated CTA chest which demonstrated normal descending aorta. Thus we will plan just to proceed with ultrasound of the abdominal aorta. As per OSH CTA coronary with FFR CT recommendation from meevl, reasonable to repeat computed tomographic imaging in 1 year for ascending dilation (4.3X 4.0 cm). This update and plan was discussed with the patient and Staff, Dr. Robyn WILLAMS. PLAN: - F/u US abdomen - Will continue to try to obtain OSH imaging of recent CCTA Coronary - Plan for non-contrast CT C/A/P in 1 year to reassess aortopathy Case to discussed with Staff. Lázaro Guerra MD PGY-, Cardiovascular Medicine Heart,Vascular and Thoracic [place] [facility] documented in this encounter [facility] 07-11-2024 History of Present illness Narrative Images from the original note were not included. Subjective Patient ID: Blanca Bunn is a 68 y.o. male who presents for Follow-up. HPI: Pt is doing pretty well. Had seen [facility], had then went to [facility] and per pt/ they did stress test and a cardiac cath and he ended up having a stent put in r/t 80% blockage. He has 2 more areas with 50% blockage, they added a another med. Has another appt in Dec for U/S and CT scan. Feeling better since stent, some days better than others. Aortic aneursym noted on CT also, 4.3 x 4.0. Mild fatigue, eating pretty healthy. Bruisng more easily with blood thinner. Dad passed in Feb years ago. Mood Is pretty good, not as anxious has PRN med if needed, has not taken Review of Systems Constitutional: Positive for fatigue. Negative for appetite change, chills and fever. Sl fatigue-usual. Not eating as much as used to, but gets hungry. Cut back on mini candy bars and eating more fruit and vegetables. HENT: WNL Respiratory: Positive for shortness of breath. Negative for cough and chest tightness. Sl cough in Am, taking Claritin right now. Sl SOB, but easier with stairs now. Cardiovascular: Negative for chest pain. No edema Gastrointestinal: Negative for abdominal pain and blood in stool. No change in bowels, no GERD with taking PPI 3 times a week Genitourinary: Negative for difficulty urinating and dysuria. Sees Urology-has appt in August Skin: Negative for rash. Neurological: Negative for dizziness, light-headedness and headaches. Psychiatric/Behavioral: Sleep is pretty. See HPI 12/30/2022 8:56 AM 07/02/2023 8:47 AM 10/06/2023 10:55 AM 12/17/2023 11:36 AM 01/04/2024 8:08 AM 05/31/2024 10:58 AM 07/11/2024 8:27 AM Vitals BMI 25.14 kg/m2 24.66 kg/m2 25.2 kg/m2 25.02 kg/m2 25.47 kg/m2 BSA (m2) 1.93 m2 1.91 m2 1.93 m2 1.92 m2 1.94 m2 Systolic 148 128 132 124 126 140 110 Diastolic 80 72 78 70 76 76 64 Heart Rate 72 72 76 76 76 80 Height (in) 5' 8.75 Weight (lb) 169 165.8 169.4 168.2 171.2 Visit Report Report Report Report Report Report Report Report Objective Physical Exam Vitals reviewed. Constitutional: General: He is not in acute distress. HENT: Nose: Nose normal. No rhinorrhea. Mouth/Throat: Mouth: Mucous membranes are moist. Pharynx: Oropharynx is clear. Eyes: Extraocular Movements: Extraocular movements intact. Comments: Glasses on Neck: Vascular: No carotid bruit. Cardiovascular: Rate and Rhythm: Normal rate and regular rhythm. Comments: No edema Pulmonary: Effort: Pulmonary effort is normal. Breath sounds: Normal breath sounds. Comments: No cough Abdominal: General: Bowel sounds are normal. Palpations: Abdomen is soft. Tenderness: There is no abdominal tenderness. Musculoskeletal: Comments: Normal gait Lymphadenopathy: Cervical: No cervical adenopathy. Skin: General: Skin is warm and dry. Neurological: Mental Status: He is alert and oriented to person, place, and time. Psychiatric: Comments: Calm and cooperative, well groomed. Good eye contact, not tearful. Pt is here alone today I have reviewed and reconciled the history and medication list with the patient today. Assessment/Plan Diagnoses and all orders for this visit: Essential hypertension (CMS/HCC): Controlled - bisoprolol-hydroCHLOROthiazide (Ziac) 5-6.25 MG tablet; TAKE 1 TABLET BY MOUTH DAILY AT THE SAME TIME EACH DAY Aortic valve insufficiency, etiology of cardiac valve disease unspecified: Last echo 02/14 E 60-65%. 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 Per pt Urology does PSA BMI 25.0-25.9,adult Anxiety: Doing ok, has Xanax to use if needed. Has not had to take it Gastroesophageal reflux disease, unspecified whether esophagitis present: No GERD with taking PPI 3 times a week Diverticulosis: No abdominal pain IFG (impaired fasting glucose): HgbA1c today 5.5 (prior 5.6) - POCT glycosylated hemoglobin (Hb A1C) docked device F/U 6 months for Medicare Wellness, sooner if concerns. PVU documented in this encounter [facility] 06-23-2024 Note HNO ID: [id number] Author: NEVAEH CARLSON MD Service: ? Author Type: Physician Type: Progress Notes Filed: 06/23/2024 08:39 Note Text: lpA ok [facility] 06-23-2024 History of Present illness Narrative lpA ok documented in this encounter [facility] 06-22-2024 Note HNO ID: [id number] Author: NEVAEH CARLSON MD Service: Cardiovascular Medicine Author Type: Fellow Type: Procedures Filed: 06/27/2024 14:21 Note Text: Attestation signed by Nevaeh Carlson MD at 06/27/2024 2:21 PM I was present during the entire procedure and participated in all steps. Nevaeh Carlson MD Blanca Bunn DATE: June 22, 2024 Attending: Nevaeh Carlson MD Interventional Fellow: Rene Chaves MD HISTORY OF PRESENT ILLNESS: Mr. Bunn is a 68 year old male with a history of hypertension and atrial fibrillation who presents with angina and CT evidence of significant coronary disease. DIAGNOSTIC ANGIOGRAPHY Diagnostic angiography showed severe 90% mid RCA stenosis. Non-obstructive disease with moderate 50-60% OM (iFR 0.93) and 50% diagonal (iFR 0.95). Please see the separate diagnostic angiography report for full details. PROCEDURES PERFORMED: -Successful IVUS guided PCI to the proximal-distal RCA with a 4.0 x 48 mm Synergy KEANU, post dilated with a 4.0 x 20 mm NC balloon. PROCEDURAL DETAILS Access: 6 Fr right radial artery Guide Catheter(s): 6 Fr JR4 Guidewire(s): runthrough Other Equipment: [email or web address] IVUS Hemostasis: TR band Anticoagulation: UFH Additional Procedural Medications: Sedation, nitroglycerin PROCEDURAL NARRATIVE: We engaged the RCA with the 6 Fr JR4 guide catheter. After administering heparin to a goal ACT of >250s, we advanced a runthrough coronary wire to the distal RCA. - Stenting with a 4.0 x 48 mm Synergy KEANU - Post-dilation with a 4.0 x 20 mm NC balloon - Intracoronary imaging with IVUS revealed optimal stent edges, MSA, and apposition. Final angiography showed no evidence of dissection or perforation. There was ARMANDO 3 flow and 0% residual stenosis. PLAN: 1. ASA 81mg daily, indefinitely 2. Clopidogrel 75 mg daily for at least 6 months. 3. Cardiac rehabilitation. 4. Transferred to cardiac stepdown in stable condition Aggressive risk factor modification as appropriate. -- BP Goal < 130/80 with nonpharmacologic and medical therapy -- LDL goal 50% reduction AND level < 55-70 mg/dL using max tolerated statin +/- adjuvant therapy -- HbA1C < 7% -- Healthy diet and exercise +/- weight loss if appropriate. COMPLICATIONS None Please do not hesitate to contact me with question. Rene Chaves MD Interventional Manager Utilization Pager [phone] June 22, 2024 1:37 PM [facility] 06-21-2024 Telephone encounter Note CARDIOVASCULAR LAB INSTRUCTIONS: Readiness to Learn: Cognitive Ability: Alert and oriented Motivation To Learn: Interested Family/Significant Other Support: Unable to assess - Family not present Instruction Provided To: Patient Patient Learns Best By: Verbal Instruction Factors Affecting Learning: None Physical Limitations Affecting Learning: None Learning Response: Procedure: Diagnostic Cath with Intervention Pre procedure education topics: Arrival time/NPO Status/Medications/Travel Instructions/Restrictions Patient/Family Response Evaluation: Verbalizes understanding Follow Up Plan and Medication: As directed by physician Instruction/Supplemental Material Given: Cardiac catheterization instructions, procedure information, hospital information, hotel information. Instructed By Leilani Gaines RN. In Department of CARDIOLOGY. [facility] 06-21-2024 Miscellaneous Notes CARDIOVASCULAR LAB INSTRUCTIONS: Readiness to Learn: Cognitive Ability: Alert and oriented Motivation To Learn: Interested Family/Significant Other Support: Unable to assess - Family not present Instruction Provided To: Patient Patient Learns Best By: Verbal Instruction Factors Affecting Learning: None Physical Limitations Affecting Learning: None Learning Response: Procedure: Diagnostic Cath with Intervention Pre procedure education topics: Arrival time/NPO Status/Medications/Travel Instructions/Restrictions Patient/Family Response Evaluation: Verbalizes understanding Follow Up Plan and Medication: As directed by physician Instruction/Supplemental Material Given: Cardiac catheterization instructions, procedure information, hospital information, hotel information. Instructed By Leilani Gaines RN. In Department of CARDIOLOGY. documented in this encounter [facility] 06-21-2024 History of Present illness Narrative Images from the original note were not included. Heart, Vascular and Thoracic [place] [facility] Department of Cardiovascular Medicine SECTION OF INTERVENTIONAL CARDIOLOGY OUTPATIENT VISIT DATE June 21, 2024 OUTPATIENT VISIT TYPE NEW PRIMARY CARE PHYSICIAN: To use this Smartlink, specify the provider ID whose address you want to display, e.g., .[email or web address] (where 1 is the provider ID). REFERRING PHYSICIAN: SELF CHIEF COMPLAINT: Blanca is a 68-year-old male with a history of aortic regurgitation, presenting for evaluation of abnormal stress test results, with associated dyspnea, chest pressure, and left arm pressure. HISTORY OF PRESENT ILLNESS: Mr. Bunn is a 68 year old male who presents today for evaluation of abnormal stress test results, with associated dyspnea, chest pressure, and left arm pressure. NURSING INTAKE: Mr. Bunn is a 68 year old male who presents today for cardiac evaluation. He states he started having symptoms of chest pressure, shortness of breath and lightheadedness/dizziness at the beginning of the year. He describes having the chest pressure and shortness of breath with/without exertion. He sometimes has left shoulder pressure as well. He is lightheaded/dizzy randomly. He had 2 instances where he felt like he was going to pass out. He had a panic attack in September that brought him to the emergency room. He was vomiting, having chest pressure, cold sweats and tingling. Because of these symptoms, he had a stress test and he was told that it was abnormal and he needs a heart cath. He would like to have the cath done here. Patient is scheduled for a cardiac cath on 06/22/[address] Carlson. Abnormal Stress Test: - Abnormal stress test results. - Scheduled for cardiac catheterization tomorrow. - Recent CTA performed 5 days ago. Dyspnea and Chest Pressure: - Dyspnea, chest pressure, and left arm pressure since the beginning of the year. - Symptoms include lightheadedness and balance issues. - Dyspnea and chest pressure worsen with ambulation and stair climbing. - Symptoms have been progressively worsening over the past few months. Aortic Regurgitation: - Echocardiogram in January showed aortic regurgitation. - Blanca was unaware of the aortic regurgitation diagnosis. Family History: - Mother had carotid artery surgery and from an aneurysm at age 76. - No significant family history of heart problems at a young age. PMHx includes: CAD, a-fib, BPH, DDD, HTN, HLD, GERD, prostate cancer, aortic root dilation, [place] OSH Cardiology note 05/31/24: Brief HPI: Patient is here with his to request a second cardiology referral, due to abnormal stress test and shortness of breath. Patient denies palpitations, but is having some increased fatigue and shortness of breath with exertion, and chest aching for several days but has been physically active. No chest pain with activity. No leg swelling. (END NOTE) Risk factors for coronary artery disease hyperlipidemia, hypertension, family history of CAD He denies orthopnea, PND, palpitations, syncope, claudication, leg swelling, cough, and wheezing. Diet / Nutrition: regular Weight: stable Exercise: none Cardiovascular: (+) chest pressure, (+) left arm pressure Respiratory: (+) shortness of breath Neurological: (+) lightheadedness, (+) balance disturbance 01/25/24 TTE: Left Ventricle: Left ventricle appears normal in size. Systolic function is normal with an ejection fraction of 60-65%. The quantitative EF by 2D Hernandez biplane is 61%. No segmental wall motion abnormalities. Right Ventricle: Right ventricular size is moderately dilated. The right ventricular basal diameter is 50.0 mm. Aortic Valve: The aortic valve is trileaflet. There is mild to moderate regurgitation. There is no evidence of aortic valve stenosis. Mitral Valve: Mitral valve structure is normal. There is trace regurgitation. There is no evidence of mitral valve stenosis. Aorta: The aortic root is mildly dilated. The ascending aorta is mildly dilated. Tricuspid Valve: Tricuspid valve appears to be normal. There is trace regurgitation. Right Atrium: Right atrium is mildly dilated 06/16/[address] angiogram: Coronary CT Angiogram: The overall quality of the CT angiographic examination is satisfactory. . Coronary Artery Angiogram Findings: Stenoses are reported as maximum percentage diameter stenosis. Stenosis grading is reported using the following scheme: Normal: no stenosis Mild: 1-49% stenosis Moderate: 50-70% stenosis Severe: >70% stenosis Occluded Enhanced CTA of the coronary arteries: Coronary artery evaluation: Dominance: Right dominant with normal origins Left Main: Mild calcific plaque without significant stenosis LAD: Mixed calcified and noncalcified plaque in the proximal LAD resulting in approximately 50% stenosis. Circumflex: Severe plaque deposition in the proximal obtuse marginal branch. Suspect there is significant stenosis involving this segment. Right coronary: Motion artifact with calcified and noncalcified plaque resulting in [id number] stenosis. IMPRESSION: Mildly ascending aortic aneurysm. Follow-up CTA chest advised in one year. The significant stenosis in the circumflex coronary artery segment has a low likelihood of lesion-specific ischemia with an FFRCT value of 0.9. Moderate diffuse plaque of the RCA. With FFR of 0.81. FFRct is an FDA-approved noninvasive technique for defining the probability of flow-limiting coronary artery stenoses is that correlates with invasive FFR measurements. However, as with all testing clinical correlation is advised. FFRct values: Greater than 0.80: Low likelihood of flow-limitation. 0.75-0.80 Borderline for flow-limitation. Less than 0.75 High likelihood of flow-limitation. Total calcium score of 1227.9; 92% of similar patients have less coronary artery calcium. 05/25/24 Exercise stress test: Narrative Fair exercise tolerance, the patient exercised for 7 minutes and 33 seconds with a hypertensive response to exercise. Intermediate Macias treadmill score 2.[address] depressions in the lateral leads. ST elevations isolated to AVR and aVL with exercise Abnormal EKG response to exercise Myocardial perfusion imaging showed subtle inferoseptal fixed perfusion defect with focal mid inferoseptal wall motion abnormality , consistent with possible prior infarct Risk stratification: Low risk perfusion findings with abnormal stress EKG With exercise stress Stress Findings A stress exercise protocol was performed. A Delta protocol stress test was performed. Overall, the patient's exercise capacity was normal for their age. The patient reached stage 3 of the protocol after exercising for 7 min 33 sec. Patient achieved a maximal heart rate of 128 bpm (85% of maximum predicted heart rate). The patient experienced no angina during the test. The test was stopped because the patient experienced fatigue. The patient reached the end of the protocol and achieved the target heart rate. The patient requested the test to be stopped. The test was stopped due to target heart rate achieved. The patient reported dyspnea, fatigue and muscle fatigue during the stress test. Symptoms began during stress and ended during recovery. ECG Baseline ECG indicates sinus rhythm and left ventricular hypertrophy. Stress ECG Findings: There is [address] depression in the lateral leads (V5 and V6). Stress ECG Findings: There is [address] elevation in the lateral leads (aVL and aVR). ST deviation began at 7 minute(s) ST segment returned to baseline after 1-5 minutes of recovery. There were no arrhythmias during stress. Overall, the patient's functional capacity was average. The stress ECG was positive. The calculated Macias Treadmill Score of 2.55 represents an intermediate risk only with regards to the exercise findings. Isotope Administration The isotope used for nuclear imaging was technetium sestamibi. Imaging was performed at rest after an administration on 05/25/2024 at 08:55 EDT of 10.7 mCi. Imaging was performed at peak stress after an administration on 05/25/2024 at 10:30 EDT of 31.7 mCi. Nuclear Study Quality A stress exercise protocol was performed. Perfusion Defect Conclusion TID ratio is 0.83. Stress Function Comments Stress ejection fraction is 73%. Recent Labs: 06/2019 Chol 212 Trig 100 HDL 50 LDL 142 PAST MEDICAL HISTORY Diagnosis Date Aortic valve regurgitation Atrial fibrillation (HCC) CAD (coronary artery disease) GERD (gastroesophageal reflux disease) HLD (hyperlipidemia) HTN (hypertension) Prostate cancer (HCC) History reviewed. No pertinent surgical history. SOCIAL HISTORY Social History Tobacco Use Smoking status: Never Smokeless tobacco: Never Vaping Use Vaping status: Never Used Substance Use Topics Alcohol use: Yes Comment: couple drinks/week Drug use: Never FAMILY HISTORY Problem Relation Age of Onset Heart Attack Father 98 Coronary Artery Disease Father ALLERGIES: ALLERGIES Allergen Reactions Alfuzosin Other: See Comments Chest tightness and SOB- anxiety MEDICATIONS: therapeutic multivitamin-minerals (THERA-M PLUS) 9 mg iron-400 mcg tablet Take 1 tablet by mouth every morning. Ascorbic Acid 100 mg chew Take 500 mg by mouth once daily. aspirin, enteric coated (ASPIRIN, ENTERIC COATED) 81 mg EC tablet Take 81 mg by mouth once daily. omeprazole (PRILOSEC) 10 mg capsule Take 20 mg by mouth every Wednesday, Wednesday, and Wednesday. rosuvastatin (CRESTOR) 10 mg tablet Take 10 mg by mouth once daily. finasteride (PROSCAR) 5 mg tablet Take 5 mg by mouth once daily. bisoprolol-hydroCHLOROthiazide (ZIAC) 5-6.25 mg per tablet Take 1 tablet by mouth every morning. glucosamine/chondr robertson A sod (OSTEO BI-FLEX ORAL) Take 2 capsules by mouth once daily. saw palmetto 320 mg capsule Take 1 capsule by mouth once daily. CRANBERRY once daily. REVIEW OF SYSTEMS: GENERAL: no fever, no chills, and no change in weight HEENT: no headaches, no hearing loss, no difficulty swallowing, no visual changes, no nose bleeds SKIN: no rashes, no lesions, and no ulcers RESPIRATORY: SEE HPI CARDIOVASCULAR: no chest pain, no dizziness, no syncope, no claudication, and no edema GASTROINTESTINAL: no abdominal pain, no nausea, no vomiting, no difficulty or painful swallowing, and no melanotic stools GENITOURINARY: no dysuria, no frequency, and no nocturia MUSCULOSKELETAL: no joint pain, no joint swelling, no muscle pain or myalgias, and no pain with walking NEUROLOGIC: no numbness, no tingling, and no sensation of pins and needles HEMATOLOGY: no bruising easily, no prolonged bleeding, no anemia, and no cancer ENDOCRINE: no cold or heat intolerance, no polyuria, no polydipsia, no goiter, no diabetes, and no thyroid disease PSYCH: no sleep disturbance, no mood disorders, and no recent psychosocial stressors PHYSICAL EXAMINATION: BP 131/76 Pulse 70 Resp 18 Ht 5' 9 (1.75m) Wt 165 lb (74.8kg) SpO2 99[RA]% BMI 24.36 kg/(m^2). General: Well appearing, in no acute distress, speaking in complete sentences. Skin: No clubbing, no cyanosis. Head/Eyes: Extra ocular movements intact Mouth: Teeth in good repair. Neck: No jugular venous distention, no carotid bruits, carotids have a normal upstroke, no palpable thyromegaly. Lungs: Clear to auscultation and no rales Heart: Regular rhythm, PMI not displaced, S1, S2 normal, no S3, no S4, no heaves, no rub and soft diastolic murmur. PV Pulses:Pulses intact Abdomen: Soft, nontender, bowel sounds normal, no palpable organomegaly, no bruits. Extremities: No peripheral edema . Grade 2/4 distal pulses bilaterally. Edema Scale: No Musculoskeletal: Normal gait and ambulation Neuro: Oriented to time, place and person CARDIOVASCULAR MEDICINE TESTING: Echocardiogram:- Mild aortic regurgitation - Normal systolic function I have personally reviewed the Echocardiogram. IMPRESSION / PLAN AND RECOMMENDATIONS: # 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 (I25.118) - Patient experiencing worsening dyspnea, chest pressure, and left arm pressure since the beginning of the year; also reports lightheadedness and balance issues. - Recent CTA (5 days ago) shows 50% stenosis in the LAD and suspected significant stenosis in the circumflex artery; RCA visualization limited due to motion artifact. - Scheduled for cardiac catheterization tomorrow; will assess the extent of arterial blockages. - Discussed potential for stenting versus surgical intervention based on findings; stenting likely if circumflex artery is the primary issue. - Procedure risks explained; less than 1% risk, will be performed via radial artery access. - Ordered pre-procedure blood work and ECG to be completed today. - Patient and family understand and agree with the plan. # Aortic valve disorder (I35.9) - Echocardiogram from January shows mild aortic regurgitation; not currently problematic. - Aorta slightly enlarged at 4 cm; not at aneurysm level. - Future monitoring of aortic valve and aorta planned; no immediate surgical intervention required. # Family history of ischemic heart disease and other diseases of the circulatory system (Z82.49) - Mother had carotid artery surgery and from an aneurysm at age 76. - Discussed the importance of monitoring for aortic aneurysms given family history. - Plan to perform an abdominal ultrasound to check for aneurysms in the future. I personally interviewed, confirmed and edited the above information as obtained by others. CONTACT INFORMATION: Nevaeh Carlson MD Patient instructions We discussed your abnormal stress test and symptoms: - You have been experiencing chest pressure, shortness of breath, left arm pressure, lightheadedness, and balance issues for the past few months, which seem to be worsening. - Your recent echocardiogram showed a slightly leaky aortic valve, but this is not currently problematic. - Your CTA revealed a 50% blockage in the LAD artery and a suspected significant blockage in the circumflex artery. The right coronary artery could not be clearly visualized due to motion artifact. Significant blockages are typically 70% or more. We discussed your upcoming cardiac catheterization: - You are scheduled for a cardiac catheterization tomorrow morning. This procedure will help us determine the extent of the blockages in your arteries. - If blockages are confirmed, we will decide whether to place stents or consider other treatments. Based on the current findings, stenting is likely the best option. - The procedure is low-risk (less than 1%) and will be performed under sedation. It is not painful, and you will likely be discharged the same day (90% of cases). We discussed your aorta and family history: - Your aorta is slightly enlarged (4 cm), but it is not at the level requiring surgery (5 cm or more). We will monitor this over time. - Due to your family history of aneurysms, we will also schedule an ultrasound in the future to check the descending and abdominal aorta. We discussed pre-procedure preparation: - You will need blood work before the catheterization. This can be done today on the first floor or tomorrow morning before the procedure. - Your procedure time has been adjusted to accommodate your travel. Please arrive at 7:30 AM tomorrow. Follow-up instructions: - After the catheterization, we will discuss the findings and next steps, including whether stents were placed or if further treatment is needed. - We will continue to monitor your aortic valve and aorta in the future. If you have any additional questions or concerns, please let us know. documented in this encounter [facility] 06-21-2024 Note HNO ID: [id number] Author: NEVAEH CARLSON MD Service: ? Author Type: Physician Type: Progress Notes Filed: 07/22/2024 07:44 Note Text: Heart, Vascular and Thoracic [place] [facility] Department of Cardiovascular Medicine SECTION OF INTERVENTIONAL CARDIOLOGY OUTPATIENT VISIT DATE June 21, 2024 OUTPATIENT VISIT TYPE NEW PRIMARY CARE PHYSICIAN: To use this Smartlink, specify the provider ID whose address you want to display, e.g., .[email or web address][1 (where 1 is the provider ID). REFERRING PHYSICIAN: SELF CHIEF COMPLAINT: Blanca is a 68-year-old male with a history of aortic regurgitation, presenting for evaluation of abnormal stress test results, with associated dyspnea, chest pressure, and left arm pressure. HISTORY OF PRESENT ILLNESS: Mr. Bunn is a 68 year old male who presents today for evaluation of abnormal stress test results, with associated dyspnea, chest pressure, and left arm pressure. NURSING INTAKE: Mr. Bunn is a 68 year old male who presents today for cardiac evaluation. He states he started having symptoms of chest pressure, shortness of breath and lightheadedness/dizziness at the beginning of the year. He describes having the chest pressure and shortness of breath with/without exertion. He sometimes has left shoulder pressure as well. He is lightheaded/dizzy randomly. He had 2 instances where he felt like he was going to pass out. He had a panic attack in September that brought him to the emergency room. He was vomiting, having chest pressure, cold sweats and tingling. Because of these symptoms, he had a stress test and he was told that it was abnormal and he needs a heart cath. He would like to have the cath done here. Patient is scheduled for a cardiac cath on 06/22/[address] Carlson. Abnormal Stress Test: - Abnormal stress test results. - Scheduled for cardiac catheterization tomorrow. - Recent CTA performed 5 days ago. Dyspnea and Chest Pressure: - Dyspnea, chest pressure, and left arm pressure since the beginning of the year. - Symptoms include lightheadedness and balance issues. - Dyspnea and chest pressure worsen with ambulation and stair climbing. - Symptoms have been progressively worsening over the past few months. Aortic Regurgitation: - Echocardiogram in January showed aortic regurgitation. - Blanca was unaware of the aortic regurgitation diagnosis. Family History: - Mother had carotid artery surgery and from an aneurysm at age 76. - No significant family history of heart problems at a young age. PMHx includes: CAD, a-fib, BPH, DDD, HTN, HLD, GERD, prostate cancer, aortic root dilation, [facility] Cardiology note 05/31/24: Brief HPI: Patient is here with his to request a second cardiology referral, due to abnormal stress test and shortness of breath. Patient denies palpitations, but is having some increased fatigue and shortness of breath with exertion, and chest aching for several days but has been physically active. No chest pain with activity. No leg swelling. (END NOTE) Risk factors for coronary artery disease hyperlipidemia, hypertension, family history of CAD He denies orthopnea, PND, palpitations, syncope, claudication, leg swelling, cough, and wheezing. Diet / Nutrition: regular Weight: stable Exercise: none Cardiovascular: (+) chest pressure, (+) left arm pressure Respiratory: (+) shortness of breath Neurological: (+) lightheadedness, (+) balance disturbance 01/25/24 TTE: Left Ventricle: Left ventricle appears normal in size. Systolic function is normal with an ejection fraction of 60-65%. The quantitative EF by 2D Hernandez biplane is 61%. No segmental wall motion abnormalities. Right Ventricle: Right ventricular size is moderately dilated. The right ventricular basal diameter is 50.0 mm. Aortic Valve: The aortic valve is trileaflet. There is mild to moderate regurgitation. There is no evidence of aortic valve stenosis. Mitral Valve: Mitral valve structure is normal. There is trace regurgitation. There is no evidence of mitral valve stenosis. Aorta: The aortic root is mildly dilated. The ascending aorta is mildly dilated. Tricuspid Valve: Tricuspid valve appears to be normal. There is trace regurgitation. Right Atrium: Right atrium is mildly dilated 06/16/[address] angiogram: Coronary CT Angiogram: The overall quality of the CT angiographic examination is satisfactory. . Coronary Artery Angiogram Findings: Stenoses are reported as maximum percentage diameter stenosis. Stenosis grading is reported using the following scheme: Normal: no stenosis Mild: 1-49% stenosis Moderate: 50-70% stenosis Severe: >70% stenosis Occluded Enhanced CTA of the coronary arteries: Coronary artery evaluation: Dominance: Right dominant with normal origins Left Main: Mild calcific plaque without significant stenosis LAD: Mixed calcified and noncalcified plaqu (more content not included)... [facility] 06-20-2024 Note HNO ID: [id number] Author: SHANDA SIMS MD Service: Cardiovascular Medicine Author Type: Fellow Type: Plan of Care Filed: 06/20/2024 20:14 Note Text: Cardiac Catheterization Laboratory Pre-Catheterization Procedure Note Blanca Bunn [id number] 1955 Referring cloth coverer: Dr. Nevaeh Carlson Height: No data found for this vital: Ht Weight: Wt: N/A BMI: N/A ALLERGIES Not on File 68 year old male with PMHx of HTN, a fib, with SOB and increased fatigue with ?+stress test presenting for [facility] with possible PCI Coronary CTA with Lcx stenosis with severe plaque in OM1 and FFRCT of 0.9. Moderate diffuse RCA plaque with FFR 0.81. pLAD stenosis in 50% range. Calcium score 1227 PRE-PROCEDURAL PLANNING Planned Procedure: []LHC [x]LHC +/- PCI []RHC Treatment plan: [] 1 PIV [x] 2 PIV []Brachial PIV Arterial Access:[x]Radial ([]L [x]R) []Femoral ([]L []R) Arterial Sheath: []4/5F [x]5/6F []5F []6F Venous Access/Sheath: [] 7F R-IJ or [] 7F Femoral or []Brachial 4/5F Catheters: [x]Aman [][place] []Sunny Anti-platelet: []None [x] ASA 81 []Plavix []Ticagrelor Anticoagulation: [x]None []Warfarin []Eliquis []Xarelto []Pradaxa Issues relevant to procedure: [x]Need labs []Renal dysfunction []Access []Allergies Meds: No prescriptions on file. No current facility-administered medications for this encounter. No results found for: HB , HCT , PLT , CREAT , INR , A1C Prior Imaging and Diagnostics: LHC: N/A TTE: Ejection Fraction: OSH TTE 01/25/2024 61% no CMP Aorta: N/A [] Consent [] Post procedure orders [] Note Shanda Sims MD [facility] 06-16-2024 Telephone encounter Note called - pt had testing done at [facility] and they found a blockage and they want to do a heart cath. They have not heard anything from the referral that was sent. Inquiring what the next step is. [facility] 06-16-2024 Miscellaneous Notes called - pt had testing done at [facility] and they found a blockage and they want to do a heart cath. They have not heard anything from the referral that was sent. Inquiring what the next step is. documented in this encounter [facility] 05-31-2024 History of Present illness Narrative Images from the original note were not included. Blanca Bunn is a 68 y.o. male presents with chief complaint of Follow-up HPI: HPI Patient is here with his to request a second cardiology referral, due to abnormal stress test and shortness of breath. Patient denies palpitations, but is having some increased fatigue and shortness of breath with exertion, and chest aching for several days but has been physically active. No chest pain with activity. No leg swelling. SUBJECTIVE: MEDICATIONS: Current Outpatient Medications Medication Instructions ALPRAZolam (XANAX) 0.5 mg, Oral, Nightly PRN ascorbic acid (Vitamin C) 100 MG chewable tablet Every 24 hours ASPIRIN 81 PO 81 mg, Daily RT bisoprolol-hydroCHLOROthiazide (Ziac) 5-6.25 MG tablet TAKE 1 TABLET BY MOUTH DAILY AT THE SAME TIME EACH DAY Cranberry 125 MG tablet Take by mouth finasteride (Proscar) 5 MG tablet Every 24 hours methylPREDNISolone (Medrol Dospak) 4 MG tablets Follow schedule on package instructions Misc Natural Products (GLUCOSAMINE CHOND CMP ADVANCED PO) Glucosamine Chond Cmp Advanced MULTIPLE VITAMIN PO Every 24 hours omeprazole (PRILOSEC) 20 mg, Every other day rosuvastatin (CRESTOR) 10 mg, Oral, Daily saw palmetto (Serenoa repens) 80 MG capsule Saw [place] ALLERGIES: Allergies Allergen Reactions Alfuzosin Other Reaction(s): anxiety, chest tightness History: Past Medical History: Diagnosis Date A-fib ([facility]) Acute appendicitis with perforation and localized peritonitis, without gangrene 06/15/2018 BPH (benign prostatic hyperplasia) DDD (degenerative disc disease), cervical Diverticulosis Encounter for other preprocedural examination Epistaxis HTN (hypertension) ([facility]) Hx of renal calculi Internal derangement of right shoulder Mitral and aortic valve regurgitation Other chronic pain Prostate cancer ([facility]) Status post appendectomy, follow-up exam 06/23/2018 Status post arthroscopy of right shoulder Past Surgical History: Procedure Laterality Date APPENDECTOMY OPEN 06/16/2018 CARDIAC CATHETERIZATION 2010? CARPAL TUNNEL RELEASE 2004 Rt (stepanic) CATARACT EXTRACTION Left 09/18/2021 Dr Woodson COLONOSCOPY 2016 Dr. Albarran COLONOSCOPY 11/20/2019 needs repeat in [address] ANGIOGRAM HEART CORONARY 05/10/2023 CT ANGIOGRAM TAVR 05/10/2023 FL GUIDED INJECTION SHOULDER RIGHT Right 04/21/2018 FL GUIDED INJECTION SHOULDER RIGHT 04/21/2018 MR SHOULDER ARTHROGRAM RIGHT W FL GUIDED INJECTION Right 04/21/2018 MR SHOULDER ARTHROGRAM RIGHT W FL GUIDED INJECTION 04/21/2018 NOSE SURGERY 05/14/2020 bilat. nasal cautery, [place] SHOULDER ARTHROSCOPY Right 07/19/2018 Dr. Dudley VASECTOMY >20YRS Family History Problem Relation Name Age of Onset Aneurysm Mother Pancreatic cancer Father mets into bone Colon cancer Sister Pancreatic cancer Brother Social History Socioeconomic History Marital status: Spouse name: Not on file Number of children: Not on file Years of education: Not on file Highest education level: Not on file Occupational History Not on file Tobacco Use Smoking status: Never Passive exposure: Never Smokeless tobacco: Never Vaping Use Vaping status: Never Used Substance and Sexual Activity Alcohol use: Not Currently Alcohol/week: 0.0 - 4.0 standard drinks of alcohol Comment: caffeine: 1-2 cups per day Drug use: Not on file Sexual activity: Not on file Other Topics Concern Not on file Social History Narrative Not on file Social Drivers of Health Financial Resource Strain: Not on file Food Insecurity: No Food Insecurity (04/21/2024) Received from [facility] Hunger Screening Within the past 12 months we worried whether our food would run out before we got money to buy more.: Never True Within the past 12 months the food we bought just didn't last and we didn't have money to get more.: Never True Transportation Needs: Not on file Physical Activity: Not on file Stress: Not on file Social Connections: Not on file Intimate Partner Violence: Not on file Housing Stability: Not on file I have reviewed and reconciled the history and medication list with the patient today. REVIEW OF SYMPTOMS: Review of Systems Constitutional: Positive for fatigue (morebthan his normal). Negative for activity change, chills and fever. HENT: Negative for congestion and sore throat. Respiratory: Positive for chest tightness (with exertion) and shortness of breath (with exertion). Negative for cough. Cardiovascular: Positive for chest pain (achyness for several days on the lt). Negative for palpitations and leg swelling. Gastrointestinal: Negative for abdominal pain, constipation, diarrhea, nausea and vomiting. Genitourinary: Negative for difficulty urinating and dysuria. Musculoskeletal: Negative for back pain. Skin: Negative. Neurological: Negative for dizziness, light-headedness and headaches. Psychiatric/Behavioral: Negative for dysphoric mood and sleep disturbance. OBJECTIVE: Results 12/30/2022 8:34 AM 12/30/2022 8:56 AM 07/02/2023 8:47 AM 10/06/2023 10:55 AM 12/17/2023 11:36 AM 01/04/2024 8:08 AM 05/31/2024 10:58 AM Vitals BMI 24.94 kg/m2 25.14 kg/m2 24.66 kg/m2 25.2 kg/m2 25.02 kg/m2 BSA (m2) 1.89 m2 1.93 m2 1.91 m2 1.93 m2 1.92 m2 Systolic 144 148 128 132 124 126 140 Diastolic 82 80 72 78 70 76 76 Heart Rate 64 72 72 76 76 76 Height (in) 5' 8.75 Weight (lb) 164 169 165.8 169.4 168.2 Visit Report Report Report Report Report Report Report Report Physical Exam Vitals reviewed. Constitutional: General: He is not in acute distress. Appearance: Normal appearance. He is not ill-appearing, toxic-appearing or diaphoretic. Comments: Here with his GIOVANI: Head: Normocephalic and atraumatic. Mouth/Throat: Mouth: Mucous membranes are moist. Eyes: Conjunctiva/sclera: Conjunctivae normal. Neck: Vascular: No carotid bruit. Cardiovascular: Rate and Rhythm: Normal rate and regular rhythm. Heart sounds: No murmur heard. Pulmonary: Effort: Pulmonary effort is normal. No respiratory distress. Breath sounds: Normal breath sounds. No wheezing, rhonchi or rales. Chest: Chest wall: No tenderness. Abdominal: General: Bowel sounds are normal. There is no distension. Palpations: Abdomen is soft. Tenderness: There is no abdominal tenderness. Musculoskeletal: Right lower leg: No edema. Left lower leg: No edema. Skin: General: Skin is warm and dry. Findings: No rash. Neurological: Mental Status: He is alert and oriented to person, place, and time. Psychiatric: Mood and Affect: Mood normal. Behavior: Behavior normal. Thought Content: Thought content normal. Judgment: Judgment normal. Recent Results (from the past 24 weeks) Lipid panel Collection Time: 01/10/24 8:18 AM Result Value Ref Range CHOLESTEROL, TOTAL 183 <200 mg/dL HDL CHOLESTEROL 62 > OR = 40 mg/dL TRIGLYCERIDES 69 <150 mg/dL LDL-CHOLESTEROL 105 (H) mg/dL (calc) CHOL/HDLC RATIO 3.0 <5.0 (calc) NON HDL CHOLESTEROL 121 <130 mg/dL (calc) Glucose, fasting Collection Time: 01/10/24 8:18 AM Result Value Ref Range GLUCOSE, PLASMA 92 65 - 99 mg/dL Hemoglobin A1c Collection Time: 01/10/24 8:18 AM Result Value Ref Range Hemoglobin A1C 5.6 <5.7 % of total Hgb TROPONIN I, HIGH SENSITIVITY Collection Time: 05/31/24 1:41 PM Result Value Ref Range TROPONIN I, HIGH SENSITIVITY 4 <21 ng/L ASSESSMENT AND PLAN: Assessment/Plan Diagnosis Plan 1. Atypical chest pain i will get a troponin level 2. 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 Shortness of breath Troponin I Troponin I Ambulatory referral to Cardiology with exertion could be an angina equivalent 4. Abnormal stress test Troponin I Troponin I Ambulatory referral to Cardiology Pt had [address] elevationlateal leads 5. Essential hypertension (CMS/HCC) everall has been controlled 6. Aortic root dilatation (CMS/HCC) 4.2 cm per echo 7. Nonrheumatic aortic valve insufficiency at most moderate per cardiology 8. Hyperlipidemia, unspecified hyperlipidemia type (CMS/HCC) on crestor 10 mg 9. Gastroesophageal reflux disease, unspecified whether esophagitis present controlled with PPI On statin and aspirin follow up prn documented in this encounter [facility] 05-26-2024 Miscellaneous Notes Images from the original note were not included. Tami Swann RN 05/26/2024 8:56 AM EDT Back to Top Abnormal Stress results and MASs recommendations called and reviewed with patient. Pt agreeable to CTA cors and v/u we will call back with date/time and instructions. Annetta Bartlett MD 05/26/2024 8:38 AM EDT We have 2 options 1 is to wait for FRS or order a coronary CTA. Stress EKG was abnormal however perfusion scan was normal with an unusual location of a small infarct. Tami Swann RN 05/26/2024 6:52 AM EDT MAS, FRS (off) stress ordered w/echo 04/21/24 - 1. Atherosclerotic coronary vascular disease. He had minimal nonobstructive coronary artery disease on catheterization in 2008. He had a low risk stress test about a year ago. His breathlessness may not be a cardiac symptom but more on the basis of conditioning. I have scheduled him for repeat stress testing to assure reasonable perfusion. If this is a low risk test I would encourage activity, continue aspirin and attention to his cholesterol and follow expectantly. If greater than low risk test I would visualize his coronary arteries. 2. Aortic insufficiency is not likely at a range to be causing symptoms. I would repeat echocardiogram to follow that and his aortic root in 1 year. 3. Essential hypertension reasonably controlled. 1. Fair exercise tolerance, the patient exercised for 7 minutes and 33 seconds with a hypertensive response to exercise. 2. Intermediate Macias treadmill score 2.[address] depressions in the lateral leads. ST elevations isolated to AVR and aVL with exercise 4. Abnormal EKG response to exercise 5. Myocardial perfusion imaging showed subtle inferoseptal fixed perfusion defect with focal mid inferoseptal wall motion abnormality , consistent with possible prior infarct 6. Risk stratification: Low risk perfusion findings with abnormal stress EKG With exercise stress CTA cors scheduled 06/15/24. Will reach out to [facility] for BB orders. 25 mg metoprolol 2 hrs before CTA signed Tripe Washer called patient to review CTA cors date/time and instructions. Pt v/u to take metoprolol lopressor [address] Pt reminded to get blood work (faxed to [employer]) 1-2 weeks prior to the testing date and to arrive 30 mins prior to the procedure. Pt v/u and will call the office for any further questions. Copy of CTA instructions placed in RN folder. Lab order faxed to [facility]. Pt will stop by the [facility] office to pickup instructions. documented in this encounter [email or web address] 05-26-2024 Telephone encounter Note Images from the original note were not included. Tami Swann RN 05/26/2024 8:56 AM EDT Back to Top Abnormal Stress results and MASs recommendations called and reviewed with patient. Pt agreeable to CTA cors and v/u we will call back with date/time and instructions. Annetta Bartlett MD 05/26/2024 8:38 AM EDT We have 2 options 1 is to wait for FRS or order a coronary CTA. Stress EKG was abnormal however perfusion scan was normal with an unusual location of a small infarct. Tami Swann RN 05/26/2024 6:52 AM EDT MAS, FRS (off) stress ordered w/echo 04/21/24 - 1. Atherosclerotic coronary vascular disease. He had minimal nonobstructive coronary artery disease on catheterization in 2008. He had a low risk stress test about a year ago. His breathlessness may not be a cardiac symptom but more on the basis of conditioning. I have scheduled him for repeat stress testing to assure reasonable perfusion. If this is a low risk test I would encourage activity, continue aspirin and attention to his cholesterol and follow expectantly. If greater than low risk test I would visualize his coronary arteries. 2. Aortic insufficiency is not likely at a range to be causing symptoms. I would repeat echocardiogram to follow that and his aortic root in 1 year. 3. Essential hypertension reasonably controlled. 1. Fair exercise tolerance, the patient exercised for 7 minutes and 33 seconds with a hypertensive response to exercise. 2. Intermediate Macias treadmill score 2.[address] depressions in the lateral leads. ST elevations isolated to AVR and aVL with exercise 4. Abnormal EKG response to exercise 5. Myocardial perfusion imaging showed subtle inferoseptal fixed perfusion defect with focal mid inferoseptal wall motion abnormality , consistent with possible prior infarct 6. Risk stratification: Low risk perfusion findings with abnormal stress EKG With exercise [facility] Tele[facility] encounter Note CTA cors scheduled 06/15/24. Will reach out to [facility] Telephone encounter Note 25 mg metoprolol 2 hrs before CTA [facility] 05-26-2024 Telephone encounter Note signed [facility] 05-26-2024 Telephone encounter Note Tripe Washer called patient to review CTA cors date/time and instructions. Pt v/u to take metoprolol lopressor [address] Pt reminded to get blood work (faxed to [employer]) 1-2 weeks prior to the testing date and to arrive 30 mins prior to the procedure. Pt v/u and will call the office for any further questions. Copy of CTA instructions placed in RN folder. Lab order faxed to [employer]. Pt will stop by the [facility] office to pickup instructions. [facility] 04-21-2024 History of Present illness Narrative Blanca David Bunn Date of visit: 04/21/2024 Date of : 1955 Age: 68 y.o. 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 GUMMIES 250 MG DAILY aspirin 81 mg Take 1 tablet (81 mg total) by mouth in the morning. bisoprolol-hydroCHLOROthiazide (ZIAC) 5-6.25 mg per tablet Take 1 tablet by mouth in the morning. CRANBERRY ORAL Take by mouth daily. finasteride (PROSCAR) 5 mg tablet Take 1 tablet (5 mg total) by mouth in the morning. glucosamine sulfate (GLUCOSAMINE ORAL) Take by mouth. 2 CAPSULES PER DAY hqbntlnx-kyxq-LD-calcium &mins (THERAGRAN-M) 9 mg iron-400 mcg tablet Take 1 tablet by mouth in the morning. omeprazole (PriLOSEC) 10 mg capsule Take 1 capsule (10 mg total) by mouth. 3 TIMES A WEEK rosuvastatin (CRESTOR) 10 mg tablet Take 1 tablet (10 mg total) by mouth in the morning. SAW PALMETTO ORAL Take 1,350 mg by mouth in the morning. No current facility-administered medications for this visit. Chief Complaint Patient presents with Follow-up Cardiac Valve Problem Shortness of Breath History of Present Illness Blanca Bunn was seen in follow-up in the [facility] office. Records are reviewed. Overall he feels well but is concerned that he feels more breathless with exertion than he has. He does note that he has been very inactive over the past several months with his father's illness and sitting with him. He has put on about 10 lb. He has now started back to work part-time and notes when carrying 50 lb or so up a flight of stairs that by the 2nd or 3rd flight he is very breathless. He is not having particular chest pain although when he is short of breath he has some tightness. Blood pressures have been well controlled. Echocardiogram January 2024 shows normal left ventricular systolic function. His aortic root is about 4.2 cm. He has mild to at most moderate on review aortic insufficiency. Lipids have apparently been checked by his family physician and we are trying to access them. He tolerates the current Crestor without excessive arthralgias etcetera Past Medical History: Diagnosis Date Arrhythmia Atrial fibrillation ([facility]) Cancer ([facility]) prostate Dyspnea on exertion GERD (gastroesophageal reflux disease) Hypertension 05/28/2023 Mitral regurgitation Palpitations Patent foramen ovale Visual impairment glasses No data recorded No data recorded No data recorded Past Surgical History: Procedure Laterality Date APPENDECTOMY OPEN N/A 06/15/2018 Performed by Jf Albarran MD at [facility] ARTHROSCOPY SHOULDER debridement of type 1 slap lesion, subarcomial decompression Right 07/19/2018 Performed by Raphael Dudley Jr., DO at [facility] CARDIAC CATHETERIZATION more than 5 years ago CARPAL TUNNEL RELEASE COLONOSCOPY 2015 COLONOSCOPY N/A 11/20/2019 Performed by Jf Albarran MD at [facility] EXTRACTION CATARACT INTRAOCULAR LENS Left 09/18/2021 Performed by Vidhya Woodson MD at [facility] PROSTATE SURGERY 2019 BIOPSY, [facility] VASECTOMY 1978 Family History Problem Relation Age [...] Never Smokeless tobacco: Never Vaping Use Vaping status: Never Used Substance and Sexual Activity Alcohol use: Yes Alcohol/week: 8.0 standard drinks of alcohol Types: 4 Glasses of wine, 4 Cans of beer per week Comment: socially Drug use: No Sexual activity: Defer Other Topics Concern Caffeine Use Yes Social History Narrative Not on file Social Drivers of Health Financial Resource Strain: Not on file Food Insecurity: No Food Insecurity (12/01/2023) Hunger Screening Food Insecurity - Worry: Never True Food Insecurity - Inability: Never True Transportation Needs: Not on file Physical Activity: Not on file Stress: Not on file Social Connections: Not on file Interpersonal Safety: Not on file Housing Instability: Not on file Review of Systems Review of Systems Constitutional: Negative for chills, fever and malaise/fatigue. HENT: Negative for hearing loss, hoarse voice and nosebleeds. Eyes: Negative for blurred vision, double vision and redness. Respiratory: Positive for shortness of breath. Negative for sleep disturbances due to breathing. Endocrine: Negative for cold intolerance and heat intolerance. Hematologic/Lymphatic: Negative for bleeding problem. Does not bruise/bleed easily. Skin: Negative for color change, flushing, itching and nail changes. Musculoskeletal: Negative for falls, joint pain, joint swelling and myalgias. Gastrointestinal: Negative for heartburn, hematochezia and melena. Genitourinary: Negative for dysuria, frequency and hematuria. Neurological: Positive for light-headedness. Negative for dizziness, focal weakness, loss of balance and weakness. Psychiatric/Behavioral: Negative for altered mental status and memory loss. CARDIOVASCULAR: Please review HPI. Physical Examination General [...] RRR with normal S1 and S2 with no murmurs. Gastrointestinal: Soft, non-tender. Bowel sounds normal. Musculoskeletal: No peripheral edema. Neurologic: Oriented to time, person and place, affect appropriate. No focal/major motor defects noted. Psychiatric: Appropriate mood, memory and judgement. VITAL SIGNS: BP 120/68 Pulse 80 Ht 175.3 cm (5' 9 ) Wt 77.6 kg (171 lb) BMI 25.25 kg/m No orders of the defined types were placed in this encounter. There are no discontinued medications. IMPRESSIONS/PLAN 1. Nonrheumatic aortic valve insufficiency 2. Primary hypertension 3. 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 Shortness of breath 5. Aortic root dilatation ([facility]) 1. Atherosclerotic coronary vascular disease. He had minimal nonobstructive coronary artery disease on catheterization in 2008. He had a low risk stress test about a year ago. His breathlessness may not be a cardiac symptom but more on the basis of conditioning. I have scheduled him for repeat stress testing to assure reasonable perfusion. If this is a low risk test I would encourage activity, continue aspirin and attention to his cholesterol and follow expectantly. If greater than low risk test I would visualize his coronary arteries. 2. Aortic insufficiency is not likely at a range to be causing symptoms. I would repeat echocardiogram to follow that and his aortic root in 1 year. 3. Essential hypertension reasonably controlled. TODAYS ORDERS No orders of the defined types were placed in this encounter. FOLLOW UP No follow-ups on file. PCP: Libertad Domingo MD Referring Physician: Libertad Domingo MD [address] [place] [address] documented in this encounter [facility] [employer] [facility] 01-11-2024 Telephone encounter Note Spoke with pt about lab work. Chol 183, (was 215), Trig 69 (were 60), HDL 62 (was 57), LDL 105 (was 143), Ratio 3.0 (was 3.8). Pt is on Crestor 10 mg daily, prefers to stay on current Tx, not increase. Glucose 92 (was 102), HgbA1c 5.6 (prior 5.6, 5.2). Has cut back on sweets, lunch more active. Will recheck lab in the spring [facility] 01-11-2024 Miscellaneous Notes Spoke with pt about lab work. Chol 183, (was 215), Trig 69 (were 60), HDL 62 (was 57), LDL 105 (was 143), Ratio 3.0 (was 3.8). Pt is on Crestor 10 mg daily, prefers to stay on current Tx, not increase. Glucose 92 (was 102), HgbA1c 5.6 (prior 5.6, 5.2). Has cut back on sweets, lunch more active. Will recheck lab in the spring documented in this encounter [facility] 01-04-2024 History of Present illness Narrative Images from the original note were not included. Subjective Patient ID: Blanca Bunn is a 68 y.o. male who presents for No chief complaint on file.. HPI: Doing ok with mood, never took the Xanax he got in September. Pt had a stress with brother passing away then and aging father. His Dad is 98, He has been in the ER numerous times and was admitted in the hospital for 6 days and then in a NH for 6-7 weeks. He is back home now. His Dad has an 88 yr old girlfriend who thinks she is a doctor , so some stress with her. Has been sitting more at the hospital and NH with Dad, and since less active has gained some weight. Joint pain pretty good. Had right hand strain with carrying 5 gallon jug of water. [place] a snap. Referred to Ortho, they did an X-ray and it was ok. Had Rx Medrol Dose tracie, uses ice occ. It is getting better. F/U if needed with Ortho. Seeing Cardiology, last appt 1.5 months. Has an order to do echo, and also MRI order for Urology. Has not called Derm for appt yet, but plans to Review of Systems Constitutional: Positive for fatigue. Negative for appetite change, chills and fever. Sl fatigue-usual. Still working some-enjoys it HENT: WNL, cold sore right upper lip, resolving now Respiratory: Positive for shortness of breath. Negative for cough and chest tightness. Seem to get SOB easier with stairs. Thinks r/t Slightly out of shape . Cardiovascular: Negative for chest pain. No edema Gastrointestinal: Negative for abdominal pain and blood in stool. No change in bowels, no GERD with taking PPI couple of times a week Genitourinary: Negative for difficulty urinating and dysuria. Musculoskeletal: See HPI Skin: Negative for rash. Neurological: Positive for light-headedness. Negative for dizziness and headaches. Occ lightheadedness if gets up or turns quickly. Could drink more water Psychiatric/Behavioral: Sleep is pretty good things on mind with Dad some nights, no Melatonin taken. Mood Is pretty good, but patience is getting thin with Dads girlfriend 06/26/2022 12:00 PM 12/30/2022 8:34 AM 12/30/2022 8:56 AM 07/02/2023 8:47 AM 10/06/2023 10:55 AM 12/17/2023 11:36 AM 01/04/2024 8:08 AM Vitals BMI 24.24 kg/m2 24.94 kg/m2 25.14 kg/m2 24.66 kg/m2 25.2 kg/m2 BSA (m2) 1.86 m2 1.89 m2 1.93 m2 1.91 m2 1.93 m2 Systolic 120 144 148 128 132 124 126 Diastolic 62 82 80 72 78 70 76 Heart Rate 64 72 72 76 76 Height (in) 5' 8 5' 8.75 Weight (lb) 159.4 164 169 165.8 169.4 Visit Report Report Report Report Report Report Report Objective Physical Exam Vitals reviewed. Constitutional: General: He is not in acute distress. HENT: Nose: Nose normal. No rhinorrhea. Mouth/Throat: Mouth: Mucous membranes are moist. Pharynx: Oropharynx is clear. Eyes: Extraocular Movements: Extraocular movements intact. Comments: Glasses on Neck: Vascular: No carotid bruit. Cardiovascular: Rate and Rhythm: Normal rate and regular rhythm. Comments: No edema Pulmonary: Effort: Pulmonary effort is normal. Breath sounds: Normal breath sounds. Comments: No cough Abdominal: General: Bowel sounds are normal. Palpations: Abdomen is soft. Tenderness: There is no abdominal tenderness. Musculoskeletal: Comments: Normal gait Lymphadenopathy: Cervical: No cervical adenopathy. Skin: General: Skin is warm and dry. Neurological: Mental Status: He is alert and oriented to person, place, and time. Psychiatric: Comments: Calm and cooperative, well groomed. Good eye contact, not tearful. Pt is here alone today I have reviewed and reconciled the history and medication list with the patient today. Assessment/Plan Diagnoses and all orders for this visit: Essential hypertension (CMS/HCC): Controlled Aortic root dilatation (CMS/HCC) Comments: Last CT angiogram 05/10/23, ascending aorta stable 4.2 cm. Seeing Cardiology. 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 Sees Cardiology Hyperlipidemia, unspecified hyperlipidemia type (CMS/HCC) Comments: On statin. Last LDL 90. Pt has open order in for lipid, glucose and A1c, he will stop back to do it soon Prostate cancer (CMS/HCC) Comments: Sees Urology, he does PSA. He will be doing MRI on abdomen Shortness of breath: Some with exertion ie stairs. Feels he is out of shape Mitral valve insufficiency, unspecified etiology Gastroesophageal reflux disease, unspecified whether esophagitis present Comments: Controlled with PPI few times a week Anxiety Comments: Pt had been in ER 10/15, Pt declined daily med, Alprazolam given for PRN use-he has not used it. Discussed he could even take 1/2 tab if needed. Pt is aware this is a controlled substance, Keep in safe place. Family history of pancreatic cancer Stress Comments: Brother had , elderly Dad Other hyperlipidemia (CMS/HCC): Last LDL 143 in June , pt has open order in, he is not fasting today, so he will stop back to do soon - rosuvastatin (Crestor) 10 MG tablet; Take 1 tablet (10 mg) by mouth Daily Renal cyst, acquired, left: Pt sees Urology. Per pt he will be doing MRI IFG (Impaired fasting glucose): Glucose was 102, HgbA1c 5.6 (was 5.2) on last lab. Pt will do lab soon Enc flu vaccine, we are out at this time. Pt may get at the pharmacy F/U for Medicare Wellness in 6 months, sooner if concerns. PVU documented in this encounter [facility] 12-21-2023 History of Present illness Narrative Images from the original note were not included. NAME: Blanca Bunn : 1955 HISTORY OF PRESENT ILLNESS: NEW PT Blanca Bunn is an 68 y.o. @ male. NEW PT (REFERRED BY SHERRY PUMP) WITH RT WRIST INJURY SUSTAINED 12/14/23- [facility]- SHERRY PUMP TX; BRACE XRAY RT WRIST TODAY EPIC 12/21/23 NOTES DISCOMFORT- PT NOTES A LUMP SINCE INCIDENT - SOME [place]- PT IS RT [facility] PER DR DUDLEY Right Wrist Pain PAST MEDICAL HISTORY: Past Medical History: Diagnosis Date A-fib (CMS/HCC) Acute appendicitis with perforation and localized peritonitis, without gangrene 06/15/2018 BPH (benign prostatic hyperplasia) DDD (degenerative disc disease), cervical Diverticulosis Encounter for other preprocedural examination Epistaxis HTN (hypertension) (CMS/HCC) Hx of renal calculi Internal derangement of right shoulder Mitral and aortic valve regurgitation Other chronic pain Prostate cancer (CMS/HCC) Status post appendectomy, follow-up exam 06/23/2018 Status post arthroscopy of right shoulder PAST SURGICAL HISTORY: Past Surgical History: Procedure Laterality Date APPENDECTOMY OPEN 06/16/2018 CARDIAC CATHETERIZATION 2010? CARPAL TUNNEL RELEASE 2005 Rt (stepanic) CATARACT EXTRACTION Left 09/18/2021 Dr Woodson COLONOSCOPY 2016 Dr. Albarran COLONOSCOPY 11/20/2019 needs repeat in [address] ANGIOGRAM HEART CORONARY 05/10/2023 CT ANGIOGRAM TAVR 05/10/2023 FL GUIDED INJECTION SHOULDER RIGHT Right 04/21/2018 FL GUIDED INJECTION SHOULDER RIGHT 04/21/2018 MR SHOULDER ARTHROGRAM RIGHT W FL GUIDED INJECTION Right 04/21/2018 MR SHOULDER ARTHROGRAM RIGHT W FL GUIDED INJECTION 04/21/2018 NOSE SURGERY 05/14/2020 bilat. nasal cautery, Facundo SHOULDER ARTHROSCOPY Right 07/19/2018 Dr. Dudley VASECTOMY >20YRS SOCIAL HISTORY: Social History Occupational History Not on file Tobacco Use Smoking status: Never Passive exposure: Never Smokeless tobacco: Never Vaping Use Vaping status: Never Used Substance and Sexual Activity Alcohol use: Not Currently Alcohol/week: 0.0 - 4.0 standard drinks of alcohol Comment: caffeine: 1-2 cups per day Drug use: Not on file Sexual activity: Not on file ALLERGIES: Allergies Allergen Reactions Alfuzosin Other Reaction(s): anxiety, chest tightness HOME MEDICATIONS: Current Outpatient Medications Medication Instructions ALPRAZolam (XANAX) 0.5 mg, Oral, Nightly PRN ascorbic acid (Vitamin C) 100 MG chewable tablet Every 24 hours ASPIRIN 81 PO 81 mg, Daily RT bisoprolol-hydroCHLOROthiazide (Ziac) 5-6.25 MG tablet TAKE 1 TABLET BY MOUTH DAILY AT THE SAME TIME EACH DAY Cranberry 125 MG tablet Take by mouth finasteride (Proscar) 5 MG tablet Every 24 hours methylPREDNISolone (Medrol Dospak) 4 MG tablets Follow schedule on package instructions Misc Natural Products (GLUCOSAMINE CHOND CMP ADVANCED PO) Glucosamine Chond Cmp Advanced MULTIPLE VITAMIN PO Every 24 hours omeprazole (PRILOSEC) 20 mg, Every other day rosuvastatin (CRESTOR) 10 mg, Oral, Daily saw palmetto (Serenoa repens) 80 MG capsule Saw [place] REVIEW OF SYSTEMS: Review of Systems Vitals: There is no height or weight on file to calculate BMI. Tobacco Use: Low Risk (12/21/2023) Patient History Smoking Tobacco Use: Never Smokeless Tobacco Use: Never Passive Exposure: Never Alcohol Use: Not At Risk (12/30/2022) AUDIT-C Frequency of Alcohol Consumption: 2-3 times a week Average Number of Drinks: 1 or 2 Frequency of Binge Drinking: Never PHYSICAL EXAM: Hand/Wrist Musculoskeletal Exam Inspection Right Right hand/wrist inspection is normal. Erythema: none Ecchymosis: none Edema: none Deformity: none Wrist - prior incision: carpal tunnel Incision: well-healed Palpation Right Right wrist palpation is normal. Wrist tenderness to palpation comment: DENIES PAIN TO SNUFF BOX OR SCAPHO-LUNATE. Palpation additional comments: Pain volar wrist only on certain motions. Not always reproducible Range of Motion Right Wrist Right wrist range of motion is normal. Active Extension: 80 Passive Extension: 80 Active Flexion: 80 Passive Flexion: 80 Active Pronation: 90 Passive Pronation: 90 Active Supination: 90 Passive Supination: 90 Strength Right Hand Right hand strength is normal. Right Wrist Right wrist strength is normal. Extension: 5/5. Flexion: 5/5. Radial deviation: 5/5. Ulnar deviation: 5/5. Pronation: 5/5. Supination: 5/5. Neurovascular Right Right neurovascular exam is normal. Radial pulse: normal and 2+ Capillary refill: <3 sec and brisk Ulnar nerve sensory distribution: normal Median nerve sensory distribution: normal Superficial radial nerve sensory distribution: normal Neurovascular additional comments: Intermittent paresthesias palm of branch concern for superficial branch.. but not always present. Special Tests Right Elen's test: negative Froment's sign: negative DRUJ instability: negative CMC grind test: negative TFCC load test: negative General Constitutional: appears stated age Labored breathing: no Neurological: alert and oriented x3 Skin: intact Lymphadenopathy: none IMAGING: Procedures Orders Placed This Encounter Procedures XR wrist 1 or 2 views right Order Specific Question: Reason for exam: Answer: PAIN ASSESSMENT: ICD-10-CM 1. Strain of right wrist, initial encounter S66.911A methylPREDNISolone (Medrol Dospak) 4 MG tablets 2. Wrist injury, right, initial encounter S69.91XA Ambulatory referral to Orthopaedic Surgery XR wrist 1 or 2 views right PLAN: Reviewed xray at bedside. Cyst in ulnar styloid appears asymptomatic.. 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 ( hands on)- discussed symptoms volar wrist, no bony pain,, recommend MDP and wean out of brace. Likely strain, recheck in 2 wk.. flexor tendons all intact. Risk and benefits of medrol dose pack discussed. Questions answered in laymen terms at the bedside. The diagnosis, home exercise plan and any ongoing restrictions/ recommendations reviewed. If unable to be reached in office, I recommend evaluation at nearest Emergency Room if any symptoms worsened or new symptoms develop for requiring urgent evaluation. documented in this encounter [facility] 12-17-2023 History of Present illness Narrative Images from the original note were not included. Blanca Bunn is a 68 y.o. male presents with chief complaint of Wrist Injury (Wrist pain on right side. ) HPI: Wrist Injury Associated symptoms include numbness (right hand and middle fingers). Pertinent negatives include no chest pain. As above. He states Wednesday evening he was carrying a 5 gal [place] water but was doing it differently and he heard a pop. Now he has bump and numbness and tingling down his palm and middle and ring fingers. If he bends it a certain way, it causes pain. It is not getting better. He did use ice the other night but it did not really help. SUBJECTIVE: MEDICATIONS: Current Outpatient Medications Medication Instructions ALPRAZolam (XANAX) 0.5 mg, Oral, Nightly PRN ascorbic acid (Vitamin C) 100 MG chewable tablet Every 24 hours ASPIRIN 81 PO 81 mg, Daily RT bisoprolol-hydroCHLOROthiazide (Ziac) 5-6.25 MG tablet TAKE 1 TABLET BY MOUTH DAILY AT THE SAME TIME EACH DAY Cranberry 125 MG tablet Take by mouth finasteride (Proscar) 5 MG tablet Every 24 hours Misc Natural Products (GLUCOSAMINE CHOND CMP ADVANCED PO) Glucosamine Chond Cmp Advanced MULTIPLE VITAMIN PO Every 24 hours omeprazole (PRILOSEC) 20 mg, Every other day rosuvastatin (CRESTOR) 10 mg, Oral, Daily saw palmetto (Serenoa repens) 80 MG capsule Saw [place] ALLERGIES: Allergies Allergen Reactions Alfuzosin Other Reaction(s): anxiety, chest tightness History: Past Medical History: Diagnosis Date A-fib ([facility]) Acute appendicitis with perforation and localized peritonitis, without gangrene 06/15/2018 BPH (benign prostatic hyperplasia) DDD (degenerative disc disease), cervical Diverticulosis Encounter for other preprocedural examination Epistaxis HTN (hypertension) ([facility]) Hx of renal calculi Internal derangement of right shoulder Mitral and aortic valve regurgitation Other chronic pain Prostate cancer ([facility]) Status post appendectomy, follow-up exam 06/23/2018 Status post arthroscopy of right shoulder Past Surgical History: Procedure Laterality Date APPENDECTOMY OPEN 06/16/2018 CARDIAC CATHETERIZATION 2010? CARPAL TUNNEL RELEASE 2004 Rt (stepanic) CATARACT EXTRACTION Left 09/18/2021 Dr Woodson COLONOSCOPY 2016 Dr. Albarran COLONOSCOPY 11/20/2019 needs repeat in [address] ANGIOGRAM HEART CORONARY 05/10/2023 CT ANGIOGRAM TAVR 05/10/2023 FL GUIDED INJECTION SHOULDER RIGHT Right 04/21/2018 FL GUIDED INJECTION SHOULDER RIGHT 04/21/2018 MR SHOULDER ARTHROGRAM RIGHT W FL GUIDED INJECTION Right 04/21/2018 MR SHOULDER ARTHROGRAM RIGHT W FL GUIDED INJECTION 04/21/2018 NOSE SURGERY 05/14/2020 bilat. nasal cautery, [place] SHOULDER ARTHROSCOPY Right 07/19/2018 Dr. Dudley VASECTOMY >20YRS Family History Problem Relation Name Age of Onset Aneurysm Mother Pancreatic cancer Father mets into bone Colon cancer Sister Pancreatic cancer Brother Social History Socioeconomic History Marital status: Spouse name: Not on file Number of children: Not on file Years of education: Not on file Highest education level: Not on file Occupational History Not on file Tobacco Use Smoking status: Never Passive exposure: Never Smokeless tobacco: Never Vaping Use Vaping status: Never Used Substance and Sexual Activity Alcohol use: Not Currently Alcohol/week: 0.0 - 4.0 standard drinks of alcohol Comment: caffeine: 1-2 cups per day Drug use: Not on file Sexual activity: Not on file Other Topics Concern Not on file Social History Narrative Not on file Social Drivers of Health Financial Resource Strain: Not on file Food Insecurity: No Food Insecurity (12/01/2023) Received from [facility] Hunger Screening Within the past 12 months we worried whether our food would run out before we got money to buy more.: Never True Within the past 12 months the food we bought just didn't last and we didn't have money to get more.: Never True Transportation Needs: Not on file Physical Activity: Not on file Stress: Not on file Social Connections: Not on file Intimate Partner Violence: Not on file Housing Stability: Not on file I have reviewed and reconciled the history and medication list with the patient today. REVIEW OF SYMPTOMS: Review of Systems Constitutional: Negative. Negative for fatigue and fever. HENT: Negative. Negative for congestion, ear discharge, ear pain, postnasal drip, rhinorrhea, sinus pressure, sinus pain, sneezing, sore throat and trouble swallowing. Eyes: Negative. Respiratory: Negative for cough, shortness of breath and wheezing. Cardiovascular: Negative. Negative for chest pain, palpitations and leg swelling. Gastrointestinal: Negative. Negative for abdominal distention, abdominal pain, blood in stool, diarrhea and nausea. Genitourinary: Negative. Musculoskeletal: Positive for myalgias (conway wrist through hand). Skin: Negative. Negative for rash. Neurological: Positive for numbness (right hand and middle fingers). Psychiatric/Behavioral: Negative. OBJECTIVE: 06/13/2021 12:00 PM 12/01/2021 12:00 PM 06/26/2022 12:00 PM 12/30/2022 8:34 AM 12/30/2022 8:56 AM 07/02/2023 8:47 AM 10/06/2023 10:55 AM Vitals BMI 24.75 kg/m2 24.13 kg/m2 24.24 kg/m2 24.94 kg/m2 25.14 kg/m2 24.66 kg/m2 BSA (m2) 1.92 m2 1.9 m2 1.86 m2 1.89 m2 1.93 m2 1.91 m2 Systolic 118 130 120 144 148 128 132 Diastolic 68 82 62 82 80 72 78 Heart Rate 64 72 72 Height (in) 5' 9 5' 9 5' 8 5' 8.75 Weight (lb) 167.6 163.4 159.4 164 169 165.8 Visit Report Report Report Report Report Physical Exam Vitals and nursing note reviewed. Constitutional: General: He is not in acute distress. Appearance: Normal appearance. He is normal weight. He is not ill-appearing, toxic-appearing or diaphoretic. HENT: Head: Normocephalic. Mouth/Throat: Mouth: Mucous membranes are moist. Cardiovascular: Rate and Rhythm: Normal rate and regular rhythm. Pulses: Normal pulses. Heart sounds: Normal heart sounds. No murmur heard. No friction rub. No gallop. Pulmonary: Effort: Pulmonary effort is normal. No respiratory distress. Breath sounds: No wheezing, rhonchi or rales. Abdominal: General: Bowel sounds are normal. Musculoskeletal: General: Tenderness and signs of injury present. No swelling. Normal range of motion. Right wrist: Deformity present. Left wrist: Normal. Left hand: Normal. Arms: Cervical back: Normal range of motion and neck supple. Comments: Decreased strength with thumb to ring finger cord cutter, numbness and tingling Skin: General: Skin is warm and dry. Capillary Refill: Capillary refill takes less than 2 seconds. Neurological: General: No focal deficit present. Mental Status: He is alert and oriented to person, place, and time. Mental status is at baseline. Motor: No weakness. Gait: Gait normal. Psychiatric: Mood and Affect: Mood normal. Behavior: Behavior normal. Thought Content: Thought content normal. Judgment: Judgment normal. ASSESSMENT AND PLAN: Assessment/Plan Diagnoses and all orders for this visit: Wrist injury, right, initial encounter Discussed injury and with the symptoms, loss of strength, numbness and tingling, and abnormal bump, will refer to ortho as I suspect a possible tear. Can use ice, elevate it, do not lift anything with it. Brace for compression if comfortable. - Ambulatory referral to Orthopaedic Surgery; Future Essential hypertension (CMS/HCC) Controlled. Schedule and follow up with ortho. documented in this encounter [facility] 12-03-2023 Hospital Discharge instructions Patient Education 12/03/2023 10:28:12 Prostate Cancer Prostate Cancer The prostate is a small [...] more likely to develop this condition if: You are 65 years of age or older. You have a family history of prostate cancer. You have a family history of breast and ovarian cancer. You have genes that are passed from parent to child (inherited), such as BRCA1 and BRCA2. You have Bahena syndrome. men and men of descent are diagnosed with prostate cancer at higher rates than other men. The reasons for this are not well understood and are likely due to a combination of genetic and environmental factors. What are the signs or symptoms? Symptoms of this condition include: Problems with urination. This may include: ?A weak or interrupted flow of urine. ?Trouble starting or stopping urination. ?Trouble emptying the bladder all the way. ?The need to urinate more often, especially at night. Blood in urine or semen. Persistent pain or discomfort in the lower back, lower abdomen, or hips. Trouble getting an erection. Weakness or numbness in the legs or feet. How is this diagnosed? This condition can be diagnosed with: A digital rectal exam. For this exam, a health care provider inserts a gloved finger into the rectum to feel the prostate gland. A blood test called a prostate-specific antigen (PSA) test. A procedure in which a sample of tissue is taken from the prostate and checked under a microscope (prostate biopsy). An imaging test called transrectal ultrasonography. Once the condition is diagnosed, tests will be done to determine how far the cancer has spread. This is called staging the cancer. Staging may involve imaging tests, such as a bone scan, CT scan, PET scan, or MRI. Stages of prostate cancer The stages of prostate cancer are as follows: Stage 1 (I). At this stage, the cancer is found in the prostate only. The cancer is not visible on imaging tests, and it is usually found by accident, such as during prostate surgery. Stage 2 (II). At this stage, the cancer is more advanced than it is in stage 1, but the cancer has not spread outside the prostate. Stage 3 (III). At this stage, the cancer has spread beyond the outer layer of the prostate to nearby tissues. The cancer may be found in the seminal vesicles, which are near the bladder and the prostate. Stage 4 (IV). At this stage, the cancer has spread to other parts of the body, such as the lymph nodes, bones, bladder, rectum, liver, or lungs. Prostate cancer grading Prostate cancer is also graded according to how the cancer cells look under a microscope. This is called the Garland score and the total score can range from 6 10, indicating how likely it is that the cancer will spread (metastasize) to other parts of the body. The higher the score, the greater the likelihood that the cancer will spread. Eola 6 or lower: This indicates that the cancer cells look similar to normal prostate cells (well differentiated). Galrand 7: This indicates that the cancer cells look somewhat similar to normal prostate cells (moderately differentiated). Garland 8, 9, or 10: This indicates [...] needed. Surgery. Types of surgeries include: ?Open surgery (radical prostatectomy). In this surgery, a larger incision is made to remove the prostate. ?A laparoscopic radical prostatectomy. This is a surgery to remove the prostate and lymph nodes through several small incisions. It is often referred to as a minimally invasive surgery. ?A robotic radical prostatectomy. This is laparoscopic surgery to remove the prostate and lymph nodes with the help of robotic arms that are controlled by the surgeon. ?Cryoablation. This is surgery to freeze and destroy [...] surrounding tissue and has fewer side effects. Chemotherapy. This treatment kills cancer cells or stops them from multiplying. It kills both cancer cells and normal cells. Targeted therapy. This treatment uses medicines to kill cancer cells without damaging normal cells. Hormone treatment. This treatment involves taking medicines that act on testosterone, one of the male hormones, by: ?Stopping your body from producing testosterone. ?Blocking testosterone from reaching cancer cells. Follow these instructions at home: Lifestyle Do not use any products that contain nicotine or tobacco. These products include cigarettes, chewing tobacco, and vaping devices, such as e-cigarettes. If you need help quitting, ask your health care provider. Eat a healthy diet. To do this: ?Eat foods that are high in fiber. These include beans, whole grains, and fresh fruits and vegetables. ?Limit foods that are high in fat and sugar. These include fried or sweet foods. Treatment for prostate cancer may affect sexual function. If you have a partner, continue to have intimate moments. This may include touching, holding, hugging, and caressing your partner. Get plenty of sleep. Consider joining a support group for men who have prostate cancer. Meeting with a support group may help you learn to manage the stress of having cancer. General instructions Take grvd-sbn-xqlxezh and prescription medicines only as told by your health care provider. If you have to go to the hospital, notify your cancer specialist (oncologist). Keep all follow-up visits. This is important. Where to find more information [employer]: www.cancer.org [place] [employer] Oncology: www.cancer.net National Cancer [place]: www.cancer.gov Contact a health care provider if: You have new or increasing trouble urinating. You have new or increasing blood in your urine. You have new or increasing pain in your hips, back, or chest. Get help right away if: You have weakness or numbness in your legs. You cannot control urination or your bowel movements (incontinence). You have chills or a fever. Summary The prostate is a small gland that is involved in the production of semen. It is located below a man's bladder, in front of the rectum. Prostate cancer is the abnormal growth of cells in the prostate gland. Treatment for this condition depends on the stage of the cancer, your age, personal preferences, and your overall health. Talk with your health care provider about treatment options that are recommended for you. Consider joining a support group for men who have prostate cancer. Meeting with a support group may help you learn to manage the stress of having cancer. This information is not intended to replace advice given to you by your health care provider. Make sure you discuss any questions you have with your health care provider. Document Revised: 05/07/2021 Document Reviewed: 05/07/2021 [employer] Patient Education 2023 [employer]. Follow Up Care 04/02/2023 10:23:09 With:ETTA WILLAMS, Norman Rubio, URL Address: [facility] [address] , [place] [id number]- When: Unknown [facility] 12[facility]03-2023 Note Patient Education Oncology Prostate Cancer The prostate [...] under a microscope. This is called the Eola score and the total score can range from 6?10, indicating how likely it is that the cancer will spread (metastasize) to other parts of the body. The higher the score, the greater the likelihood that the cancer will spread. ? Eola 6 or lower: This indicates that the cancer cells look similar to normal prostate cells (well differentiated). ? Garland 7: This indicates that the cancer cells look somewhat similar to normal prostate cells (moderately differentiated). ? Eola 8, 9, or 10: This indicates that [...] tubes that are implanted into the prostate gla (more content not included)... [facility] 12-01-2023 History of Present illness Narrative Blanca David Bunn Date of visit: 12/01/2023 Date of : 1955 Age: 68 y.o. 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 GUMMIES 250 MG DAILY aspirin 81 mg Take 1 tablet (81 mg total) by mouth in the morning. bisoprolol-hydroCHLOROthiazide (ZIAC) 5-6.25 mg per tablet Take 1 tablet by mouth in the morning. CRANBERRY ORAL Take by mouth daily. finasteride (PROSCAR) 5 mg tablet Take 1 tablet (5 mg total) by mouth in the morning. glucosamine sulfate (GLUCOSAMINE ORAL) Take by mouth. 2 CAPSULES PER DAY dsuxswky-zgdl-LV-calcium &mins (THERAGRAN-M) 9 mg iron-400 mcg tablet Take 1 tablet by mouth in the morning. omeprazole (PriLOSEC) 10 mg capsule Take 1 capsule (10 mg total) by mouth. 3 TIMES A WEEK rosuvastatin (CRESTOR) 10 mg tablet Take 1 tablet (10 mg total) by mouth in the morning. SAW PALMETTO ORAL Take 1,350 mg by mouth in the morning. No current facility-administered medications for this visit. Chief Complaint Patient presents with Follow-up 6 months History of Present Illness Dariel was seen for follow-up of his nonobstructive coronary disease, aortic root dilatation and vsvh-tk-bbtjpuji aortic insufficiency. He denies any recent chest pain, pressure, or shortness of breath. He has been under great deal stressor with a past year with the passing of his brother who had pancreatic cancer in his father who has had myocardial infarction and currently in a [facility]. Dariel has not had any orthopnea or paroxysmal nocturnal dyspnea. He had notices some shortness of breath on activity but he has not been doing much other than visiting his father in the [facility]. Past Medical History: Diagnosis Date Arrhythmia Atrial fibrillation (CMS-HCC) Cancer (CMS-HCC) prostate Dyspnea on exertion GERD (gastroesophageal reflux disease) Hypertension 05/28/2023 Mitral regurgitation Palpitations Patent foramen ovale Visual impairment glasses No data recorded No data recorded No data recorded Past Surgical History: Procedure Laterality Date APPENDECTOMY OPEN N/A 06/15/2018 Performed by Jf Albarran MD at [facility] ARTHROSCOPY SHOULDER debridement of type 1 slap lesion, subarcomial decompression Right 07/19/2018 Performed by Raphael Dudley Jr., DO at [facility] CARDIAC CATHETERIZATION more than 5 years ago CARPAL TUNNEL RELEASE COLONOSCOPY 2014 COLONOSCOPY N/A 11/20/2019 Performed by Jf Albarran MD at [facility] EXTRACTION CATARACT INTRAOCULAR LENS Left 09/18/2021 Performed by Vidhya Woodson MD at [facility] PROSTATE SURGERY 2018 BIOPSY, [facility] VASECTOMY 1978 Family History Problem Relation Age [...] Never Smokeless tobacco: Never Vaping Use Vaping status: Never Used Substance and Sexual Activity Alcohol use: Yes Alcohol/week: 8.0 standard drinks of alcohol Types: 4 Glasses of wine, 4 Cans of beer per week Comment: socially Drug use: No Sexual activity: Defer Other Topics Concern Caffeine Use Yes Social History Narrative Not on file Social Determinants of Health Financial Resource Strain: Not on file Food Insecurity: No Food Insecurity (12/01/2023) Hunger Screening Food Insecurity - Worry: Never True Food Insecurity - Inability: Never True Transportation Needs: Not on file Physical Activity: Not on file Stress: Not on file Social Connections: Not on file Interpersonal Safety: Not on file Housing Instability: Not on file Review of Systems Review of Systems Constitutional: Negative. HENT: Negative. Eyes: Negative. Respiratory: Positive for cough. Hematologic/Lymphatic: Negative. Skin: Negative. Musculoskeletal: Negative. Gastrointestinal: Negative. Neurological: Positive for headaches and loss of balance. Psychiatric/Behavioral: Negative. Allergic/Immunologic: Negative. CARDIOVASCULAR: Please review HPI. Physical Examination General [...] RRR with normal S1 and S2 with no murmurs. Gastrointestinal: Soft, non-tender. Bowel sounds normal. Musculoskeletal: No peripheral edema. Neurologic: Oriented to time, person and place, affect appropriate. No focal/major motor defects noted. Psychiatric: Appropriate mood, memory and judgement. VITAL SIGNS: BP 142/82 (BP Site: Left Arm, BP Postition: Sitting) Pulse 80 Ht 175.3 cm (5' 9 ) Wt 75.8 kg (167 lb) SpO2 98% BMI 24.66 kg/m Orders Placed or Reconciled This Encounter Medications rosuvastatin (CRESTOR) 10 mg tablet Sig: Take 1 tablet (10 mg total) by mouth in the morning. There are no discontinued medications. IMPRESSIONS/PLAN 1. Nonrheumatic aortic valve insufficiency - Echo complete W/O contrast; Future 2. Aortic root dilatation (CMS-HCC) - Echo complete W/O contrast; Future Dariel will continue current medical therapy. He is due for an echocardiogram to follow up in the aortic insufficiency as well as aortic root dilatation. His testing will curtain March. We discussed increasing his exercise and monitoring for any signs symptoms some shortness of breath chest pain. Follow-up is arranged for 6 months. TODAYS ORDERS Orders Placed This Encounter Procedures Echo complete W/O contrast FOLLOW UP Return in about 6 months (around 05/31/2024). PCP: Libertad Domingo MD Referring Physician: Libertad Domingo MD [address] [place] [address] documented in this encounter [facility] 11-30-2023 Miscellaneous Notes Called patient to remind them to bring their most current copy of their medication list with them to their appt. Patient verbalizes understanding. documented in this encounter [facility] 11-30-2023 Telephone encounter Note Called patient to remind them to bring their most current copy of their medication list with them to their appt. Patient verbalizes understanding. [facility] 07-09-2023 Telephone encounter Note Spoke with pt-discussed Carmina had checked with Dr Quiles office and also looked on [facility] and [facility].. It looks like last CT of abd/pelvis was 02/14/20, (he did not have any since. Pt states he has an appt with him in November, so will plan to discuss with him then. Looks like he had 2 Pnevnar 13 vaccines at [facility]. Staff tried to check on this, and thought it looked like he had 2 Prevnar 13's. I will try to call them to clarify. Discussed when I tried to order his Dex, it said it isn't covered to age 70, so plan to order at next appt. [facility] and is agreeable with that. He plans to call Dermatology for appt soon 5:25 PM I did try to call [facility] and was on hold for along time, then line was , will try to call back next week [facility] 07-09-2023 Miscellaneous Notes Spoke with pt-discussed Carmina had checked with Dr Quiles office and also looked on [facility] and [facility].. It looks like last CT of abd/pelvis was 02/14/20, (he did not have any since. Pt states he has an appt with him in November, so will plan to discuss with him then. Looks like he had 2 Pnevnar 13 vaccines at [facility]. Staff tried to check on this, and thought it looked like he had 2 Prevnar 13's. I will try to call them to clarify. Discussed when I tried to order his Dex, it said it isn't covered to age 70, so plan to order at next appt. [facility] and is agreeable with that. He plans to call Dermatology for appt soon 5:25 PM I did try to call [employer] and was on hold for along time, then line was , will try to call back next week documented in this encounter [facility] 05-28-2023 History of Present illness Narrative Blanca David Bunn Date of visit: 05/28/2023 Date of : 1955 Age: 67 y.o. 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 GUMMIES 250 MG DAILY aspirin 81 mg Take 1 tablet (81 mg total) by mouth in the morning. bisoprolol-hydroCHLOROthiazide (ZIAC) 5-6.25 mg per tablet Take 1 tablet by mouth in the morning. CRANBERRY ORAL Take by mouth daily. finasteride (PROSCAR) 5 mg tablet Take 1 tablet (5 mg total) by mouth in the morning. glucosamine sulfate (GLUCOSAMINE ORAL) Take by mouth. 2 CAPSULES PER DAY tbgbbfps-igxg-YX-calcium &mins (THERAGRAN-M) 9 mg iron-400 mcg tablet Take 1 tablet by mouth in the morning. omeprazole (PriLOSEC) 10 mg capsule Take 1 capsule (10 mg total) by mouth. 3 TIMES A WEEK SAW PALMETTO ORAL Take 1,350 mg by mouth in the morning. No current facility-administered medications for this visit. Chief Complaint Patient presents with Follow-up CT, STRESS DONE L/S BCD History of Present Illness Dariel was seen today for follow-up of his moderate aortic insufficiency. He has mildly dilated ascending aorta 4.2 cm. He had a negative stress test and CT scan done noted the aortic size. He denies any chest pain, pressure, or shortness of breath. Past Medical History: Diagnosis Date Arrhythmia Atrial fibrillation (CMS-HCC) Cancer (CMS-HCC) prostate Dyspnea on exertion GERD (gastroesophageal reflux disease) Hypertension 05/28/2023 Mitral regurgitation Palpitations Patent foramen ovale Visual impairment glasses No data recorded No data recorded No data recorded Past Surgical History: Procedure Laterality Date APPENDECTOMY OPEN N/A 06/15/2018 Performed by Jf Albarran MD at [facility] ARTHROSCOPY SHOULDER debridement of type 1 slap lesion, subarcomial decompression Right 07/19/2018 Performed by Raphael Dudley Jr., DO at [facility] CARDIAC CATHETERIZATION more than 5 years ago CARPAL TUNNEL RELEASE COLONOSCOPY 2015 COLONOSCOPY N/A 11/20/2019 Performed by Jf Albarran MD at [facility] EXTRACTION CATARACT INTRAOCULAR LENS Left 09/18/2021 Performed by Vidhya Woodson MD at [facility] PROSTATE SURGERY 2019 BIOPSY, [facility] VASECTOMY 1979 Family History Problem Relation Age [...] double vision. Respiratory: Positive for shortness of breath. Negative for sleep disturbances due to breathing and wheezing. Endocrine: Negative for polydipsia. Hematologic/Lymphatic: Negative for bleeding problem. Does not bruise/bleed easily. Skin: Negative for color change, itching and rash. Musculoskeletal: Negative for back pain, falls, joint swelling, muscle cramps and muscle weakness. Gastrointestinal: Negative for heartburn, hematochezia and melena. Genitourinary: Negative for hematuria. Neurological: Positive for dizziness and light-headedness (quick movement). Negative for headaches, loss of balance, numbness, seizures and tremors. Psychiatric/Behavioral: Negative for altered mental status, depression and memory loss. Allergic/Immunologic: Negative for persistent infections. CARDIOVASCULAR: Please review HPI. Physical Examination General [...] RRR with normal S1 and S2 with no murmurs. Gastrointestinal: Soft, non-tender. Bowel sounds normal. Musculoskeletal: No peripheral edema. Neurologic: Oriented to time, person and place, affect appropriate. No focal/major motor defects noted. Psychiatric: Appropriate mood, memory and judgement. VITAL SIGNS: BP 120/80 (BP Site: Left Arm) Pulse 73 Ht 175.3 cm (5' 9 ) Wt 75.3 kg (166 lb) SpO2 97% BMI 24.51 kg/m Orders Placed or Reconciled This Encounter Medications CRANBERRY ORAL Sig: Take by mouth daily. There are no discontinued medications. IMPRESSIONS/PLAN 1. Nonrheumatic aortic valve insufficiency 2. 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 Primary hypertension Dariel will continue his current antihypertensive therapy. We discussed not doing any extreme heavy lifting. He is able to continues activities of daily living without difficulty. His stress test was negative for ischemia and his aortic root appears to be stable. Follow-up is arranged for 6 months time. TODAYS ORDERS No orders of the defined types were placed in this encounter. FOLLOW UP Return in about 6 months (around 11/27/2023). PCP: Libertad Domingo MD Referring Physician: Libertad Domingo MD [address] [place] [address] documented in this encounter [facility] 05-27-2023 Miscellaneous Notes Called patient to remind them to bring their most current copy of their medication list with them to their appt. Patient verbalizes understanding. documented in this encounter [facility] 05-27-2023 Telephone encounter Note Called patient to remind them to bring their most current copy of their medication list with them to their appt. Patient verbalizes understanding. [facility] 04-29-2023 History of Present illness Narrative Blanca David Bunn Date of visit: 04/29/2023 Date of : 1955 Age: 67 y.o. 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 2 CAPSULES PER DAY gsfzmeru-qspc-ZV-calcium &mins (THERAGRAN-M) 9 mg iron-400 mcg tablet Take 1 tablet by mouth in the morning. omeprazole (PriLOSEC) 10 mg capsule Take 1 capsule (10 mg total) by mouth. 3 TIMES A WEEK SAW PALMETTO ORAL Take 1,350 mg by mouth in the morning. No current facility-administered medications for this visit. 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, PFO, EKG, ECHO DONE @ [facility] W/PT+++PT PREVIOUSLY SAW NWOCC/PPC/MGI ABOUT 12 YRS [...] History: Diagnosis Date Atrial fibrillation (CMS-HCC) Cancer ([facility]-HCC) prostate Dyspnea on exertion GERD (gastroesophageal reflux disease) Hypertension Mitral regurgitation Palpitations Patent foramen ovale Visual impairment glasses No data recorded No data recorded No data recorded Past Surgical History: Procedure Laterality Date APPENDECTOMY OPEN N/A 06/15/2018 Performed by Jf Albarran MD at [facility] ARTHROSCOPY SHOULDER debridement of type 1 slap lesion, subarcomial decompression Right 07/19/2018 Performed by Raphael Dudley Jr., DO at [facility] CARDIAC CATHETERIZATION more than 5 years ago CARPAL TUNNEL RELEASE COLONOSCOPY 2014 COLONOSCOPY N/A 11/20/2019 Performed by fJ Albarran MD at [facility] EXTRACTION CATARACT INTRAOCULAR LENS Left 09/18/2021 Performed by Vidhya Woodson MD at [facility] PROSTATE SURGERY 2019 BIOPSY, [facility] VASECTOMY 1979 Family History Problem Relation Age [...] Orders Placed or Reconciled This Encounter Medications GUMARO SCHERER ORAL Sig: Take 1,350 mg by mouth [...] exercise; Future 3. 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 Aortic root dilatation ([facility]) I recommended a CT scan to assess [...] Libertad Domingo MD Referring Physician: Sofie Brumfield, DIGITAL ENGINEER-BLANCHARD GRINDER OPERATOR [address] [place] [address], [address] [place] [address] documented [facility] Miscellaneous Notes Called patient to remind them to bring their most current copy of their medication list with them to their appt. Patient verbalizes understanding. documented in this encounter [facility] 04-28-2023 Telephone encounter Note Called patient to remind them to bring their most current copy of their medication list with them to their appt. Patient verbalizes understanding. [email or web address] 04-22-2023 Miscellaneous Notes This is notification that we have received a referral for the patient. Please reach out to schedule new patient appointment in your office. Please check the referral tab in appt desk for details and to make sure to assign referral or schedule off of it. Thank you. [facility] Telephone encounter Note This is notification that we have received a referral for the patient. Please reach out to schedule new patient appointment in your office. Please check the referral tab in appt desk for details and to make sure to assign referral or schedule off of it. Thank you. [email or web address] 04-02-2023 Hospital Discharge instructions Patient Education 04/02/2023 10:08:49 Prostate Cancer [...] treatment? Where to find more information [employer]: www.cancer.org [place] [employer]: www.auanet.org Contact a health care [...] provider. Document Revised: 08/04/2021 Document Reviewed: 08/04/2021 [employer] Patient Education 2022 [employer]. Follow Up Care 07/13/2022 10:02:58 With:ETTA WILLAMS, Norman Rubio, URL Address: [facility] [address] [place] [address]- [phone] When:Within 8 Month(s) Comments:w/ CJ [facility] 07-07-2021 Hospital Discharge instructions Patient Education 07/07/2021 07:43:02 Prostate Cancer [...] who: Are older than age 65. Are -Hungarian. Are obese. Have a family history of [...] cells. Follow these instructions at home: Take [id number] and prescription medicines only as told by [...] 02/08/2006 Document Revised: 01/21/2018 Document Reviewed: 10/19/2016 [employer] Patient Education 2020 [employer]. Follow Up Care 01/06/2021 10:16:32 With:Norman QUILES MD, URL Address: [facility] [address] , [place] [address]- When: Unknown [facility] Evaluation + Plan note Future Appointments Appointment Date:01/12/2022 09:45:00 AM Scheduled Provider:Norman QUILES MD Location:[facility] Appointment Type:URO Office Visit Diagnostic Tests PendingPSA Total 07/07/[address] [facility] Evaluation + Plan note Future Appointments Appointment Date:12/03/2023 09:30:00 AM Scheduled Provider:Norman QUILES MD Location:[facility] Appointment Type:URO Office Visit Diagnostic Tests PendingPSA Total 04/02/[address] [facility] Evaluation + Plan note Future Appointments Appointment Date:09/08/2024 08:30:00 AM Scheduled Provider:Norman QUILES MD Location:[facility] Appointment Type:URO Office Visit Diagnostic Tests PendingPSA Total 12/03/[address] [facility] Evaluation note Diagnosis Wrist injury, right, initial encounter- Primary Essential hypertension (CMS/HCC) Unspecified essential hypertension documented in this encounter [facility] HealthcareEvaluation note* Diagnosis Strain of right wrist, initial encounter- Primary Wrist injury, right, initial encounter documented in this encounter [facility] HealthcareEvaluation noteNo assessment information availableMarietta [facility] Work Phone: Evaluation note* Diagnosis Essential hypertension (CMS/HCC)- Primary Unspecified essential hypertension Aortic root dilatation (CMS/HCC) Thoracic aneurysm without mention of rupture 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) Aortic valve insufficiency, etiology of cardiac valve disease unspecified Hyperlipidemia, unspecified hyperlipidemia type (CMS/HCC) Prostate cancer (CMS/HCC) Malignant neoplasm of prostate Shortness of breath Mitral valve insufficiency, unspecified etiology Gastroesophageal reflux disease, unspecified whether esophagitis present Anxiety Anxiety state, unspecified Family history of pancreatic cancer Family history of malignant neoplasm of gastrointestinal tract Stress Other psychological or physical stress, not elsewhere classified Renal cyst, acquired, left IFG (impaired fasting glucose) documented in this encounter [facility] HealthcareEvaluation note* Diagnosis Nonrheumatic aortic valve insufficiency- Primary Shortness of breath 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) Aortic root dilatation (CMS-HCC) Thoracic aneurysm without mention of rupture [facility] Diagnosis Nonrheumatic aortic valve insufficiency- Primary 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) Primary hypertension Unspecified essential hypertension [facility]* Diagnosis Nonrheumatic aortic valve insufficiency- Primary Aortic root dilatation (CMS-HCC) Thoracic aneurysm without mention of rupture [facility]* Diagnosis Nonrheumatic aortic valve insufficiency- Primary Primary hypertension Unspecified essential hypertension 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) Shortness of breath Aortic root dilatation (CMS-HCC) Thoracic aneurysm without mention of rupture documented in this encounter [facility]* Diagnosis Abnormal stress test- Primary Other nonspecific abnormal cardiovascular system function study [facility] [place] [facility]* Diagnosis Atypical chest pain- Primary Other chest pain 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) Shortness of breath Abnormal stress test Other nonspecific abnormal cardiovascular system function study Essential hypertension (CMS/HCC) Unspecified essential hypertension Aortic root dilatation (CMS/HCC) Thoracic aneurysm without mention of rupture Nonrheumatic aortic valve insufficiency Hyperlipidemia, unspecified hyperlipidemia type (CMS/HCC) Gastroesophageal reflux disease, unspecified whether esophagitis present [facility] [place] [facility]* Diagnosis Dyspnea on exertion- Primary Other dyspnea and respiratory abnormality Dyspnea on exertion Other dyspnea and respiratory abnormality documented [facility] this encounter [facility] [place] [facility]* Diagnosis 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- Primary documented in this encounter [facility] [place] [facility]* Diagnosis 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- Primary Aortic valve disorder Aortic valve disorders Family history of ischemic heart disease and other diseases of the circulatory system 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 documented in this encounter [facility]* Diagnosis Ascending aorta dilation- Primary Thoracic aortic ectasia documented in this encounter [facility] [place] [facility]* Diagnosis Essential hypertension (CMS/HCC)- Primary Unspecified essential hypertension Aortic valve insufficiency, etiology of cardiac valve disease unspecified Hyperlipidemia, unspecified hyperlipidemia type (CMS/HCC) Aortic root dilatation (CMS/HCC) Thoracic aneurysm without mention of rupture 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) Prostate cancer (CMS/HCC) Malignant neoplasm of prostate Patent foramen ovale Ostium secundum type atrial septal defect Mitral valve insufficiency, unspecified etiology Shortness of breath Renal lesion Renal cyst, acquired, left Benign prostatic hyperplasia, unspecified whether lower urinary tract symptoms present BMI 25.0-25.9,adult Anxiety Anxiety state, unspecified Gastroesophageal reflux disease, unspecified whether esophagitis present Diverticulosis Diverticulosis of colon (without mention of hemorrhage) IFG (impaired fasting glucose) documented [facility] this encounter [facility] Narrative No data available for this section [facility] InstructionsNot on filedocumented in this encounter [...] available for this section [facility] reason for visit Narrative* Consult, Test, Treat (Urgent) - New Request Specialty Diagnoses / Procedures Referred By Devonte stewart Referred To Contact Cardiology / CARD [place] Diagnoses DX:Dyspnea on exertion LHC with Possible PCI No Limitations per Angely ex#[id number] Procedures CATH POSSIBLE PTCA Nevaeh Carlson MD [address] [place] [id number] Phone: tel: fax: Nevaeh Carlson MD [address] [place] [address] Phone: tel: fax: Referral ID Status Reason Start Date Expiration Date Visits Requested Visits Authorized [id number] New Request Patient Cleared - Admin/Chair man/Directo r advise to proceed or did not respond 06/22/2024 09/20/2024 1 1 [facility] Summary Purpose Family History No Family History Records FoundNo Family History Records FoundNo Family History Records Found No data available for this section No data available for this section No Family History Records FoundNo Family History Records FoundNo Family History Records FoundNo Family History Records FoundNo Family History Records FoundNo Family History Records FoundNo Family History Records FoundNo Family History Records Found Advance Directives No Advanced Directives Records Found Advance Directive Response Recorded Date/ Time Advance Directives No December 21, 2023 12:25pm Latest Code Status on File Code Status Date Activated Date Inactivated Comments Full Code 06/15/2018 5:03 PM 06/16/2018 12:01 PM Latest Code Status on File Code Status Date Activated Date Inactivated Comments Full Code 06/15/2018 5:03 PM 06/16/2018 12:01 PM Date Activated Date Inactivated Comments 06/15/2018 5:03 PM 06/16/2018 12:01 PM Date Activated Date Inactivated Comments 06/15/2018 5:03 PM 06/16/2018 12:01 PM Chief Complaint and Reason for Visit Chief Complaint Admit Date January 12, 2024 6:20pm Reason for Referral Specialty Diagnoses / Procedures Referred By Contac t Referred To Contact Diagnoses Nonrheumatic aortic valve insufficiency Shortness of breath Procedures Nuc stress exercise Los Barfield, DO [address] [place] [address], [address] [place] [address] Referral ID Status Reason Start Date Expiration Date V isits Requested Visits Authorized [id number] Pending Review 04/29/2023 04/28/2024 5 5 Specialty Diagnoses / Procedures Referred By Contac t Referred To Contact Radiology Diagnoses Nonrheumatic aortic valve insufficiency Shortness of breath Procedures CT angiogram chest Los Barfield, DO [address] [place] [address], [address] [place] [address] Referral ID Status Reason Start Date Expiration Date V isits Requested Visits Authorized [id number] Pending Review 04/29/2023 04/28/2024 1 1 Specialty Diagnoses / Procedures Referred By Contac t Referred To Contact Diagnoses Nonrheumatic aortic valve insufficiency Procedures ECG, Hospital Report Scan Los Barfield, DO [address] [place] [address], [address] [place] [address] Referral ID Status Reason Start Date Expiration Date V isits Requested Visits Authorized [id number] Pending Review 04/29/2023 04/28/2024 1 1 Additional Source Comments (unrecognized sect ion and content) No Status Records FoundNo Status Records FoundNo Status Records FoundNo Status Records FoundNo Status Records FoundNo Status Records FoundNo Status Records FoundNo Status Records FoundNo Status Records FoundNo Status Records FoundNo Status Records Found INFORMATION SOURCE (unrecogn ized section and content) DATE CREATED AUTHOR 08/11/2017 [facility] DATE CREATED AUTHOR AUTHOR'S ORGANIZ ATION 06/30/2021 [facility] dical Specialist DATE CREATED AUTHOR AUTHOR'S ORGANIZ ATION 07/08/2022 [facility] DATE CREATED AUTHOR AUTHOR'S ORGANIZ ATION 01/15/2024 [facility] DATE CREATED AUTHOR AUTHOR'S ORGANIZ ATION 04/23/2024 [facility] DATE CREATED AUTHOR AUTHOR'S ORGANIZ ATION 06/10/2024 [facility] DATE CREATED AUTHOR AUTHOR'S ORGANIZ ATION 06/11/2024 [facility] DATE CREATED AUTHOR AUTHOR'S ORGANIZ ATION 06/16/2024 [facility] DATE CREATED AUTHOR AUTHOR'S ORGANIZ ATION 07/12/2024 [facility] DATE CREATED AUTHOR AUTHOR'S ORGANIZ ATION 07/23/2024 [facility] DATE CREATED AUTHOR AUTHOR'S ORGANIZ ATION 08/25/2024 [facility] Patient Care team informatio n (unrecognized section and content) [employer] Relationship Specialty Start Date End Date Libertad Domingo MD [address] [place] [address] PCP - General Family Medicine 06/30/22 Kellie Long NP [address] [place] [address] PCP - ACO Reach 06/23/23 [employer] Relationship Specialty Start Date End Date Libertad Domingo MD [address] [place], [place] [id number] PCP - General Family Medicine 06/30/22 Kellie Long ECONOMICS DEPARTMENT CHAIR [address] [place] [address] PCP - ACO Reach 06/23/23 [employer] Relationship Specialty Start Date End Date Libertad Domingo MD [address] [place] [address] PCP - General Family Medicine 06/30/22 Kellie Long ECONOMICS DEPARTMENT CHAIR [address] [place] [address] PCP - ACO Reach 06/23/23 [employer] Relationship Specialty Start Date End Date Libertad Domingo MD [address] [place] [address] PCP - General Family Medicine 06/30/22 Kellie Long NP [address] [place] [address] PCP - ACO Reach 06/23/23 [employer] Relationship Specialty Start Date End Date Libertad Domingo MD [address] [place] [address] PCP - General Family Medicine 06/30/22 Kellie Long ECONOMICS DEPARTMENT CHAIR [address] [place] [address] PCP - ACO Reach 06/23/23 [employer] Relationship Specialty Start Date End Date Libertad Domingo MD [address] [place] [address] PCP - General Family Medicine 06/30/22 Kellie Long NP [address] [facility] [place] [address] PCP - ACO Reach 06/23/23 [employer] Relationship Specialty Start Date End Date Libertad Domingo MD [address] [place] [address] PCP - General Family Medicine 06/30/22 Kellie Long NP [address] [facility] [place] [address] PCP - ACO Reach 06/23/23 [employer] Relationship Specialty Start Date End Date Libertad Domingo MD [address] [facility] [place] [address] PCP - General Family Medicine 06/30/22 Kellie Long NP [address] [facility] [place] [address] PCP - ACO Reach 06/23/23 Team Status: Active Member Role Status Dates Libertad Domingo MD Primary Care Provider Active Team Status: Inactive Member Role Status Dates Norman Quiles MD Attending Provider Active St art: January 12, 2024 End: January 12, 2024 Libertad Domingo MD Primary Care Provider Active Start: January 12, 2024 End: January 12, 2024 [employer] Relationship Specialty Start Date End Date Libertad Domingo MD [address] [facility] [place] [address] PCP - General Family Medicine 06/30/22 Kellie Long NP [address] [facility] [place] [address] PCP - ACO Reach 06/23/23 [employer] Relationship Specialty Start Date End Date Libertad Domingo MD [address] [place] [address] PCP - General Family Medicine 12/10/16 [employer] Relationship Specialty Start Date End Date Libertad Domingo MD [address] [place] [address] PCP - General Family Medicine 12/10/16 [employer] Relationship Specialty Start Date End Date Libertad Domingo MD [address] [place] [address] PCP - General Family Medicine 12/10/16 [employer] Relationship Specialty Start Date End Date Libertad Domingo MD [address] [facility] [place] [address] PCP - General Family Medicine 12/10/16 [employer] Relationship Specialty Start Date End Date Libertad Domingo MD [address] [facility] [place] [address] PCP - General Family Medicine 12/10/16 [employer] Relationship Specialty Start Date End Date Libertad Domingo MD [address] [facility] [place] [address] PCP - General Family Medicine 12/10/16 [employer] Relationship Specialty Start Date End Date Libertad Domingo MD [address] [place] [address] PCP - General Family Medicine 12/10/16 [employer] Relationship Specialty Start Date End Date Libertad Domingo MD [address] [facility] [place] [address] PCP - General Family Medicine 12/10/16 [employer] Relationship Specialty Start Date End Date Libertad Domingo MD [address] [facility] [place] [address] PCP - General Family Medicine 12/10/16 [employer] Relationship Specialty Start Date End Date WonderLibertad bello MD [address] [facility] [place] [address] PCP - General Family Medicine 06/30/22 Paige Hairston, GINGER Registered Nurse Family Medicine 02/22/24 [employer] Relationship Specialty Start Date End Date Wonderaaron, Libertad Roberson MD [address] [facility] [place] [address] PCP - General Family Medicine 06/30/22 Paige Hairston, GINGER Registered Nurse Family Medicine 02/22/24 [employer] Relationship Specialty Start Date End Date WonderlyLibertad MD [address] [facility] [place] [address] PCP - General Family Medicine 06/30/22 Paige Hairston, RN Registered Nurse Family Medicine 02/22/24 [employer] Relationship Specialty Start Date End Date WonderLibertad bello MD [address] [place] [address] PCP - General Family Medicine 06/30/22 Paige Hairston, RN Registered Nurse Family Medicine 02/22/24 [employer] Relationship Specialty Start Date End Date Wonderly, Libertad Crowder MD [address] [place] [address] Referring Family Medicine 06/20/24 [employer] Relationship Specialty Start Date End Date Wonderly, Libertad Crowder MD [address] [place] [address] Referring Family Medicine 06/20/24 [employer] Relationship Specialty Start Date End Date WonderLibertad bello, MD [address] [place] [address] PCP - General Family Medicine 06/30/22 Paige Hairston, RN Registered Nurse [facility] 02/22/24 [employer] Relationship Specialty Start Date End Date Wonderaaron, Libertad Crowder MD [address] [place] [address] Referring [facility] 06/20/24 [employer] Relationship Specialty Start Date End Date Wonderaaron, Libertad Crowder MD [address] [place] [address] Referring [facility] 06/20/24 [employer] Relationship Specialty Start Date End Date CezarLibertad bello MD PCP - General Family Medicine 06/30/22 Paige Hairston, GINGER Registered Nurse [facility] 02/22/24 Reason for Visit (unrecogniz ed section and content) Reason Comments Wrist Injury Wrist pain on right side. Reason Comments Pain Specialty Diagnoses / Procedures Referred By Contac t Referred To Contact Orthopaedic Surgery Diagnoses Wrist injury, right, initial encounter Tj, JOSE Powell [address] [place] [address] Phone: tel: fax: Jr. 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 AV 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, PFO, EKG, ECHO DONE @ [facility],SCHED W/PT+++PT PREVIOUSLY SAW NWOCC/PPC/MGI ABOUT 12 YRS AGO Specialty Diagnoses / Procedures Referred By Contac t Referred To Contact Cardiology Diagnoses Aortic valve insufficiency, etiology of cardiac valve disease unspecified Mitral valve insufficiency, unspecified etiology Patent foramen ovale Moderate pulmonary valve regurgitation Procedures CO OFFICE OUTPATIENT VISIT 60-74 MINS HIGH MDM AMB REFERRAL TO CARDIOLOGY Sofie Brumfield, DIGITAL ENGINEER-BLANCHARD GRINDER OPERATOR [address] [place] [address] Chitra Toribio MD [address] [place] [address] Referral ID Status Reason Start Date Expiration Date V isits Requested Visits Authorized [id number] Pending Review 04/21/2023 10/18/2023 1 1 Reason Comments Follow-up CT, STRESS DONE L/S BCD Reason Comments Follow-up 6 months Reason Comments Follow-up Cardiac Valve Problem Shortness of Breath Reason Onset Date Comments Cta cors 05/26/2024 Reason Comments Follow-up Reason Comments Patient Education Reason Comments New Patient Specialty Diagnoses / Procedures Referred By Contac t Referred To Contact CARDIOVASCULAR MEDICINE Diagnoses Abnormal stress test Procedures OFFICE/OUTPATIENT ESTABLISHED MOD MDM 30 MIN New office consult Libertad Domingo MD [address] [place] [address] Phone: tel: fax: Cardiology [address] [place] [address] Phone: tel: Referral ID Status Reason Start Date Expiration Date Visits Requested Visits Authorized [id number] Denied 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 Patient Cleared Patient agrees to sign AFR (INN Commercial or OON MA) OON Notification Letter 06/20/2024 08/19/2024 1 0 Reason Comments Follow-up Goals (unrecognized section and content) Goals may be documented in a n alternate section Source Comments (unrecognize d section and content) In the event this informatio n is protected by the Federal Confidentiality of Alcohol and Drug Abuse Patient Records regulations: The Federal rules restrict any use of the information to criminally investigate or prosecute any alcohol or drug abuse patient.[facility] CenterIn the event this information is protected by the Federal Confidentiality of Alcohol and Drug Abuse Patient Records regulations: The Federal rules restrict any use of the information to criminally investigate or prosecute any alcohol or drug abuse patient.[facility] CenterIn the event this information is protected by the Federal Confidentiality of Alcohol and Drug Abuse Patient Records regulations: The Federal rules restrict any use of the information to criminally investigate or prosecute any alcohol or drug abuse patient.[facility] CenterIn the event this information is protected by the Federal Confidentiality of Alcohol and Drug Abuse Patient Records regulations: The Federal rules restrict any use of the information to criminally investigate or prosecute any alcohol or drug abuse patient.[facility] CenterIn the event this information is protected by the Federal Confidentiality of Alcohol and Drug Abuse Patient Records regulations: The Federal rules restrict any use of the information to criminally investigate or prosecute any alcohol or drug abuse patient.[facility] FOR RECORDS PERTAINING TO PATIENTS WHO ARE [...] BE BASED ON THE PRIMARY CLINICAL RECORDS. [facility] CenterSportlyzer [facility]. provides no warranty or guarantee of the accuracy or completeness of information in this document.
[2024-10-04 16:31] LABS: Prostate Specific Antigen Dx 1.57 ng/mL (<=4.00)
== END 2024-10-04 14:57 | disposition home or self-care (01) ==
LOC: LAB 15:09
PROVIDERS: PCP Family Medicine; Visit Provider Urology
DX: C61 Malignant neoplasm of prostate (principal)
CPT/HCPCS: 36415; 84153